=== PATIENT | male | born 1955 | race Caucasian/White ===

== ENCOUNTER → 2023-05-15 | Outpatient (CLI) | payer MEDICARE, BC ==
--- NOTE | 2023-05-15 12:23 | XR ---
EXAMINATION TYPE: XR chest 2V DATE OF EXAM: 05/15/2023 COMPARISON: NONE TECHNIQUE: PA and lateral views submitted. HISTORY: Cough FINDINGS: Large area of lower lobe consolidation and pleural effusion. Biapical pleural thickening. Right lung clear. Heart size normal. Hypertrophic and degenerative change of the spine. 4 culture referring clin ician 12:19 PM 05/25/2023. IMPRESSION: 1. Large area of consolidation and pleural effusion correlate for pneumonia. Empyema in the different ial diagnosis.
== END | disposition home or self-care (01) ==
LOC: RADXRYALE 11:37
PROVIDERS: ATTEND Internal Medicine Gastroenterology
DX: J90 Pleural effusion, not elsewhere classified (principal); R05.9 Cough, unspecified; R91.8 Other nonspecific abnormal finding of lung field
CPT/HCPCS: 71046

== ENCOUNTER 2023-05-16 10:38 | Inpatient (IN) | payer MEDICARE, BC ==
[2023-05-16] MEDS ORDERED: SODIUM CHLORIDE 0.9% 1,000 ML IV STA (13:32)
--- NOTE | 2023-05-16 13:33 | ED ---
General Adult HPI <Rip Prado - Last Filed: 05/16/23 17:12> - General Source: patient Mode of arrival: ambulatory Limitations: no limitations <Zakia Sheehan - Last Filed: 05/21/23 23:52> - General Chief complaint: Upper Respiratory Infection Stated complaint: SOB Time Seen by Provider: 05/16/23 10:50 - History of Present Illness Initial comments: 67-year-old male has a history of hypertension and hyperlipidemia who presents to the emergency department reporting dehydration. States that he follows with a doctor in [place]. The physician completed blood work and it showed an elevated white blood cell count. He questioned whether the patient had any infectious symptoms. He did report that he had a cough. Primary care doctor sent him for an x-ray which [facility] X-ray showed pneumonia. He started him on Levaquin last night. Patient has taken one dose. His physician was concerned that he may be dehydrated and wanted him to get evaluated in the emergency department. Requested that he have a set of vitals obtained as he cannot physically evaluate the patient. Patient does not have a doctor in [place]. He states he has been eating and drinking. No loss of appetite. Denies any weight loss. No abdominal pain. No nausea, vomiting or diarrhea. Denies fevers. No other alleviating, precipitating or modifying factors (Zakia Sheehan) - Related Data Home Medications Medication Instructions Recorded Confirmed Atorvastatin [Lipitor] 10 mg PO DAILY 05/16/23 05/16/23 Ibuprofen [Motrin] 800 mg PO Q8H 05/16/23 05/16/23 Levofloxacin [Levaquin] 750 mg PO DAILY 05/16/23 05/16/23 Olmesartan [Benicar] 20 mg PO DAILY 05/16/23 05/16/23 Allergies Allergy/AdvReac Type Severity Reaction Status Date / Time No Known Allergies Allergy Verified 05/16/23 17:19 Review of Systems ROS Other: All systems not noted in ROS Statement are negative. <Rip Prado - Last Filed: 05/16/23 17:12> ROS Other: All systems not noted in ROS Statement are negative. <Zakia Sheehan - Last Filed: 05/21/23 23:52> ROS Statement: Those systems with pertinent positive or pertinent negative responses have been documented in the HPI. Past Medical History Past Medical History: Hyperlipidemia, Hypertension History of Any Multi-Drug Resistant Organisms: None Reported Past Surgical History: Hernia Repair Past Psychological History: No Psychological Hx Reported Smoking Status: Current every day smoker Past Alcohol Use History: None Reported Past Drug Use History: None Reported <Zakia Sheehan - Last Filed: 05/21/23 23:52> General Exam Limitations: no limitations General appearance: alert, in no apparent distress Head exam: Present: atraumatic, normocephalic, normal inspection Eye exam: Present: normal appearance, PERRL, EOMI. Absent: scleral icterus, conjunctival injection, periorbital swelling ENT exam: Present: normal exam, mucous membranes moist Neck exam: Present: normal inspection. Absent: tenderness, meningismus, lymphadenopathy Respiratory exam: Present: rales (left base), decreased breath sounds (left side). Absent: respiratory distress, wheezes, rhonchi, stridor Cardiovascular Exam: Present: regular rate, normal rhythm, normal heart sounds. Absent: systolic murmur, diastolic murmur, rubs, gallop, clicks GI/Abdominal exam: Present: soft, normal bowel sounds. Absent: distended, tenderness, guarding, rebound, rigid Extremities exam: Present: normal inspection, full ROM, normal capillary refill. Absent: tenderness, pedal edema, joint swelling, calf tenderness Back exam: Present: normal inspection Neurological exam: Present: alert, oriented X3, CN II-XII intact Psychiatric exam: Present: normal affect, normal mood Skin exam: Present: warm, dry, intact, normal color. Absent: rash <Zakia Sheehan - Last Filed: 05/21/23 23:52> Course Vital Signs 05/16/23 05/16/23 05/16/23 10:48 16:41 20:00 Temperature 97.8 F 100.5 F H 102 F H Pulse Rate 91 105 H 106 H Pulse Rate [ Pulse Oximetery ] Pulse Rate [ Radial] Respiratory 16 19 18 Rate Blood Pressure 135/83 145/77 142/92 Blood Pressure [Left Arm Sitting] Blood Pressure [Left Arm Supine] O2 Sat by Pulse 96 94 L 93 L Oximetry 05/16/23 05/17/23 05/17/23 21:00 02:00 06:00 Temperature 100.3 F H 97.9 F Pulse Rate 82 92 Pulse Rate [ Pulse Oximetery ] Pulse Rate [ Radial] Respiratory 20 18 Rate Blood Pressure 119/78 145/93 Blood Pressure [Left Arm Sitting] Blood Pressure [Left Arm Supine] O2 Sat by Pulse 94 L 95 Oximetry 05/17/23 05/17/23 05/17/23 07:52 09:25 13:17 Temperature 98.2 F 98.4 F Pulse Rate Pulse Rate [ Pulse Oximetery ] Pulse Rate [ 100 Radial] Respiratory 16 Rate Blood Pressure Blood Pressure 161/100 [Left Arm Sitting] Blood Pressure [Left Arm Supine] O2 Sat by Pulse 97 96 97 Oximetry 05/17/23 05/17/23 05/17/23 13:36 13:54 14:34 Temperature 101.3 F H Pulse Rate Pulse Rate [ 105 H Pulse Oximetery ] Pulse Rate [ 108 H 94 Radial] Respiratory 16 18 14 Rate Blood Pressure Blood Pressure 158/86 151/83 [Left Arm Sitting] Blood Pressure 153/92 [Left Arm Supine] O2 Sat by Pulse 95 95 Oximetry 05/17/23 05/17/23 15:51 16:32 Temperature 99.0 F 98.5 F Pulse Rate Pulse Rate [ 101 H 96 Pulse Oximetery ] Pulse Rate [ Radial] Respiratory Rate Blood Pressure Blood Pressure [Left Arm Sitting] Blood Pressure 114/69 [Left Arm Supine] O2 Sat by Pulse 94 L Oximetry Medical Decision Making - Lab Data Result diagrams: 05/16/23 13:33 05/16/23 13:33 <Rip Prado - Last Filed: 05/16/23 17:12> - Lab Data Result diagrams: 05/21/23 05:22 05/19/23 06:19 <Zakia Sheehan - Last Filed: 05/21/23 23:52> - Medical Decision Making Patient reevaluated by myself, Dr. Prado. Patient is updated on results and plan. Case was discussed in detail with Dr. Collins, who will admit covering hospital call. Chest x-ray reviewed. CT scans are still pending. There is concern for sepsis diagnosed at 1713. Blood culture and lactic acid and IV antibiotics have all been ordered. Diagnosis: Acute sepsis, acute pneumonia. Sepsis does have potential for life-threatening based of organ dysfunction. (Rip Prado) Was pt. sent in by a medical professional or institution (, PA, LITHOGRAPH PRESS FEEDER, urgent care, hospital, or senior care...) When possible be specific @ -Patient was sent by his primary care doctor Did you speak to anyone other than the patient for history (EMS, parent, family, police, friend...)? What history was obtained from this source @ -No Did you review nursing and triage notes (agree or disagree)? Why? @ -I reviewed and agree with nursing and triage notes Were old charts reviewed (outside hosp., previous admission, EMS record, old EKG, old radiological studies, urgent care reports/EKG's, senior care records)? Report findings @ -I reviewed the x-ray that the patient had completed yesterday Differential Diagnosis (chest pain, altered mental status, abdominal pain women, abdominal pain men, vaginal bleeding, weakness, fever, dyspnea, syncope, head ache, dizziness, GI bleed, back pain, seizure, CVA, palpatations, mental health, musculoskeletal)? @ -Differential Dyspnea: Coronary syndrome, arrhythmia, tamponade, asthma, COPD, pulmonary embolism, pneumonia, pneumothorax, pulmonary effusion, anaphylaxis, diabetic ketoacidosis, flailed chest, pulmonary contusion, diaphragmatic rupture, anemia, neuromuscular, this is not meant to be an all-inclusive list. EKG interpreted by me (3pts min.). @ -Yes and demonstrates sinus tachycardia with a rate of 101. NV interval 136. QRS 106. QTC 396. No ST segment elevation or depression X-rays interpreted by me (1pt min.). @ -Yes and demonstrated a left-sided pleural effusion with possible pneumonia CT interpreted by me (1pt min.). @ -Pending U/S interpreted by me (1pt. min.). @ -None done What testing was considered but not performed or refused? (CT, X-rays, U/S, labs)? Why? @ -None What meds were considered but not given or refused? Why? @ -None Did you discuss the management of the patient with other professionals (rahel smith i.e. JAMES Garcia, LITHOGRAPH PRESS FEEDER, lab, RT, psych nurse, psychotherapist social worker, tourist home keeper, teacher, driver license reviewing officer, major case detective)? Give summary @ -With Dr. Prado who will take over this patients care Was smoking cessation discussed for >3mins.? @ -No Was critical care preformed (if so, how long)? @ -No Were there social determinants of health that impacted care today? How? (Homelessness, low income, unemployed, alcoholism, drug addiction, transportation, low edu. Level, literacy, decrease access to med. care, detention, rehab)? @ -No Was there de-escalation of care discussed even if they declined (Discuss DNR or withdrawal of care, Hospice)? DNR status @ -No What co-morbidities impacted this encounter? (DM, HTN, Smoking, COPD, CAD, Cancer, CVA, ARF, Chemo, Hep., AIDS, mental health diagnosis, sleep apnea, morbid obesity)? @ -htn, hld Was patient admitted / discharged? Hospital course, mention meds given and route, prescriptions, significant lab abnormalities, going to OR and other per tinent info. @ -Upon arrival patient was placed into hallway 10. History and physical exam was performed. IV access is established and laboratory studies are conducted. Chest x-ray was repeated. Does demonstrate a left-sided pleural effusion. Patient has elevated liver enzymes. Requested to complete a CT for which the patient was agreeable. Patient will be signed out to Dr. Prado at this time Undiagnosed new problem with uncertain prognosis? @ -yes Drug Therapy requiring intensive monitoring for toxicity (Heparin, Nitro, Insulin, Cardizem)? @ -No Were any procedures done? @ -No (Zakia Sheehan) - Lab Data Lab Results 05/16/23 05/16/23 05/16/23 Range/Units 13:33 13:33 13:33 WBC 22.6 H (3.8-10.6) k/uL RBC 3.88 L (4.30-5.90) m/uL Hgb 11.9 L (13.0-17.5) gm/dL Hct 35.1 L (39.0-53.0) % MCV 90.5 (80.0-100.0) fL MCH 30.6 (25.0-35.0) pg MCHC 33.8 (31.0-37.0) g/dL RDW 13.0 (11.5-15.5) % Plt Count 515 H (150-450) k/uL MPV 8.2 Neutrophils % (Manual) 72 % Band Neuts % (Manual) 2 % Lymphocytes % (Manual) 13 % Monocytes % (Manual) 12 % Eosinophils % (Manual) 1 % Neutrophils # (Manual) 16.70 H (1.3-7.7) k/uL Lymphocytes # (Manual) 2.94 (1.0-4.8) k/uL Monocytes # (Manual) 2.71 H (0-1.0) k/uL Eosinophils # (Manual) 0.23 (0-0.7) k/uL Nucleated RBCs 0 (0-0) /100 WBC Manual Slide Review Performed RBC Morphology Normal Sodium 136 L (137-145) mmol/L Potassium 5.0 (3.5-5.1) mmol/L Chloride 102 (98-107) mmol/L Carbon Dioxide 21 L (22-30) mmol/L Anion Gap 13 mmol/L BUN 17 (9-20) mg/dL Creatinine 0.76 (0.66-1.25) mg/dL Est GFR (CKD-EPI)AfAm >90 (>60 ml/min/1.73 sqM) Est GFR (CKD-EPI)NonAf >90 (>60 ml/min/1.73 sqM) Glucose 91 (74-99) mg/dL Plasma Lactic Acid Cole 1.2 (0.7-2.0) mmol/L Calcium 8.9 (8.4-10.2) mg/dL Total Bilirubin 0.8 (0.2-1.3) mg/dL AST 154 H (17-59) U/L ALT 216 H (4-49) U/L Alkaline Phosphatase 185 H (38-126) U/L NT-Pro-B Natriuret Pep 201 pg/mL Total Protein 6.9 (6.3-8.2) g/dL Albumin 3.4 L (3.5-5.0) g/dL Disposition Is patient prescribed a controlled substance at d/c from ED?: No Time of Disposition: 17:14 <Rip Prado - Last Filed: 05/16/23 17:12> <Zakia Sheehan - Last Filed: 05/21/23 23:52> Clinical Impression: Pneumonia, Sepsis Disposition: ADMITTED IP TO THIS HOSP Condition: Serious
[2023-05-16 14:50] LABS: HCT 35.1 % (39.0-53.0); HGB 11.9 gm/dL (13.0-17.5); MCH 30.6 pg (25.0-35.0); MCHC 33.8 g/dL (31.0-37.0); MCV 90.5 fL (80.0-100.0); Mean Platelet Volume 8.2; Platelet Count 515 k/uL (150-450); RBC 3.88 m/uL (4.30-5.90); WBC 22.6 k/uL (3.8-10.6)
[2023-05-16 14:51] LABS: ALT 216 U/L (4-49); AST 154 U/L (17-59); African American GFR (CKD) >90 (>60 ml/min/1.73 sqM); Albumin 3.4 g/dL (3.5-5.0); Alkaline Phosphatase 185 U/L (38-126); Anion Gap 13 mmol/L; Blood Urea Nitrogen 17 mg/dL (9-20); Calcium 8.9 mg/dL (8.4-10.2); Carbon Dioxide 21 mmol/L (22-30); Chloride 102 mmol/L (98-107); Glucose 91 mg/dL (74-99); Non-African American GFR(CKD) >90 (>60 ml/min/1.73 sqM); Sodium 136 mmol/L (137-145); Total Bilirubin 0.8 mg/dL (0.2-1.3); Total Protein 6.9 g/dL (6.3-8.2)
[2023-05-16 14:58] LABS: NT-Pro-B-Type Natriuretic Pept 201 pg/mL
--- NOTE | 2023-05-16 15:06 | XR ---
EXAMINATION TYPE: XR chest 2V DATE OF EXAM: 05/16/2023 2:59 PM COMPARISON: Chest radiographs from 05/15/2023 TECHNIQUE: XR chest 2V Frontal and lateral views of the chest. CLINICAL INDICATION:Male, 67 years old with history of difficulty breathing; FINDINGS: Lungs/Pleura: No pneumothorax. Similar large area of consolidation within the left mid and lower lung with associated pleural effusion. Pulmonary vascularity: Unremarkable. Heart/mediastinum: Cardiomediastinal silhouette is partially obscured due to overlying and adjacent o pacities. Musculoskeletal: Multiple level degenerative disc disease changes seen throughout the spine. IMPRESSION: Similar large area of consolidation and pleural effusion within the left mid and lower lung. Correlat e for pneumonia with empyema not excluded.
[2023-05-16 15:31] LABS: Band Neutrophils % 2 %; Eosinophils # (M) 0.23 k/uL (0-0.7); Lymphocytes # (M) 2.94 k/uL (1.0-4.8); Monocytes # (M) 2.71 k/uL (0-1.0); Neutrophils % (M) 72 %; Nucleated Red Blood Cells 0 /100 WBC (0-0); Total Cells Counted 100
[2023-05-16 15:32] LABS: RBC Morphology Normal
[2023-05-16] MEDS ORDERED: cefTRIAXone IN SWFI 1,000 MG/10 ML SYRINGE IVP STA (15:32)
[2023-05-16] MEDS ORDERED: AZITHROMYCIN 500 MG in SODIUM CHLORIDE 0.9% 250 ML IVPB STA (15:33)
[2023-05-16] MEDS ORDERED: PNEUMONIA PROTOCOL UTILIZED 1 EACH MISC PO PRN (17:14)
[2023-05-16] MEDS ORDERED: IPRATROPIUM-ALBUTEROL 3 ML NEB INHALATION PRN (17:14)
[2023-05-16] MEDS: SODIUM CHLORIDE 0.9% 1,000 ML IV SCH (17:19)
--- NOTE | 2023-05-16 17:59 | CT ---
EXAMINATION TYPE: CT abdomen pelvis w con DATE OF EXAM: 05/16/2023 COMPARISON: None INDICATION: sent by pcp for abnormal cxr DLP: 1234.8 mGycm, Automated exposure control for dose reduction was used. CONTRAST: 100 mL of Isovue 370. Study performed without Oral Contrast TECHNIQUE: Axial images were obtained from above the diaphragm to the pubic rami in the axial plane a t 5 mm thick sections. Reconstructed images are reviewed on the computer in the coronal plane. FINDINGS: Limited CT sections are obtained the lung bases. There appears to be a loculated pleural effusion at the left lung base. Right lung base is clear.. CT ABDOMEN: Liver: Normal Spleen: Normal Pancreas: Normal Adrenal glands: The adrenal glands are normal. Gallbladder: Normal Kidneys: No masses are evident. No hydronephrosis is present. No cysts are present. Delayed images were obtained through the kidneys, which remain unremarkable. Aorta: Vascular calcification is within the aorta. Inferior vena cava: Normal. CT PELVIS: Loops of bowel within the abdomen and pelvis are normal. There are loops of bowel which are incom pletely distended or lack oral contrast limiting their evaluation. Appendix: Normal as visualized. Urinary bladder: Normal. Genitourinary structures: Prostate is unremarkable. Osseous structures: No suspicious lytic or sclerotic lesions. IMPRESSION: 1. Loculated pleural effusion left lung base partially visualized within the [id number]. 2. CT abdomen and pelvis without acute radiographic changes.
--- NOTE | 2023-05-16 18:04 | CT ---
CT CHEST FOR PULMONARY EMBOLISM. EXAMINATION TYPE: CT chest angio for PE DATE OF EXAM: 05/16/2023 INDICATION: sent by pcp for abnormal cxr CT DLP: 518.6 mGycm, Automated exposure control for dose reduction was used. CONTRAST: Patient injected with 100 mL of Isovue 370. COMPARISON: TECHNIQUE: CT of the chest is performed on a spiral scan at 2 mm thick sections. Study is performed with intravenous contrast timed for evaluation for pulmonary embolism. This will limit additional po rtions of the evaluation. 3-D MIP images reconstructed by the technologist are reviewed on the compu ter in the coronal and sagittal planes. FINDINGS: No persistent filling defects are evident to suggest an acute pulmonary embolism. Left pulmonary harlan heather are somewhat limited in visualization due to the atelectasis. Multiple small bilateral axillary lymph nodes are present. Shotty lymphadenopathy is within the super ior mediastinum. There are couple of prominent lymph nodes adjacent to the main pulmonary artery bárbara uring 1.1 cm each. Image 60-61 some small hilar adenopathy is present. The ascending aorta diameter a t the level of the main pulmonary artery is 3.8 cm. The main pulmonary artery diameter at the bifurc ation is 3.0 cm. There is a loculated pleural effusion at the left lung base and left midlung. Compressive atelectasis within the left lung is present. There is a 1.7 cm lobular density within the posterior lateral right lung. Series 401 image 97. Addit ional workup for neoplasm is recommended. Limited CT section through the upper abdomen are unremarkable. IMPRESSION: 1. Loculated pleural fluid left lung. Adjacent compressive atelectasis is present. 2. No acute pulmonary embolism. 3. 1.7 cm lobular mass posterior lateral right midlung. Workup for neoplasm is recommended. 4. Multiple shotty lymph nodes within the axillary artery regions and mediastinum. Couple of enlarged lymph nodes or adjacent to the main pulmonary artery.
[2023-05-16] MEDS ORDERED: ACETAMINOPHEN TAB 500 MG TAB PO STA (20:07)
[2023-05-17] MEDS: IBUPROFEN 800 MG TAB PO SCH ×4 (00:58→23:40)
[2023-05-17] MEDS: NICOTINE 21MG/24HR PATCH TRANSDERM SCH ×2 (00:59→09:17)
--- NOTE | 2023-05-17 01:36 | P.HPIM ---
History of Present Illness H&P Date: 05/16/23 Chief Complaint: cough Patient is a 67-year-old male with a past medical history of hypertension, hyperlipidemia, currently everyday smoker was sent to ER by his primary care physician due to concern for pneumonia and dehydration. Patient states that he was seen by his primary care physician at [place] about 2 weeks ago and was noticed that his WBC was elevated. Patient did did have some cough but without any other signs of infection at that time. Patient came to [place] and started having fever, sweats and not feeling well since last weekend. He contacted his primary care physician again and was sent to [facility] for x-ray which showed pneumonia. He was started on antibiotics in the form of Levaquin last night. Patient did take 1 dose. Patients primary care physician concerned about possible dehydration as well and was recommended to go to emergency room for further evaluation. Patient otherwise complains of cough without sputum production. No nausea vomiting or diarrhea. No chest pain. No complaints of shortness of breath. Patient states that he has been having left lower back pain and also left shoulder pain since last Monday and thought it may be due his increased outside work recently. On admission patient was febrile with Tmax 100.5 pulse is 105 and respiration 19 pulse ox 94% on room air. Chest x-ray showed similar large area of consolidation and pleural effusion within the left mid and lower lung. Correlate for pneumonia with emphysema not excluded. EKG showed sinus tachycardia. Laboratory pressure WBC 22.6 hemoglobin 11.9 and platelets 515 Sodium 136 potassium 5.0 chloride 102 bicarb is 21 BUN 17 and creatinine 0.76 and liver enzymes elevated with ALT 216, AST 154 and alk phos 185, LDH 604. proBNP 201 and albumin 3.4. Review of Systems Constitutional: Patient DDF fever and sweating and malaise.. Generalized weakness. Denies any weight loss or loss of appetite. Abdomen: Patient denied any nausea or vomiting or abd. pain Cardiovascular: Patient denies any chest pain or short of breath no palpitations. Respiratory: patient does have cough without sputum production. Mild shortness of breath. Neurologic: Patient denied any numbness or tingling headache. Musculoskeletal: Patient denies any complaints of joint swelling or deformity. Left back pain and shoulder pain Skin: Negative Psychiatric: Negative Endocrine: No heat or cold intolerance. No recent weight gain. Genitourinary: No dysuria or hematuria. All other 14 point ROS negative except the above Past Medical History Past Medical History: Hyperlipidemia, Hypertension History of Any Multi-Drug Resistant Organisms: None Reported Past Surgical History: Hernia Repair Past Psychological History: No Psychological Hx Reported Smoking Status: Current every day smoker Past Alcohol Use History: None Reported Past Drug Use History: None Reported Medications and Allergies Home Medications Medication Instructions Recorded Confirmed Type Atorvastatin [Lipitor] 10 mg PO DAILY 05/16/23 05/16/23 History Ibuprofen [Motrin] 800 mg PO Q8H 05/16/23 05/16/23 History Levofloxacin [Levaquin] 750 mg PO DAILY 05/16/23 05/16/23 History Olmesartan [Benicar] 20 mg PO DAILY 05/16/23 05/16/23 History Allergies Allergy/AdvReac Type Severity Reaction Status Date / Time No Known Allergies Allergy Verified 05/16/23 17:19 Physical Exam Vitals: Vital Signs Temp Pulse Resp BP Pulse Ox 05/16/23 16:41 100.5 F H 105 H 19 145/77 94 L 05/16/23 10:48 97.8 F 91 16 135/83 96 Intake and Output 05/16/23 05/16/23 05/16/23 06:59 14:59 22:59 Other: Weight 97.522 kg PHYSICAL EXAMINATION: Patient is lying in the bed comfortably, no acute distress, awake alert and oriented.. HEENT: Normocephalic. Neck is supple. Pupils reactive. Nostrils clear. Oral cav ity is moist. Neck reveals no JVD, carotid bruits, or thyromegaly. CHEST EXAMINATION: Trachea is central. Symmetrical expansion. Left lower lung scattered coarse sounds. No wheezing. Nonlabored breathing.. CARDIAC: Normal S1, S2 with no gallops. No murmurs ABDOMEN: Soft. Bowel sounds present. Nontender. No organomegaly. No abdominal bruits. Extremities: reveal no edema. No clubbing or cyanosis Neurologically awake, alert, oriented x3 with well-coordinated movements. No focal deficits noted Skin: No rash or skin lesions. Psychiatric: Coperative. Nonsuicidal, Musculoskeletal: No joint swelling or deformity. Normal range of motion. Results CBC & Chem 7: 05/16/23 13:33 05/16/23 13:33 Labs: Abnormal Lab Results - Last 24 Hours (Table) 05/16/23 05/16/23 Range/Units 13:33 13:33 WBC 22.6 H (3.8-10.6) k/uL RBC 3.88 L (4.30-5.90) m/uL Hgb 11.9 L (13.0-17.5) gm/dL Hct 35.1 L (39.0-53.0) % Plt Count 515 H (150-450) k/uL Neutrophils # (Manual) 16.70 H (1.3-7.7) k/uL Monocytes # (Manual) 2.71 H (0-1.0) k/uL Sodium 136 L (137-145) mmol/L Carbon Dioxide 21 L (22-30) mmol/L AST 154 H (17-59) U/L ALT 216 H (4-49) U/L Alkaline Phosphatase 185 H (38-126) U/L Albumin 3.4 L (3.5-5.0) g/dL Thrombosis Risk Factor Assmnt - DVT/VTE Prophylaxis DVT/VTE Prophylaxis: Pharmacologic Prophylaxis ordered Assessment and Plan Assessment: Acute left mid and lower lung pneumonia with large area of consolidation and pleural effusion. Possible underlying malignancy cannot be excluded. Sepsis secondary to pneumonia Elevated liver enzymes Hypertension Hyperlipidemia Currently everyday smoker DVT prophylaxis with heparin subcu Plan: Patient will be continued on antibiotics in the form of ceftriaxone and azithromycin. Gentle IV hydration. CT thorax was ordered to to rule out underlying mass. Follow-up blood cultures. Continue with home medications and pain management. Pulmonary consult for further evaluation. Follow-up repeat CBC and BMP tomorrow. Discussed with the patient at bedside in detail. Time with Patient: Greater than 30
[2023-05-17] MEDS: SODIUM CHLORIDE 0.9% 1,000 ML IV SCH ×3 (03:30→23:41)
--- NOTE | 2023-05-17 07:23 | XR ---
EXAMINATION TYPE: XR chest 2V DATE OF EXAM: 05/17/2023 COMPARISON: 05/16/2023 HISTORY: Shortness of breath TECHNIQUE: Frontal and lateral views of the chest are obtained. FINDINGS: Scattered senescent parenchymal changes noted. Hyperinflation compatible with COPD. Large left sided opacity likely reflects a combination of pleural effusion and underlying infiltrate as well as atelectasis. Heart size is stable. Mediastinal structures are stable and grossly unremarkable. No evidence for hilar prominence. Degenerative changes dorsal spine. IMPRESSION: 1. Large left sided opacity likely reflects a combination of pleural effusion and underlying infiltra te as well as atelectasis. Significant change appreciated.
--- NOTE | 2023-05-17 07:58 | P.PN ---
Subjective Patient is a 67-year-old male with a past medical history of hypertension, hyperlipidemia, currently everyday smoker was sent to ER by his primary care physician due to concern for pneumonia and dehydration. Patient states that he was seen by his primary care physician at [place] about 2 weeks ago and was noticed that his WBC was elevated. Patient did did have some cough but without any other signs of infection at that time. Patient came to [place] and started having fever, sweats and not feeling well since last weekend. He contacted his primary care physician again and was sent to [facility] for x-ray which showed pneumonia. He was started on antibiotics in the form of Levaquin last night. Patient did take 1 dose. Patients primary care physician concerned about possible dehydration as well and was recommended to go to emergency room for further evaluation. Patient otherwise complains of cough without sputum production. No nausea vomiting or diarrhea. No chest pain. No complaints of shortness of breath. Patient states that he has been having left lower back pain and also left shoulder pain since last Monday and thought it may be due his increased outside work recently. On admission patient was febrile with Tmax 100.5 pulse is 105 and respiration 19 pulse ox 94% on room air. Chest x-ray showed similar large area of consolidation and pleural effusion within the left mid and lower lung. Correlate for pneumonia with emphysema not excluded. EKG showed sinus tachycardia. Laboratory pressure WBC 22.6 hemoglobin 11.9 and platelets 515 Sodium 136 potassium 5.0 chloride 102 bicarb is 21 BUN 17 and creatinine 0.76 a nd liver enzymes elevated with ALT 216, AST 154 and alk phos 185, LDH 604. proBNP 201 and albumin 3.4. 05/17/2023 patient was complaining of from back injury when he fell about 3 weeks ago. , After that [facility] [place] [facility]. 2 weeks ago he saw his PCP and [facility] for regular checkup patient was noticed to have leukocytosis but denies any other symptoms.. After patient came from [facility] about a week ago he went to his orthopedic doctor who checked his back pain with x-ray and prescribed Motrin 800 mg 3 times a day. The last Monday he was sweating a lot with high fever 103. He called his PCP on Monday who prescribed him Levaquin after chest x-ray and asked him to come to emergency room. Patient complaining from mild tachypnea but with little clear phlegm. No chest pain only with coughing. He has little diarrhea but feels better. No urinary or neurological symptoms. He smokes about 1 pack per day and he decided to close last Monday and currently he has nicotine patch. He denies alcohol or illicit drugs. Patient is afebrile on admission at 102 he is saturating well on room air Labs showed leukocytosis of 22.6K, hemoglobin 11.9, platelet count 515 BMP is unremarkable Liver enzymes elevated with AST 154 and ALT 216 with lactated dehydrogenase elevated at 600-8. ProBNP is 201. CTA of the chest: Loculated left pleural effusion with adjacent atelectasis. No pulmonary embolism. 1.7 cm lobular mass in the right midlung. And axillary and mediastinal lymphadenopathy On admission patient was started on Zithromax, ceftriaxone, IV fluids and admitted with pulmonary team consult Review of systems CONSTITUTIONAL: No fever, no malaise, no fatigue. HEENT: No recent visual problems or hearing problems. Denied any sore throat. GASTROINTESTINAL: No diarrhea, no nausea, no vomiting, no abdominal pain. Normoactive bowel sounds. NEUROLOGICAL: No headaches, no weakness, no numbness. HEMATOLOGICAL: Denies any bleeding or petechiae. GENITOURINARY: Denies any burning micturition, frequency, or urgency. MUSCULOSKELETAL/RHEUMATOLOGICAL: Denies any joint pain, swelling, or any muscle pain. Active Medications Generic Name Dose Route Start Last Admin Trade Name Freq PRN Reason Stop Dose Admin Albuterol/Ipratropium 3 ml 05/16/23 17:14 Ipratropium-Albuterol 3 Ml Neb INHALATION RT-Q4H PRN shortness of breath Atorvastatin Calcium 10 mg 05/17/23 09:00 Atorvastatin 10 Mg Tab PO DAILY JOSELYN Azithromycin 500 mg 05/17/23 09:00 Azithromycin 500 Mg Tab PO 05/18/23 09:01 DAILY [facility] Protocol Heparin Sodium (Porcine) 5,000 unit 05/17/23 08:00 Heparin Sodium,Porcine 5,000 Unit/Ml 1 Ml Vial SQ Q8HR JOSELYN Sodium Chloride 1,000 mls @ 100 mls/hr 05/16/23 17:15 05/17/23 03:30 Saline 0.9% IV 100 mls/hr .Q10H JOSELYN Administration Ceftriaxone Sodium 2 gm/ 50 mls @ 100 mls/hr 05/17/23 09:00 Sodium Chloride IVPB 05/20/23 09:29 Q24HR JOSELYN Protocol Ibuprofen 800 mg 05/16/23 23:15 05/17/23 00:58 Ibuprofen 800 Mg Tab PO 800 mg Q8H JOSELYN Administration Losartan Potassium 100 mg 05/17/23 09:00 Losartan 50 Mg Tab PO DAILY JOSELYN Miscellaneous Information 1 each 05/16/23 17:14 Pneumonia Protocol Utilized 1 Each Misc PO ONCE PRN Per Protocol Nicotine 1 patch 05/16/23 23:45 05/17/23 00:59 Nicotine 21mg/24hr Patch TRANSDERM 1 patch DAILY JOSELYN Administration Objective - Vital Signs Vital signs: Vital Signs Temp 97.9 F 05/17/23 02:00 Pulse 92 05/17/23 06:00 Resp 18 05/17/23 06:00 BP 145/93 05/17/23 06:00 Pulse Ox 97 05/17/23 07:52 FiO2 Intake & Output 05/16/23 05/17/23 05/17/23 18:59 06:59 18:59 Weight 97.522 kg - Exam GENERAL: The patient is alert and oriented x3, not in any acute distress. Well developed, well nourished. HEENT: Pupils are round and equally reacting to light. EOMI. No scleral icterus. No conjunctival pallor. Normocephalic, atraumatic. No pharyngeal erythema. No thyromegaly. CARDIOVASCULAR: S1 and S2 present. No murmurs, rubs, or gallops. PULMONARY: Chest is clear to auscultation, no wheezing , no crackles. ABDOMEN: Soft, nontender, nondistended, normoactive bowel sounds. No palpable organomegaly. MUSCULOSKELETAL: No joint swelling or deformity. EXTREMITIES: No cyanosis, clubbing, or pedal edema. NEUROLOGICAL: Gross neurological examination did not reveal any focal deficits. SKIN: No rashes. no petechiae. - Labs CBC & Chem 7: 05/16/23 13:33 05/16/23 13:33 Labs: Abnormal Lab Results - Last 24 Hours (Table) 05/16/23 05/16/23 05/17/23 Range/Units 13:33 13:33 13:33 WBC 22.6 H (3.8-10.6) k/uL RBC 3.88 L (4.30-5.90) m/uL Hgb 11.9 L (13.0-17.5) gm/dL Hct 35.1 L (39.0-53.0) % Plt Count 515 H (150-450) k/uL Neutrophils # (Manual) 16.70 H (1.3-7.7) k/uL Monocytes # (Manual) 2.71 H (0-1.0) k/uL Sodium 136 L (137-145) mmol/L Carbon Dioxide 21 L (22-30) mmol/L AST 154 H (17-59) U/L ALT 216 H (4-49) U/L Alkaline Phosphatase 185 H (38-126) U/L Lactate Dehydrogenase 608 H (120-246) U/L Albumin 3.4 L (3.5-5.0) g/dL Assessment and Plan Assessment: Right midlung lung mass with axillary and mediastinal lymphadenopathy, patient is aware Sepsis with leukocytosis and fever Community acquired pneumonia, failed outpatient therapy Nicotine dependence Hypertension Hyperlipidemia Plan: Continue with antibiotic Follow-up culture results Pulmonary team consult Labs and medication were reviewed.. Continue same treatment. Continue with symptomatic treatment. Resume home medication. Monitor labs and vitals. DVT and GI prophylaxis. Further recommendations as per clinical course of the patient DVT prophylaxis: Subcutaneous heparin GI Prophylaxis: Pepcid PT/OT: Pending Prognosis is guarded
--- NOTE | 2023-05-17 08:04 | P.CNPUL ---
History of Present Illness Consult date: 05/17/23 Requesting physician: Rip Prado Reason for consult: pleural effusion Chief complaint: Left-sided back pain and fevers History of present illness: I am seeing this patient in [facility] today 05/17/2023 in the emergency room for a loculated left-sided pleural effusion. Patient is a 67-year-old male with past medical history significant for hypertension and hyperlipidemia. Patient lives in [place], and plans to move to [place] this Fall. His primary care provider is out of [facility]. Patient states that he started to have left-sided back pain and left shoulder pain approximately 3 weeks ago. He originally attributed this to yard work. Starting last week, he began to develop fevers, chills, and shortness of breath. He denies any cough or hemoptysis. He denies any nausea, vomiting, constipation, abdominal pain. Appetite has been good. Denies any weight loss. Denies any prior history of cancer. Patient does smoke approximately 1 pack per day. Patient did end up going to an urgent care clinic 2 days ago. He was felt to have left-sided pneumonia, and was started on a course of Levaquin. He only completed one dose of Levaquin, and came to the emergency room for worsening symptoms yesterday afternoon. A follow-up chest CTA demonstrated a loculated left pleural effusion with adjacent compressive atelectasis. There is pleural thickening. There was mild lymphadenopathy demonstrated within the superior mediastinum, hilum, and bilateral axillary nodes. There was also a 1.7 cm lobe either density within the posterior lateral right lung, which will require follow-up. No prior imaging for comparison. An abdominal and pelvis CT with contrast did not demonstrate any acute intra- abdominal abnormalities. CBC on arrival showed some leukocytosis with a WBC co unt of 22.6, hgb 11.9, hematocrit 35.1, platelets 515. CMP on arrival showed sodium 136, potassium 5, chloride 102, serum bicarbonate 21, BUN 17, creatinine 0.76, glucose 91. Normal saline is infusing at 100 mL per hour. LFTs were mildly elevated with an AST of 154, ALT of 216, ALP of 185. Patient has been empirically started on a combination of azithromycin and Rocephin. He remains febrile with a T-max of 102F on the hospital. He is currently sitting up in bed, on room air, in no acute distress. He appears nontoxic and is symptomatically stable. He will be admitted to the general medical floor. Review of Systems REVIEW OF SYSTEMS: CONSTITUTIONAL: Denies any recent significant weight loss or weight gain. EYES: Denies change in vision. EARS, NOSE, MOUTH, THROAT: Denies headaches, denies sore throat. CARDIOVASCULAR: Denies chest pain, palpitations or syncopal episodes. RESPIRATORY: See HPI GASTROINTESTINAL: Denies change in appetite, abdominal pain, nausea and vomiting, or diarrhea GENITOURINARY: Denies hematuria, denies infections. MUSKULOSKELETAL: Denies pain, denies swelling. INTEGUMENTARY: Denies rash, denies eczema. NEUROLOGICAL: Denies recent memory loss, no recent seizure activity. PSYCHIATRIC: Denies anxiety, denies depression. HEMATOLOGIC/LYMPHATIC: Denies anemia, denies enlarged lymph node Past Medical History Past Medical History: Hyperlipidemia, Hypertension History of Any Multi-Drug Resistant Organisms: None Reported Past Surgical History: Hernia Repair Past Psychological History: No Psychological Hx Reported Smoking Status: Current every day smoker Past Alcohol Use History: None Reported Past Drug Use History: None Reported Medications and Allergies Home Medications Medication Instructions Recorded Confirmed Type Atorvastatin [Lipitor] 10 mg PO DAILY 05/16/23 05/16/23 History Ibuprofen [Motrin] 800 mg PO Q8H 05/16/23 05/16/23 History Levofloxacin [Levaquin] 750 mg PO DAILY 05/16/23 05/16/23 History Olmesartan [Benicar] 20 mg PO DAILY 05/16/23 05/16/23 History Allergies Allergy/AdvReac Type Severity Reaction Status Date / Time No Known Allergies Allergy Verified 05/16/23 17:19 Physical Exam Vitals: Vital Signs Temp Pulse Resp BP Pulse Ox 05/16/23 21:00 100.3 F H 05/16/23 20:00 102 F H 106 H 18 142/92 93 L 05/16/23 16:41 100.5 F H 105 H 19 145/77 94 L 05/16/23 10:48 97.8 F 91 16 135/83 96 Intake and Output 05/16/23 05/16/23 05/17/23 14:59 22:59 06:59 Other: Weight 97.522 kg GENERAL EXAM: Alert, 67-year-old white male appearing stated age , comfortable in no apparent distress. HEAD: Normocephalic and atraumatic EYES: Normal reaction of pupils, equal size. NOSE: Clear with pink turbinates. THROAT: No erythema or exudates. NECK: No masses, no JVD. CHEST: No chest wall deformity. LUNGS: There is diminished left lower lung sounds. No wheezes, rhonchi, crackles. On room air. No conversational dyspnea or accessory muscle use.. CVS: S1 and S2 normal with no audible murmur, regular rhythm. No extra heart sounds ABDOMEN: No hepatosplenomegaly, active bowel sounds, no guarding or rigidity. SPINE: No scoliosis or deformity SKIN: No rashes CENTRAL NERVOUS SYSTEM: No focal deficits, tone is normal in all 4 extremities. EXTREMITIES: There is no peripheral edema, clubbing, or cyanosis. Peripheral pulses are intact. Results - Laboratory Findings CBC and BMP: 05/16/23 13:33 05/16/23 13:33 Abnormal lab findings: Abnormal Labs 05/16/23 05/16/23 13:33 13:33 WBC 22.6 H RBC 3.88 L Hgb 11.9 L Hct 35.1 L Plt Count 515 H Neutrophils # (Manual) 16.70 H Monocytes # (Manual) 2.71 H Sodium 136 L Carbon Dioxide 21 L AST 154 H ALT 216 H Alkaline Phosphatase 185 H Albumin 3.4 L - Diagnostic Findings Chest x-ray: image reviewed CT scan - chest: image reviewed Assessment and Plan Assessment: Community acquired pneumonia and loculated left-sided pleural effusion. Chest CTA demonstrated a loculated left pleural effusion with adjacent compressive atelectasis. There is pleural thickening. There was mild lymphadenopathy demonstrated within the superior mediastinum, hilum, and bilateral axillary nod es. There was also a 1.7 cm lobular density within the posterior lateral right lung, which will require follow-up. Malignancy is not excluded. No prior imaging for comparison. Leukocytosis Right pulmonary nodule, measuring 1.7 cm, as demonstrated on chest CTA Chronic and ongoing tobacco dependence Benign essential hypertension Hyperlipidemia Mild transaminitis, undetermined significance, the patient did recently start on statins Plan: Patient's medications, labs, imaging reviewed On room air Recommend IR consult with pleural drainage catheter and thrombolytics. Continue empiric antibiotics Pulmonary nodule will need outpatient follow-up, no prior imaging for comparison Smoking cessation counseling performed Nicotine replacement offered We will continue to follow, and further recommendations are forthcoming. I have personally seen and examined the patient, performed the documentation and the assessment and plan as written. Number of minutes spent on the visit:20
[2023-05-17] MEDS ORDERED: AZITHROMYCIN 500 MG TAB PO SCH (09:00)
[2023-05-17] MEDS: ATORVASTATIN 10 MG TAB PO SCH (09:18)
[2023-05-17] MEDS: LOSARTAN 50 MG TAB PO SCH (09:19)
[2023-05-17 10:36] LABS: Basophils # (A) 0.1 k/uL (0-0.2); Basophils % (A) 0 %; Eosinophils # (A) 0.1 k/uL (0-0.7); Eosinophils % (A) 1 %; HCT 36.4 % (39.0-53.0); HGB 11.7 gm/dL (13.0-17.5); Hypochromasia Slight; Lymphocytes # (A) 1.2 k/uL (1.0-4.8); Lymphocytes % (A) 6 %; MCH 29.6 pg (25.0-35.0); MCHC 32.1 g/dL (31.0-37.0); MCV 92.2 fL (80.0-100.0); Mean Platelet Volume 8.1; Monocytes # (A) 1.1 k/uL (0-1.0); Monocytes % (A) 5 %; Neutrophils # (A) 17.9 k/uL (1.3-7.7); Neutrophils % (A) 86 %; Platelet Count 509 k/uL (150-450); RBC 3.94 m/uL (4.30-5.90); RDW 13.3 % (11.5-15.5); WBC 20.8 k/uL (3.8-10.6)
[2023-05-17 10:44] LABS: Prothrombin Time 10.9 sec (9.0-12.0)
[2023-05-17 10:52] LABS: African American GFR (CKD) >90 (>60 ml/min/1.73 sqM); Anion Gap 12 mmol/L; Blood Urea Nitrogen 16 mg/dL (9-20); Calcium 8.9 mg/dL (8.4-10.2); Carbon Dioxide 22 mmol/L (22-30); Chloride 103 mmol/L (98-107); Glucose 160 mg/dL (74-99); Non-African American GFR(CKD) >90 (>60 ml/min/1.73 sqM); Potassium 4.6 mmol/L (3.5-5.1); Sodium 137 mmol/L (137-145)
[2023-05-17] MEDS ORDERED: AMPICILLIN-SULBACTAM 1.5 GM in SODIUM CHLORIDE 0.9% 50 ML IVPB SCH (12:00)
[2023-05-17] MEDS: HEPARIN SODIUM,PORCINE 5,000 UNIT/ML 1 ML VIAL SQ SCH ×3 (14:09→23:41)
[2023-05-17] MEDS ORDERED: ALTEPLASE 10 MG in SODIUM CHLORIDE 0.9% 50 ML IRRIGATION ONE (14:11)
[2023-05-17] MEDS ORDERED: DORNASE ALFA 5 MG in SODIUM CHLORIDE 0.9% 50 ML IRRIGATION ONE (14:11)
--- NOTE | 2023-05-17 14:25 | P.GSCN ---
History of Present Illness Consult date: 05/17/23 Reason for Consult: Loculated pleural effusion Requesting physician: Michelle Real History of present illness: This is a 67-year-old gentleman who follows with an outside care provider in [place]. He has a previous medical history of hypertension, hyperlipidemia, prediabetes, current tobacco dependence, occasional marijuana use, and family history of heart disease. The patient reports he developed some back pain after exertion about 3 weeks ago. He traveled to [place] and decided to get his annual checkup with his physician there. He was noted to have a mildly elevated white blood cell count. When he came back to [place] and he saw an orthopedic doctor who did a chest x-ray and prescribed Motrin for his back pain per the patient. Apparently last Monday he developed chills, fever, significant diaphoresis. He did call his primary care physician to send him in order for antibiotics as well as a chest x-ray. Subsequently he requested the patient report to the emergency room for evaluation and treatment. The patient has denied any shortness of breath. Chest x-ray demonstrated large area of cons olidation and pleural effusion was in the left mid and lower lung. CTA confirmed loculated pleural effusion in the left lung with adjacent compressive atelectasis as well as a 1.7 cm lobular mass posterior lateral right mid lung. Patient's WBC was elevated at 22.6 with 2% bands, AST and ALT were also elevated. Lactic acid was normal at 1.2. The patient did have a temperature as high as 102 here in the hospital, reportedly as high as 103.4 at home. He was started on IV antibiotics and admitted for evaluation and treatment with consultation placed to pulmonology for pneumonia and sepsis. Subsequently interventional radiology was consulted for placement of pigtail catheter and cardiothoracic surgery was consulted for lytic instillation. Review of Systems Review of systems was completed and was negative except as noted - Constitutional Constitutional Comment(s): Diaphoresis Reports fever Past Medical History Past Medical History: Hyperlipidemia, Hypertension Additional Past Medical History / Comment(s): Prediabetic with hemoglobin A1c 6.2% History of Any Multi-Drug Resistant Organisms: None Reported Past Surgical History: Hernia Repair Past Anesthesia/Blood Transfusion Reactions: No Reported Reaction Past Psychological History: No Psychological Hx Reported Smoking Status: Current every day smoker Past Alcohol Use History: Occasional Past Drug Use History: Marijuana - Past Family History Mother Family Medical History: Myocardial Infarction (MD) Father Family Medical History: Coronary Artery Disease (CAD) Additional Family Medical History / Comment(s): from coronary artery disease at 74 years old Medications and Allergies Home Medications Medication Instructions Recorded Confirmed Type Atorvastatin [Lipitor] 10 mg PO DAILY 05/16/23 05/16/23 History Ibuprofen [Motrin] 800 mg PO Q8H 05/16/23 05/16/23 History Levofloxacin [Levaquin] 750 mg PO DAILY 05/16/23 05/16/23 History Olmesartan [Benicar] 20 mg PO DAILY 05/16/23 05/16/23 History Allergies Allergy/AdvReac Type Severity Reaction Status Date / Time No Known Allergies Allergy Verified 05/16/23 17:19 Surgical - Exam Vital Signs Temp Pulse Resp BP Pulse Ox 97.8 F 91 16 135/83 96 05/16/23 10:48 05/16/23 10:48 05/16/23 10:48 05/16/23 10:48 05/16/23 10:48 CONSTITUTIONAL: Awake and alert, appears comfortable, cooperative, well- developed, well-nourished, no pain, no acute distress EYES: Pupils equal, round, reactive to light, normal ocular movement ENT: Moist mucous membranes without oral lesions present NECK: No masses, no bruits, trachea midline RESPIRATORY: Lungs sounds diminished on the left. Respirations even, nonlabored. Currently on room air with oxygen saturation 95%. Strong cough. No chest wall deformities. No clubbing or cyanosis present CARDIOVASCULAR: S1, S2 present. Regular rate and rhythm, sinus rhythm on telemetry. Palpable peripheral pulses bilaterally. No edema present. No calf pain or tenderness noted. No significant lower extremity varicosities noted. Left radial Michael's test less than 8 seconds. GASTROINTESTINAL: Abdomen soft, nontender, nondistended without masses or organomegaly noted. There is no rebound or guarding present. Active bowel sounds present 4 quadrants. GENITOURINARY: Deferred INTEGUMENTARY: Skin is warm and dry with evidence of good perfusion. NEUROLOGIC: Cranial nerves II through XII intact, normal coordination, no obvious motor or sensory deficits, speech is normal MUSKULOSKELETAL: Able to move all extremities, strength equal bilaterally, normal posture PSYCHIATRIC: Alert and oriented to person place and time, appropriate affect, intact judgment and insight Results - Labs 05/17/23 09:58 05/17/23 09:58 Abnormal Lab Results - Last 24 Hours (Table) 05/16/23 05/16/23 05/17/23 Range/Units 13:33 13:33 09:58 WBC 22.6 H 20.8 H (3.8-10.6) k/uL RBC 3.88 L 3.94 L (4.30-5.90) m/uL Hgb 11.9 L 11.7 L (13.0-17.5) gm/dL Hct 35.1 L 36.4 L (39.0-53.0) % Plt Count 515 H 509 H (150-450) k/uL Neutrophils # 17.9 H (1.3-7.7) k/uL Neutrophils # (Manual) 16.70 H (1.3-7.7) k/uL Monocytes # 1.1 H (0-1.0) k/uL Monocytes # (Manual) 2.71 H (0-1.0) k/uL Sodium 136 L (137-145) mmol/L Carbon Dioxide 21 L (22-30) mmol/L Glucose (74-99) mg/dL AST 154 H (17-59) U/L ALT 216 H (4-49) U/L Alkaline Phosphatase 185 H (38-126) U/L Lactate Dehydrogenase (120-246) U/L Albumin 3.4 L (3.5-5.0) g/dL 05/17/23 05/17/23 Range/Units 09:58 13:33 WBC (3.8-10.6) k/uL RBC (4.30-5.90) m/uL Hgb (13.0-17.5) gm/dL Hct (39.0-53.0) % Plt Count (150-450) k/uL Neutrophils # (1.3-7.7) k/uL Neutrophils # (Manual) (1.3-7.7) k/uL Monocytes # (0-1.0) k/uL Monocytes # (Manual) (0-1.0) k/uL Sodium (137-145) mmol/L Carbon Dioxide (22-30) mmol/L Glucose 160 H (74-99) mg/dL AST (17-59) U/L ALT (4-49) U/L Alkaline Phosphatase (38-126) U/L Lactate Dehydrogenase 608 H (120-246) U/L Albumin (3.5-5.0) g/dL Diabetes panel 05/16/23 05/17/23 05/17/23 Range/Units 13:33 09:58 13:33 Sodium 136 L 137 (137-145) mmol/L Potassium 5.0 4.6 (3.5-5.1) mmol/L Chloride 102 103 (98-107) mmol/L Carbon Dioxide 21 L 22 (22-30) mmol/L BUN 17 16 (9-20) mg/dL Creatinine 0.76 0.67 (0.66-1.25) mg/dL Glucose 91 160 H (74-99) mg/dL Calcium 8.9 8.9 (8.4-10.2) mg/dL AST 154 H (17-59) U/L ALT 216 H (4-49) U/L Alkaline Phosphatase 185 H (38-126) U/L Total Protein 6.9 7.0 (6.3-8.2) g/dL Albumin 3.4 L (3.5-5.0) g/dL Calcium panel 05/16/23 05/17/23 Range/Units 13:33 09:58 Calcium 8.9 8.9 (8.4-10.2) mg/dL Albumin 3.4 L (3.5-5.0) g/dL Pituitary panel 05/16/23 05/17/23 Range/Units 13:33 09:58 Sodium 136 L 137 (137-145) mmol/L Potassium 5.0 4.6 (3.5-5.1) mmol/L Chloride 102 103 (98-107) mmol/L Carbon Dioxide 21 L 22 (22-30) mmol/L BUN 17 16 (9-20) mg/dL Creatinine 0.76 0.67 (0.66-1.25) mg/dL Glucose 91 160 H (74-99) mg/dL Calcium 8.9 8.9 (8.4-10.2) mg/dL Adrenal panel 05/16/23 05/17/23 05/17/23 Range/Units 13:33 09:58 13:33 Sodium 136 L 137 (137-145) mmol/L Potassium 5.0 4.6 (3.5-5.1) mmol/L Chloride 102 103 (98-107) mmol/L Carbon Dioxide 21 L 22 (22-30) mmol/L BUN 17 16 (9-20) mg/dL Creatinine 0.76 0.67 (0.66-1.25) mg/dL Glucose 91 160 H (74-99) mg/dL Calcium 8.9 8.9 (8.4-10.2) mg/dL Total Bilirubin 0.8 (0.2-1.3) mg/dL AST 154 H (17-59) U/L ALT 216 H (4-49) U/L Alkaline Phosphatase 185 H (38-126) U/L Total Protein 6.9 7.0 (6.3-8.2) g/dL Albumin 3.4 L (3.5-5.0) g/dL - Imaging Chest x-ray: report reviewed, image reviewed CT scan - chest: report reviewed, image reviewed Assessment and Plan Assessment: Loculated left-sided pleural effusion Febrile illness with leukocytosis, most likely community-acquired pneumonia Transaminitis History of hypertension Hyperlipidemia Prediabetes, hemoglobin A1c 6.2 % Current tobacco dependence Occasional marijuana use Family history of heart disease Plan: The patient was seen and examined sitting on the cart in the emergency room in no acute distress. Denies pain currently, denies any shortness of breath. He is oxygenating well on room air. The case was discussed in detail with Dr. Lyman who reviewed chest x-ray and CAT scan films. Once pigtail catheter has been placed we will instill lytics daily and monitor for response. Continue antibiotics. Increase activity, ambulate as tolerated. Incentive spirometry ordered and should be encouraged. We'll review chest x-ray again in the morning. Medical management of other comorbidities per internal medicine, pul monology. More recommendations to follow. Thank you Dr. Real for this consult, we will continue to follow along with you. I have personally seen and examined the patient, performed the documentation and the assessment and plan as written. Number of minutes spent on the visit: 30. DIA Whiteside
[2023-05-17] MEDS: ACETAMINOPHEN TAB 325 MG TAB PO PRN (15:04)
--- NOTE | 2023-05-17 15:15 | US ---
Ultrasound-guided left chest tube insertion DATE OF EXAM: 05/17/2023 CLINICAL HISTORY: Left loculated pleural effusion and possible empyema The procedure was discussed with the patient. The risks, complications, benefits, and alternatives we re discussed and any questions were answered. Informed consent was obtained. The patient was placed supine on the ultrasound table and prepped and draped in the usual sterile fas hion. All elements of maximal barrier and sterile technique were utilized. Under ultrasound guidance, access into the pleural space was obtained, via thoracentesis catheter and direct ultrasound guidance. Approximately liters of straw-colored fluid was removed. Pathology pending. The patient was stable throughout the procedure and remained stable upon discharge from Department of Radiology. IMPRESSION: 1. Successful left chest tube insertion under ultrasound guidance.
[2023-05-17 20:14] LABS: Hepatitis A Antibody IgM Nonreactive; Hepatitis B Core IgM Nonreactive; Hepatitis B Surface Antigen Nonreactive; Hepatitis C IgG Antibody Nonreactive
[2023-05-17] MEDS: AMPICILLIN-SULBACTAM 1.5 GM in SODIUM CHLORIDE 0.9% 50 ML IVPB SCH (21:40)
[2023-05-18] MEDS: AMPICILLIN-SULBACTAM 1.5 GM in SODIUM CHLORIDE 0.9% 50 ML IVPB SCH ×4 (02:15→20:32)
[2023-05-18 02:53] LABS: Total Protein 5.8 d/dL (6.2-8.2)
[2023-05-18 05:46] LABS: Appearance,BF Cloudy (Clear)
[2023-05-18 06:23] LABS: T. Protein, Body Fluid Source Pleural fluid; Total Protein, Body Fluid 2720 mg/dL
[2023-05-18] MEDS: IBUPROFEN 800 MG TAB PO SCH ×3 (06:34→20:19)
[2023-05-18 07:18] LABS: Glucose, BF Source Pleural fluid; Glucose, Body Fluid <2 mg/dL
[2023-05-18 07:21] LABS: LDH, Body Fluid Source Pleural fluid
[2023-05-18] MEDS: FAMOTIDINE 20 MG/2 ML VIAL IV SCH ×2 (08:09→20:31)
[2023-05-18] MEDS: ATORVASTATIN 10 MG TAB PO SCH (08:09)
[2023-05-18] MEDS: LOSARTAN 50 MG TAB PO SCH (08:09)
[2023-05-18] MEDS: HEPARIN SODIUM,PORCINE 5,000 UNIT/ML 1 ML VIAL SQ SCH ×3 (08:09→20:33)
[2023-05-18] MEDS ORDERED: ALTEPLASE 10 MG in SODIUM CHLORIDE 0.9% 50 ML IRRIGATION ONE (08:30)
[2023-05-18] MEDS ORDERED: DORNASE ALFA 5 MG in SODIUM CHLORIDE 0.9% 50 ML IRRIGATION ONE (08:30)
--- NOTE | 2023-05-18 09:13 | XR ---
EXAMINATION TYPE: XR chest 1V portable DATE OF EXAM: 05/18/2023 Comparison: 05/17/2023 Clinical History: 67-year-old male effusion Findings: Left-sided pleural catheter remains in place. A moderate effusion remains on the left though decrease d from prior exam. Suspect some air within the pleural cavity at the site of the fusion as well. Righ t lung and pleural space appear clear. Ongoing partial obscuration of the left heart margin. Impression: Left-sided pleural catheter in place. There is decreasing but still sizable moderate left pleural eff usion with adjacent atelectasis and/or consolidation. Suspect some air introduced into the pleural ca vity here.
[2023-05-18] MEDS ORDERED: HYDROmorphone 0.5 MG/0.5 ML SYRINGE IVP STA (13:20)
--- NOTE | 2023-05-18 13:54 | P.PN ---
Subjective Progress Note Date: 05/18/23 I am seeing this patient in [facility] today 05/17/2023 in the emergency room for a loculated left-sided pleural effusion. Patient is a 67-year-old male with past medical history significant for hypertension and hyperlipidemia. Patient lives in [place], and plans to move to [place] this Fall. His primary care provider is out of [facility]. Patient states that he started to have left-sided back pain and left shoulder pain approximately 3 weeks ago. He originally attributed this to yard work. Starting last week, he began to develop fevers, chills, and shortness of breath. He denies any cough or hemoptysis. He denies any nausea, vomiting, constipation, abdominal pain. Appetite has been good. Denies any weight loss. Denies any prior history of cancer. Patient does smoke approximately 1 pack per day. Patient did end up going to an urgent care clinic 2 days ago. He was felt to have left-sided pneumonia, and was started on a course of Levaquin. He only completed one dose of Levaquin, and came to the emergency room for worsening symptoms yesterday afternoon. A follow-up chest CTA demonstrated a loculated left pleural effusion with adjacent compressive atelectasis. There is pleural thickening. There was mild lymphadenopathy demonstrated within the superior mediastinum, hilum, and bilateral axillary nodes. There was also a 1.7 cm lobe either density within the posterior lateral right lung, which will require follow-up. No prior imaging for comparison. An abdominal and pelvis CT with contrast did not demonstrate any acute intra- abdominal abnormalities. CBC on arrival showed some leukocytosis with a WBC count of 22.6, hgb 11.9, hematocrit 35.1, platelets 515. CMP on arrival showed sodium 136, potassium 5, chloride 102, serum bicarbonate 21, BUN 17, creatinine 0.76, glucose 91. Normal saline is infusing at 100 mL per hour. LFTs were mildly elevated with an AST of 154, ALT of 216, ALP of 185. Patient has been empirically started on a combination of azithromycin and Rocephin. He remains febrile with a T-max of 102F on the hospital. He is currently sitting up in bed, on room air, in no acute distress. He appears nontoxic and is symptomatically stable. He will be admitted to the general medical floor. The patient is seen today 05/18/2023 in follow-up on the regular medical floor. He is currently sitting up in a chair at the bedside. Awake and alert in no acute distress. Unfortunately, his pigtail catheter was accidentally dislodged early this morning. He did have 900 ML's of purulent drainage out prior to that. Definitely exudate. Protein 2.7. LDH greater than 2500. He did receive alteplase/dornase infusion yesterday. His x-ray did reveal decreasing but still sizable moderate left pleural effusion with adjacent atelectasis and/or consolidation. Pleural fluid cultures/cytology pending. Blood cultures pending. He is continued on Unasyn. Heparin for DVT prophylaxis. NicoDerm patch in place. Objective - Vital Signs Vital signs: Vital Signs Temp 97.6 F 05/18/23 12:54 Pulse 97 05/18/23 13:25 Resp 16 05/18/23 13:25 BP 103/66 05/18/23 13:25 Pulse Ox 97 05/18/23 13:25 FiO2 Intake & Output 05/17/23 05/18/23 05/18/23 18:59 06:59 18:59 Output Total 750 150 Balance -750 -150 Weight 97.522 kg Output: Chest Tube Drainage 750 150 Chest Tube Left Posterior 750 150 Chest Other: Voiding Method Toilet Toilet Urinal # Voids 4 2 - Exam GENERAL EXAM: Alert, very pleasant 67-year-old male, sitting up in a chair, on room air, comfortable in no apparent distress. HEAD: Normocephalic and atraumatic EYES: Normal reaction of pupils, equal size. NOSE: Clear with pink turbinates. THROAT: No erythema or exudates. NECK: No masses, no JVD. CHEST: No chest wall deformity. LUNGS: There is diminished left lower lung sounds. No wheezes, rhonchi, crackles. CVS: S1 and S2 normal with no audible murmur, regular rhythm. No extra heart sounds ABDOMEN: No hepatosplenomegaly, active bowel sounds, no guarding or rigidity. SPINE: No scoliosis or deformity SKIN: No rashes CENTRAL NERVOUS SYSTEM: No focal deficits, tone is normal in all 4 extremities. EXTREMITIES: There is no peripheral edema, clubbing, or cyanosis. Peripheral pulses are intact. - Labs CBC & Chem 7: 05/17/23 09:58 05/17/23 09:58 Labs: Abnormal Lab Results - Last 24 Hours (Table) 05/17/23 05/17/23 Range/Units 13:56 20:11 Total Protein 5.8 L (6.2-8.2) d/dL Fluid Appearance Cloudy A (Clear) Microbiology - Last 24 Hours (Table) 05/16/23 16:15 Blood Culture - Preliminary Blood 05/16/23 16:00 Blood Culture - Preliminary Blood Assessment and Plan Assessment: Community acquired pneumonia and loculated left-sided pleural effusion. Chest CTA demonstrated a loculated left pleural effusion with adjacent compressive atelectasis. There is pleural thickening. There was mild lymphadenopathy demonstrated within the superior mediastinum, hilum, and bilateral axillary nodes. There was also a 1.7 cm lobular density within the posterior lateral right lung, which will require follow-up. Malignancy is not excluded. Status post pigtail catheter placement on 05/17/2023 and status post alteplase/dornase infusion 1. 900 mL of purulent drainage returned. Unfortunately the catheter came out early this morning and will need to be replaced today 05/18/2023. Fluid exudative. Total protein 2.7. LDH greater than 2500. Cultures and cytology pending. Currently on Unasyn. Leukocytosis secondary to above Right pulmonary nodule, measuring 1.7 cm, as demonstrated on chest CTA Chronic and ongoing tobacco dependence Benign essential hypertension Hyperlipidemia Mild transaminitis, undetermined significance, the patient did recently start on statins Plan: The patient was seen and evaluated Chest x-ray and medications reviewed Pigtail catheter inadvertently dislodged Plans to be replaced today Continue to Pleur-evac and wall suction Lytic infusion per CT services Follow up chest x-ray in a.m. We will continue to follow I have personally seen and examined the patient, performed the documentation and the assessment and plan as written. Number of minutes spent on the visit: 10.
--- NOTE | 2023-05-18 14:21 | P.PN ---
Subjective Patient is a 67-year-old male with a past medical history of hypertension, hyperlipidemia, currently everyday smoker was sent to ER by his primary care physician due to concern for pneumonia and dehydration. Patient states that he was seen by his primary care physician at [place] about 2 weeks ago and was noticed that his WBC was elevated. Patient did did have some cough but without any other signs of infection at that time. Patient came to [place] and started having fever, sweats and not feeling well since last weekend. He contacted his primary care physician again and was sent to [facility] for x-ray which showed pneumonia. He was started on antibiotics in the form of Levaquin last night. Patient did take 1 dose. Patients primary care physician concerned about possible dehydration as well and was recommended to go to emergency room for further evaluation. Patient otherwise complains of cough without sputum production. No nausea vomiting or diarrhea. No chest pain. No complaints of shortness of breath. Patient states that he has been having left lower back pain and also left shoulder pain since last Monday and thought it may be due his increased outside work recently. On admission patient was febrile with Tmax 100.5 pulse is 105 and respiration 19 pulse ox 94% on room air. Chest x-ray showed similar large area of consolidation and pleural effusion within the left mid and lower lung. Correlate for pneumonia with emphysema not excluded. EKG showed sinus tachycardia. Laboratory pressure WBC 22.6 hemoglobin 11.9 and platelets 515 Sodium 136 potassium 5.0 chloride 102 bicarb is 21 BUN 17 and creatinine 0.76 a nd liver enzymes elevated with ALT 216, AST 154 and alk phos 185, LDH 604. proBNP 201 and albumin 3.4. 05/17/2023 patient was complaining of from back injury when he fell about 3 weeks ago. , After that [facility] [place] [facility]. 2 weeks ago he saw his PCP and [facility] for regular checkup patient was noticed to have leukocytosis but denies any other symptoms.. After patient came from [facility] about a week ago he went to his orthopedic doctor who checked his back pain with x-ray and prescribed Motrin 800 mg 3 times a day. The last Monday he was sweating a lot with high fever 103. He called his PCP on Monday who prescribed him Levaquin after chest x-ray and asked him to come to emergency room. Patient complaining from mild tachypnea but with little clear phlegm. No chest pain only with coughing. He has little diarrhea but feels better. No urinary or neurological symptoms. He smokes about 1 pack per day and he decided to close last Monday and currently he has nicotine patch. He denies alcohol or illicit drugs. Patient is afebrile on admission at 102 he is saturating well on room air Labs showed leukocytosis of 22.6K, hemoglobin 11.9, platelet count 515 BMP is unremarkable Liver enzymes elevated with AST 154 and ALT 216 with lactated dehydrogenase elevated at 600-8. ProBNP is 201. CTA of the chest: Loculated left pleural effusion with adjacent atelectasis. No pulmonary embolism. 1.7 cm lobular mass in the right midlung. And axillary and mediastinal lymphadenopathy On admission patient was started on Zithromax, ceftriaxone, IV fluids and admitted with pulmonary team consult 05/18/2023 Patient sits up in chair feels better. His dyspnea is better. No chest pain he has difficulty this morning. He had pigtail catheter placed yesterday but fell off today Vitals stable oxygen saturation is acceptable. No more fever. Chest x-ray showing improvement No labs from today. Patient on Unasyn normal saline 75 mL/h Review of systems CONSTITUTIONAL: No fever, no malaise, no fatigue. HEENT: No recent visual problems or hearing problems. Denied any sore throat. GASTROINTESTINAL: No diarrhea, no nausea, no vomiting, no abdominal pain. Normoactive bowel sounds. NEUROLOGICAL: No headaches, no weakness, no numbness. HEMATOLOGICAL: Denies any bleeding or petechiae. GENITOURINARY: Denies any burning micturition, frequency, or urgency. MUSCULOSKELETAL/RHEUMATOLOGICAL: Denies any joint pain, swelling, or any muscle pain. Objective - Vital Signs Vital signs: Vital Signs Temp 98.8 F 05/18/23 07:12 Pulse 95 05/18/23 07:12 Resp 18 05/18/23 08:09 BP 112/75 05/18/23 07:12 Pulse Ox 96 05/18/23 07:12 FiO2 Intake & Output 05/17/23 05/18/23 05/18/23 18:59 06:59 18:59 Output Total 750 150 Balance -750 -150 Weight 97.522 kg Output: Chest Tube Drainage 750 150 Chest Tube Left Posterior 750 150 Chest Other: Voiding Method Toilet Urinal # Voids 4 2 - Exam GENERAL: The patient is alert and oriented x3, not in any acute distress. Well developed, well nourished. HEENT: Pupils are round and equally reacting to light. EOMI. No scleral icterus. No conjunctival pallor. Normocephalic, atraumatic. No pharyngeal erythema. No thyromegaly. CARDIOVASCULAR: S1 and S2 present. No murmurs, rubs, or gallops. PULMONARY: Chest is clear to auscultation, no wheezing , no crackles. ABDOMEN: Soft, nontender, nondistended, normoactive bowel sounds. No palpable organomegaly. MUSCULOSKELETAL: No joint swelling or deformity. EXTREMITIES: No cyanosis, clubbing, or pedal edema. NEUROLOGICAL: Gross neurological examination did not reveal any focal deficits. SKIN: No rashes. no petechiae. - Labs CBC & Chem 7: 05/17/23 09:58 05/17/23 09:58 Labs: Abnormal Lab Results - Last 24 Hours (Table) 05/17/23 05/17/23 Range/Units 13:56 20:11 Total Protein 5.8 L (6.2-8.2) d/dL Fluid Appearance Cloudy A (Clear) Microbiology - Last 24 Hours (Table) 05/16/23 16:15 Blood Culture - Preliminary Blood 05/16/23 16:00 Blood Culture - Preliminary Blood Assessment and Plan Assessment: Left middle and lower lung pneumonia with paraPneumonia and large loculated left pleural effusion status post chest tube. Possible mass cannot be excluded entirely Sepsis with leukocytosis and fever Nicotine dependence Hypertension Hyperlipidemia Plan: Continue with antibiotic Unasyn Follow-up culture results Pulmonary team consult cardiothoracic surgery team on the case status post Pegtail tube insertion which is removed accidentally, plan to replace chest tube Labs and medication were reviewed.. Continue same treatment. Continue with symptomatic treatment. Resume home medication. Monitor labs and vitals. DVT and GI prophylaxis. Further recommendations as per clinical course of the patient DVT prophylaxis: Subcutaneous heparin GI Prophylaxis: Pepcid PT/OT: Pending Prognosis is guarded
--- NOTE | 2023-05-18 14:46 | CT ---
EXAMINATION TYPE: CT chest tube insertion DATE OF EXAM: 05/18/2023 COMPARISON: 05/16/2023 HISTORY: pleural effusion, chest tube insertion CT DLP: 1830 mGycm The procedure is discussed with the patient, the risks, complications, benefits and alternatives, wer e discussed and any questions were answered. Informed consent was obtained. The patient is placed l ateral position on the CT table, prepped and draped in the usual sterile fashion. Utilizing a 22-gauge Chiba needle access into left pleural space was achieved with placement of a 0.0 18 guidewire. Conversion to a 0.035 system, serial dilation to 8 Kyrgyz and placement of an 8 Kyr[place]z pigtail drainage catheter.. Pathology confirmed adequate sample. All elements of maximal barrier te chnique were utilized. The patient remained stable throughout the procedure with no immediate postpr ocedural complication. IMPRESSION: 1. Successful CT guided fine left chest tube drainage catheter insertion.
[2023-05-18] MEDS: SODIUM CHLORIDE 0.9% 1,000 ML IV SCH ×2 (16:12→20:33)
--- NOTE | 2023-05-18 18:03 | P.PN ---
Subjective Progress Note Date: 05/18/23 Principal diagnosis: Loculated left pleural effusion. Past medical history significant for hypertension, hyperlipidemia, prediabetes, chronic ongoing tobacco dependence, occasional marijuana use, and family history of heart disease. The patient was seen and examined at his bedside on the fourth floor medical surgical unit today 05/18/2023. Currently is laying in bed, is awake, alert, oriented 3 and is in no acute apparent distress. Oxygen saturations are 96% on room air and he is achieving 2000 mL on his incentive spirometry with encouragement. The patient had a left chest pigtail catheter placed by interventional radiology yesterday 05/17/2023, but unfortunately the patient reports when he was up to the bathroom today the pigtail catheter fell out. He received 1 dose of alteplase/dornase pleural instillation yesterday and his chest tube drained 900 mL of purulent serosanguineous colored drainage in the last 24 hours. He's been afebrile the last 24 hours. Preliminary sputum Gram stain culture shows rare polymorphonuclear leukocytes and many gram-negative bacilli, and his blood cultures show no growth after 24 hours. He is currently on Unasyn for antibiotic coverage managed by pulmonary/critical care medicine. Chest x-ray results reviewed. Objective - Vital Signs Vital signs: Vital Signs Temp 97.6 F 05/18/23 12:54 Pulse 95 05/18/23 13:55 Resp 16 05/18/23 13:55 BP 109/75 05/18/23 13:55 Pulse Ox 95 05/18/23 13:55 FiO2 Intake & Output 05/17/23 05/18/23 05/18/23 18:59 06:59 18:59 Output Total 750 150 65 Balance -750 -150 -65 Weight 97.522 kg Output: Chest Tube Drainage 750 150 65 Chest Tube Left 65 Chest Tube Left Posterior 750 150 Chest Other: Voiding Method Toilet Toilet Urinal # Voids 4 2 - Exam CONSTITUTIONAL: Awake and alert, appears comfortable, cooperative, well- developed, well-nourished, no pain, no acute distress RESPIRATORY: Lungs sounds diminished to his left lower lobe. Respirations are symmetrical, nonlabored. Currently on room air with oxygen saturation 96%. Strong cough. No chest wall deformities. CARDIOVASCULAR: S1, S2 present. Regular rate and rhythm, sinus rhythm on telemetry. Palpable peripheral pulses bilaterally. No edema present. No calf pain or tenderness noted. No significant lower extremity varicosities noted. GASTROINTESTINAL: Abdomen soft, nontender, nondistended without masses or organomegaly noted. There is no rebound or guarding present. Active bowel sounds present 4 quadrants. GENITOURINARY: Continues to void. INTEGUMENTARY: Skin is warm and dry with evidence of good perfusion. No clubbing or cyanosis present NEUROLOGIC: Cranial nerves II through XII intact, no focal deficits. MUSKULOSKELETAL: Able to move all extremities, strength equal bilaterally. PSYCHIATRIC: Alert and oriented to person place and time, appropriate affect, intact judgment and insight - Allied health notes Allied health notes reviewed: nursing - Labs CBC & Chem 7: 05/17/23 09:58 05/17/23 09:58 Labs: Abnormal Lab Results - Last 24 Hours (Table) 05/17/23 05/17/23 Range/Units 13:56 20:11 Total Protein 5.8 L (6.2-8.2) d/dL Fluid Appearance Cloudy A (Clear) Microbiology - Last 24 Hours (Table) 05/17/23 13:56 Gram Stain - Preliminary Pleural Fluid 05/16/23 16:15 Blood Culture - Preliminary Blood 05/16/23 16:00 Blood Culture - Preliminary Blood - Imaging and Cardiology Chest x-ray: report reviewed, image reviewed Assessment and Plan Assessment: Loculated left-sided pleural effusion, status post placement of left-sided pigtail catheter by interventional radiology and patient has received 1 dose of alteplase/dornase pleural instillation Febrile illness with leukocytosis, most likely community-acquired pneumonia Transaminitis History of hypertension Hyperlipidemia Prediabetes, hemoglobin A1c 6.2 % Current tobacco dependence Occasional marijuana use Family history of heart disease Plan: If the left chest pigtail catheter is replaced by interventional radiology today we will instill a dose of alteplase/dornase. Encourage use of incentive spirometry 10 times every hour while awake. Continue to monitor daily chest x-rays. IV antibiotic management per pulmonary critical care recommendations. Increase activity as tolerated. Out of bed for all meals. Medical management and other comorbidities per primary care service and other consultants. More recommendations to follow based on patient's clinical course. Time with Patient: Greater than 30
[2023-05-18] MEDS: NICOTINE 21MG/24HR PATCH TRANSDERM SCH (20:11)
[2023-05-18] MEDS: ACETAMINOPHEN TAB 325 MG TAB PO PRN (20:31)
[2023-05-19] MEDS: ACETAMINOPHEN TAB 325 MG TAB PO PRN (01:31)
[2023-05-19] MEDS: AMPICILLIN-SULBACTAM 1.5 GM in SODIUM CHLORIDE 0.9% 50 ML IVPB SCH ×4 (01:32→21:50)
[2023-05-19] MEDS: IBUPROFEN 800 MG TAB PO SCH ×3 (06:22→23:59)
[2023-05-19] MEDS ORDERED: DORNASE ALFA 5 MG in SODIUM CHLORIDE 0.9% 50 ML IRRIGATION ONE (08:20)
[2023-05-19] MEDS ORDERED: ALTEPLASE 10 MG in SODIUM CHLORIDE 0.9% 50 ML IRRIGATION ONE (08:20)
--- NOTE | 2023-05-19 08:21 | XR ---
EXAMINATION TYPE: XR chest 1V portable DATE OF EXAM: 05/19/2023 COMPARISON: 05/18/2023 HISTORY: Loculated left pleural effusion FINDINGS: Left basilar pleural catheter is unchanged in position. Loculated pleural fluid and pleural air noted at the site of the pleural effusion. Pleural parenchymal opacity about the left hilum and left lung base. Stable appearance of the cardio-mediastinal structures at this time. Pleural effusion unchanged. IMPRESSION: 1. Stable portable chest. Clinical correlation and follow up until resolution is recommended.
[2023-05-19] MEDS: HEPARIN SODIUM,PORCINE 5,000 UNIT/ML 1 ML VIAL SQ SCH ×3 (08:35→23:59)
[2023-05-19] MEDS: ATORVASTATIN 10 MG TAB PO SCH (08:36)
[2023-05-19] MEDS: FAMOTIDINE 20 MG/2 ML VIAL IV SCH ×2 (08:36→21:50)
[2023-05-19] MEDS: NICOTINE 21MG/24HR PATCH TRANSDERM SCH (08:37)
[2023-05-19] MEDS: LOSARTAN 50 MG TAB PO SCH (08:37)
[2023-05-19 11:29] LABS: HCT 31.1 % (39.6-50.0); MCH 28.1 pg (27.0-32.0); MCHC 32.2 d/dL (32.0-37.0); MCV 87.4 FL (80.0-97.0); Mean Platelet Volume 9.4 FL (9.5-12.2); NRBC Per 100 WBC 0 X 10*3/uL (0.00-0.01); Platelet Count 529 X 10*3/uL (140-440); RBC 3.56 X 10*6/uL (4.40-5.60); RDW 13.9 % (11.5-14.5); WBC 16.23 X 10*3/uL (4.50-10.00)
--- NOTE | 2023-05-19 11:33 | P.PN ---
Subjective Patient is a 67-year-old male with a past medical history of hypertension, hyperlipidemia, currently everyday smoker was sent to ER by his primary care physician due to concern for pneumonia and dehydration. Patient states that he was seen by his primary care physician at [place] about 2 weeks ago and was noticed that his WBC was elevated. Patient did did have some cough but without any other signs of infection at that time. Patient came to [place] and started having fever, sweats and not feeling well since last weekend. He contacted his primary care physician again and was sent to [facility] for x-ray which showed pneumonia. He was started on antibiotics in the form of Levaquin last night. Patient did take 1 dose. Patients primary care physician concerned about possible dehydration as well and was recommended to go to emergency room for further evaluation. Patient otherwise complains of cough without sputum production. No nausea vomiting or diarrhea. No chest pain. No complaints of shortness of breath. Patient states that he has been having left lower back pain and also left shoulder pain since last Monday and thought it may be due his increased outside work recently. On admission patient was febrile with Tmax 100.5 pulse is 105 and respiration 19 pulse ox 94% on room air. Chest x-ray showed similar large area of consolidation and pleural effusion within the left mid and lower lung. Correlate for pneumonia with emphysema not excluded. EKG showed sinus tachycardia. Laboratory pressure WBC 22.6 hemoglobin 11.9 and platelets 515 Sodium 136 potassium 5.0 chloride 102 bicarb is 21 BUN 17 and creatinine 0.76 a nd liver enzymes elevated with ALT 216, AST 154 and alk phos 185, LDH 604. proBNP 201 and albumin 3.4. 05/17/2023 patient was complaining of from back injury when he fell about 3 weeks ago. , After that H [facility]. 2 weeks ago he saw his PCP and [facility] for regular checkup patient was noticed to have leukocytosis but denies any other symptoms.. After patient came from [facility] about a week ago he went to his orthopedic doctor who checked his back pain with x-ray and prescribed Motrin 800 mg 3 times a day. The last Monday he was sweating a lot with high fever 103. He called his PCP on Monday who prescribed him Levaquin after chest x-ray and asked him to come to emergency room. Patient complaining from mild tachypnea but with little clear phlegm. No chest pain only with coughing. He has little diarrhea but feels better. No urinary or neurological symptoms. He smokes about 1 pack per day and he decided to close last Monday and currently he has nicotine patch. He denies alcohol or illicit drugs. Patient is afebrile on admission at 102 he is saturating well on room air Labs showed leukocytosis of 22.6K, hemoglobin 11.9, platelet count 515 BMP is unremarkable Liver enzymes elevated with AST 154 and ALT 216 with lactated dehydrogenase elevated at 600-8. ProBNP is 201. CTA of the chest: Loculated left pleural effusion with adjacent atelectasis. No pulmonary embolism. 1.7 cm lobular mass in the right midlung. And axillary and mediastinal lymphadenopathy On admission patient was started on Zithromax, ceftriaxone, IV fluids and admitted with pulmonary team consult 05/18/2023 Patient sits up in chair feels better. His dyspnea is better. No chest pain he has difficulty this morning. He had pigtail catheter placed yesterday but fell off today Vitals stable oxygen saturation is acceptable. No more fever. Chest x-ray showing improvement No labs from today. Patient on Unasyn normal saline 75 mL/h 05/19/2023 Patient breathing comfortably Chest pain is minimal Left-sided chest tube in place and patient under going lytic therapy through the tube with cardiothoracic surgery team Patient had low-grade fever today at 100. still on Unasyn. Objective - Vital Signs Vital signs: Vital Signs Temp 98.6 F 05/19/23 07:45 Pulse 69 05/19/23 07:45 Resp 17 05/19/23 07:45 BP 139/70 05/19/23 07:45 Pulse Ox 94 L 05/19/23 07:45 FiO2 Intake & Output 05/18/23 05/19/23 05/19/23 18:59 06:59 18:59 Output Total 65 725 50 Balance -65 -725 -50 Output: Chest Tube Drainage 65 725 50 Chest Tube Left 65 725 50 Other: Voiding Method Toilet Toilet Urinal # Voids 1 - Exam GENERAL: The patient is alert and oriented x3, not in any acute distress. Well developed, well nourished. HEENT: Pupils are round and equally reacting to light. EOMI. No scleral icterus. No conjunctival pallor. Normocephalic, atraumatic. No pharyngeal erythema. No thyromegaly. CARDIOVASCULAR: S1 and S2 present. No murmurs, rubs, or gallops. PULMONARY: Chest is clear to auscultation, no wheezing , no crackles. ABDOMEN: Soft, nontender, nondistended, normoactive bowel sounds. No palpable organomegaly. MUSCULOSKELETAL: No joint swelling or deformity. EXTREMITIES: No cyanosis, clubbing, or pedal edema. NEUROLOGICAL: Gross neurological examination did not reveal any focal deficits. SKIN: No rashes. no petechiae. - Labs CBC & Chem 7: 05/19/23 06:19 05/17/23 09:58 Labs: Abnormal Lab Results - Last 24 Hours (Table) 05/19/23 Range/Units 06:19 WBC 16.23 H (4.50-10.00) X 10*3/uL RBC 3.56 L (4.40-5.60) X 10*6/uL Hgb 10.0 L (13.0-17.0) d/dL Hct 31.1 L (39.6-50.0) % Plt Count 529 H (140-440) X 10*3/uL MPV 9.4 L (9.5-12.2) FL Microbiology - Last 24 Hours (Table) 05/16/23 16:15 Blood Culture - Preliminary Blood 05/17/23 15:06 Blood Culture - Preliminary Blood 05/16/23 16:00 Blood Culture - Preliminary Blood 05/17/23 13:56 Gram Stain - Preliminary Pleural Fluid Assessment and Plan Assessment: Left middle and lower lung pneumonia with paraPneumonia and large loculated left pleural effusion status post chest tube. Possible mass cannot be excluded ent irely Sepsis with leukocytosis and fever Nicotine dependence Hypertension Hyperlipidemia Plan: Continue with antibiotic Unasyn Follow-up culture results Pulmonary team consult cardiothoracic surgery team on the case status post Pegtail tube insertion which is removed accidentally, plan to replace chest tube Labs and medication were reviewed.. Continue same treatment. Continue with symptomatic treatment. Resume home medication. Monitor labs and vitals. DVT and GI prophylaxis. Further recommendations as per clinical course of the patient DVT prophylaxis: Subcutaneous heparin GI Prophylaxis: Pepcid PT/OT: Pending Prognosis is guarded
[2023-05-19 11:44] LABS: BUN/Creat Ratio 16.89 Ratio (12.00-20.00); Blood Urea Nitrogen 15.2 mg/dL (9.0-27.0); Calcium 8.3 mg/dL (8.7-10.3); Carbon Dioxide 24.3 mmol/L (21.6-31.8); Chloride 102 mmol/L (96-109); Glucose 98 mg/dL (70-110); Potassium 4.4 mmol/L (3.5-5.5); Sodium 138 mmol/L (135-145)
[2023-05-19 12:39] LABS: Basophils # (A) 0.04 X 10*3/uL (0.00-0.10); Basophils % (A) 0.2 %; Eosinophils # (A) 0.02 X 10*3/uL (0.04-0.35); Eosinophils % (A) 0.1 %; Lymphocytes # (A) 1.69 X 10*3/uL (0.90-5.00); Lymphocytes % (A) 10.4 %; Monocytes # (A) 0.48 X 10*3/uL (0.20-1.00); Neutrophils # (A) 13.73 X 10*3/uL (1.80-7.70); Neutrophils % (A) 84.6 %; RBC Morphology Normal (Normal)
[2023-05-19] MEDS: SODIUM CHLORIDE 0.9% 1,000 ML IV SCH (14:27)
--- NOTE | 2023-05-19 15:37 | P.PN ---
Subjective Progress Note Date: 05/19/23 I am seeing this patient in [facility] emergency department today 05/17/2023 in the emergency room for a loculated left-sided pleural effusion. Patient is a 67-year-old male with past medical history significant for hypertension and hyperlipidemia. Patient lives in [place], and plans to move to [place] this Fall. His primary care provider is out of [facility]. Patient states that he started to have left-sided back pain and left shoulder pain approximately 3 weeks ago. He originally attributed this to yard work. Starting last week, he began to develop fevers, chills, and shortness of breath. He denies any cough or hemoptysis. He denies any nausea, vomiting, constipation, abdominal pain. Appetite has been good. Denies any weight loss. Denies any prior history of cancer. Patient does smoke approximately 1 pack per day. Patient did end up going to an urgent care clinic 2 days ago. He was felt to have left-sided pneumonia, and was started on a course of Levaquin. He only completed one dose of Levaquin, and came to the emergency room for worsening symptoms yesterday afternoon. A follow-up chest CTA demonstrated a loculated left pleural effusion with adjacent compressive atelectasis. There is pleural thickening. There was mild lymphadenopathy demonstrated within the superior mediastinum, hilum, and bilateral axillary nodes. There was also a 1.7 cm lobe either density within the posterior lateral right lung, which will require follow-up. No prior imaging for comparison. An abdominal and pelvis CT with contrast did not demonstrate any acute intra- abdominal abnormalities. CBC on arrival showed some leukocytosis with a WBC count of 22.6, hgb 11.9, hematocrit 35.1, platelets 515. CMP on arrival showed sodium 136, potassium 5, chloride 102, serum bicarbonate 21, BUN 17, creatinine 0.76, glucose 91. Normal saline is infusing at 100 mL per hour. LFTs were mildly elevated with an AST of 154, ALT of 216, ALP of 185. Patient has been empirically started on a combination of azithromycin and Rocephin. He remains febrile with a T-max of 102F on the hospital. He is currently sitting up in bed, on room air, in no acute distress. He appears nontoxic and is symptomatically stable. He will be admitted to the general medical floor. The patient is seen today 05/18/2023 in follow-up on the regular medical floor. He is currently sitting up in a chair at the bedside. Awake and alert in no acute distress. Unfortunately, his pigtail catheter was accidentally dislodged early this morning. He did have 900 ML's of purulent drainage out prior to that. Definitely exudate. Protein 2.7. LDH greater than 2500. He did receive alteplase/dornase infusion yesterday. His x-ray did reveal decreasing but still sizable moderate left pleural effusion with adjacent atelectasis and/or consolidation. Pleural fluid cultures/cytology pending. Blood cultures pending. He is continued on Unasyn. Heparin for DVT prophylaxis. NicoDerm patch in place. The patient is seen today 05/19/2023 in follow-up on the regular medical floor. He is currently awake and alert in no acute distress. Sitting up in a chair. Denies any worsening shortness of breath, cough or congestion. Chest x-ray reveals left basilar pleural catheter in place. Loculated pleural fluid and pleural tear noted at the site of the pleural effusion. He did have his pigtail catheter replaced yesterday. He had another 800 ML's drained in the past 24 hours. He received alternate/dornase lytic infusion today. He is continued on Unasyn. Cultures are showing gram-negative bacilli. He is currently afebrile. He did have a T-max of 100.7 early this morning. White count 16.2. Hemoglobin 10.0. Sodium 138. Potassium 4.4. Bicarb 24. BUN 15. Creatinine 0.9. Objective - Vital Signs Vital signs: Vital Signs Temp 97.9 F 05/19/23 13:05 Pulse 74 05/19/23 13:05 Resp 18 05/19/23 13:05 BP 107/66 05/19/23 13:05 Pulse Ox 98 05/19/23 13:05 FiO2 Intake & Output 05/18/23 05/19/23 05/19/23 18:59 06:59 18:59 Output Total 65 725 250 Balance -65 -725 -250 Output: Chest Tube Drainage 65 725 250 Chest Tube Left 65 725 250 Other: Voiding Method Toilet Toilet Urinal # Voids 1 - Exam GENERAL EXAM: Alert, pleasant 67-year-old male, on room air, comfortable in no apparent distress. HEAD: Normocephalic and atraumatic EYES: Normal reaction of pupils, equal size. NOSE: Clear with pink turbinates. THROAT: No erythema or exudates. NECK: No masses, no JVD. CHEST: No chest wall deformity. Left-sided pigtail catheter in place. LUNGS: There is diminished left lower lung sounds. No wheezes, rhonchi, crackles. CVS: S1 and S2 normal with no audible murmur, regular rhythm. No extra heart sounds ABDOMEN: No hepatosplenomegaly, active bowel sounds, no guarding or rigidity. SPINE: No scoliosis or deformity SKIN: No rashes CENTRAL NERVOUS SYSTEM: No focal deficits, tone is normal in all 4 extremities. EXTREMITIES: There is no peripheral edema, clubbing, or cyanosis. Peripheral pulses are intact. - Labs CBC & Chem 7: 05/19/23 06:19 05/19/23 06:19 Labs: Abnormal Lab Results - Last 24 Hours (Table) 05/19/23 05/19/23 Range/Units 06:19 06:19 WBC 16.23 H (4.50-10.00) X 10*3/uL RBC 3.56 L (4.40-5.60) X 10*6/uL Hgb 10.0 L (13.0-17.0) d/dL Hct 31.1 L (39.6-50.0) % Plt Count 529 H (140-440) X 10*3/uL MPV 9.4 L (9.5-12.2) FL Neutrophils # 13.73 H (1.80-7.70) X 10*3/uL Eosinophils # 0.02 L (0.04-0.35) X 10*3/uL Calcium 8.3 L (8.7-10.3) mg/dL Microbiology - Last 24 Hours (Table) 05/16/23 16:15 Blood Culture - Preliminary Blood 05/17/23 15:06 Blood Culture - Preliminary Blood 05/16/23 16:00 Blood Culture - Preliminary Blood 05/17/23 13:56 Gram Stain - Preliminary Pleural Fluid Assessment and Plan Assessment: Community acquired pneumonia and loculated left-sided pleural effusion. Chest CTA demonstrated a loculated left pleural effusion with adjacent compressive atelectasis. There is pleural thickening. There was mild lymphadenopathy demonstrated within the superior mediastinum, hilum, and bilateral axillary nodes. There was also a 1.7 cm lobular density within the posterior lateral right lung, which will require follow-up. Malignancy is not excluded. Status post pigtail catheter placement on 05/17/2023 and status post alteplase/dornase infusion 1. 900 mL of purulent drainage returned. Unfortunately the catheter came out early this morning and will need to be replaced today 05/18/2023. Fluid exudative. Total protein 2.7. LDH greater than 2500. Cultures are revealing many gram-negative bacilli and cytology revealed no evidence of malignancy. Currently on Unasyn. Leukocytosis secondary to above Right pulmonary nodule, measuring 1.7 cm, as demonstrated on chest CTA Chronic and ongoing tobacco dependence Benign essential hypertension Hyperlipidemia Mild transaminitis, undetermined significance, the patient did recently start on statins Plan: The patient was seen and evaluated Chest x-ray, labs and medications reviewed Pigtail catheter replaced Received alteplase/dornase today Continue to Pleur-evac and wall suction Remains on Unasyn for gram-negative cultures Follow up chest x-ray in a.m. We will continue to follow I have personally seen and examined the patient, performed the documentation and the assessment and plan as written. Number of minutes spent on the visit: 10.
--- NOTE | 2023-05-19 15:46 | P.PN ---
Subjective Progress Note Date: 05/19/23 Principal diagnosis: Loculated left pleural effusion. Past medical history significant for hypertension, hyperlipidemia, prediabetes, chronic ongoing tobacco dependence, occasional marijuana use, and family history of heart disease. POD #2 placement of left pigtail catheter by interventional radiology The patient was seen and examined in follow-up today 05/19/2023 at his bedside on the fourth floor medical surgical unit. The patient is currently sitting up to bedside chair, is awake, alert, oriented 3 and is in no acute apparent distress. Oxygen saturation are 98% on room air and he is achieving 2500 mL on his incentive spirometry. The patient's left chest pigtail catheter fell out yesterday and subsequently was replaced by interventional radiology. The left c hest pigtail catheter is connected to low continuous wall suction -20 cm H2O. No air leak is present. Draining thick purulent drainage with 350 mL output in the last 24 hours. The patient was instilled with alteplase/dornase yesterday through the left chest pigtail catheter. Patient tolerated well. Chest x-ray was reviewed. Objective - Vital Signs Vital signs: Vital Signs Temp 97.9 F 05/19/23 13:05 Pulse 74 05/19/23 13:05 Resp 18 05/19/23 13:05 BP 107/66 05/19/23 13:05 Pulse Ox 98 05/19/23 13:05 FiO2 Intake & Output 05/18/23 05/19/23 05/19/23 18:59 06:59 18:59 Output Total 65 725 250 Balance -65 -725 -250 Output: Chest Tube Drainage 65 725 250 Chest Tube Left 65 725 250 Other: Voiding Method Toilet Toilet Urinal # Voids 1 - Exam CONSTITUTIONAL: Awake and alert, appears comfortable, cooperative, well- developed, well-nourished, no pain, no acute distress RESPIRATORY: Lungs sounds diminished to his left lower lobe. Respirations are symmetrical, nonlabored. Currently on room air with oxygen saturation 98%, achieving 2500 mL on his incentive spirometry. Strong cough. Left chest pigtail catheter in place to low continuous wall suction -20 cm H2O. No air leak is present. Draining thick purulent drainage. CARDIOVASCULAR: S1, S2 present. Regular rate and rhythm, sinus rhythm on telem etry. Palpable peripheral pulses bilaterally. No edema present. No calf pain or tenderness noted. No significant lower extremity varicosities noted. GASTROINTESTINAL: Abdomen soft, nontender, nondistended without masses or organomegaly noted. There is no rebound or guarding present. Active bowel sounds present 4 quadrants. GENITOURINARY: Continues to void. INTEGUMENTARY: Skin is warm and dry with evidence of good perfusion. No clubbing or cyanosis present NEUROLOGIC: Cranial nerves II through XII intact, no focal deficits. MUSKULOSKELETAL: Able to move all extremities, strength equal bilaterally. PSYCHIATRIC: Alert and oriented to person place and time, appropriate affect, i ntact judgment and insight - Allied health notes Allied health notes reviewed: nursing - Labs CBC & Chem 7: 05/19/23 06:19 05/19/23 06:19 Labs: Abnormal Lab Results - Last 24 Hours (Table) 05/19/23 05/19/23 Range/Units 06:19 06:19 WBC 16.23 H (4.50-10.00) X 10*3/uL RBC 3.56 L (4.40-5.60) X 10*6/uL Hgb 10.0 L (13.0-17.0) d/dL Hct 31.1 L (39.6-50.0) % Plt Count 529 H (140-440) X 10*3/uL MPV 9.4 L (9.5-12.2) FL Neutrophils # 13.73 H (1.80-7.70) X 10*3/uL Eosinophils # 0.02 L (0.04-0.35) X 10*3/uL Calcium 8.3 L (8.7-10.3) mg/dL Microbiology - Last 24 Hours (Table) 05/16/23 16:15 Blood Culture - Preliminary Blood 05/17/23 15:06 Blood Culture - Preliminary Blood 05/16/23 16:00 Blood Culture - Preliminary Blood 05/17/23 13:56 Gram Stain - Preliminary Pleural Fluid - Imaging and Cardiology Chest x-ray: report reviewed, image reviewed Assessment and Plan Assessment: Loculated left-sided pleural effusion, status post placement of left-sided pigtail catheter by interventional radiology and patient has received 2 doses of alteplase/dornase pleural instillation Febrile illness with leukocytosis, most likely community-acquired pneumonia Transaminitis History of hypertension Hyperlipidemia Prediabetes, hemoglobin A1c 6.2 % Current tobacco dependence Occasional marijuana use Family history of heart disease Plan: We will instill a third dose of alteplase/dornase pleural instillation to the left chest pigtail catheter today. Encourage use of incentive spirometry 10 times every hour while awake. Continue to monitor daily chest x-rays. IV antibiotic management per pulmonary critical care recommendations. Increase activity as tolerated. Out of bed for all meals. Medical management and other comorbidities per primary care service and other co nsultants. More recommendations to follow based on patient's clinical course. Time with Patient: Greater than 30
[2023-05-20] MEDS: SODIUM CHLORIDE 0.9% 1,000 ML IV SCH ×2 (03:10→16:33)
[2023-05-20] MEDS: AMPICILLIN-SULBACTAM 1.5 GM in SODIUM CHLORIDE 0.9% 50 ML IVPB SCH ×4 (03:10→21:12)
[2023-05-20] MEDS: IBUPROFEN 800 MG TAB PO SCH ×3 (06:24→23:56)
[2023-05-20] MEDS ORDERED: DORNASE ALFA 5 MG in SODIUM CHLORIDE 0.9% 50 ML IRRIGATION ONE (07:26)
[2023-05-20] MEDS ORDERED: ALTEPLASE 10 MG in SODIUM CHLORIDE 0.9% 50 ML IRRIGATION ONE (07:26)
--- NOTE | 2023-05-20 08:15 | XR ---
EXAMINATION TYPE: XR chest 1V portable DATE OF EXAM: 05/20/2023 HISTORY: Shortness of breath. COMPARISON: 05/19/2023 TECHNIQUE: Single view of the chest is submitted. FINDINGS: Demonstrated are scattered senescent parenchymal change. Left basilar pleural catheter is redemonstrated with loculated left basilar effusion noted with assoc iated underlying infiltrate and/or atelectasis. Overall stable exam. The heart is stable. Hilar and mediastinal structures are within normal limits. Degenerative changes are seen of the dorsal spine. IMPRESSION: 1. Stable examination
[2023-05-20] MEDS: HEPARIN SODIUM,PORCINE 5,000 UNIT/ML 1 ML VIAL SQ SCH ×3 (08:18→23:56)
[2023-05-20] MEDS: LOSARTAN 50 MG TAB PO SCH (08:18)
[2023-05-20] MEDS: FAMOTIDINE 20 MG/2 ML VIAL IV SCH ×2 (08:18→21:12)
[2023-05-20] MEDS: ATORVASTATIN 10 MG TAB PO SCH (08:18)
[2023-05-20] MEDS: NICOTINE 21MG/24HR PATCH TRANSDERM SCH (08:18)
--- NOTE | 2023-05-20 11:02 | P.PN ---
Subjective Progress Note Date: 05/20/23 Principal diagnosis: Loculated left pleural effusion. Past medical history significant for hypertension, hyperlipidemia, prediabetes, chronic ongoing tobacco dependence, occasional marijuana use, and family history of heart disease. POD #4 placement of left pigtail catheter by interventional radiology The patient was seen and examined in follow-up today 05/20/2023 at his bedside on the fourth floor medical surgical unit. Currently sitting up to the bedside chair, is awake, alert, oriented 3 and is in no acute apparent distress. Oxygen saturations are 95% on room air and he is achieving 2750 mL on his incentive spirometry. He received a third dose of alteplase/dornase yesterday 05/19/2023 pleural instillation through his left chest pigtail catheter. Left chest pigtail catheter remained in place to low continuous wall suction -20 cm H2O. No air leak is present. Draining thick purulent drainage with 40 mL output in the last 8 hours at 450 mL output in the last 24 hours. Chest x-ray results reviewed. Objective - Vital Signs Vital signs: Vital Signs Temp 98.6 F 05/20/23 07:03 Pulse 82 05/20/23 07:03 Resp 16 05/20/23 07:03 BP 126/79 05/20/23 07:03 Pulse Ox 95 05/20/23 07:03 FiO2 Intake & Output 05/19/23 05/20/23 05/20/23 18:59 06:59 18:59 Output Total 270 340 20 Balance -270 -340 -20 Output: Chest Tube Drainage 270 140 20 Chest Tube Left 270 140 20 Urine 200 Other: Voiding Method Toilet Urinal # Voids 4 - Exam CONSTITUTIONAL: Awake and alert, appears comfortable, cooperative, well- developed, well-nourished, no pain, no acute distress RESPIRATORY: Lungs sounds diminished to his left lower lobe. Respirations are symmetrical, nonlabored. Currently on room air with oxygen saturation 95%, achieving 2750 mL on his incentive spirometry. Strong cough. Left chest pigtail catheter in place to low continuous wall suction -20 cm H2O. No air leak is present. Draining thick purulent drainage. CARDIOVASCULAR: S1, S2 present. Regular rate and rhythm, sinus rhythm on telemetry. Palpable peripheral pulses bilaterally. No edema present. No calf pain or tenderness noted. No significant lower extremity varicosities noted. GASTROINTESTINAL: Abdomen soft, nontender, nondistended without masses or organomegaly noted. There is no rebound or guarding present. Active bowel sounds present 4 quadrants. GENITOURINARY: Continues to void. INTEGUMENTARY: Skin is warm and dry with evidence of good perfusion. No clubbing or cyanosis present NEUROLOGIC: Cranial nerves II through XII intact, no focal deficits. MUSKULOSKELETAL: Able to move all extremities, strength equal bilaterally. PSYCHIATRIC: Alert and oriented to person place and time, appropriate affect, intact judgment and insight - Allied health notes Allied health notes reviewed: nursing - Labs CBC & Chem 7: 05/19/23 06:19 05/19/23 06:19 Labs: Abnormal Lab Results - Last 24 Hours (Table) 05/19/23 05/19/23 Range/Units 06:19 06:19 WBC 16.23 H (4.50-10.00) X 10*3/uL RBC 3.56 L (4.40-5.60) X 10*6/uL Hgb 10.0 L (13.0-17.0) d/dL Hct 31.1 L (39.6-50.0) % Plt Count 529 H (140-440) X 10*3/uL MPV 9.4 L (9.5-12.2) FL Neutrophils # 13.73 H (1.80-7.70) X 10*3/uL Eosinophils # 0.02 L (0.04-0.35) X 10*3/uL Calcium 8.3 L (8.7-10.3) mg/dL Microbiology - Last 24 Hours (Table) 05/16/23 16:15 Blood Culture - Preliminary Blood 05/17/23 15:06 Blood Culture - Preliminary Blood 05/16/23 16:00 Blood Culture - Preliminary Blood - Imaging and Cardiology Chest x-ray: report reviewed, image reviewed Assessment and Plan Assessment: Loculated left-sided pleural effusion, status post placement of left-sided pigtail catheter by interventional radiology and patient has received 3 doses of alteplase/dornase pleural instillation Febrile illness with leukocytosis, most likely community-acquired pneumonia Transaminitis History of hypertension Hyperlipidemia Prediabetes, hemoglobin A1c 6.2 % Current tobacco dependence Occasional marijuana use Family history of heart disease Plan: We will instill a fourth dose of alteplase/dornase pleural instillation to the left chest pigtail catheter today. May disconnect Pleur-evac from suction to ambulate in the hallway and reconnect to continuous low wall suction at -20 cm H2O after ambulating. Encourage use of incentive spirometry 10 times every hour while awake. Continue to monitor daily chest x-rays. IV antibiotic management per pulmonary critical care recommendations. Increase activity as tolerated. Out of bed for all meals. Medical management and other comorbidities per primary care service and other consultants. More recommendations to follow based on patient's clinical course. Time with Patient: Greater than 30
--- NOTE | 2023-05-20 14:12 | P.PN ---
Subjective Progress Note Date: 05/20/23 I am seeing this patient in [facility] today 05/17/2023 in the emergency room for a loculated left-sided pleural effusion. Patient is a 67-year-old male with past medical history significant for hypertension and hyperlipidemia. Patient lives in [place], and plans to move to [place] this Fall. His primary care provider is out of [facility]. Patient states that he started to have left-sided back pain and left shoulder pain approximately 3 weeks ago. He originally attributed this to yard work. Starting last week, he began to develop fevers, chills, and shortness of breath. He denies any cough or hemoptysis. He denies any nausea, vomiting, constipation, abdominal pain. Appetite has been good. Denies any weight loss. Denies any prior history of cancer. Patient does smoke approximately 1 pack per day. Patient did end up going to an urgent care clinic 2 days ago. He was felt to have left-sided pneumonia, and was started on a course of Levaquin. He only completed one dose of Levaquin, and came to the emergency room for worsening symptoms yesterday afternoon. A follow-up chest CTA demonstrated a loculated left pleural effusion with adjacent compressive atelectasis. There is pleural thickening. There was mild lymphadenopathy demonstrated within the superior mediastinum, hilum, and bilateral axillary nodes. There was also a 1.7 cm lobe either density within the posterior lateral right lung, which will require follow-up. No prior imaging for comparison. An abdominal and pelvis CT with contrast did not demonstrate any acute intra- abdominal abnormalities. CBC on arrival showed some leukocytosis with a WBC count of 22.6, hgb 11.9, hematocrit 35.1, platelets 515. CMP on arrival showed sodium 136, potassium 5, chloride 102, serum bicarbonate 21, BUN 17, creatinine 0.76, glucose 91. Normal saline is infusing at 100 mL per hour. LFTs were mildly elevated with an AST of 154, ALT of 216, ALP of 185. Patient has been empirically started on a combination of azithromycin and Rocephin. He remains febrile with a T-max of 102F on the hospital. He is currently sitting up in bed, on room air, in no acute distress. He appears nontoxic and is symptomatically stable. He will be admitted to the general medical floor. The patient is seen today 05/18/2023 in follow-up on the regular medical floor. He is currently sitting up in a chair at the bedside. Awake and alert in no acute distress. Unfortunately, his pigtail catheter was accidentally dislodged early this morning. He did have 900 ML's of purulent drainage out prior to that. Definitely exudate. Protein 2.7. LDH greater than 2500. He did receive alteplase/dornase infusion yesterday. His x-ray did reveal decreasing but still sizable moderate left pleural effusion with adjacent atelectasis and/or consolidation. Pleural fluid cultures/cytology pending. Blood cultures pending. He is continued on Unasyn. Heparin for DVT prophylaxis. NicoDerm patch in place. The patient is seen today 05/19/2023 in follow-up on the regular medical floor. He is currently awake and alert in no acute distress. Sitting up in a chair. Denies any worsening shortness of breath, cough or congestion. Chest x-ray reveals left basilar pleural catheter in place. Loculated pleural fluid and pleural tear noted at the site of the pleural effusion. He did have his pigtail catheter replaced yesterday. He had another 800 ML's drained in the past 24 hours. He received alternate/dornase lytic infusion today. He is continued on Unasyn. Cultures are showing gram-negative bacilli. He is currently afebrile. He did have a T-max of 100.7 early this morning. White count 16.2. Hemoglobin 10.0. Sodium 138. Potassium 4.4. Bicarb 24. BUN 15. Creatinine 0.9. The patient is seen today 05/20/2023 in follow-up on the regular medical floor. He is currently resting prone in bed. No worsening shortness of breath, cough or congestion. He is breathing slightly received alteplase/dornase infusion and is repositioning himself every 15 minutes. Chest x-ray shows left basilar pigtail catheter in place. Loculated left basilar effusion noted with underlying infiltrate/atelectasis. Blood cultures revealing no growth. Pleural fluid Gram stain revealing many gram-negative bacilli. He remains on Unasyn. Heparin for DVT prophylaxis. NicoDerm patch in place. Bronchodilators as needed. Objective - Vital Signs Vital signs: Vital Signs Temp 98.6 F 05/20/23 07:03 Pulse 82 05/20/23 07:03 Resp 16 05/20/23 07:03 BP 126/79 05/20/23 07:03 Pulse Ox 95 05/20/23 07:03 FiO2 Intake & Output 05/19/23 05/20/23 05/20/23 18:59 06:59 18:59 Output Total 270 340 60 Balance -270 -340 -60 Output: Chest Tube Drainage 270 140 60 Chest Tube Left 270 140 60 Urine 200 Other: Voiding Method Toilet Urinal # Voids 4 - Exam GENERAL EXAM: Alert, 67-year-old male, on room air, laying prone in bed, comfortable in no apparent distress. HEAD: Normocephalic and atraumatic EYES: Normal reaction of pupils, equal size. NOSE: Clear with pink turbinates. THROAT: No erythema or exudates. NECK: No masses, no JVD. CHEST: No chest wall deformity. Left-sided pigtail catheter in place. LUNGS: There is diminished left lower lung sounds. No wheezes, rhonchi, crackles. CVS: S1 and S2 normal with no audible murmur, regular rhythm. No extra heart sounds ABDOMEN: No hepatosplenomegaly, active bowel sounds, no guarding or rigidity. SPINE: No scoliosis or deformity SKIN: No rashes CENTRAL NERVOUS SYSTEM: No focal deficits, tone is normal in all 4 extremities. EXTREMITIES: There is no peripheral edema, clubbing, or cyanosis. Peripheral pulses are intact. - Labs CBC & Chem 7: 05/19/23 06:19 05/19/23 06:19 Labs: Microbiology - Last 24 Hours (Table) 05/16/23 16:15 Blood Culture - Preliminary Blood 05/17/23 15:06 Blood Culture - Preliminary Blood 05/16/23 16:00 Blood Culture - Preliminary Blood Assessment and Plan Assessment: Community acquired pneumonia and loculated left-sided pleural effusion. Chest C TA demonstrated a loculated left pleural effusion with adjacent compressive atelectasis. There is pleural thickening. There was mild lymphadenopathy demonstrated within the superior mediastinum, hilum, and bilateral axillary nodes. There was also a 1.7 cm lobular density within the posterior lateral right lung, which will require follow-up. Malignancy is not excluded. Status post pigtail catheter placement on 05/17/2023 and status post alteplase/dornase infusion 4. 900 mL of purulent drainage returned. Unfortunately the catheter came out early this morning and will need to be replaced today 05/18/2023. Fluid exudative. Total protein 2.7. LDH greater than 2500. Cultures are revealing many gram-negative bacilli and cytology revealed no evidence of malignancy. Currently on Unasyn. Leukocytosis secondary to above Right pulmonary nodule, measuring 1.7 cm, as demonstrated on chest CTA Chronic and ongoing tobacco dependence Benign essential hypertension Hyperlipidemia Mild transaminitis, undetermined significance, the patient did recently start on statins Plan: The patient was seen and evaluated Chest x-ray, labs and medications reviewed Received alteplase/dornase again today Continue to Pleur-evac and wall suction Continue Unasyn Follow up chest x-ray in a.m. We will continue to follow I have personally seen and examined the patient, performed the documentation and the assessment and plan as written. Number of minutes spent on the visit: 10.
--- NOTE | 2023-05-20 19:49 | P.PN ---
Subjective Patient is a 67-year-old male with a past medical history of hypertension, hyperlipidemia, currently everyday smoker was sent to ER by his primary care physician due to concern for pneumonia and dehydration. Patient states that he was seen by his primary care physician at [place] about 2 weeks ago and was noticed that his WBC was elevated. Patient did did have some cough but without any other signs of infection at that time. Patient came to [place] and started having fever, sweats and not feeling well since last weekend. He contacted his primary care physician again and was sent to [facility] for x-ray which showed pneumonia. He was started on antibiotics in the form of Levaquin last night. Patient did take 1 dose. Patients primary care physician concerned about possible dehydration as well and was recommended to go to emergency room for further evaluation. Patient otherwise complains of cough without sputum production. No nausea vomiting or diarrhea. No chest pain. No complaints of shortness of breath. Patient states that he has been having left lower back pain and also left shoulder pain since last Monday and thought it may be due his increased outside work recently. On admission patient was febrile with Tmax 100.5 pulse is 105 and respiration 19 pulse ox 94% on room air. Chest x-ray showed similar large area of consolidation and pleural effusion within the left mid and lower lung. Correlate for pneumonia with emphysema not excluded. EKG showed sinus tachycardia. Laboratory pressure WBC 22.6 hemoglobin 11.9 and platelets 515 Sodium 136 potassium 5.0 chloride 102 bicarb is 21 BUN 17 and creatinine 0.76 a nd liver enzymes elevated with ALT 216, AST 154 and alk phos 185, LDH 604. proBNP 201 and albumin 3.4. 05/17/2023 patient was complaining of from back injury when he fell about 3 weeks ago. , After that [facility]. 2 weeks ago he saw his PCP and [facility] for regular checkup patient was noticed to have leukocytosis but denies any other symptoms.. After patient came from [facility] about a week ago he went to his orthopedic doctor who checked his back pain with x-ray and prescribed Motrin 800 mg 3 times a day. The last Monday he was sweating a lot with high fever 103. He called his PCP on Monday who prescribed him Levaquin after chest x-ray and asked him to come to emergency room. Patient complaining from mild tachypnea but with little clear phlegm. No chest pain only with coughing. He has little diarrhea but feels better. No urinary or neurological symptoms. He smokes about 1 pack per day and he decided to close last Monday and currently he has nicotine patch. He denies alcohol or illicit drugs. Patient is afebrile on admission at 102 he is saturating well on room air Labs showed leukocytosis of 22.6K, hemoglobin 11.9, platelet count 515 BMP is unremarkable Liver enzymes elevated with AST 154 and ALT 216 with lactated dehydrogenase elevated at 600-8. ProBNP is 201. CTA of the chest: Loculated left pleural effusion with adjacent atelectasis. No pulmonary embolism. 1.7 cm lobular mass in the right midlung. And axillary and mediastinal lymphadenopathy On admission patient was started on Zithromax, ceftriaxone, IV fluids and admitted with pulmonary team consult 05/18/2023 Patient sits up in chair feels better. His dyspnea is better. No chest pain he has difficulty this morning. He had pigtail catheter placed yesterday but fell off today Vitals stable oxygen saturation is acceptable. No more fever. Chest x-ray showing improvement No labs from today. Patient on Unasyn normal saline 75 mL/h 05/19/2023 Patient breathing comfortably Chest pain is minimal Left-sided chest tube in place and patient under going lytic therapy through the tube with cardiothoracic surgery team Patient had low-grade fever today at 100. still on Unasyn. 05/20/2023 Patient breathing better with less dyspnea and breathing quietly addressed. No other new complaints. Chest tube was taken out today after finishing his lytic therapy. Sputum Gram stain and culture still pending as well as blood culture Patient remains on Unasyn. Normal saline was ordered but The patient is not getting it today, he is hemodynamically stable. We will discontinue Objective - Vital Signs Vital signs: Vital Signs Temp 97.4 F L 05/20/23 13:00 Pulse 92 05/20/23 13:00 Resp 16 05/20/23 13:00 BP 129/83 05/20/23 13:00 Pulse Ox 95 05/20/23 13:00 FiO2 Intake & Output 05/20/23 05/20/23 05/21/23 06:59 18:59 06:59 Output Total 340 70 Balance -340 -70 Output: Chest Tube Drainage 140 70 Chest Tube Left 140 70 Urine 200 Other: Voiding Method Toilet Urinal # Voids 1 - Exam GENERAL: The patient is alert and oriented x3, not in any acute distress. Well developed, well nourished. HEENT: Pupils are round and equally reacting to light. EOMI. No scleral icterus. No conjunctival pallor. Normocephalic, atraumatic. No pharyngeal erythema. No thyromegaly. CARDIOVASCULAR: S1 and S2 present. No murmurs, rubs, or gallops. PULMONARY: Chest is clear to auscultation, no wheezing , no crackles. ABDOMEN: Soft, nontender, nondistended, normoactive bowel sounds. No palpable organomegaly. MUSCULOSKELETAL: No joint swelling or deformity. EXTREMITIES: No cyanosis, clubbing, or pedal edema. NEUROLOGICAL: Gross neurological examination did not reveal any focal deficits. SKIN: No rashes. no petechiae. - Labs CBC & Chem 7: 05/19/23 06:19 05/19/23 06:19 Labs: Microbiology - Last 24 Hours (Table) 05/16/23 16:15 Blood Culture - Preliminary Blood 05/17/23 15:06 Blood Culture - Preliminary Blood 05/16/23 16:00 Blood Culture - Preliminary Blood Assessment and Plan Assessment: Left middle and lower lung pneumonia with paraPneumonia and large loculated left pleural effusion status post chest tube. Possible mass cannot be excluded entirely Sepsis with leukocytosis and fever Nicotine dependence Hypertension Hyperlipidemia Plan: Continue with antibiotic Unasyn Follow-up culture results Pulmonary team consult cardiothoracic surgery team on the case status post Pegtail tube insertion which is removed accidentally, plan to replace chest tube Labs and medication were reviewed.. Continue same treatment. Continue with symptomatic treatment. Resume home medication. Monitor labs and vitals. DVT and GI prophylaxis. Further recommendations as per clinical course of the patient DVT prophylaxis: Subcutaneous heparin GI Prophylaxis: Pepcid PT/OT: Pending Prognosis is guarded
[2023-05-21] MEDS: AMPICILLIN-SULBACTAM 1.5 GM in SODIUM CHLORIDE 0.9% 50 ML IVPB SCH ×4 (01:41→20:19)
[2023-05-21] MEDS: IBUPROFEN 800 MG TAB PO SCH ×3 (06:24→23:50)
--- NOTE | 2023-05-21 06:38 | XR ---
EXAMINATION TYPE: XR chest 1V portable DATE OF EXAM: 05/21/2023 CLINICAL HISTORY: Difficulty breathing progress study. TECHNIQUE: Single AP portable upright view of the chest is obtained. COMPARISON: Chest x-ray from one day earlier and older studies. FINDINGS: Persistent left basilar pleural drainage pigtail catheter with tiny lateral basilar hydrop neumothorax. Persistent left mid to lower lung increased opacity. Right lung remains clear. Cardiac s ilhouette size is stable and upper limits of normal. Osseous structures are intact. IMPRESSION: Persistent small to tiny lateral basilar left sided hydropneumothorax with pigtail pleura l drainage catheter in place. Persistent left mid to lower lung acute infiltrate and/or atelectasis. No significant change from one day earlier.
[2023-05-21] MEDS ORDERED: DORNASE ALFA 5 MG in SODIUM CHLORIDE 0.9% 50 ML IRRIGATION ONE (08:24)
[2023-05-21] MEDS ORDERED: ALTEPLASE 10 MG in SODIUM CHLORIDE 0.9% 50 ML IRRIGATION ONE (08:24)
[2023-05-21] MEDS: FAMOTIDINE 20 MG/2 ML VIAL IV SCH ×2 (09:06→20:19)
[2023-05-21] MEDS: HEPARIN SODIUM,PORCINE 5,000 UNIT/ML 1 ML VIAL SQ SCH ×3 (09:06→23:50)
[2023-05-21] MEDS: NICOTINE 21MG/24HR PATCH TRANSDERM SCH (09:06)
[2023-05-21] MEDS: LOSARTAN 50 MG TAB PO SCH (09:07)
[2023-05-21] MEDS: ATORVASTATIN 10 MG TAB PO SCH (09:07)
[2023-05-21 09:11] LABS: Basophils # (A) 0.05 X 10*3/uL (0.00-0.10); Basophils % (A) 0.4 %; Eosinophils # (A) 0.14 X 10*3/uL (0.04-0.35); HCT 32.2 % (39.6-50.0); HGB 10.4 d/dL (13.0-17.0); Lymphocytes # (A) 2.03 X 10*3/uL (0.90-5.00); Lymphocytes % (A) 15.2 %; MCH 28.4 pg (27.0-32.0); MCHC 32.3 d/dL (32.0-37.0); Mean Platelet Volume 9.1 FL (9.5-12.2); Monocytes # (A) 1.05 X 10*3/uL (0.20-1.00); Monocytes % (A) 7.9 %; NRBC Per 100 WBC 0 X 10*3/uL (0.00-0.01); Neutrophils # (A) 9.69 X 10*3/uL (1.80-7.70); Neutrophils % (A) 72.5 %; Platelet Count 623 X 10*3/uL (140-440); RBC 3.66 X 10*6/uL (4.40-5.60); WBC 13.36 X 10*3/uL (4.50-10.00)
[2023-05-21] MEDS ORDERED: RX INFO: IV CONTRAST WAS GIVEN 1 EACH MISC MISCELLANE PRN (11:03)
--- NOTE | 2023-05-21 11:07 | P.PN ---
Subjective Progress Note Date: 05/21/23 Principal diagnosis: Loculated left pleural effusion. Past medical history significant for hypertension, hyperlipidemia, prediabetes, chronic ongoing tobacco dependence, occasional marijuana use, and family history of heart disease. POD #5 placement of left pigtail catheter by interventional radiology The patient was seen and examined in follow-up today 05/21/2023 at his bedside on the fourth floor medical surgical unit. Currently sitting up to the bedside chair, is awake, alert, oriented 3 and is in no acute apparent distress. Oxygen saturations are 95% on room air and he is achieving 2250 mL on his incentive spirometry. He received a fourth dose of alteplase/dornase yesterday 05/20/2023 pleural instillation through his left chest pigtail catheter. Left chest pigtail catheter remained in place to low continuous wall suction -20 cm H2O. No air leak is present. Draining thick purulent drainage with 640 mL output in the last 8 hours at 1.2 L output in the last 24 hours. Chest x-ray results reviewed. Objective - Vital Signs Vital signs: Vital Signs Temp 98.2 F 05/21/23 07:00 Pulse 97 05/21/23 07:00 Resp 16 05/21/23 07:00 BP 118/81 05/21/23 07:00 Pulse Ox 93 L 05/21/23 07:00 FiO2 Intake & Output 05/20/23 05/21/23 05/21/23 18:59 06:59 18:59 Output Total 70 640 Balance -70 -640 Output: Chest Tube Drainage 70 640 Chest Tube Left 70 640 Other: Voiding Method Toilet Toilet Urinal Urinal # Voids 1 2 - Exam CONSTITUTIONAL: Awake and alert, appears comfortable, cooperative, well- developed, well-nourished, no pain, no acute distress RESPIRATORY: Lungs sounds diminished to his left lower lobe. Respirations are symmetrical, nonlabored. Currently on room air with oxygen saturation 95%, achieving 2250 mL on his incentive spirometry. Strong cough. Left chest pigtail catheter in place to low continuous wall suction -20 cm H2O. No air leak is present. Draining thick purulent drainage. CARDIOVASCULAR: S1, S2 present. Regular rate and rhythm, sinus rhythm on telemetry. Palpable peripheral pulses bilaterally. No edema present. No calf pain or tenderness noted. No significant lower extremity varicosities noted. GASTROINTESTINAL: Abdomen soft, nontender, nondistended without masses or organomegaly noted. There is no rebound or guarding present. Active bowel sounds present 4 quadrants. GENITOURINARY: Continues to void. INTEGUMENTARY: Skin is warm and dry with evidence of good perfusion. No clubbing or cyanosis present NEUROLOGIC: Cranial nerves II through XII intact, no focal deficits. MUSKULOSKELETAL: Able to move all extremities, strength equal bilaterally. PSYCHIATRIC: Alert and oriented to person place and time, appropriate affect, intact judgment and insight - Allied health notes Allied health notes reviewed: nursing - Labs CBC & Chem 7: 05/21/23 05:22 05/19/23 06:19 Labs: Abnormal Lab Results - Last 24 Hours (Table) 05/21/23 Range/Units 05:22 WBC 13.36 H (4.50-10.00) X 10*3/uL RBC 3.66 L (4.40-5.60) X 10*6/uL Hgb 10.4 L (13.0-17.0) d/dL Hct 32.2 L (39.6-50.0) % Plt Count 623 H (140-440) X 10*3/uL MPV 9.1 L (9.5-12.2) FL Neutrophils # 9.69 H (1.80-7.70) X 10*3/uL Monocytes # 1.05 H (0.20-1.00) X 10*3/uL Microbiology - Last 24 Hours (Table) 05/17/23 15:06 Blood Culture - Preliminary Blood - Imaging and Cardiology Chest x-ray: report reviewed, image reviewed Assessment and Plan Assessment: Loculated left-sided pleural effusion, status post placement of left-sided pigtail catheter by interventional radiology and patient has received 4 doses of alteplase/dornase pleural instillation Febrile illness with leukocytosis, most likely community-acquired pneumonia Transaminitis History of hypertension Hyperlipidemia Prediabetes, hemoglobin A1c 6.2 % Current tobacco dependence Occasional marijuana use Family history of heart disease Plan: We will instill a fifth dose of alteplase/dornase pleural instillation to the left chest pigtail catheter today. May disconnect Pleur-evac from suction to ambulate in the hallway and reconnect to continuous low wall suction at -20 cm H2O after ambulating. Encourage use of incentive spirometry 10 times every hour while awake. Continue to monitor daily chest x-rays. We will obtain a computed tomography scan of the chest with contrast tomorrow 05/22/2023 to reevaluate the left empyema. Dr. Lyman met with the patient today and discussed the possibility of a left thoracotomy with decortication. Treatment options were discussed with the patient including the surgical option, risks and benefits of surgery discussed with the patient by Dr. Lyman and if needed the patient is willing to proceed with surgery. IV antibiotic management per pulmonary critical care recommendations. Increase activity as tolerated. Out of bed for all meals. Medical management and other comorbidities per primary care service and other consultants. More recommendations to follow based on patient's clinical course. Time with Patient: Greater than 30
--- NOTE | 2023-05-21 13:54 | P.PN ---
Subjective Progress Note Date: 05/21/23 I am seeing this patient in [facility] today 05/17/2023 in the emergency room for a loculated left-sided pleural effusion. Patient is a 67-year-old male with past medical history significant for hypertension and hyperlipidemia. Patient lives in [place], and plans to move to [place] this Fall. His primary care provider is out of [facility]. Patient states that he started to have left-sided back pain and left shoulder pain approximately 3 weeks ago. He originally attributed this to yard work. Starting last week, he began to develop fevers, chills, and shortness of breath. He denies any cough or hemoptysis. He denies any nausea, vomiting, constipation, abdominal pain. Appetite has been good. Denies any weight loss. Denies any prior history of cancer. Patient does smoke approximately 1 pack per day. Patient did end up going to an urgent care clinic 2 days ago. He was felt to have left-sided pneumonia, and was started on a course of Levaquin. He only completed one dose of Levaquin, and came to the emergency room for worsening symptoms yesterday afternoon. A follow-up chest CTA demonstrated a loculated left pleural effusion with adjacent compressive atelectasis. There is pleural thickening. There was mild lymphadenopathy demonstrated within the superior mediastinum, hilum, and bilateral axillary nodes. There was also a 1.7 cm lobe either density within the posterior lateral right lung, which will require follow-up. No prior imaging for comparison. An abdominal and pelvis CT with contrast did not demonstrate any acute intra- abdominal abnormalities. CBC on arrival showed some leukocytosis with a WBC count of 22.6, hgb 11.9, hematocrit 35.1, platelets 515. CMP on arrival showed sodium 136, potassium 5, chloride 102, serum bicarbonate 21, BUN 17, creatinine 0.76, glucose 91. Normal saline is infusing at 100 mL per hour. LFTs were mildly elevated with an AST of 154, ALT of 216, ALP of 185. Patient has been empirically started on a combination of azithromycin and Rocephin. He remains febrile with a T-max of 102F on the hospital. He is currently sitting up in bed, on room air, in no acute distress. He appears nontoxic and is symptomatically stable. He will be admitted to the general medical floor. The patient is seen today 05/18/2023 in follow-up on the regular medical floor. He is currently sitting up in a chair at the bedside. Awake and alert in no acute distress. Unfortunately, his pigtail catheter was accidentally dislodged early this morning. He did have 900 ML's of purulent drainage out prior to that. Definitely exudate. Protein 2.7. LDH greater than 2500. He did receive alteplase/dornase infusion yesterday. His x-ray did reveal decreasing but still sizable moderate left pleural effusion with adjacent atelectasis and/or consolidation. Pleural fluid cultures/cytology pending. Blood cultures pending. He is continued on Unasyn. Heparin for DVT prophylaxis. NicoDerm patch in place. The patient is seen today 05/19/2023 in follow-up on the regular medical floor. He is currently awake and alert in no acute distress. Sitting up in a chair. Denies any worsening shortness of breath, cough or congestion. Chest x-ray reveals left basilar pleural catheter in place. Loculated pleural fluid and pleural tear noted at the site of the pleural effusion. He did have his pigtail catheter replaced yesterday. He had another 800 ML's drained in the past 24 hours. He received alternate/dornase lytic infusion today. He is continued on Unasyn. Cultures are showing gram-negative bacilli. He is currently afebrile. He did have a T-max of 100.7 early this morning. White count 16.2. Hemoglobin 10.0. Sodium 138. Potassium 4.4. Bicarb 24. BUN 15. Creatinine 0.9. The patient is seen today 05/20/2023 in follow-up on the regular medical floor. He is currently resting prone in bed. No worsening shortness of breath, cough or congestion. He is breathing slightly received alteplase/dornase infusion and is repositioning himself every 15 minutes. Chest x-ray shows left basilar pigtail catheter in place. Loculated left basilar effusion noted with underlying infiltrate/atelectasis. Blood cultures revealing no growth. Pleural fluid Gram stain revealing many gram-negative bacilli. He remains on Unasyn. Heparin for DVT prophylaxis. NicoDerm patch in place. Bronchodilators as needed. The patient is seen today 05/21/2023 in follow-up on the regular medical floor. Awake and alert in no acute distress. Continues to maintain good O2 saturations in the 90s on room air. Chest x-ray shows persistent small to tiny lateral basilar left-sided hydropneumothorax with pigtail catheter in place. Persistent left mid to lower lung acute infiltrate/atelectasis unchanged. Chest tube remains in place to Pleur-evac and low continuous wall suction. No air leak noted. He's had approximately 1200 ML's output in the past 24 hours. Continues to work well with the incentive spirometer. White count 13.3. Hemoglobin 10.4. Platelets 623. He is continued on bronchodilators as needed. Remains on antibiotics in form of Unasyn. Heparin for DVT prophylaxis. Objective - Vital Signs Vital signs: Vital Signs Temp 97.3 F L 05/21/23 13:24 Pulse 94 05/21/23 13:24 Resp 16 05/21/23 13:24 BP 118/78 05/21/23 13:24 Pulse Ox 96 05/21/23 13:24 FiO2 Intake & Output 05/20/23 05/21/23 05/21/23 18:59 06:59 18:59 Output Total 70 640 Balance -70 -640 Output: Chest Tube Drainage 70 640 Chest Tube Left 70 640 Other: Voiding Method Toilet Toilet Urinal Urinal # Voids 1 2 - Exam GENERAL EXAM: Alert, 67-year-old male, on room air, ambulating in room, comfortable in no apparent distress. HEAD: Normocephalic and atraumatic EYES: Normal reaction of pupils, equal size. NOSE: Clear with pink turbinates. THROAT: No erythema or exudates. NECK: No masses, no JVD. CHEST: No chest wall deformity. Left-sided pigtail catheter in place. LUNGS: There is diminished left lower lung sounds. No wheezes, rhonchi, crackles. CVS: S1 and S2 normal with no audible murmur, regular rhythm. No extra heart sounds ABDOMEN: No hepatosplenomegaly, active bowel sounds, no guarding or rigidity. SPINE: No scoliosis or deformity SKIN: No rashes CENTRAL NERVOUS SYSTEM: No focal deficits, tone is normal in all 4 extremities. EXTREMITIES: There is no peripheral edema, clubbing, or cyanosis. Peripheral pulses are intact. - Labs CBC & Chem 7: 05/21/23 05:22 05/19/23 06:19 Labs: Abnormal Lab Results - Last 24 Hours (Table) 05/21/23 Range/Units 05:22 WBC 13.36 H (4.50-10.00) X 10*3/uL RBC 3.66 L (4.40-5.60) X 10*6/uL Hgb 10.4 L (13.0-17.0) d/dL Hct 32.2 L (39.6-50.0) % Plt Count 623 H (140-440) X 10*3/uL MPV 9.1 L (9.5-12.2) FL Neutrophils # 9.69 H (1.80-7.70) X 10*3/uL Monocytes # 1.05 H (0.20-1.00) X 10*3/uL Microbiology - Last 24 Hours (Table) 05/17/23 15:06 Blood Culture - Preliminary Blood Assessment and Plan Assessment: Community acquired pneumonia and loculated left-sided pleural effusion. Chest CTA demonstrated a loculated left pleural effusion with adjacent compressive atelectasis. There is pleural thickening. There was mild lymphadenopathy demonstrated within the superior mediastinum, hilum, and bilateral axillary nodes. There was also a 1.7 cm lobular density within the posterior lateral right lung, which will require follow-up. Malignancy is not excluded. Status post pigtail catheter placement on 05/17/2023 and status post alteplase/dornase infusion 4. 900 mL of purulent drainage returned. Unfortunately the catheter came out early this morning and will need to be replaced today 05/18/2023. Fluid exudative. Total protein 2.7. LDH greater than 2500. Cultures are revealing many gram-negative bacilli and cytology revealed no evidence of malignancy. Currently on Unasyn. Leukocytosis secondary to above Right pulmonary nodule, measuring 1.7 cm, as demonstrated on chest CTA Chronic and ongoing tobacco dependence Benign essential hypertension Hyperlipidemia Mild transaminitis, undetermined significance, the patient did recently start on statins Plan: The patient was seen and evaluated Chest x-ray, labs and medications reviewed Received alteplase/dornase 5th dose today Continue Unasyn CT service is considering possible thoracoscopy and decortication Follow up chest x-ray in a.m. We will continue to follow I have personally seen and examined the patient, performed the documentation and the assessment and plan as written. Number of minutes spent on the visit: 10.
--- NOTE | 2023-05-21 20:52 | P.PN ---
Subjective Patient is a 67-year-old male with a past medical history of hypertension, hyperlipidemia, currently everyday smoker was sent to ER by his primary care physician due to concern for pneumonia and dehydration. Patient states that he was seen by his primary care physician at [place] about 2 weeks ago and was noticed that his WBC was elevated. Patient did did have some cough but without any other signs of infection at that time. Patient came to [place] and started having fever, sweats and not feeling well since last weekend. He contacted his primary care physician again and was sent to [facility] for x-ray which showed pneumonia. He was started on antibiotics in the form of Levaquin last night. Patient did take 1 dose. Patients primary care physician concerned about possible dehydration as well and was recommended to go to emergency room for further evaluation. Patient otherwise complains of cough without sputum production. No nausea vomiting or diarrhea. No chest pain. No complaints of shortness of breath. Patient states that he has been having left lower back pain and also left shoulder pain since last Monday and thought it may be due his increased outside work recently. On admission patient was febrile with Tmax 100.5 pulse is 105 and respiration 19 pulse ox 94% on room air. Chest x-ray showed similar large area of consolidation and pleural effusion within the left mid and lower lung. Correlate for pneumonia with emphysema not excluded. EKG showed sinus tachycardia. Laboratory pressure WBC 22.6 hemoglobin 11.9 and platelets 515 Sodium 136 potassium 5.0 chloride 102 bicarb is 21 BUN 17 and creatinine 0.76 a nd liver enzymes elevated with ALT 216, AST 154 and alk phos 185, LDH 604. proBNP 201 and albumin 3.4. 05/17/2023 patient was complaining of from back injury when he fell about 3 weeks ago. , After that [facility] [facility]. 2 weeks ago he saw his PCP and [facility] for regular checkup patient was noticed to have leukocytosis but denies any other symptoms.. After patient came from [facility] about a week ago he went to his orthopedic doctor who checked his back pain with x-ray and prescribed Motrin 800 mg 3 times a day. The last Monday he was sweating a lot with high fever 103. He called his PCP on Monday who prescribed him Levaquin after chest x-ray and asked him to come to emergency room. Patient complaining from mild tachypnea but with little clear phlegm. No chest pain only with coughing. He has little diarrhea but feels better. No urinary or neurological symptoms. He smokes about 1 pack per day and he decided to close last Monday and currently he has nicotine patch. He denies alcohol or illicit drugs. Patient is afebrile on admission at 102 he is saturating well on room air Labs showed leukocytosis of 22.6K, hemoglobin 11.9, platelet count 515 BMP is unremarkable Liver enzymes elevated with AST 154 and ALT 216 with lactated dehydrogenase elevated at 600-8. ProBNP is 201. CTA of the chest: Loculated left pleural effusion with adjacent atelectasis. No pulmonary embolism. 1.7 cm lobular mass in the right midlung. And axillary and mediastinal lymphadenopathy On admission patient was started on Zithromax, ceftriaxone, IV fluids and admitted with pulmonary team consult 05/18/2023 Patient sits up in chair feels better. His dyspnea is better. No chest pain he has difficulty this morning. He had pigtail catheter placed yesterday but fell off today Vitals stable oxygen saturation is acceptable. No more fever. Chest x-ray showing improvement No labs from today. Patient on Unasyn normal saline 75 mL/h 05/19/2023 Patient breathing comfortably Chest pain is minimal Left-sided chest tube in place and patient under going lytic therapy through the tube with cardiothoracic surgery team Patient had low-grade fever today at 100. still on Unasyn. 05/20/2023 Patient breathing better with less dyspnea and breathing quietly addressed. No other new complaints. Chest tube was taken out today after finishing his lytic therapy. Sputum Gram stain and culture still pending as well as blood culture Patient remains on Unasyn. Normal saline was ordered but The patient is not getting it today, he is hemodynamically stable. We will discontinue 05/21/2023 patient reports improvement in his breathing Chest tube was taken out. When she woke with no exertional dyspnea Chest x-ray showing improvement but some persistent changes in the left lower lung area. Surgery team planning to repeat CAT scan with contrast tomorrow and if still abnormal appendix considering decortication/thoracotomy Continue with Unasyn. Start normal saline 75 mL/h 16 hours for patient is getting IV contrast Objective - Vital Signs Vital signs: Vital Signs Temp 97.3 F L 05/21/23 13:24 Pulse 94 05/21/23 13:24 Resp 16 05/21/23 13:24 BP 118/78 05/21/23 13:24 Pulse Ox 96 05/21/23 13:24 FiO2 Intake & Output 05/21/23 05/21/23 05/22/23 06:59 18:59 06:59 Output Total 640 300 Balance -640 -300 Output: Chest Tube Drainage 640 300 Chest Tube Left 640 300 Other: Voiding Method Toilet Urinal # Voids 2 4 - Exam GENERAL: The patient is alert and oriented x3, not in any acute distress. Well developed, well nourished. HEENT: Pupils are round and equally reacting to light. EOMI. No scleral icterus. No conjunctival pallor. Normocephalic, atraumatic. No pharyngeal erythema. No thyromegaly. CARDIOVASCULAR: S1 and S2 present. No murmurs, rubs, or gallops. PULMONARY: Chest is clear to auscultation, no wheezing , no crackles. ABDOMEN: Soft, nontender, nondistended, normoactive bowel sounds. No palpable organomegaly. MUSCULOSKELETAL: No joint swelling or deformity. EXTREMITIES: No cyanosis, clubbing, or pedal edema. NEUROLOGICAL: Gross neurological examination did not reveal any focal deficits. SKIN: No rashes. no petechiae. - Labs CBC & Chem 7: 05/21/23 05:22 05/19/23 06:19 Labs: Abnormal Lab Results - Last 24 Hours (Table) 05/21/23 Range/Units 05:22 WBC 13.36 H (4.50-10.00) X 10*3/uL RBC 3.66 L (4.40-5.60) X 10*6/uL Hgb 10.4 L (13.0-17.0) d/dL Hct 32.2 L (39.6-50.0) % Plt Count 623 H (140-440) X 10*3/uL MPV 9.1 L (9.5-12.2) FL Neutrophils # 9.69 H (1.80-7.70) X 10*3/uL Monocytes # 1.05 H (0.20-1.00) X 10*3/uL Microbiology - Last 24 Hours (Table) 05/17/23 15:06 Blood Culture - Preliminary Blood Assessment and Plan Assessment: Left middle and lower lung pneumonia with paraPneumonia and large loculated left pleural effusion status post chest tube. Possible mass cannot be excluded entirely Sepsis with leukocytosis and fever Nicotine dependence Hypertension Hyperlipidemia Plan: Continue with antibiotic Unasyn Follow-up culture results Pulmonary team consult Repeat CAT scan in the morning cardiothoracic surgery team on the case status post Pegtail tube insertion which is removed accidentally, plan to replace chest tube Labs and medication were reviewed.. Continue same treatment. Continue with s ymptomatic treatment. Resume home medication. Monitor labs and vitals. DVT and GI prophylaxis. Further recommendations as per clinical course of the patient DVT prophylaxis: Subcutaneous heparin GI Prophylaxis: Pepcid PT/OT: Pending Prognosis is guarded
[2023-05-21] MEDS: SODIUM CHLORIDE 0.9% 1,000 ML IV SCH (21:30)
[2023-05-22] MEDS: LEVOFLOXACIN 750MG-D5W PMX 750 MG in DEXTROSE/WATER 1 150ML.BAG IVPB SCH ×2 (00:59→23:58)
[2023-05-22] MEDS: IBUPROFEN 800 MG TAB PO SCH ×3 (06:12→20:48)
--- NOTE | 2023-05-22 07:18 | CT ---
EXAMINATION TYPE: CT chest w con CT DLP: 561.3 mGycm, Automated exposure control for dose reduction was used. DATE OF EXAM: 05/22/2023 6:50 AM COMPARISON: Chest radiograph 05/21/2023, CTA chest 05/16/2023 CLINICAL INDICATION:Male, 67 years old with history of Left empyema; PHH, Lt empyema TECHNIQUE: Multiple axial images were obtained through the chest following the administration of 100 cc of Isovue 300. . Coronal and sagittal reformats reviewed. FINDINGS: LUNGS/ PLEURA: Redemonstration 1.5 cm nodular density within the posterior lateral right midlung (ser ies 200 image 36). Minimal right lower lobe linear atelectasis. Decreased left loculated pleural eff usion with trace gas identified and pleural pigtail in place inferiorly. There is trace fluid identif ied within this loculation with similar small to moderate size 10 cm collection along the posterior u pper lung some trace gas identified. Additional smaller loculated collection measuring up to 4.4 cm i n the left lung apex. AIRWAY: Patent and unremarkable.. HEART: Mildly prominent size. No pericardial effusion. Mild coronary artery calcifications. MEDIASTINUM: Redemonstration of enlarged AP window lymph node measuring 2.0 cm short axis. VASCULATURE: No aortic aneurysm. MUSCULOSKELETAL: No acute osseous abnormalities. Mild degenerative changes of the visualized spine. SOFT TISSUES/LYMPH NODES: Left posterior lateral chest wall subcutaneous edema identified. LOWER NECK: No significant findings. UPPER ABDOMEN: Small hiatal hernia IMPRESSION: 1. Decreased loculated left pleural effusion with pleural pigtail catheter in place, trace now. There continues to be loculated effusion within the posterior left upper lung measuring up to 10 cm and al michelle the left apex measuring up to 4.4 cm. 2. Nonspecific enlarged mediastinal lymph node measuring up to 2.0 cm. 3. Stable nodular 1.5 cm density within the posterior right midlung. Further evaluation with PET/CT i s recommended.
[2023-05-22] MEDS: NICOTINE 21MG/24HR PATCH TRANSDERM SCH (08:12)
[2023-05-22] MEDS: HEPARIN SODIUM,PORCINE 5,000 UNIT/ML 1 ML VIAL SQ SCH ×3 (08:13→23:58)
[2023-05-22] MEDS: ATORVASTATIN 10 MG TAB PO SCH (08:13)
[2023-05-22] MEDS: FAMOTIDINE 20 MG/2 ML VIAL IV SCH ×2 (08:13→20:48)
[2023-05-22] MEDS: LOSARTAN 50 MG TAB PO SCH (08:13)
[2023-05-22] MEDS: SODIUM CHLORIDE 0.9% 1,000 ML IV SCH (08:20)
[2023-05-22] MEDS ORDERED: ALTEPLASE 10 MG in SODIUM CHLORIDE 0.9% 50 ML IRRIGATION ONE (10:00)
[2023-05-22] MEDS ORDERED: DORNASE ALFA 5 MG in SODIUM CHLORIDE 0.9% 50 ML IRRIGATION ONE (10:00)
--- NOTE | 2023-05-22 10:56 | P.PN ---
Subjective Progress Note Date: 05/22/23 Principal diagnosis: Loculated left pleural effusion. Past medical history significant for hypertension, hyperlipidemia, prediabetes, chronic ongoing tobacco dependence, occasional marijuana use, and family history of heart disease. POD #6 placement of left pigtail catheter by interventional radiology The patient was seen and examined in follow-up today 05/22/2023 at his bedside on the fourth floor medical surgical unit. Currently sitting up to the bedside chair, is awake, alert, oriented 3 and is in no acute apparent distress. Oxygen saturations are 95% on room air and he is achieving 2250 mL on his incentive spirometry. He received a fifth dose of alteplase/dornase yesterday 05/21/2023 pleural instillation through his left chest pigtail catheter. Left chest pigtail catheter remains in place to low continuous wall suction -20 cm H2O. No air leak is present. Draining thick purulent drainage with 200 mL output in the last 8 hours at 600 mL output in the last 24 hours. Computed tomography scan of the chest results reviewed. Patient reports he has been up ambulating in the hatch of the fourth floor medical surgical unit, tolerating well. Pleural fluid culture shows staph hominis sub SP. hominis, he is currently being treated with Levaquin 750 mg IV piggyback every 24 hours. Objective - Vital Signs Vital signs: Vital Signs Temp 98.4 F 05/22/23 07:09 Pulse 86 05/22/23 07:09 Resp 20 05/22/23 10:45 BP 131/82 05/22/23 07:09 Pulse Ox 94 L 05/22/23 07:09 FiO2 Intake & Output 05/21/23 05/22/23 05/22/23 18:59 06:59 18:59 Output Total 300 300 Balance -300 -300 Output: Chest Tube Drainage 300 300 Chest Tube Left 300 300 Other: Voiding Method Toilet Toilet Urinal Urinal # Voids 4 1 - Exam CONSTITUTIONAL: Awake and alert, appears comfortable, cooperative, well- developed, well-nourished, no pain, no acute distress RESPIRATORY: Lungs sounds diminished to his left lower lobe. Respirations are symmetrical, nonlabored. Currently on room air with oxygen saturation 95%, achieving 2250 mL on his incentive spirometry. Strong cough. Left chest pigtail catheter in place to low continuous wall suction -20 cm H2O. No air leak is present. Draining thick purulent drainage. CARDIOVASCULAR: S1, S2 present. Regular rate and rhythm, sinus rhythm on telemetry. Palpable peripheral pulses bilaterally. No edema present. No calf pain or tenderness noted. No significant lower extremity varicosities noted. GASTROINTESTINAL: Abdomen soft, nontender, nondistended without masses or organomegaly noted. There is no rebound or guarding present. Active bowel s ounds present 4 quadrants. Passing flatus. GENITOURINARY: Continues to void. INTEGUMENTARY: Skin is warm and dry with evidence of good perfusion. No clubbing or cyanosis present NEUROLOGIC: Cranial nerves II through XII intact, no focal deficits. MUSKULOSKELETAL: Able to move all extremities, strength equal bilaterally. PSYCHIATRIC: Alert and oriented to person place and time, appropriate affect, intact judgment and insight - Labs CBC & Chem 7: 05/21/23 05:22 05/19/23 06:19 Labs: Microbiology - Last 24 Hours (Table) 05/16/23 16:15 Blood Culture - Final Blood 05/17/23 13:56 Gram Stain - Final Pleural Fluid Body Fluid Culture - Final Staph hominis sub sp. hominis 05/16/23 16:00 Blood Culture - Final Blood Assessment and Plan Assessment: Loculated left-sided pleural effusion, status post placement of left-sided pigtail catheter by interventional radiology and patient has received 5 doses of alteplase/dornase pleural instillation Febrile illness with leukocytosis, most likely community-acquired pneumonia Transaminitis History of hypertension Hyperlipidemia Prediabetes, hemoglobin A1c 6.2 % Current tobacco dependence Occasional marijuana use Family history of heart disease Plan: We will instill a sixth dose of alteplase/dornase pleural instillation to the left chest pigtail catheter today. May disconnect Pleur-evac from suction to ambulate in the hallway and reconnect to continuous low wall suction at -20 cm H2O after ambulating. Encourage use of incentive spirometry 10 times every hour while awake. Continue to monitor daily chest x-rays. Dr. Lyman discussed yesterday with the patient the possibility of a left thoracotomy with decortication. Treatment options were discussed with the patient including the surgical option, risks and benefits of surgery discussed with the patient by Dr. Lyman and if needed the patient is willing to proceed with surgery. IV antibiotic management per pulmonary critical care recommendations. Currently on Levaquin IV piggyback. Increase activity as tolerated. Out of bed for all meals. Medical management and other comorbidities per primary care service and other consultants. More recommendations to follow based on patient's clinical course. Time with Patient: Greater than 30
--- NOTE | 2023-05-22 14:57 | P.PN ---
Subjective Progress Note Date: 05/22/23 I am seeing this patient in [facility] today 05/17/2023 in the emergency room for a loculated left-sided pleural effusion. Patient is a 67-year-old male with past medical history significant for hypertension and hyperlipidemia. Patient lives in [place], and plans to move to [place] this Fall. His primary care provider is out of [facility]. Patient states that he started to have left-sided back pain and left shoulder pain approximately 3 weeks ago. He originally attributed this to yard work. Starting last week, he began to develop fevers, chills, and shortness of breath. He denies any cough or hemoptysis. He denies any nausea, vomiting, constipation, abdominal pain. Appetite has been good. Denies any weight loss. Denies any prior history of cancer. Patient does smoke approximately 1 pack per day. Patient did end up going to an urgent care clinic 2 days ago. He was felt to have left-sided pneumonia, and was started on a course of Levaquin. He only completed one dose of Levaquin, and came to the emergency room for worsening symptoms yesterday afternoon. A follow-up chest CTA demonstrated a loculated left pleural effusion with adjacent compressive atelectasis. There is pleural thickening. There was mild lymphadenopathy demonstrated within the superior mediastinum, hilum, and bilateral axillary nodes. There was also a 1.7 cm lobe either density within the posterior lateral right lung, which will require follow-up. No prior imaging for comparison. An abdominal and pelvis CT with contrast did not demonstrate any acute intra- abdominal abnormalities. CBC on arrival showed some leukocytosis with a WBC count of 22.6, hgb 11.9, hematocrit 35.1, platelets 515. CMP on arrival showed sodium 136, potassium 5, chloride 102, serum bicarbonate 21, BUN 17, creatinine 0.76, glucose 91. Normal saline is infusing at 100 mL per hour. LFTs were mildly elevated with an AST of 154, ALT of 216, ALP of 185. Patient has been empirically started on a combination of azithromycin and Rocephin. He remains febrile with a T-max of 102F on the hospital. He is currently sitting up in bed, on room air, in no acute distress. He appears nontoxic and is symptomatically stable. He will be admitted to the general medical floor. The patient is seen today 05/18/2023 in follow-up on the regular medical floor. He is currently sitting up in a chair at the bedside. Awake and alert in no acute distress. Unfortunately, his pigtail catheter was accidentally dislodged early this morning. He did have 900 ML's of purulent drainage out prior to that. Definitely exudate. Protein 2.7. LDH greater than 2500. He did receive alteplase/dornase infusion yesterday. His x-ray did reveal decreasing but still sizable moderate left pleural effusion with adjacent atelectasis and/or consolidation. Pleural fluid cultures/cytology pending. Blood cultures pending. He is continued on Unasyn. Heparin for DVT prophylaxis. NicoDerm patch in place. The patient is seen today 05/19/2023 in follow-up on the regular medical floor. He is currently awake and alert in no acute distress. Sitting up in a chair. Denies any worsening shortness of breath, cough or congestion. Chest x-ray reveals left basilar pleural catheter in place. Loculated pleural fluid and pleural tear noted at the site of the pleural effusion. He did have his pigtail catheter replaced yesterday. He had another 800 ML's drained in the past 24 hours. He received alternate/dornase lytic infusion today. He is continued on Unasyn. Cultures are showing gram-negative bacilli. He is currently afebrile. He did have a T-max of 100.7 early this morning. White count 16.2. Hemoglobin 10.0. Sodium 138. Potassium 4.4. Bicarb 24. BUN 15. Creatinine 0.9. The patient is seen today 05/20/2023 in follow-up on the regular medical floor. He is currently resting prone in bed. No worsening shortness of breath, cough or congestion. He is breathing slightly received alteplase/dornase infusion and is repositioning himself every 15 minutes. Chest x-ray shows left basilar pigtail catheter in place. Loculated left basilar effusion noted with underlying infiltrate/atelectasis. Blood cultures revealing no growth. Pleural fluid Gram stain revealing many gram-negative bacilli. He remains on Unasyn. Heparin for DVT prophylaxis. NicoDerm patch in place. Bronchodilators as needed. The patient is seen today 05/21/2023 in follow-up on the regular medical floor. Awake and alert in no acute distress. Continues to maintain good O2 saturations in the 90s on room air. Chest x-ray shows persistent small to tiny lateral basilar left-sided hydropneumothorax with pigtail catheter in place. Persistent left mid to lower lung acute infiltrate/atelectasis unchanged. Chest tube remains in place to Pleur-evac and low continuous wall suction. No air leak noted. He's had approximately 1200 ML's output in the past 24 hours. Continues to work well with the incentive spirometer. White count 13.3. Hemoglobin 10.4. Platelets 623. He is continued on bronchodilators as needed. Remains on antibiotics in form of Unasyn. Heparin for DVT prophylaxis. The patient is seen today 05/22/2023 in follow-up on the regular medical floor. He is currently resting comfortably in bed. Awake and alert in no acute distress. Denies any worsening shortness of breath, cough or congestion. Chest tube remains in place to the left chest attached to Pleur-evac with thick purulent drainage noted, to low continuous wall suction. No leak. He continues working well with the incentive spirometer. Follow-up computed tomography scan today revealed decreased loculated left pleural effusion with pleural pigtail catheter in place. There continues to be loculated effusion within the posterior left upper lung measuring up to 10 cm and along the left apex measuring up to 4.4 cm. Nonspecific enlarged mediastinal lymph node measuring 2.0 cm. Stable nodular 1.5 cm density within the posterior right midlung. Pleural fluid culture is positive for staph hominis. He is now on Levaquin. Plan is for a 6th instillation of alteplase/dornase today. Plan may be for left thoracotomy with decortication per CT services. Objective - Vital Signs Vital signs: Vital Signs Temp 98.4 F 05/22/23 07:09 Pulse 86 05/22/23 07:09 Resp 20 05/22/23 10:45 BP 131/82 05/22/23 07:09 Pulse Ox 94 L 05/22/23 07:09 FiO2 Intake & Output 05/21/23 05/22/23 05/22/23 18:59 06:59 18:59 Intake Total 250 Output Total 300 300 350 Balance -300 -300 -100 Intake: Oral 250 Output: Chest Tube Drainage 300 300 350 Chest Tube Left 300 300 350 Other: Voiding Method Toilet Toilet Urinal Urinal # Voids 4 1 - Exam GENERAL EXAM: Alert, pleasant 67-year-old male, on room air, resting in bed, comfortable in no apparent distress. HEAD: Normocephalic and atraumatic EYES: Normal reaction of pupils, equal size. NOSE: Clear with pink turbinates. THROAT: No erythema or exudates. NECK: No masses, no JVD. CHEST: No chest wall deformity. Left-sided pigtail catheter in place to Pleur- evac and low continuous wall suction, no leak LUNGS: There is diminished left lower lung sounds. No wheezes, rhonchi, crackles. CVS: S1 and S2 normal with no audible murmur, regular rhythm. No extra heart sounds ABDOMEN: No hepatosplenomegaly, active bowel sounds, no guarding or rigidity. SPINE: No scoliosis or deformity SKIN: No rashes CENTRAL NERVOUS SYSTEM: No focal deficits, tone is normal in all 4 extremities. EXTREMITIES: There is no peripheral edema, clubbing, or cyanosis. Peripheral pulses are intact. - Labs CBC & Chem 7: 05/21/23 05:22 05/19/23 06:19 Labs: Microbiology - Last 24 Hours (Table) 05/16/23 16:15 Blood Culture - Final Blood 05/17/23 13:56 Gram Stain - Final Pleural Fluid Body Fluid Culture - Final Staph hominis sub sp. hominis 05/16/23 16:00 Blood Culture - Final Blood Assessment and Plan Assessment: Community acquired pneumonia and loculated left-sided pleural effusion. Chest CTA demonstrated a loculated left pleural effusion with adjacent compressive atelectasis. There is pleural thickening. There was mild lymphadenopathy demonstrated within the superior mediastinum, hilum, and bilateral axillary nodes. There was also a 1.7 cm lobular density within the posterior lateral right lung, which will require follow-up. Malignancy is not excluded. Status post pigtail catheter placement on 05/17/2023 and status post alteplase/dornase infusion 6. Purulent drainage returned. Fluid exudative. Total protein 2.7. LDH greater than 2500. Cultures are positive for staph hominis. Now on Leva jaziel. Cytology revealed no evidence of malignancy. Leukocytosis secondary to above Right pulmonary nodule, measuring 1.7 cm, as demonstrated on chest CTA Chronic and ongoing tobacco dependence Benign essential hypertension Hyperlipidemia Mild transaminitis, undetermined significance, the patient did recently start on statins Plan: The patient was seen and evaluated Computed tomography scan of the chest, labs and medications reviewed Received alteplase/dornase 6th dose today Culture positive for staph hominis, now on Levaquin CT service is considering possible thoracoscopy and decortication We will continue to follow I have personally seen and examined the patient, performed the documentation and the assessment and plan as written. Number of minutes spent on the visit: 10.
[2023-05-23] MEDS: IBUPROFEN 800 MG TAB PO SCH ×3 (06:24→22:38)
--- NOTE | 2023-05-23 07:29 | XR ---
EXAMINATION TYPE: XR chest 1V portable DATE OF EXAM: 05/23/2023 COMPARISON: 05/21/2023 INDICATION: Left empyema TECHNIQUE: Single frontal view of the chest is obtained. FINDINGS: The heart size is normal. The pulmonary vasculature is normal. There is increased opacity over the left upper lung field. A chest tube is at the left base. Pneumoth orax is diminished from comparison. IMPRESSION: 1. Increasing left upper lobe infiltrate. 2. Stable left basilar catheter. Loculated pneumothorax diminished from comparison
[2023-05-23] MEDS: LOSARTAN 50 MG TAB PO SCH (08:08)
[2023-05-23] MEDS: FAMOTIDINE 20 MG/2 ML VIAL IV SCH ×2 (08:08→21:12)
[2023-05-23] MEDS: HEPARIN SODIUM,PORCINE 5,000 UNIT/ML 1 ML VIAL SQ SCH ×3 (08:08→23:47)
[2023-05-23] MEDS: ATORVASTATIN 10 MG TAB PO SCH (08:08)
[2023-05-23] MEDS: NICOTINE 21MG/24HR PATCH TRANSDERM SCH (08:09)
--- NOTE | 2023-05-23 08:36 | P.PN ---
Subjective Progress Note Date: 05/23/23 Principal diagnosis: Loculated left pleural effusion. Past medical history significant for hypertension, hyperlipidemia, prediabetes, chronic ongoing tobacco dependence, occasional marijuana use, and family history of heart disease. POD #7 placement of left pigtail catheter by interventional radiology The patient was seen and examined today 05/23/2023 at his bedside on the [facility] surgical unit. He is currently sitting up to the bedside edge, there is awake, alert, oriented 3 and is in no acute apparent distress. He denies any complaints of shortness of breath at this time, and reports he has no pain this morning and feels that the alteplase/dornase treatments have been helping decrease his pain. Oxygen saturation are 94% on room air and he is achieving 2500 mL on his incentive spirometry with encouragement. Left pleural pigtail catheter remains in place to low continuous wall suction -20 cm H2O. No air leak is present. Draining thick purulent drainage with 500 mL output in the last 24 hours. Patient received a sixth dose of alteplase/dornase yesterday pleural instillation. Pleural fluid culture shows positive for staph Hominis, and he remains on Levaquin for antibiotic coverage. He is currently scheduled for a left thoracotomy with decortication tomorrow with Dr. Reinoso. Objective - Vital Signs Vital signs: Vital Signs Temp 98.9 F 05/23/23 07:25 Pulse 95 05/23/23 07:25 Resp 18 05/23/23 07:25 BP 130/83 05/23/23 07:25 Pulse Ox 94 L 05/23/23 07:25 FiO2 Intake & Output 05/22/23 05/23/23 05/23/23 18:59 06:59 18:59 Intake Total 250 Output Total 450 150 Balance -200 -150 Intake: Oral 250 Output: Chest Tube Drainage 450 150 Chest Tube Left 450 150 Other: Voiding Method Toilet Urinal # Voids 3 2 - Exam CONSTITUTIONAL: Awake and alert, appears comfortable, cooperative, well- developed, well-nourished, no pain, no acute distress RESPIRATORY: Lungs sounds diminished to his left lobes. Respirations are symmetrical, nonlabored. Currently on room air with oxygen saturation 94%, achieving 2500 mL on his incentive spirometry. Strong cough. Left chest pigtail catheter in place to low continuous wall suction -20 cm H2O. No air leak is present. Draining thick purulent drainage. CARDIOVASCULAR: S1, S2 present. Regular rate and rhythm, sinus rhythm on telemetry. Palpable peripheral pulses bilaterally. No edema present. No calf pain or tenderness noted. No significant lower extremity varicosities noted. GASTROINTESTINAL: Abdomen soft, nontender, nondistended without masses or organomegaly noted. There is no rebound or guarding present. Active bowel sounds present 4 quadrants. Passing flatus. GENITOURINARY: Continues to void. INTEGUMENTARY: Skin is warm and dry with evidence of good perfusion. No cl ubbing or cyanosis present NEUROLOGIC: Cranial nerves II through XII intact, no focal deficits. MUSKULOSKELETAL: Able to move all extremities, strength equal bilaterally. PSYCHIATRIC: Alert and oriented to person place and time, appropriate affect, intact judgment and insight - Allied health notes Allied health notes reviewed: nursing - Labs CBC & Chem 7: 05/21/23 05:22 05/19/23 06:19 Labs: Microbiology - Last 24 Hours (Table) 05/17/23 15:06 Blood Culture - Final Blood 05/16/23 16:15 Blood Culture - Final Blood - Imaging and Cardiology Chest x-ray: report reviewed, image reviewed Assessment and Plan Assessment: Loculated left-sided pleural effusion, status post placement of left-sided pigtail catheter by interventional radiology and patient has received 6 doses of alteplase/dornase pleural instillation Febrile illness with leukocytosis, most likely community-acquired pneumonia Transaminitis History of hypertension Hyperlipidemia Prediabetes, hemoglobin A1c 6.2 % Current tobacco dependence Occasional marijuana use Family history of heart disease Plan: Encourage use of incentive spirometry 10 times every hour while awake. Continue to monitor daily chest x-rays. Dr. Lyman as discussed discussed with the patient treatment options including a left thoracotomy with decortication. Surgical option, risks and benefits of surgery discussed with the patient by Dr. Lyman and the patient is willing to proceed with surgery. The patient is scheduled for a left thoracotomy with decortication be performed by Dr. Rajat Reinoso tomorrow 05/24/2023. IV antibiotic management per pulmonary critical care recommendations. Currently on Levaquin IV piggyback, for a pleural fluid culture showing Staph hominis. Increase activity as tolerated. Out of bed for all meals. May disconnect pleuro-Vac from suction for ambulating. Medical management and other comorbidities per primary care service and other consultants. Nothing by mouth after midnight. More recommendations to follow based on patient's clinical course. Time with Patient: Greater than 30
--- NOTE | 2023-05-23 10:39 | P.PN ---
Subjective Patient is a 67-year-old male with a past medical history of hypertension, hyperlipidemia, currently everyday smoker was sent to ER by his primary care physician due to concern for pneumonia and dehydration. Patient states that he was seen by his primary care physician at [place] about 2 weeks ago and was noticed that his WBC was elevated. Patient did did have some cough but without any other signs of infection at that time. Patient came to [place] and started having fever, sweats and not feeling well since last weekend. He contacted his primary care physician again and was sent to [facility] for x-ray which showed pneumonia. He was started on antibiotics in the form of Levaquin last night. Patient did take 1 dose. Patients primary care physician concerned about possible dehydration as well and was recommended to go to emergency room for further evaluation. Patient otherwise complains of cough without sputum production. No nausea vomiting or diarrhea. No chest pain. No complaints of shortness of breath. Patient states that he has been having left lower back pain and also left shoulder pain since last Monday and thought it may be due his increased outside work recently. On admission patient was febrile with Tmax 100.5 pulse is 105 and respiration 19 pulse ox 94% on room air. Chest x-ray showed similar large area of consolidation and pleural effusion within the left mid and lower lung. Correlate for pneumonia with emphysema not excluded. EKG showed sinus tachycardia. Laboratory pressure WBC 22.6 hemoglobin 11.9 and platelets 515 Sodium 136 potassium 5.0 chloride 102 bicarb is 21 BUN 17 and creatinine 0.76 a nd liver enzymes elevated with ALT 216, AST 154 and alk phos 185, LDH 604. proBNP 201 and albumin 3.4. 05/17/2023 patient was complaining of from back injury when he fell about 3 weeks ago. , After that [facility]. 2 weeks ago he saw his PCP and [facility] for regular checkup patient was noticed to have leukocytosis but denies any other symptoms.. After patient came from [facility] about a week ago he went to his orthopedic doctor who checked his back pain with x-ray and prescribed Motrin 800 mg 3 times a day. The last Monday he was sweating a lot with high fever 103. He called his PCP on Monday who prescribed him Levaquin after chest x-ray and asked him to come to emergency room. Patient complaining from mild tachypnea but with little clear phlegm. No chest pain only with coughing. He has little diarrhea but feels better. No urinary or neurological symptoms. He smokes about 1 pack per day and he decided to close last Monday and currently he has nicotine patch. He denies alcohol or illicit drugs. Patient is afebrile on admission at 102 he is saturating well on room air Labs showed leukocytosis of 22.6K, hemoglobin 11.9, platelet count 515 BMP is unremarkable Liver enzymes elevated with AST 154 and ALT 216 with lactated dehydrogenase elevated at 600-8. ProBNP is 201. CTA of the chest: Loculated left pleural effusion with adjacent atelectasis. No pulmonary embolism. 1.7 cm lobular mass in the right midlung. And axillary and mediastinal lymphadenopathy On admission patient was started on Zithromax, ceftriaxone, IV fluids and admitted with pulmonary team consult 05/18/2023 Patient sits up in chair feels better. His dyspnea is better. No chest pain he has difficulty this morning. He had pigtail catheter placed yesterday but fell off today Vitals stable oxygen saturation is acceptable. No more fever. Chest x-ray showing improvement No labs from today. Patient on Unasyn normal saline 75 mL/h 05/19/2023 Patient breathing comfortably Chest pain is minimal Left-sided chest tube in place and patient under going lytic therapy through the tube with cardiothoracic surgery team Patient had low-grade fever today at 100. still on Unasyn. 05/20/2023 Patient breathing better with less dyspnea and breathing quietly addressed. No other new complaints. Chest tube was taken out today after finishing his lytic therapy. Sputum Gram stain and culture still pending as well as blood culture Patient remains on Unasyn. Normal saline was ordered but The patient is not getting it today, he is hemodynamically stable. We will discontinue 05/21/2023 patient reports improvement in his breathing Chest tube was taken out. When she woke with no exertional dyspnea Chest x-ray showing improvement but some persistent changes in the left lower lung area. Surgery team planning to repeat CAT scan with contrast tomorrow and if still abnormal appendix considering decortication/thoracotomy Continue with Unasyn. Start normal saline 75 mL/h 16 hours for patient is getting IV contrast 05/22/2023 pt sitting at bed with no much respiratory symptoms Left lower posterior pigtail catheter in place through which is still pending lytic therapy with alteplase/dornase under the care of surgery team. Repeat CAT scan of the chest today showing decreased loculated left pleural effusion with pigtail catheter in place. Residual loculated effusion is 10 cm at left upper lung 4.4 cm of the left. With associated mediastinal lymphadenop athy. Objective - Vital Signs Vital signs: Vital Signs Temp 99.3 F 05/22/23 14:00 Pulse 104 H 05/22/23 14:00 Resp 18 05/22/23 14:00 BP 150/90 05/22/23 14:00 Pulse Ox 93 L 05/22/23 14:00 FiO2 Intake & Output 05/21/23 05/22/23 05/22/23 18:59 06:59 18:59 Intake Total 250 Output Total 300 300 350 Balance -300 -300 -100 Intake: Oral 250 Output: Chest Tube Drainage 300 300 350 Chest Tube Left 300 300 350 Other: Voiding Method Toilet Toilet Urinal Urinal # Voids 4 1 - Exam GENERAL: The patient is alert and oriented x3, not in any acute distress. Well developed, well nourished. HEENT: Pupils are round and equally reacting to light. EOMI. No scleral icterus. No conjunctival pallor. Normocephalic, atraumatic. No pharyngeal erythema. No thyromegaly. CARDIOVASCULAR: S1 and S2 present. No murmurs, rubs, or gallops. PULMONARY: Chest is clear to auscultation, no wheezing , no crackles. ABDOMEN: Soft, nontender, nondistended, normoactive bowel sounds. No palpable organomegaly. MUSCULOSKELETAL: No joint swelling or deformity. EXTREMITIES: No cyanosis, clubbing, or pedal edema. NEUROLOGICAL: Gross neurological examination did not reveal any focal deficits. SKIN: No rashes. no petechiae. - Labs CBC & Chem 7: 05/21/23 05:22 05/19/23 06:19 Labs: Microbiology - Last 24 Hours (Table) 05/16/23 16:15 Blood Culture - Final Blood 05/17/23 13:56 Gram Stain - Final Pleural Fluid Body Fluid Culture - Final Staph hominis sub sp. hominis 05/16/23 16:00 Blood Culture - Final Blood Assessment and Plan Assessment: Left middle and lower lung pneumonia with paraPneumonia and large loculated left pleural effusion status post chest tube. Possible mass cannot be excluded entirely Sepsis with leukocytosis and fever Nicotine dependence Hypertension Hyperlipidemia Plan: Continue with antibiotic Unasyn Follow-up culture results Pulmonary team consult Repeat CAT scan in the morning cardiothoracic surgery team on the case status post Pegtail tube insertion which is removed accidentally, plan to replace chest tube Labs and medication were reviewed.. Continue same treatment. Continue with symptomatic treatment. Resume home medication. Monitor labs and vitals. DVT and GI prophylaxis. Further recommendations as per clinical course of the patient DVT prophylaxis: Subcutaneous heparin GI Prophylaxis: Pepcid PT/OT: Pending Prognosis is guarded
[2023-05-23 11:03] LABS: BUN/Creat Ratio 15.29 Ratio (12.00-20.00); Blood Urea Nitrogen 10.7 mg/dL (9.0-27.0); Calcium 8.1 mg/dL (8.7-10.3); Carbon Dioxide 23.1 mmol/L (21.6-31.8); Chloride 104 mmol/L (96-109); Glucose 94 mg/dL (70-110); HGB 9.7 d/dL (13.0-17.0); MCHC 32.3 d/dL (32.0-37.0); MCV 86.7 FL (80.0-97.0); Mean Platelet Volume 9.1 FL (9.5-12.2); NRBC Per 100 WBC 0 X 10*3/uL (0.00-0.01); Platelet Count 616 X 10*3/uL (140-440); Potassium 4.4 mmol/L (3.5-5.5); RBC 3.46 X 10*6/uL (4.40-5.60); Sodium 136 mmol/L (135-145); WBC 17.31 X 10*3/uL (4.50-10.00)
[2023-05-23 11:38] VITALS: BMI 29.1
[2023-05-23] MEDS ORDERED: VANCOMYCIN IV PER PHARMACY 1 EACH MISC MISCELLANE PRN (12:53)
--- NOTE | 2023-05-23 13:31 | P.PN ---
Subjective Progress Note Date: 05/23/23 I am seeing this patient in [facility] today 05/17/2023 in the emergency room for a loculated left-sided pleural effusion. Patient is a 67-year-old male with past medical history significant for hypertension and hyperlipidemia. Patient lives in [place], and plans to move to [place] this Fall. His primary care provider is out of [facility]. Patient states that he started to have left-sided back pain and left shoulder pain approximately 3 weeks ago. He originally attributed this to yard work. Starting last week, he began to develop fevers, chills, and shortness of breath. He denies any cough or hemoptysis. He denies any nausea, vomiting, constipation, abdominal pain. Appetite has been good. Denies any weight loss. Denies any prior history of cancer. Patient does smoke approximately 1 pack per day. Patient did end up going to an urgent care clinic 2 days ago. He was felt to have left-sided pneumonia, and was started on a course of Levaquin. He only completed one dose of Levaquin, and came to the emergency room for worsening symptoms yesterday afternoon. A follow-up chest CTA demonstrated a loculated left pleural effusion with adjacent compressive atelectasis. There is pleural thickening. There was mild lymphadenopathy demonstrated within the superior mediastinum, hilum, and bilateral axillary nodes. There was also a 1.7 cm lobe either density within the posterior lateral right lung, which will require follow-up. No prior imaging for comparison. An abdominal and pelvis CT with contrast did not demonstrate any acute intra- abdominal abnormalities. CBC on arrival showed some leukocytosis with a WBC count of 22.6, hgb 11.9, hematocrit 35.1, platelets 515. CMP on arrival showed sodium 136, potassium 5, chloride 102, serum bicarbonate 21, BUN 17, creatinine 0.76, glucose 91. Normal saline is infusing at 100 mL per hour. LFTs were mildly elevated with an AST of 154, ALT of 216, ALP of 185. Patient has been empirically started on a combination of azithromycin and Rocephin. He remains febrile with a T-max of 102F on the hospital. He is currently sitting up in bed, on room air, in no acute distress. He appears nontoxic and is symptomatically stable. He will be admitted to the general medical floor. The patient is seen today 05/18/2023 in follow-up on the regular medical floor. He is currently sitting up in a chair at the bedside. Awake and alert in no acute distress. Unfortunately, his pigtail catheter was accidentally dislodged early this morning. He did have 900 ML's of purulent drainage out prior to that. Definitely exudate. Protein 2.7. LDH greater than 2500. He did receive alteplase/dornase infusion yesterday. His x-ray did reveal decreasing but still sizable moderate left pleural effusion with adjacent atelectasis and/or consolidation. Pleural fluid cultures/cytology pending. Blood cultures pending. He is continued on Unasyn. Heparin for DVT prophylaxis. NicoDerm patch in place. The patient is seen today 05/19/2023 in follow-up on the regular medical floor. He is currently awake and alert in no acute distress. Sitting up in a chair. Denies any worsening shortness of breath, cough or congestion. Chest x-ray reveals left basilar pleural catheter in place. Loculated pleural fluid and pleural tear noted at the site of the pleural effusion. He did have his pigtail catheter replaced yesterday. He had another 800 ML's drained in the past 24 hours. He received alternate/dornase lytic infusion today. He is continued on Unasyn. Cultures are showing gram-negative bacilli. He is currently afebrile. He did have a T-max of 100.7 early this morning. White count 16.2. Hemoglobin 10.0. Sodium 138. Potassium 4.4. Bicarb 24. BUN 15. Creatinine 0.9. The patient is seen today 05/20/2023 in follow-up on the regular medical floor. He is currently resting prone in bed. No worsening shortness of breath, cough or congestion. He is breathing slightly received alteplase/dornase infusion and is repositioning himself every 15 minutes. Chest x-ray shows left basilar pigtail catheter in place. Loculated left basilar effusion noted with underlying infiltrate/atelectasis. Blood cultures revealing no growth. Pleural fluid Gram stain revealing many gram-negative bacilli. He remains on Unasyn. Heparin for DVT prophylaxis. NicoDerm patch in place. Bronchodilators as needed. The patient is seen today 05/21/2023 in follow-up on the regular medical floor. Awake and alert in no acute distress. Continues to maintain good O2 saturations in the 90s on room air. Chest x-ray shows persistent small to tiny lateral basilar left-sided hydropneumothorax with pigtail catheter in place. Persistent left mid to lower lung acute infiltrate/atelectasis unchanged. Chest tube remains in place to Pleur-evac and low continuous wall suction. No air leak noted. He's had approximately 1200 ML's output in the past 24 hours. Continues to work well with the incentive spirometer. White count 13.3. Hemoglobin 10.4. Platelets 623. He is continued on bronchodilators as needed. Remains on antibiotics in form of Unasyn. Heparin for DVT prophylaxis. The patient is seen today 05/22/2023 in follow-up on the regular medical floor. He is currently resting comfortably in bed. Awake and alert in no acute distress. Denies any worsening shortness of breath, cough or congestion. Chest tube remains in place to the left chest attached to Pleur-evac with thick purulent drainage noted, to low continuous wall suction. No leak. He continues working well with the incentive spirometer. Follow-up computed tomography scan today revealed decreased loculated left pleural effusion with pleural pigtail catheter in place. There continues to be loculated effusion within the posterior left upper lung measuring up to 10 cm and along the left apex measuring up to 4.4 cm. Nonspecific enlarged mediastinal lymph node measuring 2.0 cm. Stable nodular 1.5 cm density within the posterior right midlung. Pleural fluid culture is positive for staph hominis. He is now on Levaquin. Plan is for a 6th instillation of alteplase/dornase today. Plan may be for left thoracotomy with decortication per CT services. The patient is seen today 05/23/2023 and follow-up on the regular medical floor. He is currently sitting up in bed. Awake and alert in no acute distress. Denies any worsening shortness of breath, cough or congestion. He is maintaining good O2 saturations in the 90s on room air. Chest tube remains in place. Currently to the Pleur-evac with low continuous suction. No air leak noted. Continues with thick purulent drainage. 500 ML's output past 24 hours. His pleural fluid cultures are positive for staph hominis. Blood cultures reveal no growth. White count 17.3. Hemoglobin 9.7. Platelets 616. Sodium 136. Potassium 4.4. Bicarb 23. BUN 11. Creatinine 0.7. Glucose 94. Remains on Levaquin. He continues to work well with the incentive spirometer. The plan is for a left thoracotomy and decortication tomorrow. Objective - Vital Signs Vital signs: Vital Signs Temp 98.9 F 05/23/23 07:25 Pulse 95 05/23/23 07:25 Resp 18 05/23/23 07:25 BP 130/83 05/23/23 07:25 Pulse Ox 94 L 05/23/23 07:25 FiO2 Intake & Output 05/22/23 05/23/23 05/23/23 18:59 06:59 18:59 Intake Total 250 Output Total 450 150 Balance -200 -150 Weight 97.522 kg Intake: Oral 250 Output: Chest Tube Drainage 450 150 Chest Tube Left 450 150 Other: Voiding Method Toilet Urinal # Voids 3 2 - Exam GENERAL EXAM: Alert, active 67-year-old male, on room air, comfortable in no apparent distress. HEAD: Normocephalic and atraumatic EYES: Normal reaction of pupils, equal size. NOSE: Clear with pink turbinates. THROAT: No erythema or exudates. NECK: No masses, no JVD. CHEST: No chest wall deformity. Left-sided pigtail catheter in place to Pleur- evac and low continuous wall suction, no leak LUNGS: There is diminished left lower lung sounds. No wheezes, rhonchi, crackles. CVS: S1 and S2 normal with no audible murmur, regular rhythm. No extra heart sounds ABDOMEN: No hepatosplenomegaly, active bowel sounds, no guarding or rigidity. SPINE: No scoliosis or deformity SKIN: No rashes CENTRAL NERVOUS SYSTEM: No focal deficits, tone is normal in all 4 extremities. EXTREMITIES: There is no peripheral edema, clubbing, or cyanosis. Peripheral pulses are intact. - Labs CBC & Chem 7: 05/23/23 05:16 05/23/23 05:16 Labs: Abnormal Lab Results - Last 24 Hours (Table) 05/23/23 05/23/23 Range/Units 05:16 05:16 WBC 17.31 H (4.50-10.00) X 10*3/uL RBC 3.46 L (4.40-5.60) X 10*6/uL Hgb 9.7 L (13.0-17.0) d/dL Hct 30.0 L (39.6-50.0) % Plt Count 616 H (140-440) X 10*3/uL MPV 9.1 L (9.5-12.2) FL Calcium 8.1 L (8.7-10.3) mg/dL Microbiology - Last 24 Hours (Table) 05/17/23 15:06 Blood Culture - Final Blood Assessment and Plan Assessment: Community acquired pneumonia and loculated left-sided pleural effusion. Chest CTA demonstrated a loculated left pleural effusion with adjacent compressive atelectasis. There is pleural thickening. There was mild lymphadenopathy demonstrated within the superior mediastinum, hilum, and bilateral axillary nodes. There was also a 1.7 cm lobular density within the posterior lateral right lung, which will require follow-up. Malignancy is not excluded. Status post pigtail catheter placement on 05/17/2023 and status post alteplase/dornase infusion 6. Purulent drainage returned. Fluid exudative. Total protein 2.7. LDH greater than 2500. Cultures are positive for staph hominis. Now on Levaquin. Cytology revealed no evidence of malignancy. Leukocytosis secondary to above Right pulmonary nodule, measuring 1.7 cm, as demonstrated on chest CTA Chronic and ongoing tobacco dependence Benign essential hypertension Hyperlipidemia Mild transaminitis, undetermined significance, the patient did recently start on statins Plan: The patient was seen and evaluated Labs and medications reviewed Culture positive for staph hominis, on Levaquin CT service is considering possible thoracoscopy and decortication Working well with the incentive spirometer We will continue to follow I have personally seen and examined the patient, performed the documentation and the assessment and plan as written. Number of minutes spent on the visit: 10.
[2023-05-23] MEDS: VANCOMYCIN 1,500 MG in SODIUM CHLORIDE 0.9% 500 ML 500 ML IVPB SCH ×2 (14:44→21:12)
--- NOTE | 2023-05-23 23:07 | P.CONS ---
History of Present Illness - Reason for Consult Consult date: 05/23/23 Loculated pleural effusion, staph Requesting physician: Samia Campbell - Chief Complaint Shortness of breath cough and chest pain x few days - History of Present Illness Patient is a 67-year-old male with a past medical history significant for hypertension hyperlipidemia presenting to the hospital about a week ago on 05/16/2023 for evaluation of fever and cough apparently the patient did have a blood work done and a chest x-ray that has been suggestive of pneumonia for the patient was advised to go to the hospital patient was complaining of fever chills and sweats and also have a cough moderate intensity and has been bringing up some purulent sputum, patient also complaining of left-sided chest pain more of a sharp moderate intensity without radiation with these symptoms the patient was evaluated on presentation to the hospital patient did have a fever of 102 F and the patient has a fever until 05/19/2023 the patient been afebrile since then patient was mildly hypoxic currently not requiring any supplemental oxygen patient did have a white count 22.6 currently at 17.31 with a left shift creatinine has been normal liver exams are mildly elevated patient did have a chest x-ray on admission large area of consolidation in pleural effusion within the left mid and lower lung CT angiogram of the chest did shows a loculated effusion left lung with adjacent compressive atelectasis 1.5 cm lobar mass posterior right midlung CT abdominal pelvis no abnormality inside the abdominal pelvis patient did have a chest tube insertion on 05/17/2023 due to fluid cytology was negative for any malignancy pleural fluid culture did grew Staphylococcus hominis that is oxacillin resistance patient is on Levaquin infectious disease was consulted today for further management of antibiotic therapy patient has been evaluated by CT surgery scheduled for left thoracotomy and decortication tomorrow Review of Systems Positive point and negatives has been mentioned in the HPI, complete review of systems was performed and all other systems are negative Past Medical History Past Medical History: Hyperlipidemia, Hypertension Additional Past Medical History / Comment(s): Prediabetic with hemoglobin A1c 6.2% History of Any Multi-Drug Resistant Organisms: None Reported Past Surgical History: Hernia Repair Past Anesthesia/Blood Transfusion Reactions: No Reported Reaction Past Psychological History: No Psychological Hx Reported Smoking Status: Current every day smoker Past Alcohol Use History: None Reported Past Drug Use History: None Reported - Past Family History Mother Family Medical History: Myocardial Infarction (LA) Father Family Medical History: Coronary Artery Disease (CAD) Additional Family Medical History / Comment(s): from coronary artery disease at 74 years old Medications and Allergies Home Medications Medication Instructions Recorded Confirmed Type Atorvastatin [Lipitor] 10 mg PO DAILY 05/16/23 05/16/23 History Ibuprofen [Motrin] 800 mg PO Q8H 05/16/23 05/16/23 History Olmesartan [Benicar] 20 mg PO DAILY 05/16/23 05/16/23 History Lactulose [Cephulac] 20 gm PO BID PRN #240 ml 05/29/23 Rx Nicotine 21Mg/24Hr Patch [Habitrol] 1 patch TRANSDERM DAILY #30 patch 05/29/23 Rx Sulfamethox-Tmp 800-160Mg [Bactrim 1 tab PO Q12HR 14 Days #28 tab 05/29/23 Rx DS 800-160 mg] Tamsulosin [Flomax] 0.4 mg PO PC-SUPPER #30 cap 05/29/23 Rx polyethylene glycoL 3350 [Miralax] 17 gm PO DAILY #10 packet 05/29/23 Rx traMADol HCl [Ultram] 50 mg PO TID #9 tab 05/29/23 Rx Allergies Allergy/AdvReac Type Severity Reaction Status Date / Time No Known Allergies Allergy Verified 06/04/23 10:00 Physical Exam Vitals: Vital Signs Temp Pulse Resp BP BP Pulse Ox 05/23/23 07:25 98.9 F 95 18 130/83 94 L 05/23/23 00:51 98.3 F 86 16 138/82 95 05/22/23 19:24 98.2 F 94 16 126/74 94 L 05/22/23 14:00 99.3 F 104 H 18 150/90 93 L Intake and Output 05/22/23 05/23/23 05/23/23 22:59 06:59 14:59 Output Total 125 125 Balance -125 -125 Output: Chest Tube Drainage 125 125 Chest Tube Left 125 125 Other: # Voids 3 2 Weight 97.522 kg GENERAL DESCRIPTION: Elderly male lying in bed, no distress. No tachypnea or accessory muscle of respiration use. HEENT: Shows Pallor , no scleral icterus. Oral mucous membrane is dry. No pharyngeal erythema or thrush NECK: Trachea central, no thyromegaly. LUNGS: Unlabored breathing. Decreased breath sound at the base HEART: S1, S2, regular rate and rhythm. No loud murmur ABDOMEN: Soft, no tenderness , guarding or rigidity, no organomegaly EXTREMITIES: No edema of feet. SKIN: No rash, no masses palpable. NEUROLOGICAL: The patient is awake, alert, oriented x3, mood and affect normal. Results CBC & Chem 7: 05/28/23 07:42 05/29/23 04:56 Labs: Abnormal Lab Results - Last 24 Hours (Table) 05/23/23 05/23/23 Range/Units 05:16 05:16 WBC 17.31 H (4.50-10.00) X 10*3/uL RBC 3.46 L (4.40-5.60) X 10*6/uL Hgb 9.7 L (13.0-17.0) d/dL Hct 30.0 L (39.6-50.0) % Plt Count 616 H (140-440) X 10*3/uL MPV 9.1 L (9.5-12.2) FL Calcium 8.1 L (8.7-10.3) mg/dL Microbiology - Last 24 Hours (Table) 05/17/23 15:06 Blood Culture - Final Blood Assessment and Plan (1) Empyema Status: Acute Code(s): J86.9 - PYOTHORAX WITHOUT FISTULA SNOMED Code(s): 826204427 (2) Pneumonia Status: Acute Code(s): J18.9 - PNEUMONIA, UNSPECIFIED ORGANISM SNOMED Code(s): 915725257 Plan: 1patient presented hospital with sepsis about a week ago in this patient with a fever elevated white count source is likely left-sided pneumonia with the loculated parapneumonic effusion status post chest tube placement on 05/17/2023 that did grew oxacillin resistant Staphylococcus hominis in this patient scheduled for thoracotomy and decortication tomorrow 2-discontinue Levaquin 3-vancomycin pharmacy to dose with a target trough of 15 while watching kidney function and Vanco trough closely. We will follow on clinical condition and cultures to further adjust medication if needed Thank you for this consultation we will follow the patient along with you Dictation was produced using [employer]OG[employer] software. please excuse any grammatical, word or spelling errors. Time with Patient: Greater than 30
[2023-05-24] MEDS: VANCOMYCIN 1,500 MG in SODIUM CHLORIDE 0.9% 500 ML 500 ML IVPB SCH ×3 (05:37→22:41)
--- NOTE | 2023-05-24 06:11 | P.PN ---
Subjective Progress Note Date: 05/23/23 Patient is a 67-year-old male with a past medical history of hypertension, hyperlipidemia, currently everyday smoker was sent to ER by his primary care physician due to concern for pneumonia and dehydration. Patient states that he was seen by his primary care physician at [place] about 2 weeks ago and was noticed that his WBC was elevated. Patient did did have some cough but without any other signs of infection at that time. Patient came to [place] and started having fever, sweats and not feeling well since last weekend. He contacted his primary care physician again and was sent to [facility] for x-ray which showed pneumonia. He was started on antibiotics in the form of Levaquin last night. Patient did take 1 dose. Patients primary care physician concerned about possible dehydration as well and was recommended to go to emergency room for further evaluation. Patient otherwise complains of cough without sputum production. No nausea vomiting or diarrhea. No chest pain. No complaints of shortness of breath. Patient states that he has been having left lower back pain and also left shoulder pain since last Monday and thought it may be due his increased outside work recently. On admission patient was febrile with Tmax 100.5 pulse is 105 and respiration 19 pulse ox 94% on room air. Chest x-ray showed similar large area of consolidation and pleural effusion within the left mid and lower lung. Correlate for pneumonia with emphysema not excluded. EKG showed sinus tachycardia. Laboratory pressure WBC 22.6 hemoglobin 11.9 and platelets 515 Sodium 136 potassium 5.0 chloride 102 bicarb is 21 BUN 17 and creatinine 0.76 and liver enzymes elevated with ALT 216, AST 154 and alk phos 185, LDH 604. proBNP 201 and albumin 3.4. 05/17/2023 patient was complaining of from back injury when he fell about 3 weeks ago. , After that [facility]. 2 weeks ago he saw his PCP and [facility] for regular checkup patient was noticed to have leukocytosis but denies any other symptoms.. After patient came from [facility] about a week ago he went to his orthopedic doctor who checked his back pain with x-ray and prescribed Motrin 800 mg 3 times a day. The last Monday he was sweating a lot with high fever 103. He called his PCP on Monday who prescribed him Levaquin after chest x-ray and asked him to come to emergency room. Patient complaining from mild tachypnea but with little clear phlegm. No chest pain only with coughing. He has little diarrhea but feels better. No urinary or neurological symptoms. He smokes about 1 pack per day and he decided to close last Monday and currently he has nicotine patch. He denies alcohol or illicit drugs. Patient is afebrile on admission at 102 he is saturating well on room air Labs showed leukocytosis of 22.6K, hemoglobin 11.9, platelet count 515 BMP is unremarkable Liver enzymes elevated with AST 154 and ALT 216 with lactated dehydrogenase elevated at 600-8. ProBNP is 201. CTA of the chest: Loculated left pleural effusion with adjacent atelectasis. No pulmonary embolism. 1.7 cm lobular mass in the right midlung. And axillary and mediastinal lymphadenopathy On admission patient was started on Zithromax, ceftriaxone, IV fluids and admitted with pulmonary team consult 05/18/2023 Patient sits up in chair feels better. His dyspnea is better. No chest pain he has difficulty this morning. He had pigtail catheter placed yesterday but fell off today Vitals stable oxygen saturation is acceptable. No more fever. Chest x-ray showing improvement No labs from today. Patient on Unasyn normal saline 75 mL/h 05/19/2023 Patient breathing comfortably Chest pain is minimal Left-sided chest tube in place and patient under going lytic therapy through the tube with cardiothoracic surgery team Patient had low-grade fever today at 100. still on Unasyn. 05/20/2023 Patient breathing better with less dyspnea and breathing quietly addressed. No other new complaints. Chest tube was taken out today after finishing his lytic therapy. Sputum Gram stain and culture still pending as well as blood culture Patient remains on Unasyn. Normal saline was ordered but The patient is not getting it today, he is hemodynamically stable. We will discontinue 05/21/2023 patient reports improvement in his breathing Chest tube was taken out. When she woke with no exertional dyspnea Chest x-ray showing improvement but some persistent changes in the left lower lung area. Surgery team planning to repeat CAT scan with contrast tomorrow and if still abnormal appendix considering decortication/thoracotomy Continue with Unasyn. Start normal saline 75 mL/h 16 hours for patient is getting IV contrast 05/22/2023 pt sitting at bed with no much respiratory symptoms Left lower posterior pigtail catheter in place through which is still pending lytic therapy with alteplase/dornase under the care of surgery team. Repeat CAT scan of the chest today showing decreased loculated left pleural effusion with pigtail catheter in place. Residual loculated effusion is 10 cm at left upper lung 4.4 cm of the left. With associated mediastinal lymphadenopathy. 05/23/2023 Patient is seen in follow-up today currently being followed by cardiothoracic surgery with continued loculated effusion on the left. Patient has received TPA multiple times and recommending thoracotomy with decortication which is schedu led for 05/24/2023. Patient's white count remains elevated and patient was continued on Levaquin and sputum showing staph hominis with resistance will consult infectious disease appreciate input recommendations. Patient being started on vancomycin. Patient continues with left pigtail at this time. Patient white count remains elevated and is afebrile with no reports of chest pain or shortness of breath at this time. Patient will be nothing by mouth at midnight and will await surgical report. Review of systems: Constitutional: No reports of fatigue, fever, or chills Cardiovascular: No reports of chest pain or palpitations Respiratory: No reports of shortness of breath or cough GI: No reports of nausea, vomiting, or diarrhea : No reports of dysuria or retention Neurovascular: No reports of weakness or numbness All medications have been reviewed Physical exam: GENERAL: The patient is alert and oriented x3, not in any acute distress. Well developed, well nourished. HEENT: Pupils are round and equally reacting to light. EOMI. No scleral icterus. No conjunctival pallor. Normocephalic, atraumatic. No pharyngeal erythema. No thyromegaly. CARDIOVASCULAR: S1 and S2 present. No murmurs, rubs, or gallops. PULMONARY: Chest is clear to auscultation, no wheezing , no crackles. Left pigtail catheter noted ABDOMEN: Soft, nontender, nondistended, normoactive bowel sounds. No palpable organomegaly. MUSCULOSKELETAL: No joint swelling or deformity. EXTREMITIES: No cyanosis, clubbing, or pedal edema. NEUROLOGICAL: Gross neurological examination did not reveal any focal deficits. SKIN: No rashes. no petechiae. Assessment: Left middle and lower lung pneumonia with paraPneumonia and large loculated left pleural effusion status post chest tube. Possible mass cannot be excluded entirely Sepsis with leukocytosis and fever secondary to above Continued ongoing Nicotine dependence Hypertension Hyperlipidemia GI prophylaxis DVT prophylaxis Full code Plan: Continue with antibiotic and was continued on Levaquin with staph hominis showing and would benefit from Vanco will consult infectious disease appreciate input recommendations Cardiothoracic surgery following as well and patient continues with pigtail catheter and has had multiple TPA administrations and plan is for left thoracotomy with decortication on 05/24/2023. Will await surgical report White count remains elevated and will follow-up with repeat labs Patient will be nothing by mouth at midnight The impression and plan of care has been dictated by Stephanie Mccarthy, Nurse Practitioner as directed. Dr. Shannan MD I have performed a history and examination and MDM of this patient, discussed the same with the dictator, and agree with the dictator's assessment and plan as written ,documented as a scribe. Based on total visit time, I have performed more than 50% of the visit. Objective - Vital Signs Vital signs: Vital Signs Temp 98.9 F 05/23/23 07:25 Pulse 95 05/23/23 07:25 Resp 18 05/23/23 07:25 BP 130/83 05/23/23 07:25 Pulse Ox 94 L 05/23/23 07:25 FiO2 Intake & Output 05/22/23 05/23/23 05/23/23 18:59 06:59 18:59 Intake Total 250 Output Total 450 150 Balance -200 -150 Intake: Oral 250 Output: Chest Tube Drainage 450 150 Chest Tube Left 450 150 Other: Voiding Method Toilet Urinal # Voids 3 2 - Labs CBC & Chem 7: 05/23/23 05:16 05/23/23 05:16 Labs: Microbiology - Last 24 Hours (Table) 05/17/23 15:06 Blood Culture - Final Blood
[2023-05-24] MEDS: HEPARIN SODIUM,PORCINE 5,000 UNIT/ML 1 ML VIAL SQ SCH ×2 (07:47→21:18)
[2023-05-24] MEDS: FAMOTIDINE 20 MG/2 ML VIAL IV SCH ×2 (08:08→22:12)
[2023-05-24 08:16] LABS: African American GFR (CKD) >90 (>60 ml/min/1.73 sqM); Anion Gap 9 mmol/L; Blood Urea Nitrogen 13 mg/dL (9-20); Calcium 8.1 mg/dL (8.4-10.2); Carbon Dioxide 22 mmol/L (22-30); Chloride 105 mmol/L (98-107); Glucose 83 mg/dL (74-99); Non-African American GFR(CKD) >90 (>60 ml/min/1.73 sqM); Potassium 4.2 mmol/L (3.5-5.1); Sodium 136 mmol/L (137-145)
[2023-05-24] MEDS: IBUPROFEN 800 MG TAB PO SCH (08:19)
--- NOTE | 2023-05-24 08:55 | XR ---
EXAMINATION TYPE: XR chest 1V portable DATE OF EXAM: 05/24/2023 HISTORY: Left empyema COMPARISON: 05/23/2023 TECHNIQUE: Single view of the chest is submitted. FINDINGS: Opacity throughout the left hemithorax continues essentially unchanged. Left basilar pigtail catheter remains in place. The right lung is clear. The heart is stable. Hilar and mediastinal structures are within normal limits. Degenerative changes are seen of the dorsal spine. IMPRESSION: 1. Essentially Stable chest.
[2023-05-24] MEDS: LOSARTAN 50 MG TAB PO SCH (09:19)
[2023-05-24] MEDS: ATORVASTATIN 10 MG TAB PO SCH (09:19)
[2023-05-24] MEDS: NICOTINE 21MG/24HR PATCH TRANSDERM SCH (09:22)
[2023-05-24 09:54] LABS: C Reactive Protein 18.2 mg/dL (<1.0)
[2023-05-24 11:01] LABS: Basophils % (A) 0 %; Eosinophils # (A) 0.2 k/uL (0-0.7); Eosinophils % (A) 2 %; HCT 33.4 % (39.0-53.0); HGB 10.4 gm/dL (13.0-17.5); Hypochromasia Slight; Lymphocytes # (A) 1.6 k/uL (1.0-4.8); Lymphocytes % (A) 12 %; MCH 28.1 pg (25.0-35.0); MCV 90.4 fL (80.0-100.0); Mean Platelet Volume 7.9; Monocytes % (A) 7 %; Neutrophils # (A) 11.2 k/uL (1.3-7.7); Neutrophils % (A) 79 %; Platelet Count 696 k/uL (150-450); RBC 3.69 m/uL (4.30-5.90); RDW 13.5 % (11.5-15.5); WBC 14.3 k/uL (3.8-10.6)
--- NOTE | 2023-05-24 11:56 | P.PN ---
Subjective Progress Note Date: 05/24/23 Principal diagnosis: Pneumonia/empyema Patient is a 67-year-old male with a past medical history significant for hypertension hyperlipidemia presenting to the hospital on 05/16/2023 for evaluation of fever and cough, patient did have evidence of loculated left-sided effusion and consolidation in this patient was status post chest tube placement culture did grew staphylococcus hominis. On today's evaluation that is 05/24/2023, the patient remains to be afebrile the patient is breathing comfortably on room air, the patient denies chest pain, shortness of breath did have minimal dry cough, patient denies nausea/vomiting , no diarrhea and no abdominal pain. White count is at 14.3 today, creatinine 0.64 Objective - Vital Signs Vital signs: Vital Signs Temp 98.8 F 05/24/23 07:53 Pulse 90 05/24/23 07:53 Resp 17 05/24/23 07:53 BP 145/87 05/24/23 07:53 Pulse Ox 94 L 05/24/23 07:53 FiO2 Intake & Output 05/23/23 05/24/23 05/24/23 18:59 06:59 18:59 Output Total 130 100 Balance -130 -100 Weight 97.522 kg Output: Chest Tube Drainage 130 100 Chest Tube Left 130 100 Other: # Voids 4 2 - Exam GENERAL DESCRIPTION: An elderly male lying in bed in no distress RESPIRATORY SYSTEM: Unlabored breathing , decreased breath sounds at bases HEART: S1 S2 regular rate and rhythm , ABDOMEN: Soft , no tenderness EXTREMITIES: No edema feet - Labs CBC & Chem 7: 05/24/23 07:13 05/24/23 07:13 Labs: Abnormal Lab Results - Last 24 Hours (Table) 05/24/23 05/24/23 05/24/23 Range/Units 07:13 07:13 07:13 WBC 14.3 H (3.8-10.6) k/uL RBC 3.69 L (4.30-5.90) m/uL Hgb 10.4 L (13.0-17.5) gm/dL Hct 33.4 L (39.0-53.0) % Plt Count 696 H (150-450) k/uL Neutrophils # 11.2 H (1.3-7.7) k/uL Sodium 136 L (137-145) mmol/L Creatinine 0.64 L (0.66-1.25) mg/dL Calcium 8.1 L (8.4-10.2) mg/dL C-Reactive Protein 18.2 H (<1.0) mg/dL Procalcitonin 0.33 H (0.02-0.09) ng/mL Assessment and Plan (1) Empyema Current Visit: Yes Status: Acute Code(s): J86.9 - PYOTHORAX WITHOUT FISTULA SNOMED Code(s): 698498258 (2) Pneumonia Current Visit: Yes Status: Acute Code(s): J18.9 - PNEUMONIA, UNSPECIFIED ORGANISM SNOMED Code(s): 025918062 Plan: 1patient presented hospital with sepsis about a week ago in this patient with a fever elevated white count source is likely left-sided pneumonia with the loculated parapneumonic effusion status post chest tube placement on 05/17/2023 that did grew oxacillin resistant Staphylococcus hominis in this patient scheduled for thoracotomy and decortication this afternoon at which time cultures should be obtained 2Patient to continue with pharmacy to dose with a target trough of 15 while watching kidney function and Vanco trough closely. Dictation was produced using [employer] dictation software. please excuse any grammatical, word or spelling errors. Time with Patient: Less than 30
[2023-05-24] MEDS ORDERED: PHENYLEPHRINE-0.9% NACL SYG 1,000 MCG/10 ML SYRINGE ONE (13:05)
[2023-05-24] MEDS ORDERED: NEOSTIGMINE 1 MG/ML 10 ML VIAL ONE (13:05)
[2023-05-24] MEDS ORDERED: GLYCOPYRROLATE 0.2 MG/ML 2 ML VIAL ONE (13:05)
[2023-05-24] MEDS ORDERED: ROCURONIUM 10 MG/ML (5 ML VIAL) IV ONE (13:05)
[2023-05-24] MEDS ORDERED: ROPIVACAINE 5 MG/ML 30 ML VIAL ONE (13:05)
[2023-05-24] MEDS ORDERED: SUCCINYLCHOLINE CHLORIDE 200 MG/10 ML VIAL IV ONE (13:05)
[2023-05-24] MEDS ORDERED: PROPOFOL 10 MG/ML 20 ML VIAL IV ONE (13:05)
[2023-05-24] MEDS ORDERED: LIDOCAINE 1% INJ 10MG/ML (20 ML MDV) ONE (13:05)
[2023-05-24] MEDS ORDERED: fentaNYL (PF) 50 MCG/ML 2 ML AMP ONE (13:05)
[2023-05-24] MEDS ORDERED: SODIUM CHLORIDE 0.9% (PF) 10 ML VIAL ONE (13:05)
[2023-05-24] MEDS ORDERED: HYDROmorphone (PF) 1 MG/ML ONE (13:05)
[2023-05-24] MEDS ORDERED: LACTATED RINGERS 1,000 ML IV ONE (14:15)
[2023-05-24] MEDS ORDERED: ONDANSETRON 4 MG/2 ML VIAL ONE (14:28)
[2023-05-24] MEDS ORDERED: MIDAZOLAM 2 MG/2 ML VIAL IVP ONE (14:33)
--- NOTE | 2023-05-24 14:52 | P.PN ---
Subjective Progress Note Date: 05/24/23 Patient is a 67-year-old male with a past medical history of hypertension, hyperlipidemia, currently everyday smoker was sent to ER by his primary care physician due to concern for pneumonia and dehydration. Patient states that he was seen by his primary care physician at [place] about 2 weeks ago and was noticed that his WBC was elevated. Patient did did have some cough but without any other signs of infection at that time. Patient came to [place] and started having fever, sweats and not feeling well since last weekend. He contacted his primary care physician again and was sent to [facility] for x-ray which showed pneumonia. He was started on antibiotics in the form of Levaquin last night. Patient did take 1 dose. Patients primary care physician concerned about possible dehydration as well and was recommended to go to emergency room for further evaluation. Patient otherwise complains of cough without sputum production. No nausea vomiting or diarrhea. No chest pain. No complaints of shortness of breath. Patient states that he has been having left lower back pain and also left shoulder pain since last Monday and thought it may be due his increased outside work recently. On admission patient was febrile with Tmax 100.5 pulse is 105 and respiration 19 pulse ox 94% on room air. Chest x-ray showed similar large area of consolidation and pleural effusion within the left mid and lower lung. Correlate for pneumonia with emphysema not excluded. EKG showed sinus tachycardia. Laboratory pressure WBC 22.6 hemoglobin 11.9 and platelets 515 Sodium 136 potassium 5.0 chloride 102 bicarb is 21 BUN 17 and creatinine 0.76 and liver enzymes elevated with ALT 216, AST 154 and alk phos 185, LDH 604. proBNP 201 and albumin 3.4. 05/17/2023 patient was complaining of from back injury when he fell about 3 weeks ago. , After that [facility]. 2 weeks ago he saw his PCP and [facility] for regular checkup patient was noticed to have leukocytosis but denies any other symptoms.. After patient came from [facility] about a week ago he went to his orthopedic doctor who checked his back pain with x-ray and prescribed Motrin 800 mg 3 times a day. The last Monday he was sweating a lot with high fever 103. He called his PCP on Monday who prescribed him Levaquin after chest x-ray and asked him to come to emergency room. Patient complaining from mild tachypnea but with little clear phlegm. No chest pain only with coughing. He has little diarrhea but feels better. No urinary or neurological symptoms. He smokes about 1 pack per day and he decided to close last Monday and currently he has nicotine patch. He denies alcohol or illicit drugs. Patient is afebrile on admission at 102 he is saturating well on room air Labs showed leukocytosis of 22.6K, hemoglobin 11.9, platelet count 515 BMP is unremarkable Liver enzymes elevated with AST 154 and ALT 216 with lactated dehydrogenase elevated at 600-8. ProBNP is 201. CTA of the chest: Loculated left pleural effusion with adjacent atelectasis. No pulmonary embolism. 1.7 cm lobular mass in the right midlung. And axillary and mediastinal lymphadenopathy On admission patient was started on Zithromax, ceftriaxone, IV fluids and admitted with pulmonary team consult 05/18/2023 Patient sits up in chair feels better. His dyspnea is better. No chest pain he has difficulty this morning. He had pigtail catheter placed yesterday but fell off today Vitals stable oxygen saturation is acceptable. No more fever. Chest x-ray showing improvement No labs from today. Patient on Unasyn normal saline 75 mL/h 05/19/2023 Patient breathing comfortably Chest pain is minimal Left-sided chest tube in place and patient under going lytic therapy through the tube with cardiothoracic surgery team Patient had low-grade fever today at 100. still on Unasyn. 05/20/2023 Patient breathing better with less dyspnea and breathing quietly addressed. No other new complaints. Chest tube was taken out today after finishing his lytic therapy. Sputum Gram stain and culture still pending as well as blood culture Patient remains on Unasyn. Normal saline was ordered but The patient is not getting it today, he is hemodynamically stable. We will discontinue 05/21/2023 patient reports improvement in his breathing Chest tube was taken out. When she woke with no exertional dyspnea Chest x-ray showing improvement but some persistent changes in the left lower lung area. Surgery team planning to repeat CAT scan with contrast tomorrow and if still abnormal appendix considering decortication/thoracotomy Continue with Unasyn. Start normal saline 75 mL/h 16 hours for patient is getting IV contrast 05/22/2023 pt sitting at bed with no much respiratory symptoms Left lower posterior pigtail catheter in place through which is still pending lytic therapy with alteplase/dornase under the care of surgery team. Repeat CAT scan of the chest today showing decreased loculated left pleural effusion with pigtail catheter in place. Residual loculated effusion is 10 cm at left upper lung 4.4 cm of the left. With associated mediastinal lymphadenopathy. 05/23/2023 Patient is seen in follow-up today currently being followed by cardiothoracic surgery with continued loculated effusion on the left. Patient has received TPA multiple times and recommending thoracotomy with decortication which is schedu led for 05/24/2023. Patient's white count remains elevated and patient was continued on Levaquin and sputum showing staph hominis with resistance will consult infectious disease appreciate input recommendations. Patient being started on vancomycin. Patient continues with left pigtail at this time. Patient white count remains elevated and is afebrile with no reports of chest pain or shortness of breath at this time. Patient will be nothing by mouth at midnight and will await surgical report. 05/24/2023 Patient is seen and evaluated in follow-up and currently nothing by mouth as patient is scheduled to undergo thoracotomy with decortication and will likely be in the ICU postop. Family members present at bedside and updated in currently awaiting OR for pickup. Patient is afebrile denies any changes overnight and denies any worsening shortness of breath or chest pains. Will await surgical report. Review of systems: Constitutional: No reports of fatigue, fever, or chills Cardiovascular: No reports of chest pain or palpitations Respiratory: No reports of shortness of breath or cough GI: No reports of nausea, vomiting, or diarrhea : No reports of dysuria or retention Neurovascular: No reports of weakness or numbness All medications have been reviewed Physical exam: GENERAL: The patient is alert and oriented x3, not in any acute distress. Well developed, well nourished. HEENT: Pupils are round and equally reacting to light. EOMI. No scleral icterus. No conjunctival pallor. Normocephalic, atraumatic. No pharyngeal erythema. No thyromegaly. CARDIOVASCULAR: S1 and S2 present. No murmurs, rubs, or gallops. PULMONARY: Chest is clear to auscultation, no wheezing , no crackles. Left pigtail catheter noted ABDOMEN: Soft, nontender, nondistended, normoactive bowel sounds. No palpable organomegaly. MUSCULOSKELETAL: No joint swelling or deformity. EXTREMITIES: No cyanosis, clubbing, or pedal edema. NEUROLOGICAL: Gross neurological examination did not reveal any focal deficits. SKIN: No rashes. no petechiae. Assessment: Left middle and lower lung pneumonia with paraPneumonia and large loculated left pleural effusion status post chest tube. Possible mass cannot be excluded entirely Sepsis with leukocytosis and fever secondary to above Continued ongoing Nicotine dependence Hypertension Hyperlipidemia GI prophylaxis DVT prophylaxis Full code Plan: Continue with antibiotic and was continued on vancomycin with infectious disease following cultures showing staph hominis. Hopeful for deep cultures during surgical procedure Cardiothoracic surgery following as well and patient continues with pigtail catheter and has had multiple TPA administrations and plan is for left thoracotomy with decortication today. Will await surgical report White count remains elevated and will follow-up with repeat labs Patient is nothing by mouth and diet resumed when stable postop The impression and plan of care has been dictated by Stephanie Mccarthy, Nurse Practitioner as directed. Dr. Shannan MD I have performed a history and examination and MDM of this patient, discussed the same with the dictator, and agree with the dictator's assessment and plan as written ,documented as a scribe. Based on total visit time, I have performed more than 50% of the visit. Objective - Vital Signs Vital signs: Vital Signs Temp 98.3 F 05/24/23 01:06 Pulse 85 05/24/23 01:06 Resp 16 05/24/23 01:06 BP 136/83 05/24/23 01:06 Pulse Ox 95 05/24/23 01:06 FiO2 Intake & Output 05/23/23 05/23/23 05/24/23 06:59 18:59 06:59 Output Total 150 130 100 Balance -150 -130 -100 Weight 97.522 kg Output: Chest Tube Drainage 150 130 100 Chest Tube Left 150 130 100 Other: # Voids 2 4 2 - Labs CBC & Chem 7: 05/24/23 07:13 05/24/23 07:13 Labs: Abnormal Lab Results - Last 24 Hours (Table) 05/23/23 05/23/23 Range/Units 05:16 05:16 WBC 17.31 H (4.50-10.00) X 10*3/uL RBC 3.46 L (4.40-5.60) X 10*6/uL Hgb 9.7 L (13.0-17.0) d/dL Hct 30.0 L (39.6-50.0) % Plt Count 616 H (140-440) X 10*3/uL MPV 9.1 L (9.5-12.2) FL Calcium 8.1 L (8.7-10.3) mg/dL
--- NOTE | 2023-05-24 15:11 | P.ANPRN ---
Procedure Note - Anesthesia - Nerve Block Performed Left Erector Spinae Single Time Out Performed: Yes Date of Procedure: 05/24/23 Procedure Start Time: 14:38 Procedure Stop Time: 14:42 Location of Patient: PreOp Indication: Acute Post-Operative Pain, Analgesia, Dx/Pain Location, Requested by Surgeon Sedation Type: Sedate with meaningful contact maintained Preparation: Sterile Prep Position: Right Lateral Catheter: None Needle Types: Pajunk Needle Gauge: 21 Ultrasound used to visualize needle placement: Yes Ultrasound used to observe medication spread: Yes Injectate: 0.5% Ropivacaine (see comment for volume) (30cc) Blood Aspirated: No Pain Paresthesia on Injection Noted: No Resistance on Injection: Normal Image Stored and Saved: Yes Events: Uneventful and Well Tolerated
--- NOTE | 2023-05-24 15:12 | P.PN ---
Subjective Progress Note Date: 05/24/23 I am seeing this patient in [facility] [place] today 05/17/2023 in the emergency room for a loculated left-sided pleural effusion. Patient is a 67-year-old male with past medical history significant for hypertension and hyperlipidemia. Patient lives in [place], and plans to move to [place] this Fall. His primary care provider is out of [facility]. Patient states that he started to have left-sided back pain and left shoulder pain approximately 3 weeks ago. He originally attributed this to yard work. Starting last week, he began to develop fevers, chills, and shortness of breath. He denies any cough or hemoptysis. He denies any nausea, vomiting, constipation, abdominal pain. Appetite has been good. Denies any weight loss. Denies any prior history of cancer. Patient does smoke approximately 1 pack per day. Patient did end up going to an urgent care clinic 2 days ago. He was felt to have left-sided pneumonia, and was started on a course of Levaquin. He only completed one dose of Levaquin, and came to the emergency room for worsening symptoms yesterday afternoon. A follow-up chest CTA demonstrated a loculated left pleural effusion with adjacent compressive atelectasis. There is pleural thickening. There was mild lymphadenopathy demonstrated within the superior mediastinum, hilum, and bilateral axillary nodes. There was also a 1.7 cm lobe either density within the posterior lateral right lung, which will require follow-up. No prior imaging for comparison. An abdominal and pelvis CT with contrast did not demonstrate any acute intra- abdominal abnormalities. CBC on arrival showed some leukocytosis with a WBC count of 22.6, hgb 11.9, hematocrit 35.1, platelets 515. CMP on arrival showed sodium 136, potassium 5, chloride 102, serum bicarbonate 21, BUN 17, creatinine 0.76, glucose 91. Normal saline is infusing at 100 mL per hour. LFTs were mildly elevated with an AST of 154, ALT of 216, ALP of 185. Patient has been empirically started on a combination of azithromycin and Rocephin. He remains febrile with a T-max of 102F on the hospital. He is currently sitting up in bed, on room air, in no acute distress. He appears nontoxic and is symptomatically stable. He will be admitted to the general medical floor. The patient is seen today 05/18/2023 in follow-up on the regular medical floor. He is currently sitting up in a chair at the bedside. Awake and alert in no acute distress. Unfortunately, his pigtail catheter was accidentally dislodged early this morning. He did have 900 ML's of purulent drainage out prior to that. Definitely exudate. Protein 2.7. LDH greater than 2500. He did receive alteplase/dornase infusion yesterday. His x-ray did reveal decreasing but still sizable moderate left pleural effusion with adjacent atelectasis and/or consolidation. Pleural fluid cultures/cytology pending. Blood cultures pending. He is continued on Unasyn. Heparin for DVT prophylaxis. NicoDerm patch in place. The patient is seen today 05/19/2023 in follow-up on the regular medical floor. He is currently awake and alert in no acute distress. Sitting up in a chair. Denies any worsening shortness of breath, cough or congestion. Chest x-ray reveals left basilar pleural catheter in place. Loculated pleural fluid and pleural tear noted at the site of the pleural effusion. He did have his pigtail catheter replaced yesterday. He had another 800 ML's drained in the past 24 hours. He received alternate/dornase lytic infusion today. He is continued on Unasyn. Cultures are showing gram-negative bacilli. He is currently afebrile. He did have a T-max of 100.7 early this morning. White count 16.2. Hemoglobin 10.0. Sodium 138. Potassium 4.4. Bicarb 24. BUN 15. Creatinine 0.9. The patient is seen today 05/20/2023 in follow-up on the regular medical floor. He is currently resting prone in bed. No worsening shortness of breath, cough or congestion. He is breathing slightly received alteplase/dornase infusion and is repositioning himself every 15 minutes. Chest x-ray shows left basilar pigtail catheter in place. Loculated left basilar effusion noted with underlying infiltrate/atelectasis. Blood cultures revealing no growth. Pleural fluid Gram stain revealing many gram-negative bacilli. He remains on Unasyn. Heparin for DVT prophylaxis. NicoDerm patch in place. Bronchodilators as needed. The patient is seen today 05/21/2023 in follow-up on the regular medical floor. Awake and alert in no acute distress. Continues to maintain good O2 saturations in the 90s on room air. Chest x-ray shows persistent small to tiny lateral basilar left-sided hydropneumothorax with pigtail catheter in place. Persistent left mid to lower lung acute infiltrate/atelectasis unchanged. Chest tube remains in place to Pleur-evac and low continuous wall suction. No air leak noted. He's had approximately 1200 ML's output in the past 24 hours. Continues to work well with the incentive spirometer. White count 13.3. Hemoglobin 10.4. Platelets 623. He is continued on bronchodilators as needed. Remains on antibiotics in form of Unasyn. Heparin for DVT prophylaxis. The patient is seen today 05/22/2023 in follow-up on the regular medical floor. He is currently resting comfortably in bed. Awake and alert in no acute distress. Denies any worsening shortness of breath, cough or congestion. Chest tube remains in place to the left chest attached to Pleur-evac with thick purulent drainage noted, to low continuous wall suction. No leak. He continues working well with the incentive spirometer. Follow-up computed tomography scan today revealed decreased loculated left pleural effusion with pleural pigtail catheter in place. There continues to be loculated effusion within the posterior left upper lung measuring up to 10 cm and along the left apex measuring up to 4.4 cm. Nonspecific enlarged mediastinal lymph node measuring 2.0 cm. Stable nodular 1.5 cm density within the posterior right midlung. Pleural fluid culture is positive for staph hominis. He is now on Levaquin. Plan is for a 6th instillation of alteplase/dornase today. Plan may be for left thoracotomy with decortication per CT services. The patient is seen today 05/23/2023 and follow-up on the regular medical floor. He is currently sitting up in bed. Awake and alert in no acute distress. Denies any worsening shortness of breath, cough or congestion. He is maintaining good O2 saturations in the 90s on room air. Chest tube remains in place. Currently to the Pleur-evac with low continuous suction. No air leak noted. Continues with thick purulent drainage. 500 ML's output past 24 hours. His pleural fluid cultures are positive for staph hominis. Blood cultures reveal no growth. White count 17.3. Hemoglobin 9.7. Platelets 616. Sodium 136. Potassium 4.4. Bicarb 23. BUN 11. Creatinine 0.7. Glucose 94. Remains on Levaquin. He continues to work well with the incentive spirometer. The plan is for a left thoracotomy and decortication tomorrow. The patient is seen today 05/24/2023 in follow-up on the regular medical floor. He is resting comfortably in bed. Awake and alert in no acute distress. Continues to maintain good O2 saturations in the 90s on room air. Chest x-ray remains unchanged with opacity throughout the left hemithorax. Left basilar pigtail catheter remains in place. Right lung is clear. Awaiting thoracoscopy with decortication today. Pleural fluid cultures were positive for staph hominis. Blood cultures revealed no growth. White count 14.3. Hemoglobin 10.4. Platelets 696. Sodium 136. Potassium 4.2. Bicarb 22. BUN 13. Creatinine 0.64. Pro-calcitonin 0.33. He is continued on vancomycin. Remains on bronchodilators. Heparin for DVT prophylaxis. NicoDerm patch in place. Objective - Vital Signs Vital signs: Vital Signs Temp 99.4 F 05/24/23 14:24 Pulse 103 H 05/24/23 14:24 Resp 18 05/24/23 14:24 BP 143/82 05/24/23 14:24 Pulse Ox 95 05/24/23 14:24 FiO2 Intake & Output 05/23/23 05/24/23 05/24/23 18:59 06:59 18:59 Output Total 130 100 50 Balance -130 -100 -50 Weight 97.522 kg Output: Chest Tube Drainage 130 100 50 Chest Tube Left 130 100 50 Other: # Voids 4 2 - Exam GENERAL EXAM: Alert, pleasant 67-year-old male, resting in bed, on room air, comfortable in no apparent distress. HEAD: Normocephalic and atraumatic EYES: Normal reaction of pupils, equal size. NOSE: Clear with pink turbinates. THROAT: No erythema or exudates. NECK: No masses, no JVD. CHEST: No chest wall deformity. Left-sided pigtail catheter in place to Pleur- evac and low continuous wall suction, no leak LUNGS: There is diminished left lower lung sounds. No wheezes, rhonchi, crackles. CVS: S1 and S2 normal with no audible murmur, regular rhythm. No extra heart sounds ABDOMEN: No hepatosplenomegaly, active bowel sounds, no guarding or rigidity. SPINE: No scoliosis or deformity SKIN: No rashes CENTRAL NERVOUS SYSTEM: No focal deficits, tone is normal in all 4 extremities. EXTREMITIES: There is no peripheral edema, clubbing, or cyanosis. Peripheral pulses are intact. - Labs CBC & Chem 7: 05/24/23 07:13 05/24/23 07:13 Labs: Abnormal Lab Results - Last 24 Hours (Table) 05/24/23 05/24/23 05/24/23 Range/Units 07:13 07:13 07:13 WBC 14.3 H (3.8-10.6) k/uL RBC 3.69 L (4.30-5.90) m/uL Hgb 10.4 L (13.0-17.5) gm/dL Hct 33.4 L (39.0-53.0) % Plt Count 696 H (150-450) k/uL Neutrophils # 11.2 H (1.3-7.7) k/uL Sodium 136 L (137-145) mmol/L Creatinine 0.64 L (0.66-1.25) mg/dL Calcium 8.1 L (8.4-10.2) mg/dL C-Reactive Protein 18.2 H (<1.0) mg/dL Procalcitonin 0.33 H (0.02-0.09) ng/mL Assessment and Plan Assessment: Community acquired pneumonia and loculated left-sided pleural effusion. Chest CTA demonstrated a loculated left pleural effusion with adjacent compressive atelectasis. There is pleural thickening. There was mild lymphadenopathy demonstrated within the superior mediastinum, hilum, and bilateral axillary nodes. There was also a 1.7 cm lobular density within the posterior lateral right lung, which will require follow-up. Malignancy is not excluded. Status post pigtail catheter placement on 05/17/2023 and status post alteplase/dornase infusion 6. Purulent drainage returned. Fluid exudative. Total protein 2.7. LDH greater than 2500. Cultures are positive for staph hominis. Now on vancomycin. Cytology revealed no evidence of malignancy. Plan is thoracoscopy with decortication today. Leukocytosis secondary to above Right pulmonary nodule, measuring 1.7 cm, as demonstrated on chest CTA Chronic and ongoing tobacco dependence Benign essential hypertension Hyperlipidemia Mild transaminitis, undetermined significance, the patient did recently start on statins Plan: The patient was seen and evaluated Labs a chest x-ray and medications reviewed Culture positive for staph hominis, on vancomycin Plan is for thoracoscopy and decortication today We will continue to follow I have personally seen and examined the patient, performed the documentation and the assessment and plan as written. Number of minutes spent on the visit: 10.
--- NOTE | 2023-05-24 18:11 | P.OP ---
Date of Procedure: 05/24/23 Preoperative Diagnosis: Empyema Postoperative Diagnosis: Same Procedure(s) Performed: 1. Bronchoscopy 2. Left postero-lateral thoracotomy with complete decortication of left lung 3. Cryo ablation of intercostal nerves 5-9 Anesthesia: EZRA Surgeon: Rajat Reinoso Customer Service Engineer #1: Oscar Sauceda Estimated Blood Loss (ml): 500 IV fluids (ml): 700 Urine output (ml): 500 Pathology: other (pleural rind #1 and 2 with pleural rind culture and pleural fluid for culture) Condition: stable Disposition: PACU Indications for Procedure: This patient is a 67 year-old male smoker who was sent to the hospital with symptoms of pneumonia and dehydration. CT scan revealed a large left sided loculated parapneumonic effusion. He underwent CT guided pigtail with return of purulent material. Despite several doses of tPA, the patient continued to drain purulent material with elevated WBC. Decortication with washout was recommended. Operative Findings: Thick rind around the lower and upper lobe. Large pocket of pus entered posteriorly behind upper lobe with significant purulent drainage. Post decortication result excellent in both upper and lower lobes with good source control of purulent cavity. Description of Procedure: The patient underwent arterial line placeement in the pre-operative suite. He was brought back to the operating room and placed in the supine position. He was intubated with a double lumen tube and bronchoscopy was performed to confirm placement and for diagnostic purposes. There was no endobronchial lesions and he had some moderate secretions. The patient was positioned in the right lateral decubitus position and his left chest was prepped and draped in the usual sterile fashion. The left lung was isolated. I made an incision below the scapula which was carried down through the subcutaneous tissues using electrocautery. The latismus dorsi was transected using electrocautery and the serratus anterior was preserved. The subcutaneous tissues and muscle was very inflamed and edematous. I gained entry into the chest in the 78th intercostal space and a retractor was placed. There was a rind around the upper and middle lobe. Complete decortication was performed using peanut and ring forceps in the lower lobe. There was thick pleural rind circumferentially. Attention was drawn towards the upper lobe and the pleural rind was grasped and incised with a 15 blade. I entered a posterior pus filled cavity. A significant amount of pus was evacuated and the cavity was irrigated. The rind here was then peeled off the upper lobe and some was sent for culture and pathology. The left chest was copiously irrigated using 2L of NS. A 28F straight and 32F right angled chest tubes were placed in the chest cavity and the left lung was re-expanded with good result. The chest was closed with #2 nahomi-costals, 0-PDS, 2-0 PDS and 3-0 monocryl. The patient was extubated at the end of the procedure with small amount of air leak.
--- NOTE | 2023-05-24 18:40 | XR ---
EXAMINATION TYPE: XR chest 1V portable DATE OF EXAM: 05/24/2023 6:28 PM CLINICAL INDICATION:Male, 67 years old with history of Postoperative left thoracotomy; COMPARISON: Chest radiographs from 05/24/2023 TECHNIQUE: XR chest 1V portable Frontal view of the chest. FINDINGS: Lungs/Pleura: Blunting of the left costophrenic angle. There is no evidence of right pleural effusion , focal consolidation, or pneumothorax. Pulmonary vascularity: Unremarkable. Heart/mediastinum: Cardiomediastinal silhouette is unremarkable. Musculoskeletal: No acute osseous pathology. Other findings: Few scattered foci of subcutaneous emphysema near the chest tube insertion sites. Lines/Tubes: Left thoracotomy tube is present without evidence of pneumothorax. IMPRESSION: Left thoracotomy tubes without evidence for pneumothorax. Small left pleural effusion.
[2023-05-24 19:31] LABS: Glucose,Whole Blood 111 mg/dL (70-110)
[2023-05-24] MEDS ORDERED: NALOXONE 0.4 MG/ML 1 ML VIAL IV PRN (19:44)
[2023-05-24] MEDS ORDERED: ONDANSETRON 4 MG/2 ML VIAL IVP PRN (19:44)
[2023-05-24] MEDS ORDERED: MAGNESIUM HYDROXIDE 2,400 MG/30 ML CUP PO PRN (19:44)
[2023-05-24] MEDS ORDERED: METOCLOPRAMIDE 5 MG/ML 2 ML VIAL IVP PRN (19:44)
[2023-05-24] MEDS ORDERED: DEXTROSE 5%-0.45% NACL 1,000 ML IV SCH (19:44)
[2023-05-24] MEDS ORDERED: bisacodyL 10 MG SUPP RECTAL PRN (19:44)
[2023-05-24] MEDS ORDERED: HYDROmorphone PCA 10 MG/50 ML BAG IV PRN (19:44)
[2023-05-24] MEDS: IPRATROPIUM-ALBUTEROL 3 ML NEB IH SCH (20:09)
[2023-05-24] MEDS: FORMOTEROL FUMARATE 20 MCG/2 ML NEBU INHALATION SCH (20:09)
[2023-05-24 21:16] LABS: HCT 31.6 % (39.0-53.0); HGB 10.5 gm/dL (13.0-17.5); Hypochromasia Slight; MCH 29.6 pg (25.0-35.0); MCHC 33.1 g/dL (31.0-37.0); MCV 89.6 fL (80.0-100.0); Mean Platelet Volume 7.2; Platelet Count 627 k/uL (150-450); RBC 3.53 m/uL (4.30-5.90); RDW 13.8 % (11.5-15.5); WBC 23.1 k/uL (3.8-10.6)
[2023-05-24 21:24] LABS: ALT 129 U/L (4-49); AST 54 U/L (17-59); African American GFR (CKD) >90 (>60 ml/min/1.73 sqM); Albumin 2.3 g/dL (3.5-5.0); Albumin/Globulin Ratio 0.8; Alkaline Phosphatase 117 U/L (38-126); Anion Gap 4 mmol/L; Blood Urea Nitrogen 12 mg/dL (9-20); Calcium 7.9 mg/dL (8.4-10.2); Carbon Dioxide 24 mmol/L (22-30); Chloride 103 mmol/L (98-107); Glucose 115 mg/dL (74-99); Non-African American GFR(CKD) >90 (>60 ml/min/1.73 sqM); Potassium 4.6 mmol/L (3.5-5.1); Sodium 131 mmol/L (137-145); Total Bilirubin 0.9 mg/dL (0.2-1.3); Total Protein 5.3 g/dL (6.3-8.2)
[2023-05-24] MEDS: ACETAMINOPHEN IV (For NPO) 1,000 MG in EMPTY BAG 1 BAG IVPB SCH (21:56)
[2023-05-24] MEDS: SENNOSIDES-DOCUSATE SODIUM 1 EACH TAB PO SCH (22:12)
[2023-05-25] MEDS ORDERED: VANCOMYCIN TROUGH DUE 1 EACH MISC MISCELLANE ONE (05:00)
[2023-05-25 06:04] LABS: African American GFR (CKD) >90 (>60 ml/min/1.73 sqM); Anion Gap 6 mmol/L; Blood Urea Nitrogen 10 mg/dL (9-20); Calcium 7.7 mg/dL (8.4-10.2); Carbon Dioxide 23 mmol/L (22-30); Chloride 102 mmol/L (98-107); Glucose 103 mg/dL (74-99); Non-African American GFR(CKD) >90 (>60 ml/min/1.73 sqM); Potassium 4.4 mmol/L (3.5-5.1); Sodium 131 mmol/L (137-145)
[2023-05-25 06:57] LABS: Basophils % (A) 0 %; Eosinophils % (A) 0 %; HCT 32.5 % (39.0-53.0); HGB 10.6 gm/dL (13.0-17.5); Lymphocytes # (A) 1.7 k/uL (1.0-4.8); Lymphocytes % (A) 9 %; MCH 28.9 pg (25.0-35.0); MCHC 32.7 g/dL (31.0-37.0); MCV 88.3 fL (80.0-100.0); Mean Platelet Volume 7.1; Monocytes # (A) 1.3 k/uL (0-1.0); Monocytes % (A) 6 %; Neutrophils # (A) 16.7 k/uL (1.3-7.7); Neutrophils % (A) 84 %; Platelet Count 646 k/uL (150-450); RBC 3.68 m/uL (4.30-5.90); RDW 13.8 % (11.5-15.5); WBC 19.9 k/uL (3.8-10.6)
--- NOTE | 2023-05-25 07:23 | XR ---
EXAMINATION TYPE: XR chest 1V DATE OF EXAM: 05/25/2023 5:56 AM CLINICAL INDICATION:Male, 67 years old with history of Postoperative left thoracotomy; [facility] COMPARISON: Chest radiographs from TECHNIQUE: XR chest 1V Frontal view of the chest. FINDINGS: Lungs/Pleura: Blunting of the left costophrenic angle. There is no evidence of right pleural effusion , focal consolidation, or pneumothorax. Pulmonary vascularity: Unremarkable. Heart/mediastinum: Cardiomediastinal silhouette is unremarkable. Musculoskeletal: No acute osseous pathology. Other findings: Few scattered foci of subcutaneous emphysema near the chest tube insertion sites. Lines/Tubes: Left thoracotomy tube is present without evidence of pneumothorax. IMPRESSION: No significant change, Left thoracotomy tubes without evidence for pneumothorax. Small left pleural e ffusion.
[2023-05-25] MEDS: IPRATROPIUM-ALBUTEROL 3 ML NEB IH SCH ×4 (07:24→19:23)
[2023-05-25] MEDS: FORMOTEROL FUMARATE 20 MCG/2 ML NEBU INHALATION SCH ×2 (07:24→19:23)
[2023-05-25] MEDS: HEPARIN SODIUM,PORCINE 5,000 UNIT/ML 1 ML VIAL SQ SCH ×3 (07:25→15:46)
[2023-05-25] MEDS: ACETAMINOPHEN IV (For NPO) 1,000 MG in EMPTY BAG 1 BAG IVPB SCH ×3 (07:25→12:55)
[2023-05-25] MEDS: VANCOMYCIN 1,500 MG in SODIUM CHLORIDE 0.9% 500 ML 500 ML IVPB SCH ×3 (08:08→21:27)
[2023-05-25] MEDS: ATORVASTATIN 10 MG TAB PO SCH (08:10)
[2023-05-25] MEDS: FAMOTIDINE 20 MG/2 ML VIAL IV SCH ×2 (08:10→21:28)
[2023-05-25] MEDS: NICOTINE 21MG/24HR PATCH TRANSDERM SCH (08:10)
[2023-05-25] MEDS: LOSARTAN 50 MG TAB PO SCH (08:33)
--- NOTE | 2023-05-25 09:40 | P.PN ---
Subjective Progress Note Date: 05/25/23 Principal diagnosis: Loculated left pleural effusion, empyema. Past medical history significant for hypertension, hyperlipidemia, prediabetes, chronic ongoing tobacco dependence, occasional marijuana use, and family history of heart disease. POD #8 placement of left pigtail catheter by interventional radiology, removed during surgery yesterday 05/24/2023 POD #1 bronchoscopy, left postero-lateral thoracotomy with complete decortication of left lung, cryoablation of intercostal nerves V through IX. The patient was seen and examined in follow-up today 05/25/2023 that his bedside in the intensive care unit. Currently he is sitting up to the bedside chair, is awake, alert, oriented 3 in no acute apparent distress. He denies any complaints of shortness of breath at this time, although was complaining of some surgical type pain to his chest tube insertion sites currently rating his pain 7 out of 10 on the pain scale. Dilaudid HALL MANAGER in place and instructed patient on use of HALL MANAGER. Oxygen saturation are 96% on room air and he is achieving 1250 mL on his incentive spirometry was encouraged. Bedside telemetry showing normal sinus rhythm heart rate 96 BPM. Left anterior and posterior chest tubes remain in place to low continuous wall suction -20 cm H2O. No air leak is present. Left anterior chest tube is draining thin serosanguineous drainage with 180 mL output in the last 8 hours and 350 mL output in the last 24 hours. Left posterior chest tube is draining thin serosanguineous drainage with 110 mL output in the last 8 hours and 350 mL output since surgery. Laboratory and chest x-ray results reviewed. Objective - Vital Signs Vital signs: Vital Signs Temp 99.1 F 05/25/23 08:00 Pulse 98 05/25/23 08:30 Resp 21 05/25/23 08:30 BP 91/56 05/25/23 08:30 Pulse Ox 94 L 05/25/23 08:30 FiO2 Intake & Output 05/24/23 05/25/23 05/25/23 18:59 06:59 18:59 Intake Total 1210 450 320 Output Total 1050 1915 225 Balance 160 -1465 95 Weight 99.2 kg Intake: IV 900 150 ACETAMINOPHEN IV (For NPO 100 ) 1,000 mg In Empty Bag 1 bag @ 400 mls/hr IVPB Q6H [facility] Rx#:[id number] Dextrose 5%-0.45% NaCl 1, 50 000 ml @ 50 mls/hr IV . Q20H [facility] Rx#:[id number] Intake, IV Titration 450 50 Amount Dextrose 5%-0.45% NaCl 1, 450 50 000 ml @ 50 mls/hr IV . Q20H [facility] Rx#:[id number] Oral 120 Blood Product 310 Rc As-1 Unit 310 [id number] Output: Chest Tube Drainage 50 450 0 Chest Tube Left 50 Left Anterior Chest 210 0 Left Posterior Chest 240 0 Urine 500 1465 225 Estimated Blood Loss 500 Other: Voiding Method Indwelling Catheter Indwelling Catheter ABP, PAP, CO, CI - Last Documented Arterial Blood Pressure 90/81 - Exam CONSTITUTIONAL: Appears comfortable, cooperative, no acute distress RESPIRATORY: Lungs sounds essentially clear throughout, diminished to his left lobes. Respirations are symmetrical, nonlabored. Currently on room air with oxygen saturation 96%. Able to achieve 1250 mL on incentive spirometry. Strong cough. CARDIOVASCULAR: S1, S2 present. Regular rate and rhythm, sinus rhythm on telemetry. Palpable peripheral pulses bilaterally. No edema present. No calf pain or tenderness noted. SCDs present. GASTROINTESTINAL: Abdomen soft, nontender, nondistended. Active bowel sounds present 4 quadrants. Tolerating diet. Passing flatus.. GENITOURINARY: Covarrubias catheter present for accurate I's and O's. 665 mL output in the last 8 hours. INTEGUMENTARY: Skin is warm and dry with evidence of good perfusion. Left chest Thoracic incision well approximated and covered with dry intact dressing. NEUROLOGIC: Cranial nerves II through XII intact. No focal deficits. MUSKULOSKELETAL: Able to move all extremities, strength equal bilaterally, gait normal. PSYCHIATRIC: Alert and oriented to person place and time, appropriate affect, intact judgment and insight. INVASIVE LINES AND TUBES: Left pleural chest tubes present and connected to wall suction, no air leaks present. Draining thin serosanguineous drainage. - Allied health notes Allied health notes reviewed: nursing - Labs CBC & Chem 7: 05/25/23 04:14 05/25/23 04:14 Labs: Abnormal Lab Results - Last 24 Hours (Table) 05/23/23 05/24/23 05/24/23 Range/Units 05:16 07:13 07:13 WBC (3.8-10.6) k/uL RBC (4.30-5.90) m/uL Hgb (13.0-17.5) gm/dL Hct (39.0-53.0) % Plt Count (150-450) k/uL Neutrophils # (1.3-7.7) k/uL Monocytes # (0-1.0) k/uL Sodium (137-145) mmol/L Creatinine (0.66-1.25) mg/dL Glucose (74-99) mg/dL POC Glucose (mg/dL) (70-110) mg/dL Calcium (8.4-10.2) mg/dL ALT (4-49) U/L C-Reactive Protein 18.2 H (<1.0) mg/dL Total Protein (6.3-8.2) g/dL Albumin (3.5-5.0) g/dL Procalcitonin 0.33 H (0.02-0.09) ng/mL Crossmatch See Detail 05/24/23 05/24/23 05/24/23 Range/Units 07:13 19:29 20:50 WBC 14.3 H 23.1 H (3.8-10.6) k/uL RBC 3.69 L 3.53 L (4.30-5.90) m/uL Hgb 10.4 L 10.5 L (13.0-17.5) gm/dL Hct 33.4 L 31.6 L (39.0-53.0) % Plt Count 696 H 627 H (150-450) k/uL Neutrophils # 11.2 H (1.3-7.7) k/uL Monocytes # (0-1.0) k/uL Sodium (137-145) mmol/L Creatinine (0.66-1.25) mg/dL Glucose (74-99) mg/dL POC Glucose (mg/dL) 111 H (70-110) mg/dL Calcium (8.4-10.2) mg/dL ALT (4-49) U/L C-Reactive Protein (<1.0) mg/dL Total Protein (6.3-8.2) g/dL Albumin (3.5-5.0) g/dL Procalcitonin (0.02-0.09) ng/mL Crossmatch 05/24/23 05/25/23 05/25/23 Range/Units 20:50 04:14 04:14 WBC 19.9 H (3.8-10.6) k/uL RBC 3.68 L (4.30-5.90) m/uL Hgb 10.6 L (13.0-17.5) gm/dL Hct 32.5 L (39.0-53.0) % Plt Count 646 H (150-450) k/uL Neutrophils # 16.7 H (1.3-7.7) k/uL Monocytes # 1.3 H (0-1.0) k/uL Sodium 131 L 131 L (137-145) mmol/L Creatinine 0.63 L (0.66-1.25) mg/dL Glucose 115 H 103 H (74-99) mg/dL POC Glucose (mg/dL) (70-110) mg/dL Calcium 7.9 L 7.7 L (8.4-10.2) mg/dL ALT 129 H (4-49) U/L C-Reactive Protein (<1.0) mg/dL Total Protein 5.3 L (6.3-8.2) g/dL Albumin 2.3 L (3.5-5.0) g/dL Procalcitonin (0.02-0.09) ng/mL Crossmatch - Imaging and Cardiology Chest x-ray: report reviewed, image reviewed Assessment and Plan Assessment: Empyema , loculated left-sided pleural effusion, status post placement of left- sided pigtail catheter by interventional radiology and patient has received 6 doses of alteplase/dornase pleural instillation, status post, left postero- lateral thoracotomy with complete decortication of left lung Febrile illness with leukocytosis, most likely community-acquired pneumonia Transaminitis History of hypertension Hyperlipidemia Prediabetes, hemoglobin A1c 6.2 % Current tobacco dependence Occasional marijuana use Family history of heart disease Plan: We will keep his left pleural chest tubes to low continuous wall suction -20 cm H2O for another 24 hours. Encourage incentive spirometry is 10 times every hour while awake. Bronchodilators/steroids per pulmonology Will monitor daily chest x-rays and labs. Remove radial arterial line. Remove Covarrubias catheter. Continue to record strict and accurate I's and O's. Increase activity as tolerated. Out of bed for all meals. GI/DVT prophylaxis. Pain control with current medication regimen. Continue Dilaudid HALL MANAGER. Add Toradol for additional pain control. Culture results remain pending, will continue to follow. Transferred to third floor cardiac stepdown unit when bed available. More recommendations to follow based on patient's clinical course. Time with Patient: Greater than 30
[2023-05-25] MEDS ORDERED: SODIUM CHLORIDE 0.9% 1,000 ML IV SCH (10:00)
[2023-05-25] MEDS: KETOROLAC 15 MG/ML 1 ML VIAL IVP SCH ×2 (11:28→17:22)
--- NOTE | 2023-05-25 11:42 | P.PN ---
Subjective Progress Note Date: 05/25/23 I am seeing this patient in [facility] today 05/17/2023 in the emergency room for a loculated left-sided pleural effusion. Patient is a 67-year-old male with past medical history significant for hypertension and hyperlipidemia. Patient lives in [place], and plans to move to [place] this Fall. His primary care provider is out of [facility]. Patient states that he started to have left-sided back pain and left shoulder pain approximately 3 weeks ago. He originally attributed this to yard work. Starting last week, he began to develop fevers, chills, and shortness of breath. He denies any cough or hemoptysis. He denies any nausea, vomiting, constipation, abdominal pain. Appetite has been good. Denies any weight loss. Denies any prior history of cancer. Patient does smoke approximately 1 pack per day. Patient did end up going to an urgent care clinic 2 days ago. He was felt to have left-sided pneumonia, and was started on a course of Levaquin. He only completed one dose of Levaquin, and came to the emergency room for worsening symptoms yesterday afternoon. A follow-up chest CTA demonstrated a loculated left pleural effusion with adjacent compressive atelectasis. There is pleural thickening. There was mild lymphadenopathy demonstrated within the superior mediastinum, hilum, and bilateral axillary nodes. There was also a 1.7 cm lobe either density within the posterior lateral right lung, which will require follow-up. No prior imaging for comparison. An abdominal and pelvis CT with contrast did not demonstrate any acute intra- abdominal abnormalities. CBC on arrival showed some leukocytosis with a WBC count of 22.6, hgb 11.9, hematocrit 35.1, platelets 515. CMP on arrival showed sodium 136, potassium 5, chloride 102, serum bicarbonate 21, BUN 17, creatinine 0.76, glucose 91. Normal saline is infusing at 100 mL per hour. LFTs were mildly elevated with an AST of 154, ALT of 216, ALP of 185. Patient has been empirically started on a combination of azithromycin and Rocephin. He remains febrile with a T-max of 102F on the hospital. He is currently sitting up in bed, on room air, in no acute distress. He appears nontoxic and is symptomatically stable. He will be admitted to the general medical floor. The patient is seen today 05/18/2023 in follow-up on the regular medical floor. He is currently sitting up in a chair at the bedside. Awake and alert in no acute distress. Unfortunately, his pigtail catheter was accidentally dislodged early this morning. He did have 900 ML's of purulent drainage out prior to that. Definitely exudate. Protein 2.7. LDH greater than 2500. He did receive alteplase/dornase infusion yesterday. His x-ray did reveal decreasing but still sizable moderate left pleural effusion with adjacent atelectasis and/or consolidation. Pleural fluid cultures/cytology pending. Blood cultures pending. He is continued on Unasyn. Heparin for DVT prophylaxis. NicoDerm patch in place. The patient is seen today 05/19/2023 in follow-up on the regular medical floor. He is currently awake and alert in no acute distress. Sitting up in a chair. Denies any worsening shortness of breath, cough or congestion. Chest x-ray reveals left basilar pleural catheter in place. Loculated pleural fluid and pleural tear noted at the site of the pleural effusion. He did have his pigtail catheter replaced yesterday. He had another 800 ML's drained in the past 24 hours. He received alternate/dornase lytic infusion today. He is continued on Unasyn. Cultures are showing gram-negative bacilli. He is currently afebrile. He did have a T-max of 100.7 early this morning. White count 16.2. Hemoglobin 10.0. Sodium 138. Potassium 4.4. Bicarb 24. BUN 15. Creatinine 0.9. The patient is seen today 05/20/2023 in follow-up on the regular medical floor. He is currently resting prone in bed. No worsening shortness of breath, cough or congestion. He is breathing slightly received alteplase/dornase infusion and is repositioning himself every 15 minutes. Chest x-ray shows left basilar pigtail catheter in place. Loculated left basilar effusion noted with underlying infiltrate/atelectasis. Blood cultures revealing no growth. Pleural fluid Gram stain revealing many gram-negative bacilli. He remains on Unasyn. Heparin for DVT prophylaxis. NicoDerm patch in place. Bronchodilators as needed. The patient is seen today 05/21/2023 in follow-up on the regular medical floor. Awake and alert in no acute distress. Continues to maintain good O2 saturations in the 90s on room air. Chest x-ray shows persistent small to tiny lateral basilar left-sided hydropneumothorax with pigtail catheter in place. Persistent left mid to lower lung acute infiltrate/atelectasis unchanged. Chest tube remains in place to Pleur-evac and low continuous wall suction. No air leak noted. He's had approximately 1200 ML's output in the past 24 hours. Continues to work well with the incentive spirometer. White count 13.3. Hemoglobin 10.4. Platelets 623. He is continued on bronchodilators as needed. Remains on antibiotics in form of Unasyn. Heparin for DVT prophylaxis. The patient is seen today 05/22/2023 in follow-up on the regular medical floor. He is currently resting comfortably in bed. Awake and alert in no acute distress. Denies any worsening shortness of breath, cough or congestion. Chest tube remains in place to the left chest attached to Pleur-evac with thick purulent drainage noted, to low continuous wall suction. No leak. He continues working well with the incentive spirometer. Follow-up computed tomography scan today revealed decreased loculated left pleural effusion with pleural pigtail catheter in place. There continues to be loculated effusion within the posterior left upper lung measuring up to 10 cm and along the left apex measuring up to 4.4 cm. Nonspecific enlarged mediastinal lymph node measuring 2.0 cm. Stable nodular 1.5 cm density within the posterior right midlung. Pleural fluid culture is positive for staph hominis. He is now on Levaquin. Plan is for a 6th instillation of alteplase/dornase today. Plan may be for left thoracotomy with decortication per CT services. The patient is seen today 05/23/2023 and follow-up on the regular medical floor. He is currently sitting up in bed. Awake and alert in no acute distress. Denies any worsening shortness of breath, cough or congestion. He is maintaining good O2 saturations in the 90s on room air. Chest tube remains in place. Currently to the Pleur-evac with low continuous suction. No air leak noted. Continues with thick purulent drainage. 500 ML's output past 24 hours. His pleural fluid cultures are positive for staph hominis. Blood cultures reveal no growth. White count 17.3. Hemoglobin 9.7. Platelets 616. Sodium 136. Potassium 4.4. Bicarb 23. BUN 11. Creatinine 0.7. Glucose 94. Remains on Levaquin. He continues to work well with the incentive spirometer. The plan is for a left thoracotomy and decortication tomorrow. The patient is seen today 05/24/2023 in follow-up on the regular medical floor. He is resting comfortably in bed. Awake and alert in no acute distress. Continues to maintain good O2 saturations in the 90s on room air. Chest x-ray remains unchanged with opacity throughout the left hemithorax. Left basilar pigtail catheter remains in place. Right lung is clear. Awaiting thoracoscopy with decortication today. Pleural fluid cultures were positive for staph hominis. Blood cultures revealed no growth. White count 14.3. Hemoglobin 10.4. Platelets 696. Sodium 136. Potassium 4.2. Bicarb 22. BUN 13. Creatinine 0.64. Pro-calcitonin 0.33. He is continued on vancomycin. Remains on bronchodilators. Heparin for DVT prophylaxis. NicoDerm patch in place. The patient is seen today 05/25/2023 in follow-up in the intensive care unit. He is sitting up in a chair. Awake and alert in no acute distress. Continues to maintain good O2 saturations in the 90s on room air. He did undergo a left posterior lateral thoracotomy with complete decortication of the left lung. He was found to have a large pocket of pus posteriorly behind the upper lobe with significant purulent drainage. A second chest tube was placed. Today's chest x-ray shows no significant change. Left thoracotomy tubes without evidence of pneumothorax. Small left pleural effusion. Pleural fluid was positive for staph hominis. White count 19.9. Hemoglobin 10.6. Platelets 646. Sodium 131. Potassium 4.4. BUN 10. Creatinine 0.69. Glucose 103. He has received 1 unit of packed red blood cells this admission. He remains on vancomycin. Continued on DuoNeb inhalations and Perforomist inhalations. NicoDerm patch in place. He is receiving Dilaudid [employer] for pain control. Objective - Vital Signs Vital signs: Vital Signs Temp 99.1 F 05/25/23 08:00 Pulse 96 05/25/23 10:36 Resp 21 05/25/23 08:30 BP 91/56 05/25/23 08:30 Pulse Ox 94 L 05/25/23 08:30 FiO2 Intake & Output 05/24/23 05/25/23 05/25/23 18:59 06:59 18:59 Intake Total 1210 450 320 Output Total 1050 1915 225 Balance 160 -1465 95 Weight 99.2 kg Intake: IV 900 150 ACETAMINOPHEN IV (For NPO 100 ) 1,000 mg In Empty Bag 1 bag @ 400 mls/hr IVPB Q6H JOSELYN Rx#:[id number] Dextrose 5%-0.45% NaCl 1, 50 000 ml @ 50 mls/hr IV . Q20H JOSELYN Rx#:[id number] Intake, IV Titration 450 50 Amount Dextrose 5%-0.45% NaCl 1, 450 50 000 ml @ 50 mls/hr IV . Q20H JOSELYN Rx#:[id number] Oral 120 Blood Product 310 Rc As-1 Unit 310 [id number] Output: Chest Tube Drainage 50 450 0 Chest Tube Left 50 Left Anterior Chest 210 0 Left Posterior Chest 240 0 Urine 500 1465 225 Estimated Blood Loss 500 Other: Voiding Method Indwelling Catheter Indwelling Catheter ABP, PAP, CO, CI - Last Documented Arterial Blood Pressure 90/81 - Exam GENERAL EXAM: Alert, 67-year-old male, sitting up in a chair, on room air, comfortable in no apparent distress. HEAD: Normocephalic and atraumatic EYES: Normal reaction of pupils, equal size. NOSE: Clear with pink turbinates. THROAT: No erythema or exudates. NECK: No masses, no JVD. CHEST: No chest wall deformity. Left posterior chest tube in place. Left-sided pigtail catheter in place both to Pleur-evac and low continuous wall suction, no leak LUNGS: There is diminished left lower lung sounds. No wheezes, rhonchi, crackles. CVS: S1 and S2 normal with no audible murmur, regular rhythm. No extra heart sounds ABDOMEN: No hepatosplenomegaly, active bowel sounds, no guarding or rigidity. SPINE: No scoliosis or deformity SKIN: No rashes CENTRAL NERVOUS SYSTEM: No focal deficits, tone is normal in all 4 extremities. EXTREMITIES: There is no peripheral edema, clubbing, or cyanosis. Peripheral pulses are intact. - Labs CBC & Chem 7: 05/25/23 04:14 10/19/23 04:14 Labs: Abnormal Lab Results - Last 24 Hours (Table) 05/23/23 05/24/23 05/24/23 Range/Units 05:16 19:29 20:50 WBC 23.1 H (3.8-10.6) k/uL RBC 3.53 L (4.30-5.90) m/uL Hgb 10.5 L (13.0-17.5) gm/dL Hct 31.6 L (39.0-53.0) % Plt Count 627 H (150-450) k/uL Neutrophils # (1.3-7.7) k/uL Monocytes # (0-1.0) k/uL Sodium (137-145) mmol/L Creatinine (0.66-1.25) mg/dL Glucose (74-99) mg/dL POC Glucose (mg/dL) 111 H (70-110) mg/dL Calcium (8.4-10.2) mg/dL ALT (4-49) U/L Total Protein (6.3-8.2) g/dL Albumin (3.5-5.0) g/dL Crossmatch See Detail 05/24/23 05/25/23 05/25/23 Range/Units 20:50 04:14 04:14 WBC 19.9 H (3.8-10.6) k/uL RBC 3.68 L (4.30-5.90) m/uL Hgb 10.6 L (13.0-17.5) gm/dL Hct 32.5 L (39.0-53.0) % Plt Count 646 H (150-450) k/uL Neutrophils # 16.7 H (1.3-7.7) k/uL Monocytes # 1.3 H (0-1.0) k/uL Sodium 131 L 131 L (137-145) mmol/L Creatinine 0.63 L (0.66-1.25) mg/dL Glucose 115 H 103 H (74-99) mg/dL POC Glucose (mg/dL) (70-110) mg/dL Calcium 7.9 L 7.7 L (8.4-10.2) mg/dL ALT 129 H (4-49) U/L Total Protein 5.3 L (6.3-8.2) g/dL Albumin 2.3 L (3.5-5.0) g/dL Crossmatch Assessment and Plan Assessment: Community acquired pneumonia and loculated left-sided pleural effusion. Chest CTA demonstrated a loculated left pleural effusion with adjacent compressive atelectasis. There is pleural thickening. There was mild lymphadenopathy demonstrated within the superior mediastinum, hilum, and bilateral axillary nodes. There was also a 1.7 cm lobular density within the posterior lateral right lung, which will require follow-up. Malignancy is not excluded. Status post pigtail catheter placement on 05/17/2023 and status post alteplase/dornase infusion 6. Purulent drainage returned. Fluid exudative. Total protein 2.7. LDH greater than 2500. Cultures are positive for staph hominis. Now on vancomycin. Cytology revealed no evidence of malignancy. He did undergo a left posterior lateral thoracotomy with complete decortication of the left lung on 05/24/2023. He was found to have a large pocket of pus posteriorly behind the upper lobe with significant purulent drainage. A second chest tube was placed. Today's chest x-ray shows no significant change. Left thoracotomy tubes without evidence of pneumothorax. Small left pleural effusion. Pleural fluid was positive for staph hominis. Leukocytosis secondary to above Right pulmonary nodule, measuring 1.7 cm, as demonstrated on chest CTA Chronic and ongoing tobacco dependence Benign essential hypertension Hyperlipidemia Mild transaminitis, undetermined significance, the patient did recently start on statins Plan: The patient was seen and evaluated Labs, chest x-ray and medications reviewed Second chest tube was placed to the left chest during OR Culture positive for staph hominis, on vancomycin Stable and on room air Current she increased use the incentive spirometer Reason his activity as tolerated We will continue to follow I have personally seen and examined the patient, performed the documentation and the assessment and plan as written. Number of minutes spent on the visit: 10.
[2023-05-25] MEDS ORDERED: ALBUMIN HUMAN 5% 250 ML in EMPTY BAG 1 BAG IVPB ONE (16:15)
[2023-05-25] MEDS: TAMSULOSIN 0.4 MG CAP.ER.24H PO SCH (17:35)
[2023-05-25] MEDS: SENNOSIDES-DOCUSATE SODIUM 1 EACH TAB PO SCH (21:28)
[2023-05-26] MEDS: HEPARIN SODIUM,PORCINE 5,000 UNIT/ML 1 ML VIAL SQ SCH ×3 (00:11→17:18)
[2023-05-26] MEDS: KETOROLAC 15 MG/ML 1 ML VIAL IVP SCH ×4 (00:12→17:18)
[2023-05-26] MEDS: VANCOMYCIN 1,500 MG in SODIUM CHLORIDE 0.9% 500 ML 500 ML IVPB SCH ×3 (05:08→22:25)
--- NOTE | 2023-05-26 05:28 | P.PN ---
Subjective Progress Note Date: 05/25/23 Patient is a 67-year-old male with a past medical history of hypertension, hyperlipidemia, currently everyday smoker was sent to ER by his primary care physician due to concern for pneumonia and dehydration. Patient states that he was seen by his primary care physician at [place] about 2 weeks ago and was noticed that his WBC was elevated. Patient did did have some cough but without any other signs of infection at that time. Patient came to [place] and started having fever, sweats and not feeling well since last weekend. He contacted his primary care physician again and was sent to [facility] for x-ray which showed pneumonia. He was started on antibiotics in the form of Levaquin last night. Patient did take 1 dose. Patients primary care physician concerned about possible dehydration as well and was recommended to go to emergency room for further evaluation. Patient otherwise complains of cough without sputum production. No nausea vomiting or diarrhea. No chest pain. No complaints of shortness of breath. Patient states that he has been having left lower back pain and also left shoulder pain since last Monday and thought it may be due his increased outside work recently. On admission patient was febrile with Tmax 100.5 pulse is 105 and respiration 19 pulse ox 94% on room air. Chest x-ray showed similar large area of consolidation and pleural effusion within the left mid and lower lung. Correlate for pneumonia with emphysema not excluded. EKG showed sinus tachycardia. Laboratory pressure WBC 22.6 hemoglobin 11.9 and platelets 515 Sodium 136 potassium 5.0 chloride 102 bicarb is 21 BUN 17 and creatinine 0.76 and liver enzymes elevated with ALT 216, AST 154 and alk phos 185, LDH 604. proBNP 201 and albumin 3.4. 05/17/2023 patient was complaining of from back injury when he fell about 3 weeks ago. , After that [facility]. 2 weeks ago he saw his PCP and [facility] for regular checkup patient was noticed to have leukocytosis but denies any other symptoms.. After patient came from [facility] about a week ago he went to his orthopedic doctor who checked his back pain with x-ray and prescribed Motrin 800 mg 3 times a day. The last Monday he was sweating a lot with high fever 103. He called his PCP on Monday who prescribed him Levaquin after chest x-ray and asked him to come to emergency room. Patient complaining from mild tachypnea but with little clear phlegm. No chest pain only with coughing. He has little diarrhea but feels better. No urinary or neurological symptoms. He smokes about 1 pack per day and he decided to close last Monday and currently he has nicotine patch. He denies alcohol or illicit drugs. Patient is afebrile on admission at 102 he is saturating well on room air Labs showed leukocytosis of 22.6K, hemoglobin 11.9, platelet count 515 BMP is unremarkable Liver enzymes elevated with AST 154 and ALT 216 with lactated dehydrogenase elevated at 600-8. ProBNP is 201. CTA of the chest: Loculated left pleural effusion with adjacent atelectasis. No pulmonary embolism. 1.7 cm lobular mass in the right midlung. And axillary and mediastinal lymphadenopathy On admission patient was started on Zithromax, ceftriaxone, IV fluids and admitted with pulmonary team consult 05/18/2023 Patient sits up in chair feels better. His dyspnea is better. No chest pain he has difficulty this morning. He had pigtail catheter placed yesterday but fell off today Vitals stable oxygen saturation is acceptable. No more fever. Chest x-ray showing improvement No labs from today. Patient on Unasyn normal saline 75 mL/h 05/19/2023 Patient breathing comfortably Chest pain is minimal Left-sided chest tube in place and patient under going lytic therapy through the tube with cardiothoracic surgery team Patient had low-grade fever today at 100. still on Unasyn. 05/20/2023 Patient breathing better with less dyspnea and breathing quietly addressed. No other new complaints. Chest tube was taken out today after finishing his lytic therapy. Sputum Gram stain and culture still pending as well as blood culture Patient remains on Unasyn. Normal saline was ordered but The patient is not getting it today, he is hemodynamically stable. We will discontinue 05/21/2023 patient reports improvement in his breathing Chest tube was taken out. When she woke with no exertional dyspnea Chest x-ray showing improvement but some persistent changes in the left lower lung area. Surgery team planning to repeat CAT scan with contrast tomorrow and if still abnormal appendix considering decortication/thoracotomy Continue with Unasyn. Start normal saline 75 mL/h 16 hours for patient is getting IV contrast 05/22/2023 pt sitting at bed with no much respiratory symptoms Left lower posterior pigtail catheter in place through which is still pending lytic therapy with alteplase/dornase under the care of surgery team. Repeat CAT scan of the chest today showing decreased loculated left pleural effusion with pigtail catheter in place. Residual loculated effusion is 10 cm at left upper lung 4.4 cm of the left. With associated mediastinal lymphadenopathy. 05/23/2023 Patient is seen in follow-up today currently being followed by cardiothoracic surgery with continued loculated effusion on the left. Patient has received TPA multiple times and recommending thoracotomy with decortication which is schedu led for 05/24/2023. Patient's white count remains elevated and patient was continued on Levaquin and sputum showing staph hominis with resistance will consult infectious disease appreciate input recommendations. Patient being started on vancomycin. Patient continues with left pigtail at this time. Patient white count remains elevated and is afebrile with no reports of chest pain or shortness of breath at this time. Patient will be nothing by mouth at midnight and will await surgical report. 05/24/2023 Patient is seen and evaluated in follow-up and currently nothing by mouth as patient is scheduled to undergo thoracotomy with decortication and will likely be in the ICU postop. Family members present at bedside and updated in currently awaiting OR for pickup. Patient is afebrile denies any changes overnight and denies any worsening shortness of breath or chest pains. Will await surgical report. 05/25/2023 Patient seen and evaluated in follow-up and is in the ICU with multiple medical consultations following. Patient is status post bronchoscopy with left lateral thoracotomy and complete decortication. Patient with chest tubes continue with serous output. Covarrubias catheter was removed and awaiting to void. White count remains elevated although trending down. Cultures have been obtained from surgery and pending at this time. Patient currently maintained on vancomycin with infectious disease following awaiting finalized cultures. Patient has been instructed to continue using incentive spirometer is 10 times every hour while awake. Sodium is 131 and will give gentle IV hydration and follow-up with repeat labs. Chest x-ray in a.m. Review of systems: Constitutional: No reports of fatigue, fever, or chills Cardiovascular: No reports of chest pain or palpitations Respiratory: No reports of shortness of breath or cough GI: No reports of nausea, vomiting, or diarrhea : No reports of dysuria or retention Neurovascular: No reports of weakness or numbness All medications have been reviewed Physical exam: GENERAL: The patient is alert and oriented x3, not in any acute distress. Well developed, well nourished. HEENT: Pupils are round and equally reacting to light. EOMI. No scleral icterus. No conjunctival pallor. Normocephalic, atraumatic. No pharyngeal erythema. No thyromegaly. CARDIOVASCULAR: S1 and S2 present. No murmurs, rubs, or gallops. PULMONARY: Chest is clear to auscultation, no wheezing , no crackles. 2 chest tubes noted with serous drainage ABDOMEN: Soft, nontender, nondistended, normoactive bowel sounds. No palpable organomegaly. MUSCULOSKELETAL: No joint swelling or deformity. EXTREMITIES: No cyanosis, clubbing, or pedal edema. NEUROLOGICAL: Gross neurological examination did not reveal any focal deficits. SKIN: No rashes. no petechiae. Assessment: Left middle and lower lung pneumonia with paraPneumonia and large loculated left pleural effusion status post bronchoscopy with left lateral thoracotomy and complete decortication on 05/24/2023 Sepsis with leukocytosis and fever secondary to above Continued ongoing Nicotine dependence Hypertension Hyperlipidemia GI prophylaxis DVT prophylaxis Full code Plan: Patient is postop left lateral thoracotomy with complete decortication and cryoablation postop day 1 in the ICU with multiple medical consultations following 2 left-sided chest tubes noted with serous drainage Patient did have indwelling Covarrubias catheter which was removed this morning and awaiting to void. Recommend protocol is having retention and straight cath. White count is trending down and will follow-up with repeat labs Chest x-ray ordered for a.m. Encouraged increased activity as tolerated and oral intake Sodium is 131 and will give gentle IV hydration and follow-up repeat labs Currently awaiting cultures from surgery The impression and plan of care has been dictated by Stephanie Mccarthy Nurse Practitioner as directed. Dr. Shannan MD I have performed a history and examination and MDM of this patient, discussed the same with the dictator, and agree with the dictator's assessment and plan as written ,documented as a scribe. Based on total visit time, I have performed more than 50% of the visit. Objective - Vital Signs Vital signs: Vital Signs Temp 99.1 F 05/25/23 08:00 Pulse 98 05/25/23 08:30 Resp 21 05/25/23 08:30 BP 91/56 05/25/23 08:30 Pulse Ox 94 L 05/25/23 08:30 FiO2 Intake & Output 05/24/23 05/25/23 05/25/23 18:59 06:59 18:59 Intake Total 1210 450 320 Output Total 1050 1915 225 Balance 160 -1465 95 Weight 99.2 kg Intake: IV 900 150 ACETAMINOPHEN IV (For NPO 100 ) 1,000 mg In Empty Bag 1 bag @ 400 mls/hr IVPB Q6H JOSELYN Rx#:[id number] Dextrose 5%-0.45% NaCl 1, 50 000 ml @ 50 mls/hr IV . Q20H JOSELYN Rx#:[id number] Intake, IV Titration 450 50 Amount Dextrose 5%-0.45% NaCl 1, 450 50 000 ml @ 50 mls/hr IV . Q20H JOSELYN Rx#:[id number] Oral 120 Blood Product 310 Rc As-1 Unit 310 [id number] Output: Chest Tube Drainage 50 450 0 Chest Tube Left 50 Left Anterior Chest 210 0 Left Posterior Chest 240 0 Urine 500 1465 225 Estimated Blood Loss 500 Other: Voiding Method Indwelling Catheter Indwelling Catheter ABP, PAP, CO, CI - Last Documented Arterial Blood Pressure 90/81 - Labs CBC & Chem 7: 05/25/23 04:14 05/25/23 04:14 Labs: Abnormal Lab Results - Last 24 Hours (Table) 05/23/23 05/24/23 05/24/23 Range/Units 05:16 07:13 07:13 WBC (3.8-10.6) k/uL RBC (4.30-5.90) m/uL Hgb (13.0-17.5) gm/dL Hct (39.0-53.0) % Plt Count (150-450) k/uL Neutrophils # (1.3-7.7) k/uL Monocytes # (0-1.0) k/uL Sodium (137-145) mmol/L Creatinine (0.66-1.25) mg/dL Glucose (74-99) mg/dL POC Glucose (mg/dL) (70-110) mg/dL Calcium (8.4-10.2) mg/dL ALT (4-49) U/L C-Reactive Protein 18.2 H (<1.0) mg/dL Total Protein (6.3-8.2) g/dL Albumin (3.5-5.0) g/dL Procalcitonin 0.33 H (0.02-0.09) ng/mL Crossmatch See Detail 05/24/23 05/24/23 05/24/23 Range/Units 07:13 19:29 20:50 WBC 14.3 H 23.1 H (3.8-10.6) k/uL RBC 3.69 L 3.53 L (4.30-5.90) m/uL Hgb 10.4 L 10.5 L (13.0-17.5) gm/dL Hct 33.4 L 31.6 L (39.0-53.0) % Plt Count 696 H 627 H (150-450) k/uL Neutrophils # 11.2 H (1.3-7.7) k/uL Monocytes # (0-1.0) k/uL Sodium (137-145) mmol/L Creatinine (0.66-1.25) mg/dL Glucose (74-99) mg/dL POC Glucose (mg/dL) 111 H (70-110) mg/dL Calcium (8.4-10.2) mg/dL ALT (4-49) U/L C-Reactive Protein (<1.0) mg/dL Total Protein (6.3-8.2) g/dL Albumin (3.5-5.0) g/dL Procalcitonin (0.02-0.09) ng/mL Crossmatch 05/24/23 05/25/23 05/25/23 Range/Units 20:50 04:14 04:14 WBC 19.9 H (3.8-10.6) k/uL RBC 3.68 L (4.30-5.90) m/uL Hgb 10.6 L (13.0-17.5) gm/dL Hct 32.5 L (39.0-53.0) % Plt Count 646 H (150-450) k/uL Neutrophils # 16.7 H (1.3-7.7) k/uL Monocytes # 1.3 H (0-1.0) k/uL Sodium 131 L 131 L (137-145) mmol/L Creatinine 0.63 L (0.66-1.25) mg/dL Glucose 115 H 103 H (74-99) mg/dL POC Glucose (mg/dL) (70-110) mg/dL Calcium 7.9 L 7.7 L (8.4-10.2) mg/dL ALT 129 H (4-49) U/L C-Reactive Protein (<1.0) mg/dL Total Protein 5.3 L (6.3-8.2) g/dL Albumin 2.3 L (3.5-5.0) g/dL Procalcitonin (0.02-0.09) ng/mL Crossmatch
[2023-05-26 05:36] LABS: ALT 84 U/L (4-49); AST 47 U/L (17-59); African American GFR (CKD) >90 (>60 ml/min/1.73 sqM); Albumin 2.4 g/dL (3.5-5.0); Alkaline Phosphatase 113 U/L (38-126); Anion Gap 8 mmol/L; Blood Urea Nitrogen 16 mg/dL (9-20); Calcium 7.8 mg/dL (8.4-10.2); Carbon Dioxide 23 mmol/L (22-30); Chloride 102 mmol/L (98-107); Glucose 104 mg/dL (74-99); Non-African American GFR(CKD) >90 (>60 ml/min/1.73 sqM); Potassium 4.3 mmol/L (3.5-5.1); Sodium 133 mmol/L (137-145); Total Bilirubin 0.6 mg/dL (0.2-1.3); Total Protein 5.5 g/dL (6.3-8.2)
[2023-05-26 05:52] LABS: Basophils % (A) 0 %; Eosinophils # (A) 0.1 k/uL (0-0.7); Eosinophils % (A) 0 %; HCT 32.4 % (39.0-53.0); HGB 10.5 gm/dL (13.0-17.5); Lymphocytes # (A) 2.3 k/uL (1.0-4.8); Lymphocytes % (A) 12 %; MCHC 32.6 g/dL (31.0-37.0); MCV 89.1 fL (80.0-100.0); Mean Platelet Volume 7.4; Monocytes # (A) 1.1 k/uL (0-1.0); Monocytes % (A) 6 %; Neutrophils # (A) 15.4 k/uL (1.3-7.7); Neutrophils % (A) 81 %; Platelet Count 635 k/uL (150-450); RBC 3.63 m/uL (4.30-5.90); RDW 13.6 % (11.5-15.5); WBC 19.1 k/uL (3.8-10.6)
[2023-05-26] MEDS: IPRATROPIUM-ALBUTEROL 3 ML NEB IH SCH ×4 (07:50→19:20)
[2023-05-26] MEDS: FORMOTEROL FUMARATE 20 MCG/2 ML NEBU INHALATION SCH ×2 (07:50→19:20)
--- NOTE | 2023-05-26 08:26 | XR ---
EXAMINATION TYPE: XR chest 1V portable DATE OF EXAM: 05/26/2023 HISTORY: Shortness of breath. COMPARISON: 05/25/2023 TECHNIQUE: Single view of the chest is submitted. FINDINGS: 2 left basilar chest tubes are in place. Small amount of subcutaneous air is noted. No sizable pneumo thorax. Pleural parenchymal opacity at the left lung base persists although slightly improved. Left a pical opacity is also slightly improved. The right lung is clear. Cardiomediastinal silhouette is sta ble. IMPRESSION: 1. Pleural parenchymal opacity at the left lung base persists although slightly improved. Left apica l opacity is also slightly improved.
[2023-05-26] MEDS ORDERED: ACETAMINOPHEN TAB 500 MG TAB PO PRN (09:26)
[2023-05-26] MEDS: ATORVASTATIN 10 MG TAB PO SCH (10:34)
[2023-05-26] MEDS: FAMOTIDINE 20 MG/2 ML VIAL IV SCH ×2 (10:34→19:59)
[2023-05-26] MEDS: LOSARTAN 50 MG TAB PO SCH (10:35)
[2023-05-26] MEDS: NICOTINE 21MG/24HR PATCH TRANSDERM SCH (10:35)
[2023-05-26] MEDS: traMADol 50 MG TAB PO SCH ×3 (10:37→22:25)
--- NOTE | 2023-05-26 11:37 | P.PN ---
Subjective Progress Note Date: 05/26/23 I am seeing this patient in [facility] today 05/17/2023 in the emergency room for a loculated left-sided pleural effusion. Patient is a 67-year-old male with past medical history significant for hypertension and hyperlipidemia. Patient lives in [place], and plans to move to [place] this Fall. His primary care provider is out of [facility]. Patient states that he started to have left-sided back pain and left shoulder pain approximately 3 weeks ago. He originally attributed this to yard work. Starting last week, he began to develop fevers, chills, and shortness of breath. He denies any cough or hemoptysis. He denies any nausea, vomiting, constipation, abdominal pain. Appetite has been good. Denies any weight loss. Denies any prior history of cancer. Patient does smoke approximately 1 pack per day. Patient did end up going to an urgent care clinic 2 days ago. He was felt to have left-sided pneumonia, and was started on a course of Levaquin. He only completed one dose of Levaquin, and came to the emergency room for worsening symptoms yesterday afternoon. A follow-up chest CTA demonstrated a loculated left pleural effusion with adjacent compressive atelectasis. There is pleural thickening. There was mild lymphadenopathy demonstrated within the superior mediastinum, hilum, and bilateral axillary nodes. There was also a 1.7 cm lobe either density within the posterior lateral right lung, which will require follow-up. No prior imaging for comparison. An abdominal and pelvis CT with contrast did not demonstrate any acute intra- abdominal abnormalities. CBC on arrival showed some leukocytosis with a WBC count of 22.6, hgb 11.9, hematocrit 35.1, platelets 515. CMP on arrival showed sodium 136, potassium 5, chloride 102, serum bicarbonate 21, BUN 17, creatinine 0.76, glucose 91. Normal saline is infusing at 100 mL per hour. LFTs were mildly elevated with an AST of 154, ALT of 216, ALP of 185. Patient has been empirically started on a combination of azithromycin and Rocephin. He remains febrile with a T-max of 102F on the hospital. He is currently sitting up in bed, on room air, in no acute distress. He appears nontoxic and is symptomatically stable. He will be admitted to the general medical floor. The patient is seen today 05/18/2023 in follow-up on the regular medical floor. He is currently sitting up in a chair at the bedside. Awake and alert in no acute distress. Unfortunately, his pigtail catheter was accidentally dislodged early this morning. He did have 900 ML's of purulent drainage out prior to that. Definitely exudate. Protein 2.7. LDH greater than 2500. He did receive alteplase/dornase infusion yesterday. His x-ray did reveal decreasing but still sizable moderate left pleural effusion with adjacent atelectasis and/or consolidation. Pleural fluid cultures/cytology pending. Blood cultures pending. He is continued on Unasyn. Heparin for DVT prophylaxis. NicoDerm patch in place. The patient is seen today 05/19/2023 in follow-up on the regular medical floor. He is currently awake and alert in no acute distress. Sitting up in a chair. Denies any worsening shortness of breath, cough or congestion. Chest x-ray reveals left basilar pleural catheter in place. Loculated pleural fluid and pleural tear noted at the site of the pleural effusion. He did have his pigtail catheter replaced yesterday. He had another 800 ML's drained in the past 24 hours. He received alternate/dornase lytic infusion today. He is continued on Unasyn. Cultures are showing gram-negative bacilli. He is currently afebrile. He did have a T-max of 100.7 early this morning. White count 16.2. Hemoglobin 10.0. Sodium 138. Potassium 4.4. Bicarb 24. BUN 15. Creatinine 0.9. The patient is seen today 05/20/2023 in follow-up on the regular medical floor. He is currently resting prone in bed. No worsening shortness of breath, cough or congestion. He is breathing slightly received alteplase/dornase infusion and is repositioning himself every 15 minutes. Chest x-ray shows left basilar pigtail catheter in place. Loculated left basilar effusion noted with underlying infiltrate/atelectasis. Blood cultures revealing no growth. Pleural fluid Gram stain revealing many gram-negative bacilli. He remains on Unasyn. Heparin for DVT prophylaxis. NicoDerm patch in place. Bronchodilators as needed. The patient is seen today 05/21/2023 in follow-up on the regular medical floor. Awake and alert in no acute distress. Continues to maintain good O2 saturations in the 90s on room air. Chest x-ray shows persistent small to tiny lateral basilar left-sided hydropneumothorax with pigtail catheter in place. Persistent left mid to lower lung acute infiltrate/atelectasis unchanged. Chest tube remains in place to Pleur-evac and low continuous wall suction. No air leak noted. He's had approximately 1200 ML's output in the past 24 hours. Continues to work well with the incentive spirometer. White count 13.3. Hemoglobin 10.4. Platelets 623. He is continued on bronchodilators as needed. Remains on antibiotics in form of Unasyn. Heparin for DVT prophylaxis. The patient is seen today 05/22/2023 in follow-up on the regular medical floor. He is currently resting comfortably in bed. Awake and alert in no acute distress. Denies any worsening shortness of breath, cough or congestion. Chest tube remains in place to the left chest attached to Pleur-evac with thick purulent drainage noted, to low continuous wall suction. No leak. He continues working well with the incentive spirometer. Follow-up computed tomography scan today revealed decreased loculated left pleural effusion with pleural pigtail catheter in place. There continues to be loculated effusion within the posterior left upper lung measuring up to 10 cm and along the left apex measuring up to 4.4 cm. Nonspecific enlarged mediastinal lymph node measuring 2.0 cm. Stable nodular 1.5 cm density within the posterior right midlung. Pleural fluid culture is positive for staph hominis. He is now on Levaquin. Plan is for a 6th instillation of alteplase/dornase today. Plan may be for left thoracotomy with decortication per CT services. The patient is seen today 05/23/2023 and follow-up on the regular medical floor. He is currently sitting up in bed. Awake and alert in no acute distress. Denies any worsening shortness of breath, cough or congestion. He is maintaining good O2 saturations in the 90s on room air. Chest tube remains in place. Currently to the Pleur-evac with low continuous suction. No air leak noted. Continues with thick purulent drainage. 500 ML's output past 24 hours. His pleural fluid cultures are positive for staph hominis. Blood cultures reveal no growth. White count 17.3. Hemoglobin 9.7. Platelets 616. Sodium 136. Potassium 4.4. Bicarb 23. BUN 11. Creatinine 0.7. Glucose 94. Remains on Levaquin. He continues to work well with the incentive spirometer. The plan is for a left thoracotomy and decortication tomorrow. The patient is seen today 05/24/2023 in follow-up on the regular medical floor. He is resting comfortably in bed. Awake and alert in no acute distress. Continues to maintain good O2 saturations in the 90s on room air. Chest x-ray remains unchanged with opacity throughout the left hemithorax. Left basilar pigtail catheter remains in place. Right lung is clear. Awaiting thoracoscopy with decortication today. Pleural fluid cultures were positive for staph hominis. Blood cultures revealed no growth. White count 14.3. Hemoglobin 10.4. Platelets 696. Sodium 136. Potassium 4.2. Bicarb 22. BUN 13. Creatinine 0.64. Pro-calcitonin 0.33. He is continued on vancomycin. Remains on bronchodilators. Heparin for DVT prophylaxis. NicoDerm patch in place. The patient is seen today 05/25/2023 in follow-up in the intensive care unit. He is sitting up in a chair. Awake and alert in no acute distress. Continues to maintain good O2 saturations in the 90s on room air. He did undergo a left posterior lateral thoracotomy with complete decortication of the left lung. He was found to have a large pocket of pus posteriorly behind the upper lobe with significant purulent drainage. A second chest tube was placed. Today's chest x-ray shows no significant change. Left thoracotomy tubes without evidence of pneumothorax. Small left pleural effusion. Pleural fluid was positive for staph hominis. White count 19.9. Hemoglobin 10.6. Platelets 646. Sodium 131. Potassium 4.4. BUN 10. Creatinine 0.69. Glucose 103. He has received 1 unit of packed red blood cells this admission. He remains on vancomycin. Continued on DuoNeb inhalations and Perforomist inhalations. NicoDerm patch in place. He is receiving Dilaudid [employer] for pain control. The patient is seen today 05/26/2023 in follow-up in the intensive care unit. He is a 3 selective care unit overflow. He is doing well. He continues to maintain good O2 saturations in the 90s on room air. Anterior and posterior left-sided chest tubes remain in place. I reveals pleural parenchymal opacity of the left lung base with slight improvement. Left apical opacity is slightly improved as well. Continued on vancomycin. Continued on DuoNeb inhalations, Pulmicort and Perforomist inhalations. NicoDerm patch in place. His pain is well controlled with a Dilaudid [employer] pump. He is status post 1 unit packed red blood cells this admission. Current white count 19.1. Hemoglobin 10.5. Platelets 635. Sodium 133. Potassium 4.3. Bicarb 23. BUN 16. Creatinine 0.83. Objective - Vital Signs Vital signs: Vital Signs Temp 98.6 F 05/26/23 08:00 Pulse 90 05/26/23 11:00 Resp 21 05/26/23 11:00 BP 102/61 05/26/23 11:00 Pulse Ox 94 L 05/26/23 04:00 FiO2 Intake & Output 05/25/23 05/26/23 05/26/23 18:59 06:59 18:59 Intake Total 2139 1189 75 Output Total 695 320 400 Balance 1444 869 -325 Weight 101.2 kg Intake: IV 1599 1189 75 ACETAMINOPHEN IV (For NPO 200 ) 1,000 mg In Empty Bag 1 bag @ 400 mls/hr IVPB Q6H JOSELYN Rx#:[id number] Dextrose 5%-0.45% NaCl 1, 100 000 ml @ 50 mls/hr IV . Q20H JOSELYN Rx#:[id number] Sodium Chloride 0.9% 1, 300 525 75 000 ml @ 20 mls/hr IV . Q24H JOSELYN Rx#:[id number] Vancomycin 1,500 mg In 999 664 Sodium Chloride 0.9% 500 ml 500 ml @ 167 mls/hr IVPB Q8H JOSELYN Rx#: [id number] Intake, IV Titration 50 Amount Dextrose 5%-0.45% NaCl 1, 50 000 ml @ 50 mls/hr IV . Q20H JOSELYN Rx#:[id number] Oral 490 Output: Chest Tube Drainage 170 70 Left Anterior Chest 40 20 Left Posterior Chest 130 50 Urine 525 250 400 Other: Voiding Method Indwelling Catheter Urinal Urinal ABP, PAP, CO, CI - Last Documented Arterial Blood Pressure 76/58 - Exam GENERAL EXAM: Alert, very pleasant 67-year-old male, on room air, comfortable in no apparent distress. HEAD: Normocephalic and atraumatic EYES: Normal reaction of pupils, equal size. NOSE: Clear with pink turbinates. THROAT: No erythema or exudates. NECK: No masses, no JVD. CHEST: No chest wall deformity. Left posterior chest tube in place. Slight leak. Left-sided pigtail catheter in place both to Pleur-evac and low continuous wall suction, no leak LUNGS: There is diminished left lower lung sounds. No wheezes, rhonchi, crackles. CVS: S1 and S2 normal with no audible murmur, regular rhythm. No extra heart sounds ABDOMEN: No hepatosplenomegaly, active bowel sounds, no guarding or rigidity. SPINE: No scoliosis or deformity SKIN: No rashes CENTRAL NERVOUS SYSTEM: No focal deficits, tone is normal in all 4 extremities. EXTREMITIES: There is no peripheral edema, clubbing, or cyanosis. Peripheral pulses are intact. - Labs CBC & Chem 7: 05/26/23 04:49 05/26/23 04:49 Labs: Abnormal Lab Results - Last 24 Hours (Table) 05/23/23 05/26/23 05/26/23 Range/Units 05:16 04:49 04:49 WBC 19.1 H (3.8-10.6) k/uL RBC 3.63 L (4.30-5.90) m/uL Hgb 10.5 L (13.0-17.5) gm/dL Hct 32.4 L (39.0-53.0) % Plt Count 635 H (150-450) k/uL Neutrophils # 15.4 H (1.3-7.7) k/uL Monocytes # 1.1 H (0-1.0) k/uL Sodium 133 L (137-145) mmol/L Glucose 104 H (74-99) mg/dL Calcium 7.8 L (8.4-10.2) mg/dL ALT 84 H (4-49) U/L Total Protein 5.5 L (6.3-8.2) g/dL Albumin 2.4 L (3.5-5.0) g/dL Crossmatch See Detail Microbiology - Last 24 Hours (Table) 05/24/23 17:36 Acid Fast Bacilli Smear - Preliminary Peritoneal Fluid 05/24/23 17:40 Acid Fast Bacilli Smear - Preliminary Peritoneal Fluid 05/24/23 17:45 Acid Fast Bacilli Smear - Preliminary Peritoneal Fluid 05/24/23 17:45 Gram Stain - Preliminary Peritoneal Fluid Body Fluid Culture - Preliminary 05/24/23 17:36 Gram Stain - Preliminary Peritoneal Fluid Tissue Culture - Preliminary 05/24/23 17:40 Gram Stain - Preliminary Peritoneal Fluid Tissue Culture - Preliminary Assessment and Plan Assessment: Community acquired pneumonia and loculated left-sided pleural effusion. Chest CTA demonstrated a loculated left pleural effusion with adjacent compressive atelectasis. There is pleural thickening. There was mild lymphadenopathy demonstrated within the superior mediastinum, hilum, and bilateral axillary nodes. There was also a 1.7 cm lobular density within the posterior lateral right lung, which will require follow-up. Malignancy is not excluded. Status post pigtail catheter placement on 05/17/2023 and status post alteplase/dornase infusion 6. Purulent drainage returned. Fluid exudative. Total protein 2.7. LDH greater than 2500. Cultures are positive for staph hominis. Now on vancomycin. Cytology revealed no evidence of malignancy. He did undergo a left posterior lateral thoracotomy with complete decortication of the left lung on 05/24/2023. He was found to have a large pocket of pus posteriorly behind the upper lobe with significant purulent drainage. A second chest tube was placed. Today's chest x-ray shows slight improvement to both the left apical and left basilar opacities. Left thoracotomy tubes without evidence of pneumothorax. Small left pleural effusion. Pleural fluid was positive for staph hominis. Leukocytosis secondary to above Right pulmonary nodule, measuring 1.7 cm, as demonstrated on chest CTA Chronic and ongoing tobacco dependence Benign essential hypertension Hyperlipidemia Mild transaminitis, undetermined significance, the patient did recently start on statins Plan: The patient was seen and evaluated Labs, chest x-ray and medications reviewed Culture positive for staph hominis, on vancomycin Stable and on room air Continue the use of the incentive spirometer Increase his activity as tolerated We will continue to follow I have personally seen and examined the patient, performed the documentation and the assessment and plan as written. Number of minutes spent on the visit: 10.
--- NOTE | 2023-05-26 11:55 | P.PN ---
Subjective Progress Note Date: 05/26/23 Principal diagnosis: Loculated left pleural effusion, empyema. Past medical history significant for hypertension, hyperlipidemia, prediabetes, chronic ongoing tobacco dependence, occasional marijuana use, and family history of heart disease. Status post placement of left pigtail catheter by interventional radiology, removed during surgery yesterday 05/24/2023 POD #2 bronchoscopy, left postero-lateral thoracotomy with complete decortication of left lung, cryoablation of intercostal nerves V through IX. The patient was seen and examined in follow-up today 05/26/2023 at his bedside in the intensive care unit. Patient is sitting up to the bedside chair, is awake, alert, oriented 3 and is in no acute apparent distress. He denies any complaints of shortness of breath at this time, and states his pain is well controlled with the DECAL MAKER Dilaudid. Oxygen saturations are 94% on room air and he is achieving 2250 mL on his incentive spirometry with encouragement. Left a nterior and left posterior chest tubes remain in place to low continuous wall suction. Small intermittent air leak present with coughing to his left posterior chest tube. Left anterior chest tube draining thin serosanguineous drainage with 20 mL output in the last 8 hours and 80 mL output in the last 24 hours. Left pleural chest tube draining 50 mL output in the last 8 hours and 230 mL output in the last 24 hours. Bedside telemetry showing normal sinus rhythm heart rate 92 BPM. He remains hemodynamically stable and is currently on no inotropic pressure support. T-max temperature in the last 24 hours was 99.3F. Pleural tissue culture shows no growth after 24 hours and pleural fluid shows no growth after 24 hours. Infectious disease remains following, and he remains on vancomycin for antibiotic coverage. He's been up ambulating in the intensive care unit hallway and tolerating well with standby assistance from nursing and therapy staff. The patient has been very motivated in his care. Laboratory and chest x-ray results reviewed. Objective - Vital Signs Vital signs: Vital Signs Temp 98.6 F 05/26/23 08:00 Pulse 89 05/26/23 11:41 Resp 21 05/26/23 11:00 BP 102/61 05/26/23 11:00 Pulse Ox 94 L 05/26/23 04:00 FiO2 Intake & Output 05/25/23 05/26/23 05/26/23 18:59 06:59 18:59 Intake Total 2139 1189 75 Output Total 695 320 400 Balance 1444 869 -325 Weight 101.2 kg Intake: IV 1599 1189 75 ACETAMINOPHEN IV (For NPO 200 ) 1,000 mg In Empty Bag 1 bag @ 400 mls/hr IVPB Q6H JOSELYN Rx#:[id number] Dextrose 5%-0.45% NaCl 1, 100 000 ml @ 50 mls/hr IV . Q20H JOSELYN Rx#:[id number] Sodium Chloride 0.9% 1, 300 525 75 000 ml @ 20 mls/hr IV . Q24H JOSELYN Rx#:[id number] Vancomycin 1,500 mg In 999 664 Sodium Chloride 0.9% 500 ml 500 ml @ 167 mls/hr IVPB Q8H JOSELYN Rx#: [id number] Intake, IV Titration 50 Amount Dextrose 5%-0.45% NaCl 1, 50 000 ml @ 50 mls/hr IV . Q20H JOSELYN Rx#:[id number] Oral 490 Output: Chest Tube Drainage 170 70 Left Anterior Chest 40 20 Left Posterior Chest 130 50 Urine 525 250 400 Other: Voiding Method Indwelling Catheter Urinal Urinal ABP, PAP, CO, CI - Last Documented Arterial Blood Pressure 76/58 - Exam CONSTITUTIONAL: Appears comfortable, cooperative, no acute distress RESPIRATORY: Lungs sounds essentially clear throughout, diminished to his left lobes. Respirations are symmetrical, nonlabored. Currently on room air with oxygen saturation 964%. Able to achieve 2250 mL on incentive spirometry. Strong cough. CARDIOVASCULAR: S1, S2 present. Regular rate and rhythm, sinus rhythm on telemetry. Palpable peripheral pulses bilaterally. No edema present. No calf pain or tenderness noted. SCDs present. GASTROINTESTINAL: Abdomen soft, nontender, nondistended. Active bowel sounds present 4 quadrants. Tolerating diet. Passing flatus. GENITOURINARY: Covarrubias catheter present for accurate I's and O's. 250 mL output in the last 8 hours. INTEGUMENTARY: Skin is warm and dry with evidence of good perfusion. Left chest Thoracic incision well approximated and covered with dry intact dressing. NEUROLOGIC: Cranial nerves II through XII intact. No focal deficits. MUSKULOSKELETAL: Able to move all extremities, strength equal bilaterally, gait normal. PSYCHIATRIC: Alert and oriented to person place and time, appropriate affect, intact judgment and insight. INVASIVE LINES AND TUBES: Left pleural chest tubes present and connected to wall suction, intermittent air leak to his left posterior chest tube with coughing. Draining thin serosanguineous drainage. - Allied health notes Allied health notes reviewed: nursing - Labs CBC & Chem 7: 05/26/23 04:49 05/26/23 04:49 Labs: Abnormal Lab Results - Last 24 Hours (Table) 05/23/23 05/26/23 05/26/23 Range/Units 05:16 04:49 04:49 WBC 19.1 H (3.8-10.6) k/uL RBC 3.63 L (4.30-5.90) m/uL Hgb 10.5 L (13.0-17.5) gm/dL Hct 32.4 L (39.0-53.0) % Plt Count 635 H (150-450) k/uL Neutrophils # 15.4 H (1.3-7.7) k/uL Monocytes # 1.1 H (0-1.0) k/uL Sodium 133 L (137-145) mmol/L Glucose 104 H (74-99) mg/dL Calcium 7.8 L (8.4-10.2) mg/dL ALT 84 H (4-49) U/L Total Protein 5.5 L (6.3-8.2) g/dL Albumin 2.4 L (3.5-5.0) g/dL Crossmatch See Detail Microbiology - Last 24 Hours (Table) 05/24/23 17:36 Acid Fast Bacilli Smear - Preliminary Peritoneal Fluid 05/24/23 17:40 Acid Fast Bacilli Smear - Preliminary Peritoneal Fluid 05/24/23 17:45 Acid Fast Bacilli Smear - Preliminary Peritoneal Fluid 05/24/23 17:45 Gram Stain - Preliminary Peritoneal Fluid Body Fluid Culture - Preliminary 05/24/23 17:36 Gram Stain - Preliminary Peritoneal Fluid Tissue Culture - Preliminary 05/24/23 17:40 Gram Stain - Preliminary Peritoneal Fluid Tissue Culture - Preliminary - Imaging and Cardiology Chest x-ray: report reviewed, image reviewed Assessment and Plan Assessment: Empyema , loculated left-sided pleural effusion, status post placement of left- sided pigtail catheter by interventional radiology and patient has received 6 doses of alteplase/dornase pleural instillation, status post, left postero- lateral thoracotomy with complete decortication of left lung Right posterior mid lung pulmonary nodule, measuring 1.5 cm demonstrated on chest CTA Febrile illness with leukocytosis, most likely community-acquired pneumonia Transaminitis History of hypertension Hyperlipidemia Prediabetes, hemoglobin A1c 6.2 % Current tobacco dependence Occasional marijuana use Family history of heart disease Plan: We will keep his left pleural chest tubes to low continuous wall suction -20 cm H2O for another 24 hours. Continue to monitor for a leak resolution in the posterior chest tube. Encourage incentive spirometry is 10 times every hour while awake. Bronchodilators/steroids per pulmonology Continue to record strict and accurate I's and O's. Continue Flomax 0.4 mg by mouth daily for urinary retention. Increase activity as tolerated. Out of bed for all meals. GI/DVT prophylaxis. Pain control with current medication regimen. Discontinue Dilaudid DECAL MAKER, add Ultram 100 mg by mouth 3 times a day. Dulcolax suppository 1 now. Culture results remain pending, will continue to follow. Show no growth after 24 hours. Remains on vancomycin for antibiotic coverage, followed by infectious disease. Transfer to third floor cardiac stepdown unit when bed available. More recommendations to follow based on patient's clinical course. Time with Patient: Greater than 30
--- NOTE | 2023-05-26 12:32 | P.PN ---
Subjective Progress Note Date: 05/25/23 Principal diagnosis: Pneumonia/empyema Patient is a 67-year-old male with a past medical history significant for hypertension hyperlipidemia presenting to the hospital on 05/16/2023 for evaluation of fever and cough, patient did have evidence of loculated left-sided effusion and consolidation in this patient was status post chest tube placement culture did grew staphylococcus hominis. On today's evaluation that is 05/25/2023, the patient remains to be afebrile the patient is breathing comfortably on room air, the patient denies chest pain, denies any worsening cough or sputum production, patient denies nausea/vomiting , no diarrhea and no abdominal pain White count is at 19.9, creatinine 0.64, cultures are pending Objective - Vital Signs Vital signs: Vital Signs Temp 97.9 F 05/25/23 12:00 Pulse 87 05/25/23 12:00 Resp 10 L 05/25/23 12:00 BP 97/64 05/25/23 12:00 Pulse Ox 93 L 05/25/23 12:00 FiO2 Intake & Output 05/24/23 05/25/23 05/25/23 18:59 06:59 18:59 Intake Total 1210 450 871 Output Total 1050 1915 320 Balance 160 -1465 551 Weight 99.2 kg Intake: IV 900 701 ACETAMINOPHEN IV (For NPO 100 ) 1,000 mg In Empty Bag 1 bag @ 400 mls/hr IVPB Q6H [facility] Rx#:[id number] Dextrose 5%-0.45% NaCl 1, 100 000 ml @ 50 mls/hr IV . Q20H [facility] Rx#:[id number] Vancomycin 1,500 mg In 501 Sodium Chloride 0.9% 500 ml 500 ml @ 167 mls/hr IVPB Q8H [facility] Rx#: [id number] Intake, IV Titration 450 50 Amount Dextrose 5%-0.45% NaCl 1, 450 50 000 ml @ 50 mls/hr IV . Q20H [facility] Rx#:[id number] Oral 120 Blood Product 310 Rc As-1 Unit 310 [id number] Output: Chest Tube Drainage 50 450 70 Chest Tube Left 50 Left Anterior Chest 210 20 Left Posterior Chest 240 50 Urine 500 1465 250 Estimated Blood Loss 500 Other: Voiding Method Indwelling Catheter Indwelling Catheter ABP, PAP, CO, CI - Last Documented Arterial Blood Pressure 76/58 - Exam GENERAL DESCRIPTION: An elderly male lying in bed in no distress RESPIRATORY SYSTEM: Unlabored breathing , decreased breath sounds at bases HEART: S1 S2 regular rate and rhythm , ABDOMEN: Soft , no tenderness EXTREMITIES: No edema feet - Labs CBC & Chem 7: 05/26/23 04:49 05/26/23 04:49 Labs: Abnormal Lab Results - Last 24 Hours (Table) 05/23/23 05/24/23 05/24/23 Range/Units 05:16 19:29 20:50 WBC 23.1 H (3.8-10.6) k/uL RBC 3.53 L (4.30-5.90) m/uL Hgb 10.5 L (13.0-17.5) gm/dL Hct 31.6 L (39.0-53.0) % Plt Count 627 H (150-450) k/uL Neutrophils # (1.3-7.7) k/uL Monocytes # (0-1.0) k/uL Sodium (137-145) mmol/L Creatinine (0.66-1.25) mg/dL Glucose (74-99) mg/dL POC Glucose (mg/dL) 111 H (70-110) mg/dL Calcium (8.4-10.2) mg/dL ALT (4-49) U/L Total Protein (6.3-8.2) g/dL Albumin (3.5-5.0) g/dL Crossmatch See Detail 05/24/23 05/25/23 05/25/23 Range/Units 20:50 04:14 04:14 WBC 19.9 H (3.8-10.6) k/uL RBC 3.68 L (4.30-5.90) m/uL Hgb 10.6 L (13.0-17.5) gm/dL Hct 32.5 L (39.0-53.0) % Plt Count 646 H (150-450) k/uL Neutrophils # 16.7 H (1.3-7.7) k/uL Monocytes # 1.3 H (0-1.0) k/uL Sodium 131 L 131 L (137-145) mmol/L Creatinine 0.63 L (0.66-1.25) mg/dL Glucose 115 H 103 H (74-99) mg/dL POC Glucose (mg/dL) (70-110) mg/dL Calcium 7.9 L 7.7 L (8.4-10.2) mg/dL ALT 129 H (4-49) U/L Total Protein 5.3 L (6.3-8.2) g/dL Albumin 2.3 L (3.5-5.0) g/dL Crossmatch Assessment and Plan (1) Empyema Current Visit: Yes Status: Acute Code(s): J86.9 - PYOTHORAX WITHOUT FISTULA SNOMED Code(s): 613953391 (2) Pneumonia Current Visit: Yes Status: Acute Code(s): J18.9 - PNEUMONIA, UNSPECIFIED ORGANISM SNOMED Code(s): 983841901 Plan: 1patient presented hospital with sepsis about a week ago in this patient with a fever elevated white count source is likely left-sided pneumonia with the loculated parapneumonic effusion status post chest tube placement on 05/17/2023 that did grew oxacillin resistant Staphylococcus hominis in this patient is status post thoracotomy and decortication and cultures 2Patient to continue with vancomycin as to pharmacy to dose with a target trough of 15 while waiting for the cultures to finalize Dictation was produced using [employer] dictation software. please excuse any grammatical, word or spelling errors. Time with Patient: Less than 30
--- NOTE | 2023-05-26 16:03 | P.PN ---
Subjective Progress Note Date: 05/26/23 Principal diagnosis: Pneumonia/empyema Patient is a 67-year-old male with a past medical history significant for hypertension hyperlipidemia presenting to the hospital on 05/16/2023 for evaluation of fever and cough, patient did have evidence of loculated left-sided effusion and consolidation in this patient was status post chest tube placement culture did grew staphylococcus hominis. On today's evaluation that is 05/26/2023, the patient remains to be afebrile the patient is breathing comfortably on room air without need for supplemental oxygen, the patient denies chest pain, shortness of breath or cough, patient denies nausea/vomiting , no diarrhea and no abdominal pain White count is at 19.1, creatinine 0.83, cultures are pending Objective - Vital Signs Vital signs: Vital Signs Temp 98.6 F 05/26/23 08:00 Pulse 92 05/26/23 11:52 Resp 21 05/26/23 11:00 BP 102/61 05/26/23 11:00 Pulse Ox 94 L 05/26/23 04:00 FiO2 Intake & Output 05/25/23 05/26/23 05/26/23 18:59 06:59 18:59 Intake Total 2139 1189 75 Output Total 695 320 400 Balance 1444 869 -325 Weight 101.2 kg Intake: IV 1599 1189 75 ACETAMINOPHEN IV (For NPO 200 ) 1,000 mg In Empty Bag 1 bag @ 400 mls/hr IVPB Q6H [facility] Rx#:[id number] Dextrose 5%-0.45% NaCl 1, 100 000 ml @ 50 mls/hr IV . Q20H [facility] Rx#:[id number] Sodium Chloride 0.9% 1, 300 525 75 000 ml @ 20 mls/hr IV . Q24H [facility] Rx#:[id number] Vancomycin 1,500 mg In 999 664 Sodium Chloride 0.9% 500 ml 500 ml @ 167 mls/hr IVPB Q8H [facility] Rx#: [id number] Intake, IV Titration 50 Amount Dextrose 5%-0.45% NaCl 1, 50 000 ml @ 50 mls/hr IV . Q20H [facility] Rx#:[id number] Oral 490 Output: Chest Tube Drainage 170 70 Left Anterior Chest 40 20 Left Posterior Chest 130 50 Urine 525 250 400 Other: Voiding Method Indwelling Catheter Urinal Urinal ABP, PAP, CO, CI - Last Documented Arterial Blood Pressure 76/58 - Exam GENERAL DESCRIPTION: An elderly male lying in bed in no distress RESPIRATORY SYSTEM: Unlabored breathing , decreased breath sounds at bases HEART: S1 S2 regular rate and rhythm , ABDOMEN: Soft , no tenderness EXTREMITIES: No edema feet - Labs CBC & Chem 7: 05/26/23 04:49 05/26/23 04:49 Labs: Abnormal Lab Results - Last 24 Hours (Table) 05/23/23 05/26/23 05/26/23 Range/Units 05:16 04:49 04:49 WBC 19.1 H (3.8-10.6) k/uL RBC 3.63 L (4.30-5.90) m/uL Hgb 10.5 L (13.0-17.5) gm/dL Hct 32.4 L (39.0-53.0) % Plt Count 635 H (150-450) k/uL Neutrophils # 15.4 H (1.3-7.7) k/uL Monocytes # 1.1 H (0-1.0) k/uL Sodium 133 L (137-145) mmol/L Glucose 104 H (74-99) mg/dL Calcium 7.8 L (8.4-10.2) mg/dL ALT 84 H (4-49) U/L Total Protein 5.5 L (6.3-8.2) g/dL Albumin 2.4 L (3.5-5.0) g/dL Crossmatch See Detail Microbiology - Last 24 Hours (Table) 05/24/23 17:36 Acid Fast Bacilli Smear - Preliminary Peritoneal Fluid 05/24/23 17:40 Acid Fast Bacilli Smear - Preliminary Peritoneal Fluid 05/24/23 17:45 Acid Fast Bacilli Smear - Preliminary Peritoneal Fluid 05/24/23 17:45 Gram Stain - Preliminary Peritoneal Fluid Body Fluid Culture - Preliminary 05/24/23 17:36 Gram Stain - Preliminary Peritoneal Fluid Tissue Culture - Preliminary 05/24/23 17:40 Gram Stain - Preliminary Peritoneal Fluid Tissue Culture - Preliminary Assessment and Plan (1) Empyema Current Visit: Yes Status: Acute Code(s): J86.9 - PYOTHORAX WITHOUT FISTULA SNOMED Code(s): 540279406 (2) Pneumonia Current Visit: Yes Status: Acute Code(s): J18.9 - PNEUMONIA, UNSPECIFIED ORGANISM SNOMED Code(s): 139474787 Plan: 1patient presented hospital with sepsis about a week ago in this patient with a fever elevated white count source is likely left-sided pneumonia with the loculated parapneumonic effusion status post chest tube placement on 05/17/2023 that did grew oxacillin resistant Staphylococcus hominis in this patient is status post thoracotomy and decortication and cultures 2Patient has shows some clinical improvement as will continue with vancomycin as to pharmacy to dose with a target trough of 15 while waiting for the cultures to finalize Dictation was produced using [employer] dictation software. please excuse any grammatical, word or spelling errors. Time with Patient: Less than 30
--- NOTE | 2023-05-26 16:45 | P.PN ---
Subjective Progress Note Date: 05/26/23 Patient is a 67-year-old male with a past medical history of hypertension, hyperlipidemia, currently everyday smoker was sent to ER by his primary care physician due to concern for pneumonia and dehydration. Patient states that he was seen by his primary care physician at [place] about 2 weeks ago and was noticed that his WBC was elevated. Patient did did have some cough but without any other signs of infection at that time. Patient came to [place] and started having fever, sweats and not feeling well since last weekend. He contacted his primary care physician again and was sent to [facility] for x-ray which showed pneumonia. He was started on antibiotics in the form of Levaquin last night. Patient did take 1 dose. Patients primary care physician concerned about possible dehydration as well and was recommended to go to emergency room for further evaluation. Patient otherwise complains of cough without sputum production. No nausea vomiting or diarrhea. No chest pain. No complaints of shortness of breath. Patient states that he has been having left lower back pain and also left shoulder pain since last Monday and thought it may be due his increased outside work recently. On admission patient was febrile with Tmax 100.5 pulse is 105 and respiration 19 pulse ox 94% on room air. Chest x-ray showed similar large area of consolidation and pleural effusion within the left mid and lower lung. Correlate for pneumonia with emphysema not excluded. EKG showed sinus tachycardia. Laboratory pressure WBC 22.6 hemoglobin 11.9 and platelets 515 Sodium 136 potassium 5.0 chloride 102 bicarb is 21 BUN 17 and creatinine 0.76 and liver enzymes elevated with ALT 216, AST 154 and alk phos 185, LDH 604. proBNP 201 and albumin 3.4. 05/17/2023 patient was complaining of from back injury when he fell about 3 weeks ago. , After that [facility]. 2 weeks ago he saw his PCP and [facility] for regular checkup patient was noticed to have leukocytosis but denies any other symptoms.. After patient came from [facility] about a week ago he went to his orthopedic doctor who checked his back pain with x-ray and prescribed Motrin 800 mg 3 times a day. The last Monday he was sweating a lot with high fever 103. He called his PCP on Monday who prescribed him Levaquin after chest x-ray and asked him to come to emergency room. Patient complaining from mild tachypnea but with little clear phlegm. No chest pain only with coughing. He has little diarrhea but feels better. No urinary or neurological symptoms. He smokes about 1 pack per day and he decided to close last Monday and currently he has nicotine patch. He denies alcohol or illicit drugs. Patient is afebrile on admission at 102 he is saturating well on room air Labs showed leukocytosis of 22.6K, hemoglobin 11.9, platelet count 515 BMP is unremarkable Liver enzymes elevated with AST 154 and ALT 216 with lactated dehydrogenase elevated at 600-8. ProBNP is 201. CTA of the chest: Loculated left pleural effusion with adjacent atelectasis. No pulmonary embolism. 1.7 cm lobular mass in the right midlung. And axillary and mediastinal lymphadenopathy On admission patient was started on Zithromax, ceftriaxone, IV fluids and admitted with pulmonary team consult 05/18/2023 Patient sits up in chair feels better. His dyspnea is better. No chest pain he has difficulty this morning. He had pigtail catheter placed yesterday but fell off today Vitals stable oxygen saturation is acceptable. No more fever. Chest x-ray showing improvement No labs from today. Patient on Unasyn normal saline 75 mL/h 05/19/2023 Patient breathing comfortably Chest pain is minimal Left-sided chest tube in place and patient under going lytic therapy through the tube with cardiothoracic surgery team Patient had low-grade fever today at 100. still on Unasyn. 05/20/2023 Patient breathing better with less dyspnea and breathing quietly addressed. No other new complaints. Chest tube was taken out today after finishing his lytic therapy. Sputum Gram stain and culture still pending as well as blood culture Patient remains on Unasyn. Normal saline was ordered but The patient is not getting it today, he is hemodynamically stable. We will discontinue 05/21/2023 patient reports improvement in his breathing Chest tube was taken out. When she woke with no exertional dyspnea Chest x-ray showing improvement but some persistent changes in the left lower lung area. Surgery team planning to repeat CAT scan with contrast tomorrow and if still abnormal appendix considering decortication/thoracotomy Continue with Unasyn. Start normal saline 75 mL/h 16 hours for patient is getting IV contrast 05/22/2023 pt sitting at bed with no much respiratory symptoms Left lower posterior pigtail catheter in place through which is still pending lytic therapy with alteplase/dornase under the care of surgery team. Repeat CAT scan of the chest today showing decreased loculated left pleural effusion with pigtail catheter in place. Residual loculated effusion is 10 cm at left upper lung 4.4 cm of the left. With associated mediastinal lymphadenopathy. 05/23/2023 Patient is seen in follow-up today currently being followed by cardiothoracic surgery with continued loculated effusion on the left. Patient has received TPA multiple times and recommending thoracotomy with decortication which is schedu led for 05/24/2023. Patient's white count remains elevated and patient was continued on Levaquin and sputum showing staph hominis with resistance will consult infectious disease appreciate input recommendations. Patient being started on vancomycin. Patient continues with left pigtail at this time. Patient white count remains elevated and is afebrile with no reports of chest pain or shortness of breath at this time. Patient will be nothing by mouth at midnight and will await surgical report. 05/24/2023 Patient is seen and evaluated in follow-up and currently nothing by mouth as patient is scheduled to undergo thoracotomy with decortication and will likely be in the ICU postop. Family members present at bedside and updated in currently awaiting OR for pickup. Patient is afebrile denies any changes overnight and denies any worsening shortness of breath or chest pains. Will await surgical report. 05/25/2023 Patient seen and evaluated in follow-up and is in the ICU with multiple medical consultations following. Patient is status post bronchoscopy with left lateral thoracotomy and complete decortication. Patient with chest tubes continue with serous output. Covarrubias catheter was removed and awaiting to void. White count remains elevated although trending down. Cultures have been obtained from surgery and pending at this time. Patient currently maintained on vancomycin with infectious disease following awaiting finalized cultures. Patient has been instructed to continue using incentive spirometer is 10 times every hour while awake. Sodium is 131 and will give gentle IV hydration and follow-up with repeat labs. Chest x-ray in a.m. 05/26/2023 Patient is seen and evaluated in follow-up in the ICU with infectious disease, CT surgery, [place] following closely. Patient is status post left thoracotomy and complete decortication with cryoablation and remains with 2 chest tubes. Cultures pending at this time and is continued on antibiotics in the form of vancomycin while awaiting for cultures to finalized. Initial cultures prior to thoracotomy showed staph hominis with multi-resistance and multiple peritoneal fluid cultures were sent and pending at this time. White count remains elevated although trending down and 19.1, hemoglobin is stable at 10.5, sodium is improved at 133 and will continue gentle hydration and follow up on repeat labs. Patient remains afebrile and is maintaining oxygen saturations above 91% on room air. Incentive spirometer at bedside and encouraged to continue using at least 10 times every hour while awake. Chest x-ray today showed pleural parenchymal opacification at the left lung base persists although slightly improved with a left apical opacification is also slightly improved. Patient reports has been up and walking and reports pain is currently controlled. Patient tolerating diet with no reported nausea or vomiting. Patient denies chest pain at this time. Review of systems: Constitutional: No reports of fatigue, fever, or chills Cardiovascular: No reports of chest pain or palpitations Respiratory: No reports of shortness of breath or cough GI: No reports of nausea, vomiting, or diarrhea : No reports of dysuria or retention Neurovascular: No reports of weakness or numbness All medications have been reviewed Physical exam: GENERAL: The patient is alert and oriented x3, not in any acute distress. Well developed, well nourished. Obese. HEENT: Pupils are round and equally reacting to light. EOMI. No scleral icterus. No conjunctival pallor. Normocephalic, atraumatic. No pharyngeal erythema. No th yromegaly. CARDIOVASCULAR: S1 and S2 present. No murmurs, rubs, or gallops. PULMONARY: Chest is clear to auscultation, no wheezing , no crackles. 2 chest tubes noted with serous drainage, improvement in the left-sided aeration on auscultation ABDOMEN: Soft, nontender, nondistended, normoactive bowel sounds. No palpable organomegaly. MUSCULOSKELETAL: No joint swelling or deformity. EXTREMITIES: No cyanosis, clubbing, or pedal edema. NEUROLOGICAL: Gross neurological examination did not reveal any focal deficits. SKIN: No rashes. no petechiae. Assessment: Left middle and lower lung pneumonia with paraPneumonia and large loculated left pleural effusion status post bronchoscopy with left lateral thoracotomy and complete decortication on 05/24/2023 Sepsis with leukocytosis and fever secondary to above Continued ongoing Nicotine dependence Hypertension Hyperlipidemia GI prophylaxis DVT prophylaxis Full code Plan: Patient is status post left lateral thoracotomy with complete decortication and cryoablation postop day 2 in the ICU with multiple medical consultations following 2 left-sided chest tubes noted with serous drainage and there is some improvement on chest x-ray Patient is voiding with no difficulties although reporting some mild constipation and suppository was given White count is trending down and will follow-up with repeat labs. Multiple cultures were taken during surgery and pending and infectious disease is following maintained on vancomycin currently Incentive spirometer encouraged at least 10 times every hour while awake Encouraged increased activity as tolerated and oral intake Sodium is 133 and will give gentle IV hydration and follow-up repeat labs Currently awaiting cultures from surgery The impression and plan of care has been dictated by Stephanie Mccarthy, Nurse Practitioner as directed. Dr. Shannan MD I have performed a history and examination and MDM of this patient, discussed the same with the dictator, and agree with the dictator's assessment and plan as written ,documented as a scribe. Based on total visit time, I have performed more than 50% of the visit. Objective - Vital Signs Vital signs: Vital Signs Temp 98.6 F 05/26/23 16:00 Pulse 96 05/26/23 16:00 Resp 12 05/26/23 16:00 BP 107/70 05/26/23 16:00 Pulse Ox 91 L 05/26/23 16:00 FiO2 Intake & Output 05/25/23 05/26/23 05/26/23 18:59 06:59 18:59 Intake Total 2139 1189 75 Output Total 695 320 400 Balance 1444 869 -325 Weight 101.2 kg Intake: IV 1599 1189 75 ACETAMINOPHEN IV (For NPO 200 ) 1,000 mg In Empty Bag 1 bag @ 400 mls/hr IVPB Q6H [facility] Rx#:[id number] Dextrose 5%-0.45% NaCl 1, 100 000 ml @ 50 mls/hr IV . Q20H [facility] Rx#:[id number] Sodium Chloride 0.9% 1, 300 525 75 000 ml @ 20 mls/hr IV . Q24H [facility] Rx#:[id number] Vancomycin 1,500 mg In 999 664 Sodium Chloride 0.9% 500 ml 500 ml @ 167 mls/hr IVPB Q8H [facility] Rx#: [id number] Intake, IV Titration 50 Amount Dextrose 5%-0.45% NaCl 1, 50 000 ml @ 50 mls/hr IV . Q20H [facility] Rx#:[id number] Oral 490 Output: Chest Tube Drainage 170 70 Left Anterior Chest 40 20 Left Posterior Chest 130 50 Urine 525 250 400 Other: Voiding Method Indwelling Catheter Urinal Urinal ABP, PAP, CO, CI - Last Documented Arterial Blood Pressure 76/58 - Labs CBC & Chem 7: 05/26/23 04:49 05/26/23 04:49 Labs: Abnormal Lab Results - Last 24 Hours (Table) 05/23/23 05/26/23 05/26/23 Range/Units 05:16 04:49 04:49 WBC 19.1 H (3.8-10.6) k/uL RBC 3.63 L (4.30-5.90) m/uL Hgb 10.5 L (13.0-17.5) gm/dL Hct 32.4 L (39.0-53.0) % Plt Count 635 H (150-450) k/uL Neutrophils # 15.4 H (1.3-7.7) k/uL Monocytes # 1.1 H (0-1.0) k/uL Sodium 133 L (137-145) mmol/L Glucose 104 H (74-99) mg/dL Calcium 7.8 L (8.4-10.2) mg/dL ALT 84 H (4-49) U/L Total Protein 5.5 L (6.3-8.2) g/dL Albumin 2.4 L (3.5-5.0) g/dL Crossmatch See Detail Microbiology - Last 24 Hours (Table) 05/24/23 17:36 Acid Fast Bacilli Smear - Preliminary Peritoneal Fluid 05/24/23 17:40 Acid Fast Bacilli Smear - Preliminary Peritoneal Fluid 05/24/23 17:45 Acid Fast Bacilli Smear - Preliminary Peritoneal Fluid 05/24/23 17:45 Gram Stain - Preliminary Peritoneal Fluid Body Fluid Culture - Preliminary 05/24/23 17:36 Gram Stain - Preliminary Peritoneal Fluid Tissue Culture - Preliminary 05/24/23 17:40 Gram Stain - Preliminary Peritoneal Fluid Tissue Culture - Preliminary
[2023-05-26] MEDS: TAMSULOSIN 0.4 MG CAP.ER.24H PO SCH (17:18)
[2023-05-26] MEDS: SENNOSIDES-DOCUSATE SODIUM 1 EACH TAB PO SCH (20:00)
[2023-05-27] MEDS: HEPARIN SODIUM,PORCINE 5,000 UNIT/ML 1 ML VIAL SQ SCH ×3 (00:26→16:41)
[2023-05-27] MEDS: KETOROLAC 15 MG/ML 1 ML VIAL IVP SCH ×4 (00:26→18:32)
[2023-05-27] MEDS ORDERED: VANCOMYCIN TROUGH DUE 1 EACH MISC MISCELLANE ONE (05:00)
[2023-05-27] MEDS: VANCOMYCIN 1,500 MG in SODIUM CHLORIDE 0.9% 500 ML 500 ML IVPB SCH ×3 (05:57→22:14)
[2023-05-27 06:36] LABS: Basophils % (A) 0 %; Eosinophils # (A) 0.2 k/uL (0-0.7); Eosinophils % (A) 2 %; HCT 27.4 % (39.0-53.0); Hypochromasia Slight; Lymphocytes # (A) 2.2 k/uL (1.0-4.8); Lymphocytes % (A) 19 %; MCH 29.4 pg (25.0-35.0); MCHC 32.8 g/dL (31.0-37.0); MCV 89.7 fL (80.0-100.0); Mean Platelet Volume 7.8; Monocytes # (A) 0.8 k/uL (0-1.0); Monocytes % (A) 7 %; Neutrophils # (A) 7.9 k/uL (1.3-7.7); Neutrophils % (A) 70 %; Platelet Count 603 k/uL (150-450); RBC 3.06 m/uL (4.30-5.90); RDW 13.8 % (11.5-15.5); WBC 11.3 k/uL (3.8-10.6)
[2023-05-27 06:40] LABS: ALT 69 U/L (4-49); AST 49 U/L (17-59); African American GFR (CKD) >90 (>60 ml/min/1.73 sqM); Albumin 2.1 g/dL (3.5-5.0); Alkaline Phosphatase 91 U/L (38-126); Anion Gap 5 mmol/L; Blood Urea Nitrogen 12 mg/dL (9-20); Calcium 7.7 mg/dL (8.4-10.2); Carbon Dioxide 23 mmol/L (22-30); Chloride 104 mmol/L (98-107); Glucose 80 mg/dL (74-99); Non-African American GFR(CKD) >90 (>60 ml/min/1.73 sqM); Potassium 4.1 mmol/L (3.5-5.1); Sodium 132 mmol/L (137-145); Total Bilirubin 0.4 mg/dL (0.2-1.3); Total Protein 4.9 g/dL (6.3-8.2)
[2023-05-27] MEDS: FORMOTEROL FUMARATE 20 MCG/2 ML NEBU INHALATION SCH ×2 (08:06→19:30)
[2023-05-27] MEDS: IPRATROPIUM-ALBUTEROL 3 ML NEB IH SCH ×4 (08:06→19:31)
[2023-05-27] MEDS: traMADol 50 MG TAB PO SCH ×3 (08:31→22:13)
[2023-05-27] MEDS: FAMOTIDINE 20 MG/2 ML VIAL IV SCH ×2 (08:32→22:13)
[2023-05-27] MEDS: NICOTINE 21MG/24HR PATCH TRANSDERM SCH (08:32)
[2023-05-27] MEDS: ATORVASTATIN 10 MG TAB PO SCH (08:32)
--- NOTE | 2023-05-27 11:04 | XR ---
EXAM: XR chest 1V portable CLINICAL INDICATION:Male, 67 years old with history of Left empyema; [facility] COMPARISON: 05/26/2023 and before TECHNIQUE: Chest single view. FINDINGS: Lines/tubes/devices: 2 left-sided chest tubes again seen, similar to prior. EKG leads overlie the [address]. Cardiomediastinum: Cardiac silhouette appears stable, mildly enlarged. Stable mediastinal silhouette. Mildly tortuous aorta. Vasculature: No increased pulmonary vasculature. Lungs/pleura: Pleural/parenchymal opacity in the left mid to lower lung zones, and to a lesser degree left lung ape x, similar in appearance to the prior study. Possible tiny amount of pneumothorax on the left, grossl y unchanged. Right lung stable and appears relatively clear. Bones/soft tissues: Bony thorax appears grossly intact as seen. Stable small amount of soft tissue gas in the left chest wall. IMPRESSION: No significant interval change. Pleural parenchymal opacities on the left appear similar to the prior exam.
--- NOTE | 2023-05-27 11:21 | P.PN ---
Subjective Progress Note Date: 05/27/23 Patient is a 67-year-old male with a past medical history of hypertension, hyperlipidemia, currently everyday smoker was sent to ER by his primary care physician due to concern for pneumonia and dehydration. Patient states that he was seen by his primary care physician at [place] about 2 weeks ago and was noticed that his WBC was elevated. Patient did did have some cough but without any other signs of infection at that time. Patient came to [place] and started having fever, sweats and not feeling well since last weekend. He contacted his primary care physician again and was sent to [facility] for x-ray which showed pneumonia. He was started on antibiotics in the form of Levaquin last night. Patient did take 1 dose. Patients primary care physician concerned about possible dehydration as well and was recommended to go to emergency room for further evaluation. Patient otherwise complains of cough without sputum production. No nausea vomiting or diarrhea. No chest pain. No complaints of shortness of breath. Patient states that he has been having left lower back pain and also left shoulder pain since last Monday and thought it may be due his increased outside work recently. On admission patient was febrile with Tmax 100.5 pulse is 105 and respiration 19 pulse ox 94% on room air. Chest x-ray showed similar large area of consolidation and pleural effusion within the left mid and lower lung. Correlate for pneumonia with emphysema not excluded. EKG showed sinus tachycardia. Laboratory pressure WBC 22.6 hemoglobin 11.9 and platelets 515 Sodium 136 potassium 5.0 chloride 102 bicarb is 21 BUN 17 and creatinine 0.76 and liver enzymes elevated with ALT 216, AST 154 and alk phos 185, LDH 604. proBNP 201 and albumin 3.4. 05/17/2023 patient was complaining of from back injury when he fell about 3 weeks ago. , After that [facility] [place] [facility]. 2 weeks ago he saw his PCP and [facility] for regular checkup patient was noticed to have leukocytosis but denies any other symptoms.. After patient came from [facility] about a week ago he went to his orthopedic doctor who checked his back pain with x-ray and prescribed Motrin 800 mg 3 times a day. The last Monday he was sweating a lot with high fever 103. He called his PCP on Monday who prescribed him Levaquin after chest x-ray and asked him to come to emergency room. Patient complaining from mild tachypnea but with little clear phlegm. No chest pain only with coughing. He has little diarrhea but feels better. No urinary or neurological symptoms. He smokes about 1 pack per day and he decided to close last Monday and currently he has nicotine patch. He denies alcohol or illicit drugs. Patient is afebrile on admission at 102 he is saturating well on room air Labs showed leukocytosis of 22.6K, hemoglobin 11.9, platelet count 515 BMP is unremarkable Liver enzymes elevated with AST 154 and ALT 216 with lactated dehydrogenase elevated at 600-8. ProBNP is 201. CTA of the chest: Loculated left pleural effusion with adjacent atelectasis. No pulmonary embolism. 1.7 cm lobular mass in the right midlung. And axillary and mediastinal lymphadenopathy On admission patient was started on Zithromax, ceftriaxone, IV fluids and admitted with pulmonary team consult 05/18/2023 Patient sits up in chair feels better. His dyspnea is better. No chest pain he has difficulty this morning. He had pigtail catheter placed yesterday but fell off today Vitals stable oxygen saturation is acceptable. No more fever. Chest x-ray showing improvement No labs from today. Patient on Unasyn normal saline 75 mL/h 05/19/2023 Patient breathing comfortably Chest pain is minimal Left-sided chest tube in place and patient under going lytic therapy through the tube with cardiothoracic surgery team Patient had low-grade fever today at 100. still on Unasyn. 05/20/2023 Patient breathing better with less dyspnea and breathing quietly addressed. No other new complaints. Chest tube was taken out today after finishing his lytic therapy. Sputum Gram stain and culture still pending as well as blood culture Patient remains on Unasyn. Normal saline was ordered but The patient is not getting it today, he is hemodynamically stable. We will discontinue 05/21/2023 patient reports improvement in his breathing Chest tube was taken out. When she woke with no exertional dyspnea Chest x-ray showing improvement but some persistent changes in the left lower lung area. Surgery team planning to repeat CAT scan with contrast tomorrow and if still abnormal appendix considering decortication/thoracotomy Continue with Unasyn. Start normal saline 75 mL/h 16 hours for patient is getting IV contrast 05/22/2023 pt sitting at bed with no much respiratory symptoms Left lower posterior pigtail catheter in place through which is still pending lytic therapy with alteplase/dornase under the care of surgery team. Repeat CAT scan of the chest today showing decreased loculated left pleural effusion with pigtail catheter in place. Residual loculated effusion is 10 cm at left upper lung 4.4 cm of the left. With associated mediastinal lymphadenopathy. 05/23/2023 Patient is seen in follow-up today currently being followed by cardiothoracic surgery with continued loculated effusion on the left. Patient has received TPA multiple times and recommending thoracotomy with decortication which is scheduled for 05/24/2023. Patient's white count remains elevated and patient was continued on Levaquin and sputum showing staph hominis with resistance will consult infectious disease appreciate input recommendations. Patient being started on vancomycin. Patient continues with left pigtail at this time. Patient white count remains elevated and is afebrile with no reports of chest pain or shortness of breath at this time. Patient will be nothing by mouth at midnight and will await surgical report. 05/24/2023 Patient is seen and evaluated in follow-up and currently nothing by mouth as patient is scheduled to undergo thoracotomy with decortication and will likely be in the ICU postop. Family members present at bedside and updated in currently awaiting OR for pickup. Patient is afebrile denies any changes overnight and denies any worsening shortness of breath or chest pains. Will await surgical report. 05/25/2023 Patient seen and evaluated in follow-up and is in the ICU with multiple medical consultations following. Patient is status post bronchoscopy with left lateral thoracotomy and complete decortication. Patient with chest tubes continue with serous output. Covarrubias catheter was removed and awaiting to void. White count remains elevated although trending down. Cultures have been obtained from surgery and pending at this time. Patient currently maintained on vancomycin with infectious disease following awaiting finalized cultures. Patient has been instructed to continue using incentive spirometer is 10 times every hour while awake. Sodium is 131 and will give gentle IV hydration and follow-up with repeat labs. Chest x-ray in a.m. 05/26/2023 Patient is seen and evaluated in follow-up in the ICU with infectious disease, CT surgery, [place] following closely. Patient is status post left thoracotomy and complete decortication with cryoablation and remains with 2 chest tubes. Cultures pending at this time and is continued on antibiotics in the form of vancomycin while awaiting for cultures to finalized. Initial cultures prior to thoracotomy showed staph hominis with multi-resistance and multiple peritoneal fluid cultures were sent and pending at this time. White count remains elevated although trending down and 19.1, hemoglobin is stable at 10.5, sodium is improved at 133 and will continue gentle hydration and follow up on repeat labs. Patient remains afebrile and is maintaining oxygen saturations above 91% on room air. Incentive spirometer at bedside and encouraged to continue using at least 10 times every hour while awake. Chest x-ray today showed pleural parenchymal opacification at the left lung base persists although slightly improved with a left apical opacification is also slightly improved. Patient reports has been up and walking and reports pain is currently controlled. Patient tolerating diet with no reported nausea or vomiting. Patient denies chest pain at this time. 05/27/2023 Patient evaluated today sitting up in chair. Continues with chest tubes x2 with plans to remove today per patient. Chest xray showing no significant interval change. There is pleural parenchymal opacities on the left appear similar to prior exam. He has been up ambulating in the hallway without difficulty. No shortness of breath reported and remains on room air. White count is down to 11.3 today. He continues on IV vancomycin. He is tolerating diet. He has not had a BM since before surgery. Sodium 132 today. Review of systems: Constitutional: No reports of fatigue, fever, or chills Cardiovascular: No reports of chest pain or palpitations Respiratory: No reports of shortness of breath or cough GI: No reports of nausea, vomiting, or diarrhea : No reports of dysuria or retention Neurovascular: No reports of weakness or numbness All medications have been reviewed Physical exam: GENERAL: The patient is alert and oriented x3, not in any acute distress. Well developed, well nourished. Obese. HEENT: Pupils are round and equally reacting to light. EOMI. No scleral icterus. No conjunctival pallor. Normocephalic, atraumatic. No pharyngeal erythema. No thyromegaly. CARDIOVASCULAR: S1 and S2 present. No murmurs, rubs, or gallops. PULMONARY: Chest is clear to auscultation, no wheezing , no crackles. 2 chest tubes noted with serous drainage, improvement in the left-sided aeration on auscultation ABDOMEN: Soft, nontender, nondistended, normoactive bowel sounds. No palpable organomegaly. MUSCULOSKELETAL: No joint swelling or deformity. EXTREMITIES: No cyanosis, clubbing, or pedal edema. NEUROLOGICAL: Gross neurological examination did not reveal any focal deficits. SKIN: No rashes. no petechiae. Assessment: Left middle and lower lung pneumonia with paraPneumonia and large loculated left pleural effusion status post bronchoscopy with left lateral thoracotomy and complete decortication on 05/24/2023 Constipation Sepsis with leukocytosis and fever secondary to above Continued ongoing Nicotine dependence Hypertension Hyperlipidemia GI prophylaxis DVT prophylaxis Full code Plan: Patient is status post left lateral thoracotomy with complete decortication and cryoablation postop day 3 in the ICU with multiple medical consultations following 2 left-sided chest tubes noted with serous drainage and there is some improvement on chest x-ray; plans to remove chest tubes today. Multiple cultures were taken during surgery and pending and infectious disease is following maintained on vancomycin currently Incentive spirometer encouraged at least 10 times every hour while awake Encouraged increased activity as tolerated and oral intake Currently awaiting cultures from surgery Repeat labs in AM Continue on bowel regimen, suppository daily PRN and also MOM as needed. He is on senna HS. will add miralax. The impression and plan of care has been dictated by Airam Mir, Nurse Practitioner as directed. Dr. Shannan MD I have performed a history and physical examination and medical decision making of this patient, discussed the same with the dictator, and agree with the dictators assessment and plan as written, documented as a scribe. Based on total visit time, I have performed more than 50% of this visit. Objective - Vital Signs Vital signs: Vital Signs Temp 97.8 F 05/27/23 08:00 Pulse 93 05/27/23 09:00 Resp 18 05/27/23 09:00 BP 120/70 05/27/23 09:00 Pulse Ox 94 L 05/27/23 09:00 FiO2 Intake & Output 05/26/23 05/27/23 05/27/23 18:59 06:59 18:59 Intake Total 75 400 Output Total 800 200 755 Balance -725 -200 -355 Intake: IV 75 Sodium Chloride 0.9% 1, 75 000 ml @ 20 mls/hr IV . Q24H [facility] Rx#:[id number] Oral 400 Output: Chest Tube Drainage 200 155 Left Anterior Chest 100 80 Left Posterior Chest 100 75 Urine 800 0 600 Other: Voiding Method Urinal Urinal Urinal # Voids 0 ABP, PAP, CO, CI - Last Documented Arterial Blood Pressure 76/58 - Labs CBC & Chem 7: 05/27/23 05:19 05/27/23 05:19 Labs: Abnormal Lab Results - Last 24 Hours (Table) 05/27/23 05/27/23 Range/Units 05:19 05:19 WBC 11.3 H (3.8-10.6) k/uL RBC 3.06 L (4.30-5.90) m/uL Hgb 9.0 L D (13.0-17.5) gm/dL Hct 27.4 L (39.0-53.0) % Plt Count 603 H (150-450) k/uL Neutrophils # 7.9 H (1.3-7.7) k/uL Sodium 132 L (137-145) mmol/L Calcium 7.7 L (8.4-10.2) mg/dL ALT 69 H (4-49) U/L Total Protein 4.9 L (6.3-8.2) g/dL Albumin 2.1 L (3.5-5.0) g/dL Microbiology - Last 24 Hours (Table) 05/24/23 17:36 Anaerobic Culture - Preliminary Peritoneal Fluid 05/24/23 17:40 Anaerobic Culture - Preliminary Peritoneal Fluid 05/24/23 17:45 Gram Stain - Preliminary Peritoneal Fluid Body Fluid Culture - Preliminary 05/24/23 17:40 Gram Stain - Preliminary Peritoneal Fluid Tissue Culture - Preliminary 05/24/23 17:36 Gram Stain - Preliminary Peritoneal Fluid Tissue Culture - Preliminary Assessment and Plan Time with Patient: Less than 30
--- NOTE | 2023-05-27 11:22 | P.PN ---
Subjective Progress Note Date: 05/27/23 I am seeing this patient in [facility], [place] today 05/17/2023 in the emergency room for a loculated left-sided pleural effusion. Patient is a 67-year-old male with past medical history significant for hypertension and hyperlipidemia. Patient lives in [place], and plans to move to [place] this Fall. His primary care provider is out of [facility]. Patient states that he started to have left-sided back pain and left shoulder pain approximately 3 weeks ago. He originally attributed this to yard work. Starting last week, he began to develop fevers, chills, and shortness of breath. He denies any cough or hemoptysis. He denies any nausea, vomiting, constipation, abdominal pain. Appetite has been good. Denies any weight loss. Denies any prior history of cancer. Patient does smoke approximately 1 pack per day. Patient did end up going to an urgent care clinic 2 days ago. He was felt to have left-sided pneumonia, and was started on a course of Levaquin. He only completed one dose of Levaquin, and came to the emergency room for worsening symptoms yesterday afternoon. A follow-up chest CTA demonstrated a loculated left pleural effusion with adjacent compressive atelectasis. There is pleural thickening. There was mild lymphadenopathy demonstrated within the superior mediastinum, hilum, and bilateral axillary nodes. There was also a 1.7 cm lobe either density within the posterior lateral right lung, which will require follow-up. No prior imaging for comparison. An abdominal and pelvis CT with contrast did not demonstrate any acute intra- abdominal abnormalities. CBC on arrival showed some leukocytosis with a WBC count of 22.6, hgb 11.9, hematocrit 35.1, platelets 515. CMP on arrival showed sodium 136, potassium 5, chloride 102, serum bicarbonate 21, BUN 17, creatinine 0.76, glucose 91. Normal saline is infusing at 100 mL per hour. LFTs were mildly elevated with an AST of 154, ALT of 216, ALP of 185. Patient has been empirically started on a combination of azithromycin and Rocephin. He remains febrile with a T-max of 102F on the hospital. He is currently sitting up in bed, on room air, in no acute distress. He appears nontoxic and is symptomatically stable. He will be admitted to the general medical floor. The patient is seen today 05/18/2023 in follow-up on the regular medical floor. He is currently sitting up in a chair at the bedside. Awake and alert in no acute distress. Unfortunately, his pigtail catheter was accidentally dislodged early this morning. He did have 900 ML's of purulent drainage out prior to that. Definitely exudate. Protein 2.7. LDH greater than 2500. He did receive alteplase/dornase infusion yesterday. His x-ray did reveal decreasing but still sizable moderate left pleural effusion with adjacent atelectasis and/or consolidation. Pleural fluid cultures/cytology pending. Blood cultures pending. He is continued on Unasyn. Heparin for DVT prophylaxis. NicoDerm patch in place. The patient is seen today 05/19/2023 in follow-up on the regular medical floor. He is currently awake and alert in no acute distress. Sitting up in a chair. Denies any worsening shortness of breath, cough or congestion. Chest x-ray reveals left basilar pleural catheter in place. Loculated pleural fluid and pleural tear noted at the site of the pleural effusion. He did have his pigtail catheter replaced yesterday. He had another 800 ML's drained in the past 24 hours. He received alternate/dornase lytic infusion today. He is continued on Unasyn. Cultures are showing gram-negative bacilli. He is currently afebrile. He did have a T-max of 100.7 early this morning. White count 16.2. Hemoglobin 10.0. Sodium 138. Potassium 4.4. Bicarb 24. BUN 15. Creatinine 0.9. The patient is seen today 05/20/2023 in follow-up on the regular medical floor. He is currently resting prone in bed. No worsening shortness of breath, cough or congestion. He is breathing slightly received alteplase/dornase infusion and is repositioning himself every 15 minutes. Chest x-ray shows left basilar pigtail catheter in place. Loculated left basilar effusion noted with underlying infiltrate/atelectasis. Blood cultures revealing no growth. Pleural fluid Gram stain revealing many gram-negative bacilli. He remains on Unasyn. Heparin for DVT prophylaxis. NicoDerm patch in place. Bronchodilators as needed. The patient is seen today 05/21/2023 in follow-up on the regular medical floor. Awake and alert in no acute distress. Continues to maintain good O2 saturations in the 90s on room air. Chest x-ray shows persistent small to tiny lateral basilar left-sided hydropneumothorax with pigtail catheter in place. Persistent left mid to lower lung acute infiltrate/atelectasis unchanged. Chest tube remains in place to Pleur-evac and low continuous wall suction. No air leak noted. He's had approximately 1200 ML's output in the past 24 hours. Continues to work well with the incentive spirometer. White count 13.3. Hemoglobin 10.4. Platelets 623. He is continued on bronchodilators as needed. Remains on antibiotics in form of Unasyn. Heparin for DVT prophylaxis. The patient is seen today 05/22/2023 in follow-up on the regular medical floor. He is currently resting comfortably in bed. Awake and alert in no acute distress. Denies any worsening shortness of breath, cough or congestion. Chest tube remains in place to the left chest attached to Pleur-evac with thick purulent drainage noted, to low continuous wall suction. No leak. He continues working well with the incentive spirometer. Follow-up computed tomography scan today revealed decreased loculated left pleural effusion with pleural pigtail catheter in place. There continues to be loculated effusion within the posterior left upper lung measuring up to 10 cm and along the left apex measuring up to 4.4 cm. Nonspecific enlarged mediastinal lymph node measuring 2.0 cm. Stable nodular 1.5 cm density within the posterior right midlung. Pleural fluid culture is positive for staph hominis. He is now on Levaquin. Plan is for a 6th instillation of alteplase/dornase today. Plan may be for left thoracotomy with decortication per CT services. The patient is seen today 05/23/2023 and follow-up on the regular medical floor. He is currently sitting up in bed. Awake and alert in no acute distress. Denies any worsening shortness of breath, cough or congestion. He is maintaining good O2 saturations in the 90s on room air. Chest tube remains in place. Currently to the Pleur-evac with low continuous suction. No air leak noted. Continues with thick purulent drainage. 500 ML's output past 24 hours. His pleural fluid cultures are positive for staph hominis. Blood cultures reveal no growth. White count 17.3. Hemoglobin 9.7. Platelets 616. Sodium 136. Potassium 4.4. Bicarb 23. BUN 11. Creatinine 0.7. Glucose 94. Remains on Levaquin. He continues to work well with the incentive spirometer. The plan is for a left thoracotomy and decortication tomorrow. The patient is seen today 05/24/2023 in follow-up on the regular medical floor. He is resting comfortably in bed. Awake and alert in no acute distress. Continues to maintain good O2 saturations in the 90s on room air. Chest x-ray remains unchanged with opacity throughout the left hemithorax. Left basilar pigtail catheter remains in place. Right lung is clear. Awaiting thoracoscopy with decortication today. Pleural fluid cultures were positive for staph hominis. Blood cultures revealed no growth. White count 14.3. Hemoglobin 10.4. Platelets 696. Sodium 136. Potassium 4.2. Bicarb 22. BUN 13. Creatinine 0.64. Pro-calcitonin 0.33. He is continued on vancomycin. Remains on bronchodilators. Heparin for DVT prophylaxis. NicoDerm patch in place. The patient is seen today 05/25/2023 in follow-up in the intensive care unit. He is sitting up in a chair. Awake and alert in no acute distress. Continues to maintain good O2 saturations in the 90s on room air. He did undergo a left posterior lateral thoracotomy with complete decortication of the left lung. He was found to have a large pocket of pus posteriorly behind the upper lobe with significant purulent drainage. A second chest tube was placed. Today's chest x-ray shows no significant change. Left thoracotomy tubes without evidence of pneumothorax. Small left pleural effusion. Pleural fluid was positive for staph hominis. White count 19.9. Hemoglobin 10.6. Platelets 646. Sodium 131. Potassium 4.4. BUN 10. Creatinine 0.69. Glucose 103. He has received 1 unit of packed red blood cells this admission. He remains on vancomycin. Continued on DuoNeb inhalations and Perforomist inhalations. NicoDerm patch in place. He is receiving Dilaudid CLIENT SERVICES MANAGER for pain control. The patient is seen today 05/26/2023 in follow-up in the intensive care unit. He is a 3 selective care unit overflow. He is doing well. He continues to maintain good O2 saturations in the 90s on room air. Anterior and posterior left-sided chest tubes remain in place. I reveals pleural parenchymal opacity of the left lung base with slight improvement. Left apical opacity is slightly improved as well. Continued on vancomycin. Continued on DuoNeb inhalations, Pulmicort and Perforomist inhalations. NicoDerm patch in place. His pain is well controlled with a Dilaudid CLIENT SERVICES MANAGER pump. He is status post 1 unit packed red blood cells this admission. Current white count 19.1. Hemoglobin 10.5. Platelets 635. Sodium 133. Potassium 4.3. Bicarb 23. BUN 16. Creatinine 0.83. The patient is seen today 05/27/2023 in follow-up in the intensive care unit. He is at 3 S. overflow patient. He is sitting up in a chair. He is doing quite well. He denies any worsening shortness of breath, cough or congestion. He is maintaining good O2 saturations in the 90s on room air. No IV fluids. His chest tubes remain in place. They are to waterseal. No leaks noted today. He's been up ambulating with assistance. He remains on vancomycin for his staph hominis bacterial infection. He is continued on DuoNeb inhalations, Perforomist inhalations. Heparin for DVT prophylaxis. White count 11.3. Hemoglobin 9.0. Platelets 603. Sodium 132. Potassium 4.1. Bicarb 23. BUN 12. Creatinine 0.66. Glucose 80. AST 49. ALT 69. Vancomycin trough 19.8. He is continued on a Dilaudid CLIENT SERVICES MANAGER pump adequate pain control. Objective - Vital Signs Vital signs: Vital Signs Temp 97.8 F 05/27/23 08:00 Pulse 93 05/27/23 09:00 Resp 18 05/27/23 09:00 BP 120/70 05/27/23 09:00 Pulse Ox 94 L 05/27/23 09:00 FiO2 Intake & Output 05/26/23 05/27/23 05/27/23 18:59 06:59 18:59 Intake Total 75 400 Output Total 800 200 755 Balance -725 -200 -355 Intake: IV 75 Sodium Chloride 0.9% 1, 75 000 ml @ 20 mls/hr IV . Q24H [facility] Rx#:[id number] Oral 400 Output: Chest Tube Drainage 200 155 Left Anterior Chest 100 80 Left Posterior Chest 100 75 Urine 800 0 600 Other: Voiding Method Urinal Urinal Urinal # Voids 0 ABP, PAP, CO, CI - Last Documented Arterial Blood Pressure 76/58 - Exam GENERAL EXAM: Alert, very pleasant 67-year-old male, sitting in a chair, on room air, in no apparent distress. HEAD: Normocephalic and atraumatic EYES: Normal reaction of pupils, equal size. NOSE: Clear with pink turbinates. THROAT: No erythema or exudates. NECK: No masses, no JVD. CHEST: No chest wall deformity. Left posterior chest tube in place. No leak. Left-sided pigtail catheter in place both to Pleur-evac and low continuous wall suction, no leak LUNGS: There is diminished left lower lung sounds. No wheezes, rhonchi, crackles. CVS: S1 and S2 normal with no audible murmur, regular rhythm. No extra heart sounds ABDOMEN: No hepatosplenomegaly, active bowel sounds, no guarding or rigidity. SPINE: No scoliosis or deformity SKIN: No rashes CENTRAL NERVOUS SYSTEM: No focal deficits, tone is normal in all 4 extremities. EXTREMITIES: There is no peripheral edema, clubbing, or cyanosis. Peripheral pulses are intact. - Labs CBC & Chem 7: 05/27/23 05:19 05/27/23 05:19 Labs: Abnormal Lab Results - Last 24 Hours (Table) 05/27/23 05/27/23 Range/Units 05:19 05:19 WBC 11.3 H (3.8-10.6) k/uL RBC 3.06 L (4.30-5.90) m/uL Hgb 9.0 L D (13.0-17.5) gm/dL Hct 27.4 L (39.0-53.0) % Plt Count 603 H (150-450) k/uL Neutrophils # 7.9 H (1.3-7.7) k/uL Sodium 132 L (137-145) mmol/L Calcium 7.7 L (8.4-10.2) mg/dL ALT 69 H (4-49) U/L Total Protein 4.9 L (6.3-8.2) g/dL Albumin 2.1 L (3.5-5.0) g/dL Microbiology - Last 24 Hours (Table) 10/18/23 17:36 Anaerobic Culture - Preliminary Peritoneal Fluid 05/24/23 17:40 Anaerobic Culture - Preliminary Peritoneal Fluid 05/24/23 17:45 Gram Stain - Preliminary Peritoneal Fluid Body Fluid Culture - Preliminary 05/24/23 17:40 Gram Stain - Preliminary Peritoneal Fluid Tissue Culture - Preliminary 05/24/23 17:36 Gram Stain - Preliminary Peritoneal Fluid Tissue Culture - Preliminary Assessment and Plan Assessment: Community acquired pneumonia and loculated left-sided pleural effusion. Chest CTA demonstrated a loculated left pleural effusion with adjacent compressive atelectasis. There is pleural thickening. There was mild lymphadenopathy demonstrated within the superior mediastinum, hilum, and bilateral axillary n odes. There was also a 1.7 cm lobular density within the posterior lateral right lung, which will require follow-up. Malignancy is not excluded. Status post pigtail catheter placement on 05/17/2023 and status post alteplase/dornase infusion 6. Purulent drainage returned. Fluid exudative. Total protein 2.7. LDH greater than 2500. Cultures are positive for staph hominis. Now on vancomycin. Cytology revealed no evidence of malignancy. He did undergo a left posterior lateral thoracotomy with complete decortication of the left lung on 05/24/2023. He was found to have a large pocket of pus posteriorly behind the upper lobe with significant purulent drainage. A second chest tube was p laced. Today's chest x-ray shows slight improvement to both the left apical and left basilar opacities. Left thoracotomy tubes without evidence of pneumothorax. Small left pleural effusion. Leukocytosis secondary to above Right pulmonary nodule, measuring 1.7 cm, as demonstrated on chest CTA Chronic and ongoing tobacco dependence Benign essential hypertension Hyperlipidemia Mild transaminitis, undetermined significance, the patient did recently start on statins Plan: The patient was seen and evaluated Labs, chest x-ray and medications reviewed Stable and on room air Doing well with the incentive spirometer Chest tubes remain in place CT service is following We will continue to follow I have personally seen and examined the patient, performed the documentation and the assessment and plan as written. Number of minutes spent on the visit: 10.
--- NOTE | 2023-05-27 11:32 | P.PN ---
Subjective Progress Note Date: 05/27/23 Principal diagnosis: Loculated left pleural effusion, empyema. Past medical history significant for hypertension, hyperlipidemia, prediabetes, chronic ongoing tobacco dependence, occasional marijuana use, and family history of heart disease. Status post placement of left pigtail catheter by interventional radiology, removed during surgery yesterday 05/24/2023 POD #3 bronchoscopy, left postero-lateral thoracotomy with complete decortication of left lung, cryoablation of intercostal nerves V through IX. The patient was seen in follow-up today 05/27/2023 at his bedside in the intensive care unit. He is awaiting a bed on the third floor cardiac stepdown unit. Currently he is sitting up to the bedside chair, is awake, alert, oriented 3 and is in no acute distress. Denies any complaints of shortness of breath and is reporting minimal pain to his chest tube insertion sites, rating his pain 2 out of 10 on the pain scale. He reports current pain medication regimen is controlling his pain. Oxygen saturations are 94% on room air and he is achieving 2500 mL on his incentive spirometry was encouraged. Normal sinus rhythm 95 bpm on bedside telemetry. Left anterior and posterior chest tubes remain in place to waterseal. No air leak is present. Left anterior chest tube draining thin serosanguineous drainage was 75 mL output in the last 8 hours and 100 mL output in the last 24 hours. Left pleural chest tube is draining thin serosanguineous drainage with 80 mL output in the last 8 hours and 150 mL output in the last 24 hours. Patient is complaining of some constipation and was given a Dulcolax suppository yesterday with no results. He continues on a oral softener. He has been up ambulating in the hallway without difficulty and standby assistance from nursing staff. Laboratory and chest x-ray results were reviewed. He remains on vancomycin for antibiotic coverage which is managed by infectious disease. Pleural cultures continue to show no growth after 48 hours. He has been afebrile the last 24 hours. Objective - Vital Signs Vital signs: Vital Signs Temp 98.4 F 05/27/23 04:00 Pulse 92 05/27/23 08:24 Resp 15 05/27/23 04:00 BP 120/78 05/27/23 04:00 Pulse Ox 92 L 05/27/23 08:09 FiO2 Intake & Output 1005/27/23 05/27/23 18:59 06:59 18:59 Intake Total 75 400 Output Total 800 200 755 Balance -725 -200 -778 Intake: IV 75 Sodium Chloride 0.9% 1, 75 000 ml @ 20 mls/hr IV . Q24H [facility] Rx#:[id number] Oral 400 Output: Chest Tube Drainage 200 155 Left Anterior Chest 100 80 Left Posterior Chest 100 75 Urine 800 0 600 Other: Voiding Method Urinal Urinal Urinal # Voids 0 ABP, PAP, CO, CI - Last Documented Arterial Blood Pressure 76/58 - Exam CONSTITUTIONAL: Appears comfortable, cooperative, no acute distress RESPIRATORY: Lungs sounds essentially clear throughout, diminished to his left lobes, with few scattered crackles to left base. Respirations are symmetrical, nonlabored. Currently on room air with oxygen saturation 94%. Able to achieve 2500 mL on incentive spirometry. Strong cough. CARDIOVASCULAR: S1, S2 present. Regular rate and rhythm, sinus rhythm on telemetry. Palpable peripheral pulses bilaterally. No edema present. No calf pain or tenderness noted. SCDs present. GASTROINTESTINAL: Abdomen soft, nontender, nondistended. Active bowel sounds present 4 quadrants. Tolerating diet. Passing flatus. GENITOURINARY: Continues to void. 600 mL output in the last 8 hours. INTEGUMENTARY: Skin is warm and dry with evidence of good perfusion. Left chest Thoracic incision well approximated and covered with dry intact dressing. NEUROLOGIC: Cranial nerves II through XII intact. No focal deficits. MUSKULOSKELETAL: Able to move all extremities, strength equal bilaterally, gait normal. PSYCHIATRIC: Alert and oriented to person place and time, appropriate affect, intact judgment and insight. INVASIVE LINES AND TUBES: Left pleural chest tubes present and are to waterseal. No air leak present. Draining thin serosanguineous drainage. - Allied health notes Allied health notes reviewed: nursing - Labs CBC & Chem 7: 05/27/23 05:19 05/27/23 05:19 Labs: Abnormal Lab Results - Last 24 Hours (Table) 05/27/23 05/27/23 Range/Units 05:19 05:19 WBC 11.3 H (3.8-10.6) k/uL RBC 3.06 L (4.30-5.90) m/uL Hgb 9.0 L D (13.0-17.5) gm/dL Hct 27.4 L (39.0-53.0) % Plt Count 603 H (150-450) k/uL Neutrophils # 7.9 H (1.3-7.7) k/uL Sodium 132 L (137-145) mmol/L Calcium 7.7 L (8.4-10.2) mg/dL ALT 69 H (4-49) U/L Total Protein 4.9 L (6.3-8.2) g/dL Albumin 2.1 L (3.5-5.0) g/dL Microbiology - Last 24 Hours (Table) 05/24/23 17:36 Anaerobic Culture - Preliminary Peritoneal Fluid 05/24/23 17:40 Anaerobic Culture - Preliminary Peritoneal Fluid 05/24/23 17:45 Gram Stain - Preliminary Peritoneal Fluid Body Fluid Culture - Preliminary 05/24/23 17:40 Gram Stain - Preliminary Peritoneal Fluid Tissue Culture - Preliminary 05/24/23 17:36 Gram Stain - Preliminary Peritoneal Fluid Tissue Culture - Preliminary - Imaging and Cardiology Chest x-ray: report reviewed, image reviewed Assessment and Plan Assessment: Empyema , loculated left-sided pleural effusion, status post placement of left- sided pigtail catheter by interventional radiology and patient has received 6 doses of alteplase/dornase pleural instillation, status post, left postero- lateral thoracotomy with complete decortication of left lung Right posterior mid lung pulmonary nodule, measuring 1.5 cm demonstrated on chest CTA Febrile illness with leukocytosis, most likely community-acquired pneumonia Transaminitis History of hypertension Hyperlipidemia Prediabetes, hemoglobin A1c 6.2 % Current tobacco dependence Occasional marijuana use Family history of heart disease Plan: We will remove his left pleural anterior chest tube today, and keep his left pleural posterior chest tube in place to water seal. Encourage incentive spirometry is 10 times every hour while awake. Bronchodilators/steroids per pulmonology Continue to record strict and accurate I's and O's. Continue Flomax 0.4 mg by mouth daily. Increase activity as tolerated. Out of bed for all meals. GI/DVT prophylaxis. Pain control with current medication regimen. Continue stool softener for complaints of constipation. Culture results remain pending, will continue to follow. Show no growth after 48 hours. Remains on vancomycin for antibiotic coverage, followed by infectious disease. Transfer to third floor cardiac stepdown unit when bed available. More recommendations to follow based on patient's clinical course. Time with Patient: Greater than 30
[2023-05-27] MEDS: LOSARTAN 50 MG TAB PO SCH (13:01)
[2023-05-27] MEDS: polyethylene glycoL 3350 17 GM POWD.PACK PO SCH (13:26)
[2023-05-27] MEDS: TAMSULOSIN 0.4 MG CAP.ER.24H PO SCH (18:32)
[2023-05-27] MEDS: SENNOSIDES-DOCUSATE SODIUM 1 EACH TAB PO SCH (22:13)
[2023-05-28] MEDS: HEPARIN SODIUM,PORCINE 5,000 UNIT/ML 1 ML VIAL SQ SCH ×4 (00:38→23:33)
[2023-05-28] MEDS: KETOROLAC 15 MG/ML 1 ML VIAL IVP SCH ×5 (00:38→23:33)
[2023-05-28] MEDS: VANCOMYCIN 1,500 MG in SODIUM CHLORIDE 0.9% 500 ML 500 ML IVPB SCH ×3 (06:13→21:37)
[2023-05-28 08:20] LABS: Basophils % (A) 0 %; Eosinophils # (A) 0.2 k/uL (0-0.7); Eosinophils % (A) 2 %; HGB 9.5 gm/dL (13.0-17.5); Hypochromasia Slight; Lymphocytes % (A) 21 %; MCH 28.4 pg (25.0-35.0); MCHC 31.8 g/dL (31.0-37.0); MCV 89.1 fL (80.0-100.0); Mean Platelet Volume 7.2; Monocytes # (A) 0.6 k/uL (0-1.0); Monocytes % (A) 6 %; Neutrophils # (A) 6.7 k/uL (1.3-7.7); Neutrophils % (A) 70 %; Platelet Count 660 k/uL (150-450); RBC 3.37 m/uL (4.30-5.90); RDW 13.8 % (11.5-15.5); WBC 9.6 k/uL (3.8-10.6)
[2023-05-28] MEDS: LOSARTAN 50 MG TAB PO SCH (08:53)
[2023-05-28] MEDS: ATORVASTATIN 10 MG TAB PO SCH (08:53)
[2023-05-28] MEDS: traMADol 50 MG TAB PO SCH ×3 (08:53→20:25)
[2023-05-28] MEDS: polyethylene glycoL 3350 17 GM POWD.PACK PO SCH (08:54)
[2023-05-28] MEDS: FAMOTIDINE 20 MG/2 ML VIAL IV SCH ×2 (08:54→20:25)
[2023-05-28] MEDS: NICOTINE 21MG/24HR PATCH TRANSDERM SCH (08:55)
[2023-05-28] MEDS: IPRATROPIUM-ALBUTEROL 3 ML NEB IH SCH ×4 (09:10→20:42)
[2023-05-28] MEDS: FORMOTEROL FUMARATE 20 MCG/2 ML NEBU INHALATION SCH ×2 (09:10→20:42)
--- NOTE | 2023-05-28 09:41 | XR ---
EXAM: XR chest 1V portable CLINICAL INDICATION:Male, 67 years old with history of post op left thoracotomy; [facility] COMPARISON: 05/27/2023 and before TECHNIQUE: Chest single view. FINDINGS: Lines/tubes/devices: The superior most left chest tube has been removed. Stable left basilar chest tu be. Cardiomediastinum: Cardiac silhouette appears stable, heart appears mildly enlarged. Mildly tortuous aorta. Stable mediastinal silhouette. Vasculature: No increased pulmonary vasculature. Lungs/pleura: Similar linear opacities in the left mid to upper lung zone, and left basilar pleural/parenchymal opa city. Some fluid again tracks superiorly and laterally to the lung apex. A small amount of pneumothor ax is again suggested in the inferolateral left chest and appears grossly stable. Right lung and pleu ral space remain clear. Bones/soft tissues: Bony thorax appears grossly unchanged as seen. Regional soft tissues appear stable-small amount of so ft tissue gas in the left chest wall again seen in the region of the chest tube. IMPRESSION: 1. The superior most left chest tube has been removed. Stable left basilar chest tube. 2. Stable pleural/parenchymal opacities on the left, with likely stable small amount of pneumothorax and soft tissue emphysema in the left chest wall.
--- NOTE | 2023-05-28 10:32 | P.PN ---
Subjective Progress Note Date: 05/28/23 Principal diagnosis: Loculated left pleural effusion, empyema. Past medical history significant for hypertension, hyperlipidemia, prediabetes, chronic ongoing tobacco dependence, occasional marijuana use, and family history of heart disease. Status post placement of left pigtail catheter by interventional radiology, removed during surgery yesterday 05/24/2023 POD #4 bronchoscopy, left postero-lateral thoracotomy with complete decortication of left lung, cryoablation of intercostal nerves V through IX. The patient was seen in follow-up today 05/28/2023 at his bedside on the cardiac stepdown unit. Currently he is lying in bed, is awake, alert, oriented 3 and is in no acute distress. Denies any complaints of shortness of breath and is reporting minimal pain to his chest tube insertion site, rating his pain 2 out of 10 on the pain scale. He reports current pain medication regimen is controlling his pain. Oxygen saturations are 95% on room air and he is achievi ng 2500 mL on his incentive spirometry was encouraged. Normal sinus rhythm 91 bpm on remote telemetry. Left anterior chest tube was removed yesterday without incident and his left posterior chest tube remain in place to waterseal. No air leak is present. Left posterior chest tube draining thin serosanguineous drainage was 120 mL output in the last 24 hours. He has been up ambulating in the hallway without difficulty and standby assistance from nursing staff. Laboratory and chest x-ray results were reviewed. He remains on vancomycin for antibiotic coverage which is managed by infectious disease. Pleural cultures continue to show no growth after 72 hours. He has been afebrile the last 24 hours. Objective - Vital Signs Vital signs: Vital Signs Temp 97.9 F 05/28/23 08:00 Pulse 90 05/28/23 09:28 Resp 20 05/28/23 08:00 BP 132/80 05/28/23 08:00 Pulse Ox 95 05/28/23 09:15 FiO2 Intake & Output 05/27/23 05/28/23 05/28/23 18:59 06:59 18:59 Intake Total 400 250 Output Total 1155 420 Balance -755 -170 Intake: Oral 400 250 Output: Chest Tube Drainage 155 120 Left Anterior Chest 80 Left Posterior Chest 75 120 Urine 1000 300 Other: Voiding Method Urinal Urinal ABP, PAP, CO, CI - Last Documented Arterial Blood Pressure 76/58 - Exam CONSTITUTIONAL: Appears comfortable, cooperative, no acute distress RESPIRATORY: Lungs sounds essentially clear throughout, diminished to his left lobes, with few scattered crackles to left base. Respirations are symmetrical, nonlabored. Currently on room air with oxygen saturation 95%. Able to achieve 2500 mL on incentive spirometry. Strong cough. CARDIOVASCULAR: S1, S2 present. Regular rate and rhythm, sinus rhythm on telemetry. Palpable peripheral pulses bilaterally. No edema present. No calf pain or tenderness noted. SCDs present. GASTROINTESTINAL: Abdomen soft, nontender, nondistended. Active bowel sounds present 4 quadrants. Tolerating diet. Passing flatus. GENITOURINARY: Continues to void. 300 mL output in the last 8 hours. INTEGUMENTARY: Skin is warm and dry with evidence of good perfusion. Left chest Thoracic incision well approximated and covered with dry intact dressing. NEUROLOGIC: Cranial nerves II through XII intact. No focal deficits. MUSKULOSKELETAL: Able to move all extremities, strength equal bilaterally, gait normal. PSYCHIATRIC: Alert and oriented to person place and time, appropriate affect, intact judgment and insight. INVASIVE LINES AND TUBES: Left pleural chest tube present and are to waterseal. No air leak present. Draining thin serosanguineous drainage. - Allied health notes Allied health notes reviewed: nursing - Labs CBC & Chem 7: 05/28/23 07:42 05/27/23 05:19 Labs: Abnormal Lab Results - Last 24 Hours (Table) 05/28/23 Range/Units 07:42 RBC 3.37 L (4.30-5.90) m/uL Hgb 9.5 L (13.0-17.5) gm/dL Hct 30.0 L (39.0-53.0) % Plt Count 660 H (150-450) k/uL Microbiology - Last 24 Hours (Table) 05/24/23 17:40 Gram Stain - Preliminary Peritoneal Fluid Tissue Culture - Preliminary 05/24/23 17:36 Gram Stain - Preliminary Peritoneal Fluid Tissue Culture - Preliminary 05/24/23 17:45 Gram Stain - Preliminary Peritoneal Fluid Body Fluid Culture - Preliminary - Imaging and Cardiology Chest x-ray: report reviewed, image reviewed Assessment and Plan Assessment: Empyema , loculated left-sided pleural effusion, status post placement of left- sided pigtail catheter by interventional radiology and patient has received 6 doses of alteplase/dornase pleural instillation, status post, left postero- lateral thoracotomy with complete decortication of left lung Right posterior mid lung pulmonary nodule, measuring 1.5 cm demonstrated on chest CTA Febrile illness with leukocytosis, most likely community-acquired pneumonia Transaminitis History of hypertension Hyperlipidemia Prediabetes, hemoglobin A1c 6.2 % Current tobacco dependence Occasional marijuana use Family history of heart disease Plan: We will remove his left pleural posterior chest tube today, and per the cardiothoracic surgery standpoint the patient can be discharged home when he is cleared by primary and other consultants. We will obtain a 2 view chest x-ray in the a.m. Encourage incentive spirometry is 10 times every hour while awake. Bronchodilators per pulmonology Continue to record strict and accurate I's and O's. Continue Flomax 0.4 mg by mouth daily. Increase activity as tolerated. Out of bed for all meals. GI/DVT prophylaxis. Pain control with current medication regimen. Continue stool softener for complaints of constipation. Culture results remain pending, will continue to follow. Show no growth after 72 hours. Remains on vancomycin for antibiotic coverage, followed by infectious disease. Importance of smoking cessation has been discussed with the patient. We will continue to follow the patient on an as-needed basis. Please feel free to reconsult if needed. Time with Patient: Greater than 30
[2023-05-28 10:39] LABS: African American GFR (CKD) >90 (>60 ml/min/1.73 sqM); Anion Gap 6 mmol/L; Blood Urea Nitrogen 11 mg/dL (9-20); Calcium 8.2 mg/dL (8.4-10.2); Carbon Dioxide 24 mmol/L (22-30); Chloride 105 mmol/L (98-107); Glucose 89 mg/dL (74-99); Non-African American GFR(CKD) >90 (>60 ml/min/1.73 sqM); Potassium 4.3 mmol/L (3.5-5.1); Sodium 135 mmol/L (137-145)
--- NOTE | 2023-05-28 11:19 | P.PN ---
Subjective Progress Note Date: 05/28/23 Principal diagnosis: Empyema. The patient is seen today 05/24/2023 in follow-up on the regular medical floor. He is resting comfortably in bed. Awake and alert in no acute distress. Continues to maintain good O2 saturations in the 90s on room air. Chest x-ray remains unchanged with opacity throughout the left hemithorax. Left basilar pigtail catheter remains in place. Right lung is clear. Awaiting thoracoscopy with decortication today. Pleural fluid cultures were positive for staph hominis. Blood cultures revealed no growth. White count 14.3. Hemoglobin 10.4. Platelets 696. Sodium 136. Potassium 4.2. Bicarb 22. BUN 13. Creatinine 0.64. Pro-calcitonin 0.33. He is continued on vancomycin. Remains on bronchodilators. Heparin for DVT prophylaxis. NicoDerm patch in place. The patient is seen today 05/25/2023 in follow-up in the intensive care unit. He is sitting up in a chair. Awake and alert in no acute distress. Continues to maintain good O2 saturations in the 90s on room air. He did undergo a left posterior lateral thoracotomy with complete decortication of the left lung. He was found to have a large pocket of pus posteriorly behind the upper lobe with significant purulent drainage. A second chest tube was placed. Today's chest x-ray shows no significant change. Left thoracotomy tubes without evidence of pneumothorax. Small left pleural effusion. Pleural fluid was positive for staph hominis. White count 19.9. Hemoglobin 10.6. Platelets 646. Sodium 131. Potassium 4.4. BUN 10. Creatinine 0.69. Glucose 103. He has received 1 unit of packed red blood cells this admission. He remains on vancomycin. Continued on DuoNeb inhalations and Perforomist inhalations. NicoDerm patch in place. He is receiving Dilaudid [employer] [facility] [employer] for pain control. The patient is seen today 05/26/2023 in follow-up in the intensive care unit. He is a 3 selective care unit overflow. He is doing well. He continues to maintain good O2 saturations in the 90s on room air. Anterior and posterior left-sided chest tubes remain in place. I reveals pleural parenchymal opacity of the left lung base with slight improvement. Left apical opacity is slightly improved as well. Continued on vancomycin. Continued on DuoNeb inhalations, Pulmicort and Perforomist inhalations. NicoDerm patch in place. His pain is well controlled with a Dilaudid [employer] [facility] [employer] pump. He is status post 1 unit packed red blood cells this admission. Current white count 19.1. Hemoglobin 10.5. Platelets 635. Sodium 133. Potassium 4.3. Bicarb 23. BUN 16. Creatinine 0. 83. The patient is seen today 05/27/2023 in follow-up in the intensive care unit. He is at 3 S. overflow patient. He is sitting up in a chair. He is doing quite well. He denies any worsening shortness of breath, cough or congestion. He is maintaining good O2 saturations in the 90s on room air. No IV fluids. His chest tubes remain in place. They are to waterseal. No leaks noted today. He 's been up ambulating with assistance. He remains on vancomycin for his staph hominis bacterial infection. He is continued on DuoNeb inhalations, Perforomist inhalations. Heparin for DVT prophylaxis. White count 11.3. Hemoglobin 9.0. Platelets 603. Sodium 132. Potassium 4.1. Bicarb 23. BUN 12. Creatinine 0.66. Glucose 80. AST 49. ALT 69. Vancomycin trough 19.8. He is continued on a Dilaudid [employer] [facility] [employer] pump adequate pain control. Progress note dated 05/28/2023. 67-year-old male seen today in room 363. He was seen yesterday in the intensive care unit. Currently, the patient's on room air. The patient's on vancomycin for his staphylococcal empyema. The patient underwent left thoracotomy, and decortication. Chest tube has been removed. Clinically, he is feeling much better. White count 9.6, hemoglobin 9.5, hematocrit 30, and platelet count 660,000. Sodium 135, potassium 4.3, chlorides 105, CO2 24, BUN 11, and creatinine 0.75. Chest x-ray my opinion shows a stable density, at the left lung base. Objective - Vital Signs Vital signs: Vital Signs Temp 97.9 F 05/28/23 08:00 Pulse 90 05/28/23 09:28 Resp 20 05/28/23 08:00 BP 132/80 05/28/23 08:00 Pulse Ox 95 05/28/23 09:15 FiO2 Intake & Output 05/27/23 05/28/23 05/28/23 18:59 06:59 18:59 Intake Total 400 250 Output Total 1155 420 Balance -755 -170 Intake: Oral 400 250 Output: Chest Tube Drainage 155 120 Left Anterior Chest 80 Left Posterior Chest 75 120 Urine 1000 300 Other: Voiding Method Urinal Urinal ABP, PAP, CO, CI - Last Documented Arterial Blood Pressure 76/58 - Exam No acute distress, oriented 3. On room air. HEENT examination is grossly unremarkable. Mucous membranes are moist. No oral lesions. Neck supple. Full range of motion. No adenopathy thyromegaly or neck vein distention. Cardiovascular examination reveals regular rhythm rate. S1-S2 normal. No S3 or S4. No discernible murmur noted. Heart rate 90 bpm. Lungs reveal diminished breath sounds at the left lung base. The rest of the lung randall are clear. Chest tube is been removed. Room air saturation is 95%. Abdomen soft bowel sounds are heard. No masses or tenderness. Extremities are intact. No cyanosis clubbing or edema. Skin is without rash or lesion. Neurologic examination is brief but nonfocal. - Labs CBC & Chem 7: 05/28/23 07:42 05/28/23 07:42 Labs: Abnormal Lab Results - Last 24 Hours (Table) 05/28/23 05/28/23 Range/Units 07:42 07:42 RBC 3.37 L (4.30-5.90) m/uL Hgb 9.5 L (13.0-17.5) gm/dL Hct 30.0 L (39.0-53.0) % Plt Count 660 H (150-450) k/uL Sodium 135 L (137-145) mmol/L Calcium 8.2 L (8.4-10.2) mg/dL Microbiology - Last 24 Hours (Table) 05/24/23 17:40 Gram Stain - Preliminary Peritoneal Fluid Tissue Culture - Preliminary 05/24/23 17:36 Gram Stain - Preliminary Peritoneal Fluid Tissue Culture - Preliminary 05/24/23 17:45 Gram Stain - Preliminary Peritoneal Fluid Body Fluid Culture - Preliminary Assessment and Plan Assessment: Community acquired pneumonia and loculated left-sided pleural effusion. Chest CTA demonstrated a loculated left pleural effusion with adjacent compressive atelectasis. There is pleural thickening. There was mild lymphadenopathy demonstrated within the superior mediastinum, hilum, and bilateral axillary nodes. There was also a 1.7 cm lobular density within the posterior lateral right lung, which will require follow-up. Malignancy is not excluded. Status post pigtail catheter placement on 05/17/2023 and status post alteplase/dornase infusion 6. Purulent drainage returned. Fluid exudative. Total protein 2.7. LDH greater than 2500. Cultures are positive for staph hominis. Now on vancomycin. Cytology revealed no evidence of malignancy. He did undergo a left posterior lateral thoracotomy with complete decortication of the left lung on 05/24/2023. He was found to have a large pocket of pus posteriorly behind the upper lobe with significant purulent drainage. A second chest tube was placed. Today's chest x-ray shows slight improvement to both the left apical and left basilar opacities. Left thoracotomy tubes without evidence of pneumothorax. Small left pleural effusion. Leukocytosis secondary to above. Right pulmonary nodule, measuring 1.7 cm, as demonstrated on chest CTA. Chronic and ongoing tobacco dependence. Benign essential hypertension. Hyperlipidemia. Mild transaminitis. Plan: Plan dated 05/28/2023. Today is postop day #4, status post left thoracotomy with complete decortication of the left lung. The patient continues on vancomycin for his infection. He's currently on room air. Left-sided chest tube has been removed. He continues to work hard on his incentive spirometer. I did mention to him, that he will always have an abnormality at the left lung base. He needs to be aware that, so he can let other doctors know, that he's had a previous procedure. Labs, x-ra ys, and medications are all reviewed. Prognosis is thought to be generally good. Time with Patient: Less than 30
--- NOTE | 2023-05-28 14:30 | P.PN ---
Subjective Progress Note Date: 05/27/23 Principal diagnosis: Pneumonia/empyema Patient is a 67-year-old male with a past medical history significant for hypertension hyperlipidemia presenting to the hospital on 05/16/2023 for evaluation of fever and cough, patient did have evidence of loculated left-sided effusion and consolidation in this patient was status post chest tube placement culture did grew staphylococcus hominis. On today's evaluation that is 05/27/2023, the patient denies any fever or any chills, the patient is breathing comfortably on room air , the patient denies chest pain, shortness of breath and did have occasional dry cough, patient denies abdominal pain, no nausea/vomiting or diarrhea White count is is down to 11.3, creatinine 0.83, cultures are so far negative Objective - Vital Signs Vital signs: Vital Signs Temp 97.8 F 05/27/23 08:00 Pulse 88 05/27/23 12:29 Resp 18 05/27/23 09:00 BP 120/70 05/27/23 09:00 Pulse Ox 94 L 05/27/23 09:00 FiO2 Intake & Output 05/26/23 05/27/23 05/27/23 18:59 06:59 18:59 Intake Total 75 400 Output Total 800 200 755 Balance -727 -200 -623 Intake: IV 75 Sodium Chloride 0.9% 1, 75 000 ml @ 20 mls/hr IV . Q24H [facility] Rx#:[id number] Oral 400 Output: Chest Tube Drainage 200 155 Left Anterior Chest 100 80 Left Posterior Chest 100 75 Urine 800 0 600 Other: Voiding Method Urinal Urinal Urinal # Voids 0 ABP, PAP, CO, CI - Last Documented Arterial Blood Pressure 76/58 - Exam GENERAL DESCRIPTION: An elderly male lying in bed in no distress RESPIRATORY SYSTEM: Unlabored breathing , decreased breath sounds at bases HEART: S1 S2 regular rate and rhythm , ABDOMEN: Soft , no tenderness EXTREMITIES: No edema feet - Labs CBC & Chem 7: 05/28/23 07:42 05/28/23 07:42 Labs: Abnormal Lab Results - Last 24 Hours (Table) 05/27/23 05/27/23 Range/Units 05:19 05:19 WBC 11.3 H (3.8-10.6) k/uL RBC 3.06 L (4.30-5.90) m/uL Hgb 9.0 L D (13.0-17.5) gm/dL Hct 27.4 L (39.0-53.0) % Plt Count 603 H (150-450) k/uL Neutrophils # 7.9 H (1.3-7.7) k/uL Sodium 132 L (137-145) mmol/L Calcium 7.7 L (8.4-10.2) mg/dL ALT 69 H (4-49) U/L Total Protein 4.9 L (6.3-8.2) g/dL Albumin 2.1 L (3.5-5.0) g/dL Microbiology - Last 24 Hours (Table) 05/24/23 17:36 Anaerobic Culture - Preliminary Peritoneal Fluid 05/24/23 17:40 Anaerobic Culture - Preliminary Peritoneal Fluid 05/24/23 17:45 Gram Stain - Preliminary Peritoneal Fluid Body Fluid Culture - Preliminary 05/24/23 17:40 Gram Stain - Preliminary Peritoneal Fluid Tissue Culture - Preliminary 05/24/23 17:36 Gram Stain - Preliminary Peritoneal Fluid Tissue Culture - Preliminary Assessment and Plan (1) Empyema Current Visit: Yes Status: Acute Code(s): J86.9 - PYOTHORAX WITHOUT FISTULA SNOMED Code(s): 370139084 (2) Pneumonia Current Visit: Yes Status: Acute Code(s): J18.9 - PNEUMONIA, UNSPECIFIED ORGANISM SNOMED Code(s): 881012088 Plan: 1patient presented hospital with sepsis about a week ago in this patient with a fever elevated white count source is likely left-sided pneumonia with the loculated parapneumonic effusion status post chest tube placement on 05/17/2023 that did grew oxacillin resistant Staphylococcus hominis in this patient is status post thoracotomy and decortication and cultures 2Patient has shows some clinical improvement and the patient white count is trending down, the will continue with vancomycin as to pharmacy to dose with a target trough of 15 while waiting for the cultures to finalize and monitor clinical course closely Dictation was produced using [employer] dictation software. please excuse any grammatical, word or spelling errors. Time with Patient: Less than 30
--- NOTE | 2023-05-28 14:32 | P.PN ---
Subjective Progress Note Date: 05/28/23 Principal diagnosis: Pneumonia/empyema Patient is a 67-year-old male with a past medical history significant for hypertension hyperlipidemia presenting to the hospital on 05/16/2023 for evaluation of fever and cough, patient did have evidence of loculated left-sided effusion and consolidation in this patient was status post chest tube placement culture did grew staphylococcus hominis. On today's evaluation that is 05/28/2023, the patient remains to be afebrile, the patient is breathing comfortably on room air without the need for supplemental oxygen , the patient denies chest pain or cough, patient denies nausea/vomiting or diarrhea and denies any abdominal pain, last chest tube was removed this morning White count is is normalized to 9.6, creatinine is 0.75, cultures are so far negative Objective - Vital Signs Vital signs: Vital Signs Temp 97.8 F 05/28/23 11:41 Pulse 84 05/28/23 12:26 Resp 20 05/28/23 11:41 BP 127/72 05/28/23 11:41 Pulse Ox 94 L 05/28/23 11:41 FiO2 Intake & Output 05/27/23 05/28/23 05/28/23 18:59 06:59 18:59 Intake Total 400 250 Output Total 1155 420 Balance -755 -170 Intake: Oral 400 250 Output: Chest Tube Drainage 155 120 Left Anterior Chest 80 Left Posterior Chest 75 120 Urine 1000 300 Other: Voiding Method Urinal Urinal ABP, PAP, CO, CI - Last Documented Arterial Blood Pressure 76/58 - Exam GENERAL DESCRIPTION: An elderly male lying in bed in no distress RESPIRATORY SYSTEM: Unlabored breathing , decreased breath sounds at bases HEART: S1 S2 regular rate and rhythm , ABDOMEN: Soft , no tenderness EXTREMITIES: No edema feet - Labs CBC & Chem 7: 05/28/23 07:42 05/28/23 07:42 Labs: Abnormal Lab Results - Last 24 Hours (Table) 05/28/23 05/28/23 Range/Units 07:42 07:42 RBC 3.37 L (4.30-5.90) m/uL Hgb 9.5 L (13.0-17.5) gm/dL Hct 30.0 L (39.0-53.0) % Plt Count 660 H (150-450) k/uL Sodium 135 L (137-145) mmol/L Calcium 8.2 L (8.4-10.2) mg/dL Microbiology - Last 24 Hours (Table) 05/24/23 17:40 Gram Stain - Preliminary Peritoneal Fluid Tissue Culture - Preliminary 05/24/23 17:36 Gram Stain - Preliminary Peritoneal Fluid Tissue Culture - Preliminary 05/24/23 17:45 Gram Stain - Preliminary Peritoneal Fluid Body Fluid Culture - Preliminary Assessment and Plan (1) Empyema Current Visit: Yes Status: Acute Code(s): J86.9 - PYOTHORAX WITHOUT FISTULA SNOMED Code(s): 714764912 (2) Pneumonia Current Visit: Yes Status: Acute Code(s): J18.9 - PNEUMONIA, UNSPECIFIED ORGANISM SNOMED Code(s): 930841836 Plan: 1patient presented hospital with sepsis about a week ago in this patient with a fever elevated white count source is likely left-sided pneumonia with the loculated parapneumonic effusion status post chest tube placement on 05/17/2023 that did grew oxacillin resistant Staphylococcus hominis in this patient is status post thoracotomy and decortication and cultures 2Patient has shows some clinical improvement and the patient white count has normalized 3-we will get a PICC line and plan for two-week course of vancomycin pharmacy to dose on discharge and close outpatient follow-up Dictation was produced using [employer] dictation software. please excuse any grammatical, word or spelling errors. Time with Patient: Less than 30
[2023-05-28] MEDS: TAMSULOSIN 0.4 MG CAP.ER.24H PO SCH (19:06)
[2023-05-28] MEDS: SENNOSIDES-DOCUSATE SODIUM 1 EACH TAB PO SCH (20:25)
--- NOTE | 2023-05-28 22:19 | P.PN ---
Subjective Progress Note Date: 05/28/23 Patient is a 67-year-old male with a past medical history of hypertension, hyperlipidemia, currently everyday smoker was sent to ER by his primary care physician due to concern for pneumonia and dehydration. Patient states that he was seen by his primary care physician at [place] about 2 weeks ago and was noticed that his WBC was elevated. Patient did did have some cough but without any other signs of infection at that time. Patient came to [place] and started having fever, sweats and not feeling well since last weekend. He contacted his primary care physician again and was sent to [facility] for x-ray which showed pneumonia. He was started on antibiotics in the form of Levaquin last night. Patient did take 1 dose. Patients primary care physician concerned about possible dehydration as well and was recommended to go to emergency room for further evaluation. Patient otherwise complains of cough without sputum production. No nausea vomiting or diarrhea. No chest pain. No complaints of shortness of breath. Patient states that he has been having left lower back pain and also left shoulder pain since last Monday and thought it may be due his increased outside work recently. On admission patient was febrile with Tmax 100.5 pulse is 105 and respiration 19 pulse ox 94% on room air. Chest x-ray showed similar large area of consolidation and pleural effusion within the left mid and lower lung. Correlate for pneumonia with emphysema not excluded. EKG showed sinus tachycardia. Laboratory pressure WBC 22.6 hemoglobin 11.9 and platelets 515 Sodium 136 potassium 5.0 chloride 102 bicarb is 21 BUN 17 and creatinine 0.76 and liver enzymes elevated with ALT 216, AST 154 and alk phos 185, LDH 604. proBNP 201 and albumin 3.4. 05/17/2023 patient was complaining of from back injury when he fell about 3 weeks ago. , After that [facility]. 2 weeks ago he saw his PCP and [facility] for regular checkup patient was noticed to have leukocytosis but denies any other symptoms.. After patient came from [facility] about a week ago he went to his orthopedic doctor who checked his back pain with x-ray and prescribed Motrin 800 mg 3 times a day. The last Monday he was sweating a lot with high fever 103. He called his PCP on Monday who prescribed him Levaquin after chest x-ray and asked him to come to emergency room. Patient complaining from mild tachypnea but with little clear phlegm. No chest pain only with coughing. He has little diarrhea but feels better. No urinary or neurological symptoms. He smokes about 1 pack per day and he decided to close last Monday and currently he has nicotine patch. He denies alcohol or illicit drugs. Patient is afebrile on admission at 102 he is saturating well on room air Labs showed leukocytosis of 22.6K, hemoglobin 11.9, platelet count 515 BMP is unremarkable Liver enzymes elevated with AST 154 and ALT 216 with lactated dehydrogenase elevated at 600-8. ProBNP is 201. CTA of the chest: Loculated left pleural effusion with adjacent atelectasis. No pulmonary embolism. 1.7 cm lobular mass in the right midlung. And axillary and mediastinal lymphadenopathy On admission patient was started on Zithromax, ceftriaxone, IV fluids and admitted with pulmonary team consult 05/18/2023 Patient sits up in chair feels better. His dyspnea is better. No chest pain he has difficulty this morning. He had pigtail catheter placed yesterday but fell off today Vitals stable oxygen saturation is acceptable. No more fever. Chest x-ray showing improvement No labs from today. Patient on Unasyn normal saline 75 mL/h 05/19/2023 Patient breathing comfortably Chest pain is minimal Left-sided chest tube in place and patient under going lytic therapy through the tube with cardiothoracic surgery team Patient had low-grade fever today at 100. still on Unasyn. 05/20/2023 Patient breathing better with less dyspnea and breathing quietly addressed. No other new complaints. Chest tube was taken out today after finishing his lytic therapy. Sputum Gram stain and culture still pending as well as blood culture Patient remains on Unasyn. Normal saline was ordered but The patient is not getting it today, he is hemodynamically stable. We will discontinue 05/21/2023 patient reports improvement in his breathing Chest tube was taken out. When she woke with no exertional dyspnea Chest x-ray showing improvement but some persistent changes in the left lower lung area. Surgery team planning to repeat CAT scan with contrast tomorrow and if still abnormal appendix considering decortication/thoracotomy Continue with Unasyn. Start normal saline 75 mL/h 16 hours for patient is getting IV contrast 05/22/2023 pt sitting at bed with no much respiratory symptoms Left lower posterior pigtail catheter in place through which is still pending lytic therapy with alteplase/dornase under the care of surgery team. Repeat CAT scan of the chest today showing decreased loculated left pleural effusion with pigtail catheter in place. Residual loculated effusion is 10 cm at left upper lung 4.4 cm of the left. With associated mediastinal lymphadenopathy. 05/23/2023 Patient is seen in follow-up today currently being followed by cardiothoracic surgery with continued loculated effusion on the left. Patient has received TPA multiple times and recommending thoracotomy with decortication which is scheduled for 05/24/2023. Patient's white count remains elevated and patient was continued on Levaquin and sputum showing staph hominis with resistance will consult infectious disease appreciate input recommendations. Patient being started on vancomycin. Patient continues with left pigtail at this time. Patient white count remains elevated and is afebrile with no reports of chest pain or shortness of breath at this time. Patient will be nothing by mouth at midnight and will await surgical report. 05/24/2023 Patient is seen and evaluated in follow-up and currently nothing by mouth as patient is scheduled to undergo thoracotomy with decortication and will likely be in the ICU postop. Family members present at bedside and updated in currently awaiting OR for pickup. Patient is afebrile denies any changes overnight and denies any worsening shortness of breath or chest pains. Will await surgical report. 05/25/2023 Patient seen and evaluated in follow-up and is in the ICU with multiple medical consultations following. Patient is status post bronchoscopy with left lateral thoracotomy and complete decortication. Patient with chest tubes continue with serous output. Covarurbias catheter was removed and awaiting to void. White count remains elevated although trending down. Cultures have been obtained from surgery and pending at this time. Patient currently maintained on vancomycin with infectious disease following awaiting finalized cultures. Patient has been instructed to continue using incentive spirometer is 10 times every hour while awake. Sodium is 131 and will give gentle IV hydration and follow-up with repeat labs. Chest x-ray in a.m. 05/26/2023 Patient is seen and evaluated in follow-up in the ICU with infectious disease, CT surgery, [place] following closely. Patient is status post left thoracotomy and complete decortication with cryoablation and remains with 2 chest tubes. Cultures pending at this time and is continued on antibiotics in the form of vancomycin while awaiting for cultures to finalized. Initial cultures prior to thoracotomy showed staph hominis with multi-resistance and multiple peritoneal fluid cultures were sent and pending at this time. White count remains elevated although trending down and 19.1, hemoglobin is stable at 10.5, sodium is improved at 133 and will continue gentle hydration and follow up on repeat labs. Patient remains afebrile and is maintaining oxygen saturations above 91% on room air. Incentive spirometer at bedside and encouraged to continue using at least 10 times every hour while awake. Chest x-ray today showed pleural parenchymal opacification at the left lung base persists although slightly improved with a left apical opacification is also slightly improved. Patient reports has been up and walking and reports pain is currently controlled. Patient tolerating diet with no reported nausea or vomiting. Patient denies chest pain at this time. 05/27/2023 Patient evaluated today sitting up in chair. Continues with chest tubes x2 with plans to remove today per patient. Chest xray showing no significant interval change. There is pleural parenchymal opacities on the left appear similar to prior exam. He has been up ambulating in the hallway without difficulty. No shortness of breath reported and remains on room air. White count is down to 11.3 today. He continues on IV vancomycin. He is tolerating diet. He has not had a BM since before surgery. Sodium 132 today. 05/28/2023 Patient sitting up in chair today. He did have a bowel movement. Chest tubes are removed. He has no shortness of breath. Pain is controlled. Follow up cultures are negative. He remains on IV vancomycin. Today white count has normalized at 9.6. Sodium up to 135. Chest xray today shows stable pleural parenchymal opac ities on the left with likely small amt of pneumothorax and soft tissue emphysema on the right. He remains on room air. Review of systems: Constitutional: No reports of fatigue, fever, or chills Cardiovascular: No reports of chest pain or palpitations Respiratory: No reports of shortness of breath or cough GI: No reports of nausea, vomiting, or diarrhea : No reports of dysuria or retention Neurovascular: No reports of weakness or numbness All medications have been reviewed Physical exam: GENERAL: The patient is alert and oriented x3, not in any acute distress. Well developed, well nourished. Obese. HEENT: Pupils are round and equally reacting to light. EOMI. No scleral icterus. No conjunctival pallor. Normocephalic, atraumatic. No pharyngeal erythema. No thyromegaly. CARDIOVASCULAR: S1 and S2 present. No murmurs, rubs, or gallops. PULMONARY: Chest is clear to auscultation, no wheezing , no crackles. 2 chest tubes noted with serous drainage, improvement in the left-sided aeration on auscultation ABDOMEN: Soft, nontender, nondistended, normoactive bowel sounds. No palpable organomegaly. MUSCULOSKELETAL: No joint swelling or deformity. EXTREMITIES: No cyanosis, clubbing, or pedal edema. NEUROLOGICAL: Gross neurological examination did not reveal any focal deficits. SKIN: No rashes. no petechiae. Assessment: Left middle and lower lung pneumonia with paraPneumonia and large loculated left pleural effusion status post bronchoscopy with left lateral thoracotomy and complete decortication on 05/24/2023 Constipation resolved Sepsis with leukocytosis and fever secondary to above Continued ongoing Nicotine dependence Hypertension Hyperlipidemia GI prophylaxis DVT prophylaxis Full code Plan: Patient is status post left lateral thoracotomy with complete decortication and cryoablation postop day 3 in the ICU with multiple medical consultations following Chest tubes have been removed chest xray shows small pneumothorax. Patient to have follow up chest xray in the AM. Multiple cultures were taken during surgery and pending and infectious disease is following maintained on vancomycin currently Incentive spirometer encouraged at least 10 times every hour while awake Encouraged increased activity as tolerated and oral intake Currently awaiting cultures from surgery Repeat labs in AM The impression and plan of care has been dictated by Airam Mir, Nurse Practitioner as directed. Dr. Shannan MD I have performed a history and physical examination and medical decision making of this patient, discussed the same with the dictator, and agree with the dictators assessment and plan as written, documented as a scribe. Based on total visit time, I have performed more than 50% of this visit. Objective - Vital Signs Vital signs: Vital Signs Temp 97.8 F 05/28/23 16:43 Pulse 85 05/28/23 21:02 Resp 20 05/28/23 16:43 BP 116/70 05/28/23 16:43 Pulse Ox 96 05/28/23 16:43 FiO2 Intake & Output 05/28/23 05/28/23 05/29/23 06:59 18:59 06:59 Intake Total 250 1360 Output Total 420 Balance -170 1360 Intake: IV 1000 Vancomycin 1,500 mg In 1000 Sodium Chloride 0.9% 500 ml 500 ml @ 167 mls/hr IVPB Q8H [facility] Rx#: [id number] Oral 250 360 Output: Chest Tube Drainage 120 Left Posterior Chest 120 Urine 300 Other: Voiding Method Urinal # Voids 1 ABP, PAP, CO, CI - Last Documented Arterial Blood Pressure 76/58 - Labs CBC & Chem 7: 05/28/23 07:42 05/28/23 07:42 Labs: Abnormal Lab Results - Last 24 Hours (Table) 05/28/23 05/28/23 Range/Units 07:42 07:42 RBC 3.37 L (4.30-5.90) m/uL Hgb 9.5 L (13.0-17.5) gm/dL Hct 30.0 L (39.0-53.0) % Plt Count 660 H (150-450) k/uL Sodium 135 L (137-145) mmol/L Calcium 8.2 L (8.4-10.2) mg/dL Microbiology - Last 24 Hours (Table) 05/24/23 17:40 Gram Stain - Final Peritoneal Fluid Tissue Culture - Final 05/24/23 17:36 Gram Stain - Final Peritoneal Fluid Tissue Culture - Final 05/24/23 17:45 Gram Stain - Final Peritoneal Fluid Body Fluid Culture - Final 05/24/23 17:45 Anaerobic Culture - Preliminary Peritoneal Fluid Assessment and Plan Time with Patient: Less than 30
[2023-05-29 01:55] VITALS: RESP 18
[2023-05-29] MEDS ORDERED: VANCOMYCIN TROUGH DUE 1 EACH MISC MISCELLANE ONE (05:00)
[2023-05-29 05:43] LABS: African American GFR (CKD) >90 (>60 ml/min/1.73 sqM); Anion Gap 4 mmol/L; Blood Urea Nitrogen 10 mg/dL (9-20); Calcium 7.9 mg/dL (8.4-10.2); Carbon Dioxide 25 mmol/L (22-30); Chloride 106 mmol/L (98-107); Glucose 87 mg/dL (74-99); Non-African American GFR(CKD) >90 (>60 ml/min/1.73 sqM); Potassium 4.1 mmol/L (3.5-5.1); Sodium 135 mmol/L (137-145)
[2023-05-29] MEDS: KETOROLAC 15 MG/ML 1 ML VIAL IVP SCH ×2 (06:46→12:05)
--- NOTE | 2023-05-29 07:56 | XR ---
EXAMINATION TYPE: XR chest 2V DATE OF EXAM: 05/29/2023 6:14 AM CLINICAL INDICATION:Male, 67 years old with history of post op left thoracotomy; [facility] COMPARISON: Chest radiograph from one day prior. TECHNIQUE: XR chest 2V Frontal and lateral views of the chest. FINDINGS: Lungs/Pleura: There is small or moderate left pleural effusion with trace gas within the pleural spac e versus aerated lung. Right lung is relatively clear. Pulmonary vascularity: Unremarkable. Heart/mediastinum: Cardiomediastinal silhouette is unremarkable. Musculoskeletal: No acute osseous pathology. IMPRESSION: Small to moderate [place] thorax on the left with possible focus of gas versus aerated lung within the pleural space.
[2023-05-29] MEDS ORDERED: VANCOMYCIN 1,250 MG in SODIUM CHLORIDE 0.9% 250 ML IVPB SCH (08:00)
[2023-05-29] MEDS: IPRATROPIUM-ALBUTEROL 3 ML NEB IH SCH ×3 (08:43→15:28)
[2023-05-29] MEDS: FORMOTEROL FUMARATE 20 MCG/2 ML NEBU INHALATION SCH (08:43)
[2023-05-29] MEDS: traMADol 50 MG TAB PO SCH (09:31)
[2023-05-29] MEDS: FAMOTIDINE 20 MG/2 ML VIAL IV SCH (09:31)
[2023-05-29] MEDS: HEPARIN SODIUM,PORCINE 5,000 UNIT/ML 1 ML VIAL SQ SCH (09:31)
[2023-05-29] MEDS: ATORVASTATIN 10 MG TAB PO SCH (09:31)
[2023-05-29] MEDS: NICOTINE 21MG/24HR PATCH TRANSDERM SCH (09:32)
[2023-05-29] MEDS: LOSARTAN 50 MG TAB PO SCH (09:32)
[2023-05-29] MEDS: polyethylene glycoL 3350 17 GM POWD.PACK PO SCH (09:32)
[2023-05-29] MEDS ORDERED: LACTULOSE 20 GM/30 ML CUP PO SCH (10:45)
[2023-05-29 12:42] VITALS: BP 140/82; TEMP 98.1
--- NOTE | 2023-05-29 14:05 | P.PN ---
Subjective Progress Note Date: 05/29/23 The patient is seen today 05/24/2023 in follow-up on the regular medical floor. He is resting comfortably in bed. Awake and alert in no acute distress. Continues to maintain good O2 saturations in the 90s on room air. Chest x-ray remains unchanged with opacity throughout the left hemithorax. Left basilar pigtail catheter remains in place. Right lung is clear. Awaiting thoracoscopy with decortication today. Pleural fluid cultures were positive for staph hominis. Blood cultures revealed no growth. White count 14.3. Hemoglobin 10.4. Platelets 696. Sodium 136. Potassium 4.2. Bicarb 22. BUN 13. Creatinine 0.64. Pro-calcitonin 0.33. He is continued on vancomycin. Remains on bronchodilators. Heparin for DVT prophylaxis. NicoDerm patch in place. The patient is seen today 05/25/2023 in follow-up in the intensive care unit. He is sitting up in a chair. Awake and alert in no acute distress. Continues to maintain good O2 saturations in the 90s on room air. He did undergo a left posterior lateral thoracotomy with complete decortication of the left lung. He was found to have a large pocket of pus posteriorly behind the upper lobe with significant purulent drainage. A second chest tube was placed. Today's chest x-ray shows no significant change. Left thoracotomy tubes without evidence of pneumothorax. Small left pleural effusion. Pleural fluid was positive for stap h hominis. White count 19.9. Hemoglobin 10.6. Platelets 646. Sodium 131. Potassium 4.4. BUN 10. Creatinine 0.69. Glucose 103. He has received 1 unit of packed red blood cells this admission. He remains on vancomycin. Continued on DuoNeb inhalations and Perforomist inhalations. NicoDerm patch in place. He is receiving Dilaudid [employer] for pain control. The patient is seen today 05/26/2023 in follow-up in the intensive care unit. He is a 3 selective care unit overflow. He is doing well. He continues to maintain good O2 saturations in the 90s on room air. Anterior and posterior lef t-sided chest tubes remain in place. I reveals pleural parenchymal opacity of the left lung base with slight improvement. Left apical opacity is slightly improved as well. Continued on vancomycin. Continued on DuoNeb inhalations, Pulmicort and Perforomist inhalations. NicoDerm patch in place. His pain is well controlled with a Dilaudid [employer] pump. He is status post 1 unit packed red blood cells this admission. Current white count 19.1. Hemoglobin 10.5. Platelets 635. Sodium 133. Potassium 4.3. Bicarb 23. BUN 16. Creatinine 0.83. The patient is seen today 05/27/2023 in follow-up in the intensive care unit. He is at 3 S. overflow patient. He is sitting up in a chair. He is doing quite well. He denies any worsening shortness of breath, cough or congestion. He is maintaining good O2 saturations in the 90s on room air. No IV fluids. His chest tubes remain in place. They are to waterseal. No leaks noted today. He's been up ambulating with assistance. He remains on vancomycin for his staph hominis bacterial infection. He is continued on DuoNeb inhalations, Perforomist inhalations. Heparin for DVT prophylaxis. White count 11.3. Hemoglobin 9.0. Platelets 603. Sodium 132. Potassium 4.1. Bicarb 23. BUN 12. Creatinine 0.66. Glucose 80. AST 49. ALT 69. Vancomycin trough 19.8. He is continued on a Dilaudid [employer] pump adequate pain control. Progress note dated 05/28/2023. 67-year-old male seen today in room 363. He was seen yesterday in the intensive care unit. Currently, the patient's on room air. The patient's on vancomycin for his staphylococcal empyema. The patient underwent left thoracotomy, and decortication. Chest tube has been removed. Clinically, he is feeling much better. White count 9.6, hemoglobin 9.5, hematocrit 30, and platelet count 660,000. Sodium 135, potassium 4.3, chlorides 105, CO2 24, BUN 11, and creatinine 0.75. Chest x-ray my opinion shows a stable density, at the left lung base. On 05/26/2023, seeing the patient for a follow-up. The patient is doing well. No specific complaints. The patient remains on vancomycin. The patient is awaiting a PICC line insertion for outpatient antibiotic treatment. Noted the patient is post thoracotomy decortication. Surgical wound is dry clean and intact. He remains on bronchodilators. The most recent chest x-ray from today shows a small hydropneumothorax on the left. No other significant abnormalities been noted. The patient is currently on room air oxygen. In terms of blood work, the patient was echo was down to 9.6 with a hemoglobin 9.5, sodium is at 135, potassium is at 4.1, BUN is at 10 with a creatinine of 0.7. LFTs are within normal limits. Cultures from the thoracotomy and decortication are negative. No nausea. No emesis. No altered mentation. No other new complaints otherwise for now. Objective - Vital Signs Vital signs: Vital Signs Temp 97.8 F 05/28/23 16:43 Pulse 88 05/29/23 09:03 Resp 18 05/29/23 09:03 BP 133/82 05/29/23 04:00 Pulse Ox 95 05/29/23 08:44 FiO2 Intake & Output 05/28/23 05/29/23 05/29/23 18:59 06:59 18:59 Intake Total 1360 Balance 1360 Intake: IV 1000 Vancomycin 1,500 mg In 1000 Sodium Chloride 0.9% 500 ml 500 ml @ 167 mls/hr IVPB Q8H [facility] Rx#: [id number] Oral 360 Other: Voiding Method Urinal # Voids 1 2 ABP, PAP, CO, CI - Last Documented Arterial Blood Pressure 76/58 - Exam No acute distress, oriented 3. On room air. HEENT examination is grossly unremarkable. Mucous membranes are moist. No oral lesions. Neck supple. Full range of motion. No adenopathy thyromegaly or neck vein distention. Cardiovascular examination reveals regular rhythm rate. S1-S2 normal. No S3 or S4. No discernible murmur noted. Lungs reveal diminished breath sounds at the left lung base. The rest of the lung randall are clear. Chest tube is been removed. Room air saturation is 95%. Surgical wound is clean and no drainage Abdomen soft bowel sounds are heard. No masses or tenderness. Extremities are intact. No cyanosis clubbing or edema. Skin is without rash or lesion. Neurologic examination is brief but nonfocal. - Labs CBC & Chem 7: 05/28/23 07:42 05/29/23 04:56 Labs: Abnormal Lab Results - Last 24 Hours (Table) 05/28/23 05/29/23 Range/Units 07:42 04:56 Sodium 135 L 135 L (137-145) mmol/L Calcium 8.2 L 7.9 L (8.4-10.2) mg/dL Microbiology - Last 24 Hours (Table) 05/24/23 17:45 Anaerobic Culture - Final Peritoneal Fluid 05/24/23 17:40 Anaerobic Culture - Final Peritoneal Fluid 05/24/23 17:36 Anaerobic Culture - Final Peritoneal Fluid 05/24/23 17:40 Gram Stain - Final Peritoneal Fluid Tissue Culture - Final 05/24/23 17:36 Gram Stain - Final Peritoneal Fluid Tissue Culture - Final 05/24/23 17:45 Gram Stain - Final Peritoneal Fluid Body Fluid Culture - Final Assessment and Plan Plan: Community acquired pneumonia and loculated left-sided pleural effusion. Chest CTA demonstrated a loculated left pleural effusion with adjacent compressive atelectasis. There is pleural thickening. There was mild lymphadenopathy demonstrated within the superior mediastinum, hilum, and bilateral axillary n odes. There was also a 1.7 cm lobular density within the posterior lateral right lung, which will require follow-up. Malignancy is not excluded. Status post pigtail catheter placement on 05/17/2023 and status post alteplase/dornase infusion 6. Purulent drainage returned. Fluid exudative. Total protein 2.7. LDH greater than 2500. Cultures are positive for staph hominis. Now on vancomycin. Cytology revealed no evidence of malignancy. He did undergo a left posterior lateral thoracotomy with complete decortication of the left lung on 05/24/2023. He was found to have a large pocket of pus posteriorly behind the upper lobe with significant purulent drainage. A second chest tube was p laced. Today's chest x-ray shows slight improvement to both the left apical and left basilar opacities. Left thoracotomy tubes without evidence of pneumothorax. Small left pleural effusion. The chest tubes were removed on 05/27/2023 and the patient does not have a chest tube at this point in time. The patient remains on vancomycin. The follow-up chest x-ray from today showing a small left-sided hydropneumothorax along with some persistent opacification of the left lung base. Acute hypoxic respiratory failure, improved and the patient is currently on room air oxygen Leukocytosis secondary to above, improving and the patient's white cell count is down to 9.6 Right pulmonary nodule, measuring 1.7 cm, as demonstrated on chest CTA. Chronic and ongoing tobacco dependence. Benign essential hypertension. Hyperlipidemia. Mild transaminitis. Acute on chronic anemia and the patient received 2 units of packed RBC yesterday Plan: Today is postop day #5, status post left thoracotomy with complete decortication of the left lung. Cultures are negative thus far The patient continues on vancomycin for a previous staph infection identified from the floor fluid He's currently on room air Left-sided chest tube has been removed Awaiting a PICC line insertion for outpatient antibiotic therapy Clinically stable He continues to work hard on his incentive spirometer.
[2023-05-29 15:20] VITALS: PULSE 88
--- NOTE | 2023-05-30 09:52 | P.DS ---
Providers Date of admission: 05/16/23 17:14 Expected date of discharge: 05/29/23 Attending physician: John Collins Consults: 05/16/23 17:14 Consult Physician Routine Consulting Provider: Mi Andrews Consult Reason/Comments: Pneumonia, sepsis Do you want consulting provider notified?: Yes 05/17/23 08:40 Consult Physician Routine Consulting Provider: Lonny Lyman Consult Reason/Comments: Loculated effusion Do you want consulting provider notified?: Yes 05/23/23 12:36 Consult Physician Urgent Consulting Provider: Ariella Hernandez Consult Reason/Comments: loculated pleural effusion, staph hominis on cultures Do you want consulting provider notified?: Yes Primary care physician: Stated None Hospital Course: Final diagnosis Left middle and lower lung pneumonia with paraPneumonia and large loculated left pleural effusion status post bronchoscopy with left lateral thoracotomy and complete decortication on 05/24/2023 Constipation resolved Sepsis with leukocytosis and fever secondary to above Continued ongoing Nicotine dependence Hypertension Hyperlipidemia GI prophylaxis DVT prophylaxis Full code Discharge disposition Patient is being discharged in a stable condition with guarded prognosis to home. Patient will follow-up with Dr. Marcell Mabry in the outpatient setting upon discharge to establish. Patient is to continue with oral Bactrim twice da david for the next 2 week and close outpatient follow-up with CT surgery as well as pulmonary and infectious disease as scheduled. Total time taken is greater than 35 minutes. Hospital course This is a 67-year-old male who was recently admitted with left middle and lower lobe pneumonia found to have a large loculated left pleural effusion had chest tube placed and underwent multiple rounds of TPA with no improvement and is status post bronchoscopy with left lateral thoracotomy and complete decortication with CT surgery on 05/24/2023. Initial cultures were staph hominis and patient was maintained on IV antibiotics with infectious disease following. Patient currently has no IV coverage in the outpatient setting as well as no primary care provider and resources are being provided. Patient has been cleared by infectious disease to continue on Bactrim twice daily for the next 2 weeks and close outpatient follow-up. Please refer to other consultation notes for further HPI. Currently no reports of chest pain, shortness of breath, or palpitations. Patient is afebrile. No reports of nausea or vomiting and patient is tolerating diet. Patient will be discharged home today. Guarded pro gnosis. Physical exam: Gen: This is a 67-year-old male who is awake, alert and oriented 3, well- developed, well-nourished, obese HEENT: Head is atraumatic, normocephalic. Pupils equal, round. Sclerae is anicteric. NECK: Supple. No JVD. No lymphadenopathy. No thyromegaly. LUNGS: Clear to auscultation. No wheezes or rhonchi. Improved variation on the left. No intercostal retractions. HEART: Regular rate and rhythm. No murmur. ABDOMEN: Soft. Bowel sounds are present. No masses. No tenderness. EXTREMITIES: No pedal edema. No calf tenderness. NEUROLOGICAL: Patient is awake, alert and oriented x3. Cranial nerves 2 through 12 are grossly intact. Please refer to medication reconciliation sheet for a list of medications. The impression and plan of care has been dictated by Stephanie Mccarthy, Nurse Practitioner as directed. Dr. Raghavendra MD I have performed a history and examination and MDM of this patient, discussed the same with the dictator, and agree with the dictator's assessment and plan as written ,documented as a scribe. Based on total visit time, I have performed more than 50% of the visit. Patient Condition at Discharge: Fair Plan - Discharge Summary New Discharge Prescriptions: New Sulfamethox-Tmp 800-160Mg [Bactrim DS 800-160 mg] 1 tab PO Q12HR 14 Days #28 tab Lactulose [Cephulac] 20 gm PO BID PRN #240 ml PRN Reason: Constipation Tamsulosin [Flomax] 0.4 mg PO PC-SUPPER #30 cap traMADol HCl [Ultram] 50 mg PO TID #9 tab Nicotine 21Mg/24Hr Patch [Habitrol] 1 patch TRANSDERM DAILY #30 patch polyethylene glycoL 3350 [Miralax] 17 gm PO DAILY #10 packet Continue Ibuprofen [Motrin] 800 mg PO Q8H Atorvastatin [Lipitor] 10 mg PO DAILY Olmesartan [Benicar] 20 mg PO DAILY Discontinued Levofloxacin [Levaquin] 750 mg PO DAILY Discharge Medication List Atorvastatin [Lipitor] 10 mg PO DAILY 05/16/23 [History] Ibuprofen [Motrin] 800 mg PO Q8H 05/16/23 [History] Olmesartan [Benicar] 20 mg PO DAILY 05/16/23 [History] Lactulose [Cephulac] 20 gm PO BID PRN #240 ml 05/29/23 [Rx] Nicotine 21Mg/24Hr Patch [Habitrol] 1 patch TRANSDERM DAILY #30 patch 05/29/23 [Rx] Sulfamethox-Tmp 800-160Mg [Bactrim DS 800-160 mg] 1 tab PO Q12HR 14 Days #28 tab 05/29/23 [Rx] Tamsulosin [Flomax] 0.4 mg PO PC-SUPPER #30 cap 05/29/23 [Rx] polyethylene glycoL 3350 [Miralax] 17 gm PO DAILY #10 packet 05/29/23 [Rx] traMADol HCl [Ultram] 50 mg PO TID #9 tab 05/29/23 [Rx] Follow up Appointment(s)/Referral(s): Shannan Bunn MD [STAFF PHYSICIAN] - 1 Week (Spoke with Dr Bunn, and he is willing to accept him as a new patient.) Rajat Reinoso MD [STAFF PHYSICIAN] - 1 Week (office closed- please call to schedule) Ariella Hernandez MD [STAFF PHYSICIAN] - 1 Week (closed- please call to schedule) Ambulatory/Diagnostic Orders: Basic Metabolic Panel [LAB.AMB] Location: None Selected C Reactive Protein [LAB.AMB] Location: None Selected Activity/Diet/Wound Care/Special Instructions: DISCHARGE INSTRUCTIONS: 1. No driving for 2 weeks, or until physician gives their ok. 2. No lifting, pushing, or pulling more than 10 pounds for 2 weeks. The physician will advise of any restriction changes. 3. Continue pain control per as needed orders. Alternate acetaminophen (Tylenol) and ibuprofen (Motrin/Advil) for pain. 4. Continue with incentive spirometry and splinting until otherwise directed by the physician. 5. Leave chest tube dressing for 48 hours. After that, remove all dressings and shower daily. 6. Routine incision care. No powders, lotions, ointments on incisions. 7. Please call surgeon/CARD DEALER for temp greater than 101 F or purulent drainage from incisions. 8. Smoking cessation counseling and program information provided. Quitting smoking is the most important step you can take to improve your health. For additional information and assistance to quit smoking, please call the [place] tobacco quit line (5-241-JFZV-NOW/ ) or online: https://www.[place].gov/[facility]/keep-m i-healthy/chronicdiseases/tobacco/tfh-rg-jywf-tobacco Continue taking antibiotics until finished Close outpatient follow-up with infectious disease Discharge/Stand Alone Forms: Area PCPs Discharge Disposition: HOME SELF-CARE
--- NOTE | 2023-05-30 14:54 | P.PN ---
Subjective Progress Note Date: 05/29/23 Principal diagnosis: Pneumonia/empyema Patient is a 67-year-old male with a past medical history significant for hypertension hyperlipidemia presenting to the hospital on 05/16/2023 for evaluation of fever and cough, patient did have evidence of loculated left-sided effusion and consolidation in this patient was status post chest tube placement culture did grew staphylococcus hominis. On today's evaluation that is 05/29/2023, the patient continues to be afebrile, the patient is breathing comfortably on room air , the patient denies any chest pain or worsening cough and no sputum production, patient denies abdominal pain, and denies any nausea/vomiting or diarrhea White count is is normalized to 9.6 as of yesterday, creatinine is 0.78, cultures are so far negative Objective - Vital Signs Vital signs: Vital Signs Temp 98.0 F 05/29/23 08:00 Pulse 88 05/29/23 12:01 Resp 18 05/29/23 12:01 BP 128/78 05/29/23 08:00 Pulse Ox 95 05/29/23 08:44 FiO2 Intake & Output 05/28/23 05/29/23 05/29/23 18:59 06:59 18:59 Intake Total 1360 Balance 1360 Intake: IV 1000 Vancomycin 1,500 mg In 1000 Sodium Chloride 0.9% 500 ml 500 ml @ 167 mls/hr IVPB Q8H [facility] Rx#: [id number] Oral 360 Other: Voiding Method Urinal Urinal # Voids 1 2 ABP, PAP, CO, CI - Last Documented Arterial Blood Pressure 76/58 - Exam GENERAL DESCRIPTION: An elderly male lying in bed in no distress RESPIRATORY SYSTEM: Unlabored breathing , decreased breath sounds at bases HEART: S1 S2 regular rate and rhythm , ABDOMEN: Soft , no tenderness EXTREMITIES: No edema feet - Labs CBC & Chem 7: 05/28/23 07:42 05/29/23 04:56 Labs: Abnormal Lab Results - Last 24 Hours (Table) 05/29/23 Range/Units 04:56 Sodium 135 L (137-145) mmol/L Calcium 7.9 L (8.4-10.2) mg/dL Microbiology - Last 24 Hours (Table) 05/24/23 17:45 Anaerobic Culture - Final Peritoneal Fluid 05/24/23 17:40 Anaerobic Culture - Final Peritoneal Fluid 05/24/23 17:36 Anaerobic Culture - Final Peritoneal Fluid 05/24/23 17:40 Gram Stain - Final Peritoneal Fluid Tissue Culture - Final 05/24/23 17:36 Gram Stain - Final Peritoneal Fluid Tissue Culture - Final 05/24/23 17:45 Gram Stain - Final Peritoneal Fluid Body Fluid Culture - Final Assessment and Plan (1) Empyema Status: Acute Code(s): J86.9 - PYOTHORAX WITHOUT FISTULA SNOMED Code(s): 832349133 (2) Pneumonia Status: Acute Code(s): J18.9 - PNEUMONIA, UNSPECIFIED ORGANISM SNOMED Code(s): 596539217 Plan: 1patient presented hospital with sepsis about a week ago in this patient with a fever elevated white count source is likely left-sided pneumonia with the loculated parapneumonic effusion status post chest tube placement on 05/17/2023 that did grew oxacillin resistant Staphylococcus hominis in this patient is status post thoracotomy and decortication and cultures 2Patient has shows some clinical improvement and the patient white count has normalized 3-patient was advised two-week course of vancomycin pharmacy to dose on discharge however per skilled nursing case manager the patient did not have any coverage for outpatient IV antibiotics and the patient cannot afford it, I was not able to send a prescription for Zyvox as the patient is on tramadol and pharmacy recommending at least 2 weeks off Tramadol befor Zyvox could be used use in a prescription for Bactrim DS 2 weeks and close outpatient follow-up multiple questions were answered Dictation was produced using [employer] dictation software. please excuse any grammatical, word or spelling errors. Time with Patient: Greater than 30
--- NOTE | 2023-05-31 20:13 | CDI ---
Documentation Clarification Form Date: 05/31/2023 07:59:25 PM From: Liliam Wheat Phone: Admit Date: 05/16/2023 05:14:00 PM Patient Name: Victor Hugo Moreno Visit Number: [id number] Discharge Date: 05/29/2023 03:35:00 PM ATTENTION: The Clinical Documentation Specialists (CDI) and [facility] Coding Staff appreciate your assistance in clarifying documentation. Please respond to the clarification below the line at the bottom and electronically sign. The CDI & [facility] Coding staff will review the response and follow-up if needed. Please note: Queries are made part of the Legal Health Record. If you have any questions, please contact the author of this message via ITS. Dr. Ariella Hernandez There is documentation of: we will get aPICCline per 05/28 Progress Note. Please clarify if the order was completed. History/Risk Factors: 67yo M, PNA, pleural effusion, constipation, sepsis, smoker, HTN, HLD Clinical Indicators: Staphhominis sub sp. Hominis Treatment: The patient remains on vancomycin. Noted the patient is postthoracotomydecortication. Can you please clarify the PICCline was inserted? [ ] Yes, PICCline inserted on (please include date of insertion) [ ] No, PICCline was not inserted [ x ] Other, please specify --- why you cannot find out yourself , instead of sending this query ? [ ] Unable to determine (Template Last Revised: October 2020) MTDD
== END 2023-05-29 15:35 | disposition home or self-care (01) | DRG 853 ==
LOC: EC 10:38 → MERGE 10:38 → 4SSUR 17:14 → 2SICU 05-24 18:13 → 3SCARD 05-28 04:44
PROVIDERS: ADMIT Internal Medicine; ATTEND Internal Medicine
PROC: 3E03317 Introduction of Other Thrombolytic into Peripheral Vein, Percutaneous Approach (ICD-10-PCS; 2023-05-17)
PROC: 0W9B30Z Drainage of Left Pleural Cavity with Drainage Device, Percutaneous Approach (ICD-10-PCS; 2023-05-18)
PROC: 0BNJ4ZZ Release Left Lower Lung Lobe, Percutaneous Endoscopic Approach (ICD-10-PCS; 2023-05-24)
PROC: 0BNG4ZZ Release Left Upper Lung Lobe, Percutaneous Endoscopic Approach (ICD-10-PCS; 2023-05-24)
PROC: 0BJ08ZZ Inspection of Tracheobronchial Tree, Via Natural or Artificial Opening Endoscopic (ICD-10-PCS; 2023-05-24)
PROC: 3E0T3BZ Introduction of Anesthetic Agent into Peripheral Nerves and Plexi, Percutaneous Approach (ICD-10-PCS; 2023-05-24)
PROC: 30233N1 Transfusion of Nonautologous Red Blood Cells into Peripheral Vein, Percutaneous Approach (ICD-10-PCS; 2023-05-24)
PROC: 015 Peripheral Nervous System, Destruction (ICD-10-PCS; principal; 2023-05-24 08:30)
PROC: 30233J1 Transfusion of Nonautologous Serum Albumin into Peripheral Vein, Percutaneous Approach (ICD-10-PCS; 2023-05-25)
DX: A41.9 Sepsis, unspecified organism (principal); J18.9 Pneumonia, unspecified organism; J86.9 Pyothorax without fistula; J94.8 Other specified pleural conditions; T79.7XXA Traumatic subcutaneous emphysema, initial encounter; J91.8 Pleural effusion in other conditions classified elsewhere; J98.11 Atelectasis; Z16.11 Resistance to penicillins; I10 Essential (primary) hypertension; F17.210 Nicotine dependence, cigarettes, uncomplicated; E78.5 Hyperlipidemia, unspecified; E86.0 Dehydration; B95.7 Other staphylococcus as the cause of diseases classified elsewhere; M25.512 Pain in left shoulder; K59.00 Constipation, unspecified; M54.50 Low back pain, unspecified; R19.7 Diarrhea, unspecified; R91.1 Solitary pulmonary nodule; R59.0 Localized enlarged lymph nodes; R73.03 Prediabetes; R74.01 Elevation of levels of liver transaminase levels; W19.XXXA Unspecified fall, initial encounter; Z71.6 Tobacco abuse counseling; Z82.49 Family history of ischemic heart disease and other diseases of the circulatory system; Z79.1 Long term (current) use of non-steroidal anti-inflammatories (NSAID); Z79.899 Other long term (current) drug therapy
CPT/HCPCS: 32551; 36415; 64999; 71045; 71046; 71260; 71275; 74177; 76942; 80048; 80053; 80074; 80202; 82945; 83605; 83615; 83880; 84145; 84155; 84157; 85025; 85027; 85610; 86140; 86850; 86900; 86901; 86920; 87040; 87070; 87075; 87077; 87102; 87116; 87186; 87205; 87206; 87449; 88305; 89050; 93005; 94640; 94760; 96361; 96365; 96366; 96367; 96372; 96375; 99285

== ENCOUNTER 2023-06-04 09:56 | Emergency (ER) | payer MEDICARE, BC ==
[2023-06-04 10:03] VITALS: RESP 18; TEMP 97.9
[2023-06-04 10:50] LABS: Basophils % (A) 1 %; Eosinophils # (A) 0.2 k/uL (0-0.7); Eosinophils % (A) 3 %; HCT 30.2 % (39.0-53.0); HGB 9.8 gm/dL (13.0-17.5); Hypochromasia Slight; Lymphocytes # (A) 1.8 k/uL (1.0-4.8); Lymphocytes % (A) 22 %; MCH 28.8 pg (25.0-35.0); MCHC 32.5 g/dL (31.0-37.0); MCV 88.7 fL (80.0-100.0); Mean Platelet Volume 6.9; Monocytes # (A) 0.7 k/uL (0-1.0); Monocytes % (A) 9 %; Neutrophils # (A) 5.1 k/uL (1.3-7.7); Neutrophils % (A) 64 %; Platelet Count 649 k/uL (150-450); WBC 8.1 k/uL (3.8-10.6)
[2023-06-04 11:03] LABS: Partial Thromboplastin Time 25.1 sec (22.0-30.0); Prothrombin Time 10.7 sec (10.0-12.5)
[2023-06-04 11:12] LABS: ALT 131 U/L (4-49); AST 74 U/L (17-59); African American GFR (CKD) 86 (>60 ml/min/1.73 sqM); Albumin 3.3 g/dL (3.5-5.0); Alkaline Phosphatase 114 U/L (38-126); Anion Gap 10 mmol/L; Blood Urea Nitrogen 11 mg/dL (9-20); Calcium 9.1 mg/dL (8.4-10.2); Carbon Dioxide 26 mmol/L (22-30); Chloride 103 mmol/L (98-107); Glucose 90 mg/dL (74-99); Magnesium 2.3 mg/dL (1.6-2.3); Non-African American GFR(CKD) 75 (>60 ml/min/1.73 sqM); Sodium 139 mmol/L (137-145); Total Bilirubin 0.3 mg/dL (0.2-1.3); Total Protein 7.2 g/dL (6.3-8.2)
[2023-06-04 11:21] LABS: NT-Pro-B-Type Natriuretic Pept 75 pg/mL
--- NOTE | 2023-06-04 12:54 | XR ---
EXAMINATION TYPE: XR chest 2V DATE OF EXAM: 06/04/2023 10:34 AM CLINICAL INDICATION:Male, 67 years old with history of difficulty breathing; [facility] COMPARISON: 05/29/2023 x-ray and earlier exams including CT chest 05/22/2023 TECHNIQUE: XR chest 2V Frontal and lateral views of the chest. FINDINGS: Lines/Tubes: No indwelling lines are seen. Lungs/Pleura: Similar appearance of small to moderate left-sided hydropneumothorax, with perhaps slig htly smaller small pneumothorax component laterally compared to prior. Adjacent atelectasis/airspace disease is similar. Right lung and pleural space appear stable, without significant effusion or pneum othorax on the right. Nodular density in the right midlung zone seen on the prior CT is not well visu alized; see previous recommendations on CT report. Pulmonary vascularity: Unremarkable. Heart/mediastinum: Cardiac mediastinal silhouette is stable. Heart is not enlarged. Musculoskeletal: No acute bony abnormality identified. Degenerative changes of the spine and shoulder s. Other findings: None IMPRESSION: 1. Similar appearance of small to moderate left-sided hydropneumothorax, with perhaps slightly small er small pneumothorax component laterally compared to prior. Adjacent atelectasis/airspace disease is similar. 2. Right lung and pleural space appear stable, without significant effusion or pneumothorax on the r ight. 3. Nodular density in the right midlung zone seen on the prior CT is not well visualized; see previo us recommendations on CT report. 4. Otherwise no new acute cardiopulmonary disease/process.
--- NOTE | 2023-06-04 13:37 | ED ---
URI HPI - General Chief Complaint: Upper Respiratory Infection Stated Complaint: cough Time Seen by Provider: 06/04/23 10:03 Source: patient, RN notes reviewed Mode of arrival: ambulatory Limitations: no limitations - History of Present Illness Initial Comments: 67-year-old male presents emergency department to complaint of increasing cough. Patient states he had a recent long admission for complicated left-sided pneumonia with left lateral thoracotomy and decortication the left long he is noted to have fluid, pus collection he states that he had to tubes in his chest after surgery. Patient states he removed he noticed that the one as recently st arted draining he is on current antibiotics and closely followed by ID, primary, scrap preparer cardiothoracic. Patient denies any recent fevers, chills denies increasing chest pain states her some pressure rapid on his chest. He denies any night sweats. Patient states his surgery was Dr. Reinoso - Related Data Home Medications Medication Instructions Recorded Confirmed Atorvastatin [Lipitor] 10 mg PO DAILY 05/16/23 05/16/23 Ibuprofen [Motrin] 800 mg PO Q8H 05/16/23 05/16/23 Olmesartan [Benicar] 20 mg PO DAILY 05/16/23 05/16/23 Previous Rx's Medication Instructions Recorded Lactulose [Cephulac] 20 gm PO BID PRN #240 ml 05/29/23 Nicotine 21Mg/24Hr Patch [Habitrol] 1 patch TRANSDERM DAILY #30 patch 05/29/23 Sulfamethox-Tmp 800-160Mg [Bactrim 1 tab PO Q12HR 14 Days #28 tab 05/29/23 DS 800-160 mg] Tamsulosin [Flomax] 0.4 mg PO PC-SUPPER #30 cap 05/29/23 polyethylene glycoL 3350 [Miralax] 17 gm PO DAILY #10 packet 05/29/23 traMADol HCl [Ultram] 50 mg PO TID #9 tab 05/29/23 Allergies Allergy/AdvReac Type Severity Reaction Status Date / Time No Known Allergies Allergy Verified 06/04/23 10:00 Review of Systems ROS Statement: Those systems with pertinent positive or pertinent negative responses have been documented in the HPI. ROS Other: All systems not noted in ROS Statement are negative. Past Medical History Past Medical History: Hyperlipidemia, Hypertension Additional Past Medical History / Comment(s): Prediabetic with hemoglobin A1c 6.2% History of Any Multi-Drug Resistant Organisms: None Reported Past Surgical History: Hernia Repair Past Anesthesia/Blood Transfusion Reactions: No Reported Reaction Past Psychological History: No Psychological Hx Reported Smoking Status: Current every day smoker Past Alcohol Use History: None Reported Past Drug Use History: None Reported - Past Family History Mother Family Medical History: Myocardial Infarction ([place]) Father Family Medical History: Coronary Artery Disease (CAD) Additional Family Medical History / Comment(s): from coronary artery disease at 74 years old General Exam Limitations: no limitations General appearance: alert, in no apparent distress Head exam: Present: atraumatic, normocephalic, normal inspection Eye exam: Present: normal appearance, PERRL, EOMI. Absent: scleral icterus, conjunctival injection, periorbital swelling ENT exam: Present: normal exam, mucous membranes moist Neck exam: Present: normal inspection. Absent: tenderness, meningismus, lymphadenopathy Respiratory exam: Present: chest wall tenderness, decreased breath sounds, other (Left lateral chest feeling incision noted, there is small opening with some noted to nursing was drainage). Absent: normal lung sounds bilaterally, respiratory distress, wheezes, rales, rhonchi, stridor Cardiovascular Exam: Present: regular rate, normal rhythm, normal heart sounds. Absent: systolic murmur, diastolic murmur, rubs, gallop, clicks GI/Abdominal exam: Present: soft, normal bowel sounds. Absent: distended, tenderness, guarding, rebound, rigid Back exam: Absent: CVA tenderness (R), CVA tenderness (L) Neurological exam: Present: alert Course Vital Signs 06/04/23 06/04/23 06/04/23 10:00 10:05 10:27 Temperature 97.9 F Pulse Rate 72 72 Respiratory 18 18 Rate Blood Pressure 121/75 O2 Sat by Pulse 97 95 Oximetry 06/04/23 06/04/23 06/04/23 11:22 12:36 13:58 Temperature 97.9 F Pulse Rate 77 76 73 Respiratory 18 18 18 Rate Blood Pressure 133/81 O2 Sat by Pulse 97 98 97 Oximetry Medical Decision Making - Medical Decision Making Was pt. sent in by a medical professional or institution (, PA, BUSINESS AREA MANAGER, urgent care, hospital, or custodial...) When possible be specific @ -No Did you speak to anyone other than the patient for history (EMS, parent, family, police, friend...)? What history was obtained from this source @ -No Did you review nursing and triage notes (agree or disagree)? Why? @ -I reviewed and agree with nursing and triage notes Were old charts reviewed (outside hosp., previous admission, EMS record, old EKG, old radiological studies, urgent care reports/EKG's, custodial records)? Report findings @ -Reviewed all recent laboratory studies and notes from cardiothoracic, pulmo nary and infectious disease Differential Diagnosis (chest pain, altered mental status, abdominal pain women, abdominal pain men, vaginal bleeding, weakness, fever, dyspnea, syncope, headache, dizziness, GI bleed, back pain, seizure, CVA, palpatations, mental health, musculoskeletal)? @ -Pneumonia, pneumothorax, EKG interpreted by me (3pts min.). @ -As above X-rays interpreted by me (1pt min.). @ -Chest x-ray is consistent with prior chest x-ray showing small pneumothorax, mild left lower lung changes CT interpreted by me (1pt min.). @ -None done U/S interpreted by me (1pt. min.). @ -None done What testing was considered but not performed or refused? (CT, X-rays, U/S, labs)? Why? @ -None What meds were considered but not given or refused? Why? @ -None Did you discuss the management of the patient with other professionals (professionals i.e. , PA, BUSINESS AREA MANAGER, lab, RT, psych nurse, licensed social worker, data manager, teacher, special forces warrant officer, casework specialist)? Give summary @ -I did discuss case with Dr. Dias on-call for cardiothoracic updated on current findings he felt the patient is safe with continuation of antibiotics and does have follow-up in 3 days. We Was smoking cessation discussed for >3mins.? @ -No Was critical care preformed (if so, how long)? @ -No Were there social determinants of health that impacted care today? How? (Homelessness, low income, unemployed, alcoholism, drug addiction, tr ansportation, low edu. Level, literacy, decrease access to med. care, long-term, rehab)? @ -No Was there de-escalation of care discussed even if they declined (Discuss DNR or withdrawal of care, Hospice)? DNR status @ -No What co-morbidities impacted this encounter? (DM, HTN, Smoking, COPD, CAD, Cancer, CVA, ARF, Chemo, Hep., AIDS, mental health diagnosis, sleep apnea, morbid obesity)? @ -None Was patient admitted / discharged? Hospital course, mention meds given and route, prescriptions, significant lab abnormalities, going to OR and other pertinent info. @ -Discharged patient's workup was negative with no acute findings patient does state that he felt better and feels comfortable discharge and strict return parameters with close follow-up at his appointment this week Undiagnosed new problem with uncertain prognosis? @ -No Drug Therapy requiring intensive monitoring for toxicity (Heparin, Nitro, Insu saida, Cardizem)? @ -No Were any procedures done? @ -No Diagnosis/symptom? @ -Status post thoracotomy, pneumonia, pneumothorax Acute, or Chronic, or Acute on Chronic? @ -Acute] Uncomplicated (without systemic symptoms) or Complicated (systemic symptoms)? @ -[complicated Side effects of treatment? @ -No Exacerbation, Progression, or Severe Exacerbation? @ -No Poses a threat to life or bodily function? How? (Chest pain, [place], [place], pneumonia, PE, COPD, DKA, ARF, appy, cholecystitis, CVA, Diverticulitis, Homicidal, Suicidal, threat to staff... and all critical care pts) @ -No - Lab Data Result diagrams: 06/04/23 10:18 06/04/23 10:18 Lab Results 06/04/23 06/04/23 06/04/23 Range/Units 10:18 10:18 10:18 WBC 8.1 (3.8-10.6) k/uL RBC 3.40 L (4.30-5.90) m/uL Hgb 9.8 L (13.0-17.5) gm/dL Hct 30.2 L (39.0-53.0) % MCV 88.7 (80.0-100.0) fL MCH 28.8 (25.0-35.0) pg MCHC 32.5 (31.0-37.0) g/dL RDW 14.0 (11.5-15.5) % Plt Count 649 H (150-450) k/uL MPV 6.9 Neutrophils % 64 % Lymphocytes % 22 % Monocytes % 9 % Eosinophils % 3 % Basophils % 1 % Neutrophils # 5.1 (1.3-7.7) k/uL Lymphocytes # 1.8 (1.0-4.8) k/uL Monocytes # 0.7 (0-1.0) k/uL Eosinophils # 0.2 (0-0.7) k/uL Basophils # 0.0 (0-0.2) k/uL Hypochromasia Slight PT 10.7 (10.0-12.5) sec INR 1.0 (<1.2) APTT 25.1 (22.0-30.0) sec Sodium 139 (137-145) mmol/L Potassium 5.0 (3.5-5.1) mmol/L Chloride 103 (98-107) mmol/L Carbon Dioxide 26 (22-30) mmol/L Anion Gap 10 mmol/L BUN 11 (9-20) mg/dL Creatinine 1.05 (0.66-1.25) mg/dL Est GFR (CKD-EPI)AfAm 86 (>60 ml/min/1.73 sqM) Est GFR (CKD-EPI)NonAf 75 (>60 ml/min/1.73 sqM) Glucose 90 (74-99) mg/dL Plasma Lactic Acid Cole (0.7-2.0) mmol/L Calcium 9.1 (8.4-10.2) mg/dL Magnesium 2.3 (1.6-2.3) mg/dL Total Bilirubin 0.3 (0.2-1.3) mg/dL AST 74 H (17-59) U/L ALT 131 H (4-49) U/L Alkaline Phosphatase 114 (38-126) U/L NT-Pro-B Natriuret Pep 75 pg/mL Total Protein 7.2 (6.3-8.2) g/dL Albumin 3.3 L (3.5-5.0) g/dL 06/04/23 Range/Units 10:18 WBC (3.8-10.6) k/uL RBC (4.30-5.90) m/uL Hgb (13.0-17.5) gm/dL Hct (39.0-53.0) % MCV (80.0-100.0) fL MCH (25.0-35.0) pg MCHC (31.0-37.0) g/dL RDW (11.5-15.5) % Plt Count (150-450) k/uL MPV Neutrophils % % Lymphocytes % % Monocytes % % Eosinophils % % Basophils % % Neutrophils # (1.3-7.7) k/uL Lymphocytes # (1.0-4.8) k/uL Monocytes # (0-1.0) k/uL Eosinophils # (0-0.7) k/uL Basophils # (0-0.2) k/uL Hypochromasia PT (10.0-12.5) sec INR (<1.2) APTT (22.0-30.0) sec Sodium (137-145) mmol/L Potassium (3.5-5.1) mmol/L Chloride (98-107) mmol/L Carbon Dioxide (22-30) mmol/L Anion Gap mmol/L BUN (9-20) mg/dL Creatinine (0.66-1.25) mg/dL Est GFR (CKD-EPI)AfAm (>60 ml/min/1.73 sqM) Est GFR (CKD-EPI)NonAf (>60 ml/min/1.73 sqM) Glucose (74-99) mg/dL Plasma Lactic Acid Cole 1.1 (0.7-2.0) mmol/L Calcium (8.4-10.2) mg/dL Magnesium (1.6-2.3) mg/dL Total Bilirubin (0.2-1.3) mg/dL AST (17-59) U/L ALT (4-49) U/L Alkaline Phosphatase (38-126) U/L NT-Pro-B Natriuret Pep pg/mL Total Protein (6.3-8.2) g/dL Albumin (3.5-5.0) g/dL - EKG Data -: EKG Interpreted by Me EKG Comments: EKG performed at 10:24 sinus rhythm with a rate of 78 AK 179/106 QT/QTC 47/428 Disposition Clinical Impression: Cough, S/P thoracotomy Disposition: HOME SELF-CARE Condition: Stable Additional Instructions: Please return to the Emergency Department if symptoms worsen or any other concerns. Is patient prescribed a controlled substance at d/c from ED?: No Referrals: Shannan Bunn MD [Primary Care Provider] - 1-2 days Time of Disposition: 13:49
[2023-06-04 14:14] VITALS: BP 133/81; PULSE 73
== END 2023-06-04 14:02 | disposition home or self-care (01) ==
LOC: EC 09:56
DX: Z48.813 Encounter for surgical aftercare following surgery on the respiratory system (principal); I10 Essential (primary) hypertension; E78.5 Hyperlipidemia, unspecified; F17.200 Nicotine dependence, unspecified, uncomplicated; Z79.899 Other long term (current) drug therapy
CPT/HCPCS: 36415; 71046; 80053; 83605; 83735; 83880; 85025; 85610; 85730; 93005; 99284

== ENCOUNTER → 2023-10-31 | Outpatient (CLI) | payer MEDICARE, BC ==
--- NOTE | 2023-10-31 13:15 | US ---
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 Indirect Doppler criteria was utilized. FINDINGS: EXAM MEASUREMENTS: RIGHT: Peak Systolic Velocity (PSV) cm/sec ----- Right CCA: 117 ----- Right ICA: 118 ----- Right ECA: 116 ICA/CCA ratio: 1.0 RIGHT: End Diastole cm/sec ----- Right CCA: 29 ----- Right ICA: 27 ----- Right ECA: 26 LEFT: Peak Systolic Velocity (PSV) cm/sec ----- Left CCA: 103 ----- Left ICA: 76 ----- Left ECA: 108 ICA/CCA ratio: 0.7 LEFT: End Diastole cm/sec ----- Left CCA: 25 ----- Left ICA: 32 ----- Left ECA: 20 VERTEBRALS (direction of flow): Right Vertebral: Antegrade Left Vertebral: Antegrade Rhythm: Normal AUTOMATIC LOG CUT OFF SAWYER NOTES: Mild intimal thickening. No suspicious plaque, or elevated velocities. IMPRESSION: 1. No significant flow-limiting stenosis carotid bifurcations Criteria for Assigning % of Stenosis / Diameter reduction (Estimation based on the indirect measurements of the internal carotid artery velocities (ICA PSV). 1. Normal (no stenosis)=ICA PSV < 125 cm/s: ratio < 2.0: ICA EDV<40 cm/s. 2. Less than 50% stenosis=ICA PSV < 125 cm/s: ratio < 2.0: ICA EDV<40 cm/s. 3. 50 to 69% stenosis=ICA PSV of 125 to 230 cm/s: ration 2.0 ? 4.0: ICA EDV 40-100 cm/s. 4. Greater than 70% stenosis to near occlusion= ICA PSV > 230 cm/s: ratio > 4.0: ICA EDV > 100 cm/s. 5. Near occlusion= ICA PSV velocities may be low or undetectable: variable ratio and ICA EDV. 6. Total occlusion=unable to detect flow.
== END | disposition home or self-care (01) ==
LOC: RADUSWWP 07:50
PROVIDERS: ATTEND Internal Medicine
DX: I65.23 Occlusion and stenosis of bilateral carotid arteries (principal); I10 Essential (primary) hypertension; Z87.891 Personal history of nicotine dependence
CPT/HCPCS: 93880

== ENCOUNTER 2024-10-15 14:19 | Emergency (ER) | payer MEDICARE, BC ==
--- NOTE | 2024-10-15 14:35 | ED ---
General Adult HPI - General Stated complaint: L hand laceration Time Seen by Provider: 10/15/24 14:29 - History of Present Illness Initial comments: Dictation was produced using [employer] dictation software. please excuse any grammatical, word or spelling errors. Chief Complaint: 69-year-old male presents to the emergency department for left hand laceration History of Present Illness: Patient 69-year-old male who was cutting boxes at home with a box toe buffer. States that he lost control of the knife and stabbed himself in the left thenar eminence on the palmar side. EMS was called after patient noted pulsatile bleeding. Put a pressure dressing on it. The ROS documented in this emergency department record has been reviewed and confirmed by me. Those systems with pertinent positive or negative responses have been documented in the HPI. All other systems are other negative and/or noncontributory. - Related Data Home Medications Medication Instructions Recorded Confirmed Atorvastatin [Lipitor] 10 mg PO DAILY 05/16/23 05/16/23 Ibuprofen [Motrin] 800 mg PO Q8H 05/16/23 05/16/23 Olmesartan [Benicar] 20 mg PO DAILY 05/16/23 05/16/23 Previous Rx's Medication Instructions Recorded Lactulose [Cephulac] 20 gm PO BID PRN #240 ml 05/29/23 Nicotine 21Mg/24Hr Patch [Habitrol] 1 patch TRANSDERM DAILY #30 patch 05/29/23 Sulfamethox-Tmp 800-160Mg [Bactrim 1 tab PO Q12HR 14 Days #28 tab 05/29/23 DS 800-160 mg] Tamsulosin [Flomax] 0.4 mg PO PC-SUPPER #30 cap 05/29/23 polyethylene glycoL 3350 [Miralax] 17 gm PO DAILY #10 packet 05/29/23 traMADol HCl [Ultram] 50 mg PO TID #9 tab 05/29/23 Allergies Allergy/AdvReac Type Severity Reaction Status Date / Time No Known Allergies Allergy Verified 10/15/24 14:46 Review of Systems ROS Statement: Those systems with pertinent positive or pertinent negative responses have been documented in the HPI. ROS Other: All systems not noted in ROS Statement are negative. Past Medical History Past Medical History: Hyperlipidemia, Hypertension Additional Past Medical History / Comment(s): Prediabetic with hemoglobin A1c 6.2% History of Any Multi-Drug Resistant Organisms: None Reported Past Surgical History: Hernia Repair Past Anesthesia/Blood Transfusion Reactions: No Reported Reaction Past Psychological History: No Psychological Hx Reported Smoking Status: Current every day smoker Past Alcohol Use History: None Reported Past Drug Use History: None Reported - Past Family History Mother Family Medical History: Myocardial Infarction ([place]) Father Family Medical History: Coronary Artery Disease (CAD) Additional Family Medical History / Comment(s): from coronary artery disease at 74 years old General Exam - General Exam Comments Initial Comments: General: Well-appearing, nontoxic, no acute distress. Head: Normocephalic, atraumatic Eyes: PERRLA, EOMI ENT: Airway patent Chest: Nonlabored breathing Skin: No visual rash, normal skin tone Neuro: Alert and oriented 3 Musculoskeletal: No gross abnormalities Left hand: L [place] laceration to the palmar side of the thenar eminence with multiple sources of pulsatile bleeding Course Vital Signs 10/15/24 10/15/24 14:22 15:15 Temperature 98.2 F Pulse Rate 81 74 Respiratory 18 18 Rate Blood Pressure 153/93 146/93 O2 Sat by Pulse 98 99 Oximetry - Reevaluation(s) Reevaluation #1: 10/15/24 14:[address] Carrington. He is currently in [place] states that he is unable to do the procedure in a timely fashion states that he is amenable for patient be transferred down to [place] if trauma surgeon and/or hand surgery unable to perform the procedure. Reevaluation #2: 10/15/24 15:[address] Lieberman who came down to the emergency department and managed patient's arterial bleed. Recommended patient be given referral to orthopedic hand surgery EKG Findings - EKG Comments: EKG Findings:: My EKG interpretation: Ventricular rate 70, sinus rhythm,. 200, QRS 97, QTc 410. No [place] prolongation, no QTC prolongation, no ST or T-wave changes noted. Overall, this EKG is unremarkable Medical Decision Making - Medical Decision Making Was pt. sent in by a medical professional or institution (, PA, AGRICULTURAL RESEARCHER, urgent care, hospital, or residential...) When possible be specific @ -No Did you speak to anyone other than the patient for history (EMS, parent, family, police, friend...)? What history was obtained from this source @ -No Did you review nursing and triage notes (agree or disagree)? Why? @ -I reviewed and agree with nursing and triage notes Were old charts reviewed (outside hosp., previous admission, EMS record, old EKG, old radiological studies, urgent care reports/EKG's, residential records)? Report findings @ -No old charts were reviewed Differential Diagnosis (chest pain, altered mental status, abdominal pain women, abdominal pain men, vaginal bleeding, musculoskeletal, weakness, fever, dyspnea, syncope, headache, dizziness, GI bleed, back pain, seizure, CVA, p alpatations, mental health)? @ -Arterial injury, head laceration, and infection EKG interpreted by me (3pts min.). @ -See above X-rays interpreted by me (1pt min.). @ -None done CT interpreted by me (1pt min.). @ -None done U/S interpreted by me (1pt. min.). @ -None done What testing was considered but not performed or refused? (CT, X-rays, U/S, labs)? Why? @ -None What meds were considered but not given or refused? Why? @ -None Was smoking cessation discussed for >3mins.? @ -No Were there social determinants of health that impacted care today? How? (Homelessness, low income, unemployed, alcoholism, drug addiction, transportation, low edu. Level, literacy, decrease access to med. care, alf, rehab)? @ -No Was there de-escalation of care discussed even if they declined (Discuss DNR or withdrawal of care, Hospice)? DNR status @ -No What co-morbidities impacted this encounter? (DM, HTN, Smoking, COPD, CAD, Cancer, CVA, ARF, Chemo, Hep., AIDS, mental health diagnosis, sleep apnea, morbid obesity)? @ -None Was patient admitted / discharged? Hospital course, mention meds given and route, prescriptions, significant lab abnormalities, going to OR and other pertinent info. @ -69-year-old male presents to the emergency department after hand laceration. Patient had findings of arterial bleeding. Trauma surgery was called and repaired laceration along with arterial bleeding. Vital signs stable. Patient well-appearing tetanus updated. Laboratory evaluation is unremarkable. Patient given appointment with hand surgery. Return precautions discussed. Patient discharged patient prescription for antibiotics. Did you discuss the management of the patient with other professionals (professionals i.e. , PA, AGRICULTURAL RESEARCHER, lab, RT, psych nurse, social scientist, manufacturing weaver, teacher, fundraising officer, case monitor)? Give summary @ -No Was critical care preformed (if so, how long)? @ -Yes, 33 minutes Undiagnosed new problem with uncertain prognosis? @ -No Drug Therapy requiring intensive monitoring for toxicity (Heparin, Nitro, Insulin, Cardizem)? @ -No Were any procedures done? @ -No Diagnosis/symptom? Acute, or Chronic, or Acute on Chronic? Uncomplicated (without systemic symptoms) or Complicated (systemic symptoms)? @ -Hand laceration with arterial injury Side effects of treatment? @ -No Exacerbation, Progression, or Severe Exacerbation? @ -No Poses a threat to life or bodily function? How? (Chest pain, [place], [place], pneumonia, PE, COPD, DKA, ARF, appy, cholecystitis, CVA, Diverticulitis, Homicidal, Suicidal, threat to staff... and all critical care pts) @ -yes - Lab Data Result diagrams: 10/15/24 14:36 10/15/24 16:00 Lab Results 10/15/24 10/15/24 10/15/24 Range/Units 14:36 14:36 14:36 WBC 9.9 (3.8-10.6) k/uL RBC 5.10 (4.30-5.90) m/uL Hgb 14.6 (13.0-17.5) gm/dL Hct 45.9 (39.0-53.0) % MCV 90.0 (80.0-100.0) fL MCH 28.7 (25.0-35.0) pg MCHC 31.9 (31.0-37.0) g/dL RDW 13.3 (11.5-15.5) % Plt Count 266 (150-450) k/uL MPV 7.9 Neutrophils % 62 % Lymphocytes % 27 % Monocytes % 6 % Eosinophils % 2 % Basophils % 1 % Neutrophils # 6.1 (1.3-7.7) k/uL Lymphocytes # 2.7 (1.0-4.8) k/uL Monocytes # 0.6 (0-1.0) k/uL Eosinophils # 0.2 (0-0.7) k/uL Basophils # 0.1 (0-0.2) k/uL PT 10.9 (10.0-12.5) sec INR 1.0 (<1.2) APTT 24.6 (22.0-30.0) sec Sodium (137-145) mmol/L Potassium (3.5-5.1) mmol/L Chloride (98-107) mmol/L Carbon Dioxide (22-30) mmol/L Anion Gap mmol/L BUN (9-20) mg/dL Creatinine (0.66-1.25) mg/dL Est GFR (CKD-EPI)AfAm (>60 ml/min/1.73 sqM) Est GFR (CKD-EPI)NonAf (>60 ml/min/1.73 sqM) Glucose (74-99) mg/dL Plasma Lactic Acid Cole 1.6 (0.7-2.0) mmol/L Calcium (8.4-10.2) mg/dL Total Bilirubin (0.2-1.3) mg/dL AST (17-59) U/L ALT (4-49) U/L Alkaline Phosphatase (38-126) U/L Troponin I (0.000-0.034) ng/mL Total Protein (6.3-8.2) g/dL Albumin (3.5-5.0) g/dL Serum Alcohol mg/dL Blood Type Blood Type Recheck Bld Type Recheck Status Spec Expiration Date 10/15/24 10/15/24 10/15/24 Range/Units 14:36 15:44 16:00 WBC (3.8-10.6) k/uL RBC (4.30-5.90) m/uL Hgb (13.0-17.5) gm/dL Hct (39.0-53.0) % MCV (80.0-100.0) fL MCH (25.0-35.0) pg MCHC (31.0-37.0) g/dL RDW (11.5-15.5) % Plt Count (150-450) k/uL MPV Neutrophils % % Lymphocytes % % Monocytes % % Eosinophils % % Basophils % % Neutrophils # (1.3-7.7) k/uL Lymphocytes # (1.0-4.8) k/uL Monocytes # (0-1.0) k/uL Eosinophils # (0-0.7) k/uL Basophils # (0-0.2) k/uL PT (10.0-12.5) sec INR (<1.2) APTT (22.0-30.0) sec Sodium 137 (137-145) mmol/L Potassium 5.1 (3.5-5.1) mmol/L Chloride 102 (98-107) mmol/L Carbon Dioxide 26 (22-30) mmol/L Anion Gap 9 mmol/L BUN 14 (9-20) mg/dL Creatinine 0.83 (0.66-1.25) mg/dL Est GFR (CKD-EPI)AfAm >90 (>60 ml/min/1.73 sqM) Est GFR (CKD-EPI)NonAf >90 (>60 ml/min/1.73 sqM) Glucose 91 (74-99) mg/dL Plasma Lactic Acid Cole (0.7-2.0) mmol/L Calcium 9.5 (8.4-10.2) mg/dL Total Bilirubin 1.1 (0.2-1.3) mg/dL AST 37 (17-59) U/L ALT 33 (4-49) U/L Alkaline Phosphatase 70 (38-126) U/L Troponin I <0.012 (0.000-0.034) ng/mL Total Protein 7.4 (6.3-8.2) g/dL Albumin 4.5 (3.5-5.0) g/dL Serum Alcohol <10 mg/dL Blood Type O Positive Blood Type Recheck O Pos Bld Type Recheck Status No Spec Expiration Date 10/18/20242343 Disposition Clinical Impression: Laceration Disposition: HOME SELF-CARE Condition: Good Instructions (If sedation given, give patient instructions): Laceration (ED) Is patient prescribed a controlled substance at d/c from ED?: No Referrals: Ramon Hawkins MD [STAFF PHYSICIAN] - 10/17/24 8:30 am (Please bring insurance and ID cards. You will have new patient information to complete. ) Shannan Bunn MD [Primary Care Provider] - 1-2 days Time of Disposition: 16:48
[2024-10-15 14:36] VITALS: RESP 18
[2024-10-15] MEDS: DIPH,PERTUS(ACELL)TETVAC-LF 0.5 ML VIAL IM ONE (14:44)
[2024-10-15 14:47] LABS: Basophils # (A) 0.1 k/uL (0-0.2); Basophils % (A) 1 %; Eosinophils # (A) 0.2 k/uL (0-0.7); Eosinophils % (A) 2 %; HCT 45.9 % (39.0-53.0); HGB 14.6 gm/dL (13.0-17.5); Lymphocytes # (A) 2.7 k/uL (1.0-4.8); Lymphocytes % (A) 27 %; MCH 28.7 pg (25.0-35.0); MCHC 31.9 g/dL (31.0-37.0); Mean Platelet Volume 7.9; Monocytes # (A) 0.6 k/uL (0-1.0); Monocytes % (A) 6 %; Neutrophils # (A) 6.1 k/uL (1.3-7.7); Neutrophils % (A) 62 %; Platelet Count 266 k/uL (150-450); RDW 13.3 % (11.5-15.5); WBC 9.9 k/uL (3.8-10.6)
[2024-10-15] MEDS: MORPHINE SULFATE 4 MG/ML SYRINGE IVP STA (15:01)
[2024-10-15 15:24] LABS: Partial Thromboplastin Time 24.6 sec (22.0-30.0); Prothrombin Time 10.9 sec (10.0-12.5)
[2024-10-15 16:19] LABS: ALT 33 U/L (4-49); African American GFR (CKD) >90 (>60 ml/min/1.73 sqM); Albumin 4.5 g/dL (3.5-5.0); Alcohol <10 mg/dL; Anion Gap 9 mmol/L; Blood Urea Nitrogen 14 mg/dL (9-20); Calcium 9.5 mg/dL (8.4-10.2); Carbon Dioxide 26 mmol/L (22-30); Chloride 102 mmol/L (98-107); Glucose 91 mg/dL (74-99); Non-African American GFR(CKD) >90 (>60 ml/min/1.73 sqM); Sodium 137 mmol/L (137-145); Total Bilirubin 1.1 mg/dL (0.2-1.3); Total Protein 7.4 g/dL (6.3-8.2)
[2024-10-15 16:21] LABS: Potassium 5.1 mmol/L (3.5-5.1)
[2024-10-15 16:22] LABS: AST 37 U/L (17-59); Alkaline Phosphatase 70 U/L (38-126)
[2024-10-15 17:12] VITALS: BP 150/94; PULSE 76; TEMP 98.1
== END 2024-10-15 17:30 | disposition home or self-care (01) ==
LOC: EC 14:19
DX: S61.412A Laceration without foreign body of left hand, initial encounter (principal); F17.200 Nicotine dependence, unspecified, uncomplicated; Z23 Encounter for immunization; W26.8XXA Contact with other sharp object(s), not elsewhere classified, initial encounter
CPT/HCPCS: 99284; 96374; 90471; 36415; 93005; 86900; 86901; 80053; 83605; 84484; 85025; 85610; 85730; 86850; 90715; G0480; J2270; 80320

== ENCOUNTER → 2024-11-18 | Outpatient (CLI) | payer MEDICARE, BC ==
--- NOTE | 2024-11-18 10:21 | CTL ---
EXAMINATION TYPE: CT Low Dose Lung DATE OF EXAM ORDERED: 11/18/2024 COMPARISON: CT chest 05/22/2023, CTA chest 05/16/2023 CLINICAL INDICATION: Male, 69 years old with history of Z12.2 ENCNTR SCREEN FOR Z87.891 NICOTINE DEPE NDENC; [facility], , Lung cancer screening, History of Smoking/tobacco use. TECHNIQUE: Low dose computed tomography scan was performed through the chest at 1 mm thick sections a nd reconstructed images in multiple planes at 1 mm and [address] DLP: 109.[address] CTDI: 2.60 mGy Automated exposure control for dose reduction was used. CT DIAGNOSTIC QUALITY: Satisfactory FINDINGS: Nodules: Medial right upper lobe 3.9 mm pulmonary nodular opacity (series 6, image 22). Not definitively visua lized on prior CT. LUNGS: COPD: Severity: None Fibrosis: Severity: None Lymph nodes: None Other findings: Small fat filled right Bochdalek hernia. Improvement in previously seen loculated lef t pleural effusion with some residual subpleural linear scarring. RIGHT PLEURAL SPACE: Effusion: None Calcification: None Thickening: None Pneumothorax: None LEFT PLEURAL SPACE: Effusion: None Calcification: None Thickening: None Pneumothorax: None HEART: Heart Size: Mildly Enlarged Coronary Calcification: None Pericardial Effusion: None OTHER FINDINGS: Upper abdomen: Small hiatal hernia. Bony thorax: Multilevel anterior osteophytosis of the thoracic spine. Supraclavicular region: None Other: Ascending thoracic aortic aneurysm measuring up to 4.0 cm. Aneurysm dilatation of the aortic r oot measuring up to 4.3 cm. The descending thoracic aorta measures up to 3.2 cm. Normal bilateral film coater ecomastia. IMPRESSION: 1. Medial right upper lobe 3.9 mm pulmonary nodular opacity. 2. Improvement in previously demonstrated loculated left pleural effusion with some residual subpleu ral linear scarring. 3. Aneurysmal dilatation of the aortic root and ascending thoracic aorta. CT LUNG RAD AND CT CHEST RECOMMENDATION: Lung-Rad 2 Benign Appearance or Behavior: Continue annual sc reening with LDCT in 12 months. S Modifier (other clinically significant findings): None [facility], , 11/18/2024 10:19 AM
== END | disposition home or self-care (01) ==
LOC: RADCTMAIN 08:49
PROVIDERS: ATTEND Internal Medicine
DX: Z12.2 Encounter for screening for malignant neoplasm of respiratory organs (principal); J98.4 Other disorders of lung; J90 Pleural effusion, not elsewhere classified; R91.1 Solitary pulmonary nodule; Z87.891 Personal history of nicotine dependence
CPT/HCPCS: 71271